=== PATIENT | female | born 1990 | race Caucasian/White ===

== ENCOUNTER 2017-10-29 14:06 | Emergency (ER) | payer SELFPAY ==
[2017-10-29 15:07] LABS: Urine Blood NEGATIVE (NEG); Urine Glucose NEGATIVE (NEG); Urine Protein NEGATIVE (NEG); Urine Specific Gravity >1.030 (1.005-1.030)
--- NOTE | 2017-10-29 15:33 | EDPHYS ---
Physician Documentation [facility] Name: Jenna Asher Age: 27 yrs Sex: Female : 1990 Arrival Date: 10/29/2017 Time: 14:09 Bed 11 Private MD: None, None ED Physician Agapito Sheldon HPI: 10/29 15:00 This 27 yrs old Female presents to ER via Ambulatory with complaints of Hand cp Swelling. 15:00 The patient or guardian reports injury, pain, swelling, tenderness. The complaints cp affect the MCP of right middle finger and MCP of right ring finger. Context: resulted from a fall. Onset: The symptoms/episode began/occurred 3 day(s) ago. Associated signs and symptoms: Pertinent positives: tingling distally, swelling, tenderness, Pertinent negatives: fever. 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 - Social history:: Smoking status: Patient uses tobacco products, denies chronic smoking, but will smoke occasionally, Patient uses alcohol, occasionally. - Ebola Screening: : Patient negative for fever greater than or equal to 101.5 degrees Fahrenheit, and additional compatible Ebola Virus Disease symptoms Patient denies exposure to infectious person Patient denies travel to an Ebola-affected area in the 21 days before illness onset. ROS: 15:05 Constitutional: Negative for body aches, chills, fever, poor PO intake. cp 15:05 Eyes: Negative for injury, pain, redness, and discharge. cp 15:05 ENT: Negative for drainage from ear(s), ear pain, sore throat, difficulty swallowing, difficulty handling secretions. 15:05 Cardiovascular: Negative for chest pain. 15:05 Respiratory: Negative for cough, wheezing. 15:05 Abdomen/GI: Negative for abdominal pain, vomiting, diarrhea, constipation. 15:05 MS/extremity: Positive for contusion, pain, swelling, tenderness, of the MCP of right ring finger and MCP of right middle finger, Negative for decreased range of motion, deformity. 15:05 Skin: Negative for cellulitis, rash. 15:05 Neuro: Negative for numbness, tingling. 15:05 All other systems are negative. Exam: 15:12 Constitutional: The patient appears in no acute distress, alert, awake, well developed, cp well nourished. 15:12 Head/Face: Normocephalic, atraumatic. cp 15:12 Eyes: Periorbital structures: appear normal, Conjunctiva: normal, no exudate, no injection, Lids and lashes: appear normal, bilaterally. 15:12 ENT: External ear(s): are unremarkable, Nose: is normal, Mouth: is normal, Posterior pharynx: is normal, airway is patent. 15:12 Chest/axilla: Inspection: normal. 15:12 Cardiovascular: Rate: normal. 15:12 Respiratory: the patient does not display signs of respiratory distress, Respirations: normal, no use of accessory muscles, no retractions, labored breathing, is not present. 15:12 Abdomen/GI: Exam negative for discomfort, distension, guarding, Inspection: abdomen appears normal. 15:12 Musculoskeletal/extremity: Extremities: grossly normal except: noted in the MCP of right ring finger and MCP of right middle finger: pain, swelling, tenderness, There is no evidence of decreased ROM, deformity, cellulitis, Perfusion: the extremity is normally perfused throughout, Sensation intact. Vital Signs: 14:14 BP 125 / 84; Pulse 67; Resp 18; Temp 99.0(O); Pulse Ox 99% on R/A; Weight 59.42 kg; hj Height 5 ft. 2 in. (157.48 cm); Pain 4/10; 14:14 Body Mass Index 23.96 (59.42 kg, 157.48 cm) hj MDM: 14:44 Patient medically screened. cp 15:30 Differential diagnosis: dislocation, closed fracture, contusion, abrasion, cellulitis. cp Test interpretation: by ED physician or midlevel provider: plain radiologic studies. 15:31 Data reviewed: vital signs, nurses notes, radiologic studies, plain films. cp 15:31 Counseling: I had a detailed discussion with the patient and/or guardian regarding: the cp historical points, exam findings, and any diagnostic results supporting the discharge/admit diagnosis, radiology results, to return to the emergency department if symptoms worsen or persist or if there are any questions or concerns that arise at home. Response to treatment: the patient's symptoms have mildly improved after treatment, and as a result, I will discharge patient. 10/29 14:32 Order name: Urine Dipstick--Ancillary (enter results); Complete Time: 15:26 ag 10/29 14:32 Order name: Urine --Ancillary (enter results); Complete Time: 15:26 ag 10/29 14:16 Order name: XRAY Hand RIGHT 3 View 10/29 14:16 Order name: Urine Dipstick-Ancillary (obtain specimen); Complete Time: 14:26 10/29 14:16 Order name: Urine Test (obtain specimen); Complete Time: 14:26 hj 10/29 15:03 Order name: Splint: right volar splint; Complete Time: 15:45 cp 10/29 15:03 Order name: Maxim Wrap; Complete Time: 15:45 cp Administered Medications: No medications were administered Disposition: 10/29/17 15:32 Discharged to Home. Impression: Contusion of right hand. - Condition is Stable. - Discharge Instructions: Hand Contusion. - Prescriptions for Ibuprofen 800 mg Oral Tablet - take 1 tablet by ORAL route every 8 hours As needed take with food; 30 tablet. - Work release form, Medication Reconciliation Form, Thank You Letter, Antibiotic Education, Prescription Opioid Use form. - Follow up: Private Physician; When: 2 - 3 days; Reason: Recheck today's complaints. - Problem is new. - Symptoms have improved. Addendum: 10/31/2017 09:21 Co-signature as Attending Physician, Agapito Sheldon MD I agree with the assessment and c klein plan of care. Signatures: Dispatcher [employer] [facility] Agapito Sheldon MD MD cha Williams, Irene RN RN iw Jose Carmichael RN RN Agapito Schmidt PA PA cp Corrections: (The following items were deleted from the chart) 10/29 15:54 15:32 10/29/2017 15:32 Discharged to Home. Impression: Contusion of right hand. iw Condition is Stable. Forms are Medication Reconciliation Form, Thank You Letter, Antibiotic Education, Prescription Opioid Use. Follow up: Private Physician; When: 2 - 3 days; Reason: Recheck today's complaints. Problem is new. Symptoms have improved. cp
--- NOTE | 2017-10-29 15:33 | ER ---
Nurse's Notes [facility] Name: Jenna Asher Age: 27 yrs Sex: Female : 1990 Arrival Date: 10/29/2017 Time: 14:09 Bed 11 Private MD: None, None Diagnosis: Contusion of right hand Presentation: 10/29 14:11 Presenting complaint: Patient states: last 26 of October, i slipped off the back of the truck and fell and i didn't land very good; now my R hand is swollen; denies hitting head and LOC; reports numbness and tingling;. Transition of care: patient was not received from another setting of care. Onset of symptoms was October 29, 2017. Risk Assessment: Do you want to hurt yourself or someone else? Patient reports no desire to harm self or others. Initial Sepsis Screen: Does the patient meet any 2 criteria? No. Patient's initial sepsis screen is negative. Does the patient have a suspected source of infection? No. Patient's initial sepsis screen is negative. Care prior to arrival: None. 14:11 Method Of Arrival: Ambulatory 14:11 Acuity: PORTER 4 Triage Assessment: 14:13 General: Appears in no apparent distress. uncomfortable, Behavior is calm, cooperative, hj appropriate for age. Pain: Complains of pain in right hand. 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 - Social history:: Smoking status: Patient uses tobacco products, denies chronic smoking, but will smoke occasionally, Patient uses alcohol, occasionally. - Ebola Screening: : Patient negative for fever greater than or equal to 101.5 degrees Fahrenheit, and additional compatible Ebola Virus Disease symptoms Patient denies exposure to infectious person Patient denies travel to an Ebola-affected area in the 21 days before illness onset. Screenin:13 Abuse screen: Denies threats or abuse. Denies injuries from another. Nutritional screening: No deficits noted. Tuberculosis screening: No symptoms or risk factors identified. Fall Risk None identified. Assessment: 15:28 General: Appears in no apparent distress. Behavior is calm, cooperative. Pain: iw Complains of pain in right hand. Neuro: Level of Consciousness is awake, alert, obeys commands, Oriented to person, place, time. 15:30 Cardiovascular: Patient's skin is warm and dry. Respiratory: Respiratory effort is iw even, unlabored. Derm: Bruising that is dark purple, on right hand. Musculoskeletal: Range of motion: limited in right wrist. Vital Signs: 14:14 BP 125 / 84; Pulse 67; Resp 18; Temp 99.0(O); Pulse Ox 99% on R/A; Weight 59.42 kg; hj Height 5 ft. 2 in. (157.48 cm); Pain 4/10; 14:14 Body Mass Index 23.96 (59.42 kg, 157.48 cm) ED Course: 14:09 Patient arrived in ED. mr 14:10 None, None is Private Physician. mr 14:12 Triage completed. hj 14:14 Arm band placed on left wrist. hj 14:15 Patient has correct armband on for positive identification. Bed in low position. Call hj light in reach. Side rails up X 1. 14:43 Agapito Schuler PA is PHCP. cp 14:43 Agapito Sheldon MD is Attending Physician. cp 14:46 XRAY Hand RIGHT 3 View In Process Unspecified. EDAK 14:56 Ema Balderrama, RN is Primary Nurse. iw 15:50 No provider procedures requiring assistance completed. Patient did not have IV access iw during this emergency room visit. Administered Medications: No medications were administered Outcome: 15:32 Discharge ordered by MD. cp 15:50 Discharged to home ambulatory, with family. iw 15:50 Condition: good 15:50 Discharge instructions given to patient, family, Instructed on discharge instructions, follow up and referral plans. medication usage, Demonstrated understanding of instructions, follow-up care, medications, Prescriptions given X 1. 15:54 Patient left the ED. iw Signatures: Dispatcher [employer] EDAK Ximena Willard Irene, RN RN Jose Carmichael RN RN Agapito Schuler PA PA cp Corrections: (The following items were deleted from the chart) 14:17 14:14 Pulse 67bpm; Resp 18bpm; Pulse Ox 99% RA; Temp 99.0F Oral; 59.42 kg; Height 5 ft. hj 2 in.; BMI: 23.9; Pain /10; hj 14:18 14:11 Presenting complaint: Patient states: last 26 of October, i slipped off the back of the truck and fell and i didn't land very good; now my R is swollen; denies hitting head and LOC; reports numbness and tingling;
--- NOTE | 2017-10-29 16:43 | RAD REPORT ---
EXAM DESCRIPTION: RAD - Hand Right 3 View - 10/29/2017 2:46 pm CLINICAL HISTORY: Right hand pain status post injury FINDINGS: No acute fracture or dislocation is seen. An old fracture of the fifth metatarsal neck is present
== END 2017-10-29 15:54 | disposition home or self-care (01) ==
LOC: ER 14:06
DX: S60.221A Contusion of right hand, initial encounter (principal); W18.39XA Other fall on same level, initial encounter; Y93.9 Activity, unspecified; Y92.9 Unspecified place or not applicable; Z88.1 Allergy status to other antibiotic agents; Z72.0 Tobacco use
CPT/HCPCS: 81003; 81025; 99283

== ENCOUNTER 2020-08-21 09:31 | Day surgery (SDC) | payer OTHER ==
[2020-08-20 15:32] LABS: Absolute Lymphocytes (CBC) 2.8 K/uL (0.7-4.9); Basophils % 0.7 % (0-1.3); Hematocrit 33.8 % (36.0-45.0); Lymphocytes % 32.9 % (15.3-44.8); MPV 7.2 fL (7.6-11.3); RBC Red Blood Cell Count 3.89 M/uL (3.86-4.86)
[2020-08-21] MEDS ORDERED: CEFAZOLIN/SWI 1gm 1 GM/10 ML SYR ONE (09:58)
[2020-08-21] MEDS ORDERED: Ringers Lactate 1,000 ML IV ONE (09:58)
[2020-08-21] MEDS ORDERED: MIDAZOLAM HCL 2 MG/2 ML INJ ONE (10:49)
[2020-08-21] MEDS ORDERED: propofoL 200 MG/20 ML VIAL IV ONE (10:49)
[2020-08-21] MEDS ORDERED: GLYCOPYRROLATE 0.2 MG/ML SYR ONE (10:51)
[2020-08-21] MEDS ORDERED: FENTANYL CITR 250 MCG/5 ML ONE (10:51)
[2020-08-21] MEDS ORDERED: ROCURONIUM 50 MG/5 ML VIAL IV ONE (10:52)
[2020-08-21] MEDS ORDERED: ONDANSETRON 4 MG/2 ML VIAL ONE (11:22)
[2020-08-21] MEDS ORDERED: dexAMETHasone 10 MG/ML VIAL ONE (11:33)
[2020-08-21] MEDS: FENTANYL CITR 100 MCG/2 ML ONE ×2 (12:14→12:25)
[2020-08-21] MEDS ORDERED: FENTANYL CITR 100 MCG/2 ML ONE (12:58)
[2020-08-21] MEDS ORDERED: HYDROCODONE/APAP 7.5/325 MG TAB ONE (13:08)
[2020-08-21 13:42] VITALS: O2SAT 98
[2020-08-21 14:43] VITALS: BP 114/55; TEMP 97.3
--- NOTE | 2020-08-21 19:27 | OP ---
Date of Procedure: 08/21/2020 Surgeon: Héctor Wadsworth MD Bronc Buster: NELSON Santizo Preoperative Diagnosis: Incarcerated umbilical hernia. Postoperative Diagnosis: Incarcerated umbilical hernia. Procedure: Laparoscopic repair of incarcerated umbilical hernia. Estimated Blood Loss: Minimal. Specimen: Hernia sac. Findings: As above. Anesthesia: General. Complications: None. Disposition: The patient tolerated the procedure in stable condition and taken to Recovery in good g eneral condition. Procedure In Detail: The patient was brought to the OR and placed in supine position. General anest hesia begun. The patient was prepped and draped in the usual sterile fashion. Marcaine 0.5% was inf iltrated locally. A 15-blade was used to make a 1 cm left upper quadrant incision. Subcutaneous tis sues were divided. Fascia was identified and divided. A #1 Vicryl stay suture was placed. Peritone al cavity was entered with sharp and blunt dissection. A 12 mm trocar was placed into the peritoneal cavity under direct vision. Pneumoperitoneum was established and then, 5 mm trocar placed in the le ft lower quadrant. Laparoscopy revealed incarcerated omentum into the hernia just above the umbilicu s. This was reduced with sharp and blunt dissection. Bleeding controlled with cautery. Then, a 4 c m incision was made transverse in nature above the umbilicus. Subcutaneous tissues were divided. He rnia sac identified and hernia sac excised. Approximately a 4 cm defect remained in the fascia. Goo d fascial edges obtained. Primary closure of the fascia accomplished with #1 PDS. Then, pneumoperit oneum reestablished and Bard balloon system mesh 15 x 10 cm placed in the peritoneal cavity and deplo yed in the standard fashion. Balloon system retrieved after AbsorbaTack was used to tack the mesh to the peritoneal surface. All components were retrieved in 1 piece and then the entire coverage of th e hernia defect was accomplished with 3 cm borders. There was no evidence of bleeding or bowel injur y appreciated. Subsequently, all trocars were removed under direct vision. Stay sutures were tied t o each other to reapproximate the fascial defect. Subcutaneous wounds were irrigated. Bleeding was controlled with cautery. A 3-0 was chromic used to approximate the subcutaneous tissues and close th e skin. Sterile dressing was applied. The patient was awakened and taken to Recovery in good genera l condition. Discharge Note: The patient will go to Day Surgery and home when stable. Disposition: Home. Condition: Stable. Discharge Instructions: Resume home medications and diet. Activity as tolerated. No heavy lifting. Remove outer dressing in 2 days. Shower. Keep wound clean and dry. Keep Steri-Strips on at all t imes. Incentive spirometry as ordered. Abdominal binder as ordered. Tylenol No.3 one tablet p.o. q .4 p.r.n. pain. Follow up in my office in 1 week. Call for appointment. /MODL Voice ID: [id number] Report ID: [id number]
== END 2020-08-21 14:20 | disposition home or self-care (01) ==
LOC: OR 09:31
PROVIDERS: ATTEND Surgery
PROC: 0WUF4JZ Supplement Abdominal Wall with Synthetic Substitute, Percutaneous Endoscopic Approach (ICD-10-PCS; principal; 2020-08-21 11:00)
DX: K42.0 Umbilical hernia with obstruction, without gangrene (principal); U07.1 COVID-19
CPT/HCPCS: 85025; 36415; 84703; 88302; 49653; U0003; J2704; J3010 ×3; J1100; J0690; J7120; J2405; J2250

== ENCOUNTER → 2023-04-12 | Emergency (ER) | payer OTHER, SELFPAY ==
[~2023-04-12] MED LIST: CEFAZOLIN SODIUM 1 GM/VIAL ONE; FLUORESCEIN SODIUM 1 MG/WRAP ONE; KETOROLAC 30 MG/ML INJ ONE; LIDOCAINE HCL/PF 3.5% OPTH GEL ONE; MORPHINE 2 MG/ML SYR ONE; MORPHINE 4 MG/ML SYR ONE; NA CHLORIDE 0.9% 1,000 ML ONE; NA CHLORIDE 0.9% 50 ML ONE; ONDANSETRON 4 MG/2 ML VIAL ONE; TDAP (DIPHTH,PERTUSS(ACELL),TET VAC) 0.5 ML VIAL IMVAC ONE
--- OUTSIDE RECORDS SUMMARY | 2023-04-12 02:20 | XMS REPORT | Continuity of Care Document ---
Author Name Unknown Address [address] [facility] [address] [place], [place] [id number] [place] [address] [facility] Address [address] [facility] [address] [place] [address] Care Team Providers Care Jacket Preparer Name Role Phone Unknown, Physician Primary Care Physician SACHA Hernandez Attending Clinician Unavail able Payers Payer Name Policy Type Policy Number Effective Date Expirati on Date Source [facility] MEDICAID STAR [id number] 2020 00:00:00 Problems Condition Name Condition Details Condition Category Status Onset Date Resolution Date Last Treatment Date Treating Clinician Comments Source No known active problems No known active problems Disease [facility] Allergies, Adverse Reactions, Alerts Allergy Name Allergy Type Status Severity Reaction(s) Onset Date Inactive Date Treating Clinician Comments Source Azithrom ycin Allergy to substanc e Active Swelling 08-17 00:00: 00 [facility] Social History Social Habit Start Date Stop Date Quantity Comments Source History of tobacco use Passive smoker [facility] Exposure to SARS-CoV-2 (event) 2021-12-07 00:00:00 2021-12-17 11:58:00 Not sure [facility] Tobacco use and exposure 2021-12-17 00:00:00 2021-12-17 00:00:00 Smokeless tobacco non-user [facility] Alcohol intake 2021-12-17 00:00:00 2021-12-17 00:00:00 Ex-drinker (finding) [facility] Sex Assigned At 1990 00:00:00 1990 00:00:00 F [facility] Smoking Status Start Date Stop Date Source Never smoked tobacco [facility] Medications Ordered Medication Name Filled Medication Name Start Date Stop Date Current Medication? Ordering Clinician Indication Dosage Frequency Signature (SIG) Comments Components Source No known medications 12-17 12:09: 24 No No known medication s [facility] Vital Signs Vital Name Observation Time Observation Value Comments S ource Systolic blood pressure 2021-12-17 17:05:00 118 mm[Hg] [facility] Diastolic blood pressure 2021-12-17 17:05:00 78 mm[Hg] [facility] Heart rate 2021-12-17 17:05:00 68 /min [facility] Body temperature 2021-12-17 17:05:00 36.44 Jaida [facility] Body height 2021-12-17 17:05:00 157.5 cm [facility] Body weight 2021-12-17 17:05:00 80.287 kg [facility] BMI 2021-12-17 17:05:00 32.37 kg/m2 [facility] Encounters Start Date/Time End Date/Time Encounter Type Admission Type Attending Clinicians Care Facility Care Department Encounter ID Source 2021-12-17 12:00:00 2021-12-17 12:15:00 Office Visit SACHA ROONEY [address] [facility] [id number] [facility]
[2023-04-12 04:17] LABS: Absolute Lymphocytes (CBC) 2.7 K/uL (0.7-4.9); Hematocrit 42.3 % (36.0-45.0); Lymphocytes % 37.2 % (15.3-44.8); MCV 99.2 fL (80-100); MPV 6.7 fL (7.6-11.3); Platelets 340 thou/uL (152-406); RBC Red Blood Cell Count 4.26 M/uL (3.86-4.86)
[2023-04-12 04:32] LABS: Potassium 3.2 mEq/L (3.5-5.1)
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
[2023-04-12 12:21] VITALS: BP 124/87; TEMP 98; O2SAT 98
== END ==
LOC: ER 02:16
DX: S06.0X9A Concussion with loss of consciousness of unspecified duration, initial encounter (principal); S01.111A Laceration without foreign body of right eyelid and periocular area, initial encounter; H11.33 Conjunctival hemorrhage, bilateral; F17.210 Nicotine dependence, cigarettes, uncomplicated; Z23 Encounter for immunization; Z88.1 Allergy status to other antibiotic agents; Z11.52 Encounter for screening for COVID-19
CPT/HCPCS: 36415; 70450; 70486; 72125; 76377; 80048; 85025; 86850; 86900; 86901; 87635; 90471; 99285; J0690; J2270; J2405; J7030

== ENCOUNTER 2024-08-15 19:33 | Emergency (ER) | payer OTHER ==
--- OUTSIDE RECORDS SUMMARY | 2024-08-15 19:42 | XMS REPORT | Continuity of Care Document ---
Author Name Unknown Address [address] [facility] [address] [place] [address] [facility] Address [address] [facility] 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 Role Phone No MD, Pcp Primary Care Physician Unavailab MARIAN Joya Attending Clinician Unavail able MARIAN PERDOMO Attending Clinician Unavail able Doctor Unassigned, Hatch Attending Clinician Jalyn Head MA Attending Clinician Unavail able OVIDIO HUFFMAN Attending Clinician Unavail able TEMI VAIL Attending Clinician Temi Miranda CNM Attending Clinician [phone] Visit, [facility] Nurse Attending Clinician Unava ELLA Han Attending Clinician ELLA Cotter Attending Clinician Bree Biswas MD, Ella Attending Clinician + [phone] Behzad WORTHY, Aminata Sanchez Attending Clinician [phone] Akinsipe WHP, Ovidio Jeronimo Attending Clinician + CHELY FRANKLIN Attending Clinician Unavailab CHELY Leiva Attending Clinician Unavailab janeen Franklin DO, Chely Lima Attending Clinician [phone] ZAKIYA CAMACHO Attending Clinician Unavailable Doug PLAN COORDINATOR, Zakiya Attending Clinician [phone] BENJA NEWMAN Attending Clinician Unavailable BENJA NEWMAN Attending Clinician Unavailable Benja Newman MD Attending Clinician [phone] 1, [facility] Us Room Attending Clinician Unavailab janeen Hale RN, Yahaira Mccann Attending Clinician Unava ilTemi Adams CNM Attending Clinician [phone] VAMSI WALTERS Attending Clinician Unavail able Vamsi Walters DNP Attending Clinician + [phone] Jennifer Castro MD, Abbey Attending Clinician + LOUISE BORGES Attending Clinician UnavailLOUISE Luna Attending Clinician UnavailRENE Post Attending Clinician Unavailable Rene Lamb MD Attending Clinician [phone] Akinsipe [facility], Ovidio Jeronimo Attending Clinician + SUZAN CEDENO Attending Clinician Unavailable Ultrasound, [facility] Attending Clinician UnavailSuzan Villagomez MD Attending Clinician [phone] LabDiane Attending Clinician Unavailable ECTOR IRVIN Attending Clinician Unavailfabien watters 1, [facility] Usg Room Attending Clinician UnavailEctor Avery MD Attending Clinician [phone] Doctor Unassigned, Hatch Attending Clinician U DIONICIO Han Attending Clinician Unavailable Rebecca WORTHY, Danielle Attending Clinician [phone] MEHTADIONICIO Attending Clinician Unavailable Temi Iraheta MA Attending Clinician Unavailabl gilbert Epps FOUNTAIN SERVER, Leslee Attending Clinician [phone] Nurse, [facility] Attending Clinician Un available Unknown, Attending Attending Clinician Unavailab janeen Lara FOUNTAIN SERVER, Windy Attending Clinician +[phone] WINDY LARA Attending Clinician Unavailable QASIM BURCH Attending Clinician Unavailable AGATA DAVIS Attending Clinician Unavailable Ryan WORTHY, Agata Attending Clinician [phone] SACHA ROONEY Attending Clinician Unavail able Thuan FOUNTAIN SERVER, Fang Attending Clinician [phone] RICKY TANNER Attending Clinician Unavailable Flores PAC, Ricky Ramos Attending Clinician [phone] FANG LAROSE Attending Clinician Unavailabl e Provider, Ang-Rmchp Temp Attending Clinician Angella vailable Visit, AnaiRmchjeanne Nurse Attending Clinician Unava ilable Tacos FOUNTAIN SERVER, Tanesha Mccann Attending Clinician [phone] TANESHA FRANKLIN Attending Clinician Unavailkalyan Camacho RN, Peggy Rmaos Attending Clinician Unavaila CASSIA Landon Attending Clinician Unavailable Bruce FOUNTAIN SERVER, Cassia Attending Clinician [phone] Agus FOUNTAIN SERVER, Veronique Mina Attending Clinician + [phone] Germna PACGary Attending Clinician [phone] VERONIQUE GOLDSMITH Attending Clinician Unavailab Benja Qureshi MD Attending Clinician [phone] Terry Newman DO Attending Clinician [phone] Sridhar Chaudhry MD Attending Clinician [phone] Sonja Nair MD Attending Clinician [phone] UNKNOWN, ATTENDING Attending Clinician Unavailab janeen Smith, Briseyda Urgent Attending Clinician Unavailable ABBEY PAGE Attending Clinician Unav ailable Sylvia ONEILL, Christine Attending Clinician Angella vailable SRIDHAR CHAUDHRY Attending Clinician Unavailabl ELLA Barreto Admitting Clinician Unavai lable FISH, SONJA Admitting Clinician Unavailable Ella Biswsa MD Admitting Clinician +- [phone] RENE LMAB Admitting Clinician Unavailable Rene Lamb MD Admitting Clinician +[phone] DIONICIO MEHTA Admitting Clinician Unavailable CHELY FRANKLIN Admitting Clinician UnavailSonja Mcdonald MD Admitting Clinician [phone] Payers Payer Name Policy Type Policy Number Effective Date Expirati on Date Source [facility] [id number] 2023 00:00:00 [facility] MEDICAID [id number] 2020 00:00:00 [place] [id number] 2023 00:00:00 2023 00:00:00 [facility] MEDICA[facility] STAR [id number] 2020 00:00:00 2022 00:00:00 [facility]-RM[facility] [id number] 2019 00:00:00 Problems Condition Name Condition Details Condition Category Status Onset Date Resolution Date Last Treatment Date Treating Clinician Comments Source Supervisio n of high risk in third trimester Supervisio n of high risk in third trimester Disease Active 9-22 00:00: 00 [facility] 36 weeks gestation of 36 weeks gestation of Disease Active 9-21 00:00: 00 [facility] Supervisio n of high-risk Supervisio n of high-risk Disease Active 9-17 00:00: 00 [facility] Anemia of mother in , antepartum Anemia of mother in , antepartum Disease Active 8-22 00:00: 00 [facility] GBS (group B streptococ cus) UTI complicati ng GBS (group B streptococ cus) UTI complicati ng Disease Active 3- 00:00: 00 Overview: Formattin g of this note might be different from the original. Julieta neg [facility] Overweight (BMI 25.0-29.9) Overweight (BMI 25.0-29.9) Disease Active 2-28 00:00: 00 [facility] History of asthma History of asthma Disease Active 08-23 00:00: 00 Overview: Formattin g of this note might be different from the original. As child [facility] Previous delivery affecting , antepartum Previous delivery affecting , antepartum Disease Active 08-23 00:00: 00 [facility] No known active problems No known active problems Disease [facility] 23 weeks gestation of 23 weeks gestation of Disease Resolve d 0 3-30 00:00: 00 2023-10-18 00:00:00 2023-10-18 14:53:09 [facility] Lump or mass in breast Lump or mass in breast Disease Resolve d 7-21 00:00: 00 2023-06-22 00:00:00 2023-06-22 11:59:16 [facility] Obesity (BMI 30-39.9) Obesity (BMI 30-39.9) Disease Resolve d 3-30 00:00: 00 2023-06-21 00:00:00 2023-06-21 11:06:15 [facility] COVID-19 virus IgG antibody detected COVID-19 virus IgG antibody detected Disease Resolve d 3-15 00:00: 00 2023-06-21 00:00:00 2023-06-21 11:06:12 [facility] anemia anemia Disease Resolve d 2018-04 0- 00:00: 00 2023-06-21 00:00:00 2023-06-21 11:06:16 [facility] Rubella non-immune status, antepartum Rubella non-immune status, antepartum Disease Resolve d 5 00:00: 00 2023-06-21 00:00:00 2023-06-21 11:06:17 [facility] Nausea and vomiting during prior to 22 weeks gestation Nausea and vomiting during prior to 22 weeks gestation Disease Resolve d 9-14 00:00: 00 2020-08-12 00:00:00 2020-08-12 11:39:31 [facility] Obesity in Obesity in Disease Resolve d 2019-0 9-14 00:00: 00 2020-08-12 00:00:00 2020-08-12 11:39:32 [facility] Nausea and vomiting during prior to 22 weeks gestation Nausea and vomiting during prior to 22 weeks gestation Disease Resolve d 2019-0 9-14 00:00: 00 2020-08-12 00:00:00 2020-08-12 11:39:31 [facility] BMI 36.0-36.9, adult BMI 36.0-36.9, adult Disease Resolve d 2018- 2-25 00:00: 00 2020-08-12 00:00:00 2020-08-12 11:39:37 [facility] Previous delivery affecting Previous delivery affecting Disease Resolve d 2018-04 2-25 00:00: 00 2020-08-12 00:00:00 2020-08-12 11:39:31 [facility] Supervisio n of high risk in second trimester Supervisio n of high risk in second trimester Disease Resolve d 2018-0 5-01 00:00: 00 2020-08-12 00:00:00 2020-08-12 11:39:26 [facility] Multiparit y Multiparit y Disease Resolve d 2018-0 5-01 00:00: 00 2020-08-12 00:00:00 2020-08-12 11:39:27 [facility] 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 Disease Resolve d 2018- 2-09 00:00: 00 2019-05-10 00:00:00 2019-05-10 15:32:24 [facility] 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 Disease Resolve d 2018- 2-09 00:00: 00 2019-05-10 00:00:00 2019-05-10 15:32:24 [facility] Epistaxis Epistaxis Disease Resolve d 2018-0 5-29 00:00: 00 2019-05-10 00:00:00 2019-05-10 15:32:25 [facility] Obesity affecting Obesity affecting Disease Resolve d 2018-0 5- 00:00: 00 2019-05-10 00:00:00 2019-05-10 15:32:20 [facility] Cessation of tobacco use in previous 12 months Cessation of tobacco use in previous 12 months Disease Resolve d 2018-0 5-01 00:00: 00 2019-05-10 00:00:00 2019-05-10 15:32:27 [facility] Placenta previa in third trimester Placenta previa in third trimester Disease Resolve d 8-19 00:00: 00 2019-03-19 00:00:00 2019-03-19 11:04:41 [facility] Vaginal bleeding in Vaginal bleeding in Disease Resolve d 2018-04 0-15 00:00: 00 2019-03-05 00:00:00 2019-03-05 12:56:45 [facility] Allergies, Adverse Reactions, Alerts Allergy Name Allergy Type Status Severity Reaction(s) Onset Date Inactive Date Treating Clinician Comments Source Azithrom ycin Drug Allergy Active Hives 08-17 00:00: 00 [facility] AZITHROM YCIN DRUG INGREDI Active Med Hives 08-17 00:00: 00 [facility] Azithrom ycin Allergy to substanc e Active Swelling 08-17 00:00: 00 [facility] Family History Family Member Diagnosis Comments Start Date Stop Date Sourc e Natural father Arthritis Unive [facility] Natural father Diabetes Unive [facility] Hy[facility] Paternal Aunt Arthritis Univer [facility] Paternal Aunt Diabetes Univer [facility] Natural sister Other - see comments [facility] Social History Social Habit Start Date Stop Date Quantity Comments Source ASSERTION 2023-05-18 00:00:00 [facility] History SDOH Alcohol Frequency [facility] History SDOH Alcohol Std Drinks [facility] History SDOH Alcohol Binge [facility] Tobacco use and exposure 2023-09-13 00:00:00 2023-09-13 00:00:00 Smokeless tobacco non-user [facility] Alcoholic beverage intake 2023-09-13 00:00:00 2023-09-13 00:00:00 Ex-drinker (finding) [facility] Exposure to SARS-CoV-2 (event) 2022-08-13 00:00:00 2022-08-23 09:57:00 Not sure [facility] Alcohol intake 2021-12-17 00:00:00 2021-12-17 00:00:00 Ex-drinker (finding) [facility] History of Social function 2021-12-17 00:00:00 2021-12-17 00:00:00 [facility] Alcohol Comment 2020-09-02 00:00:00 2020-09-02 00:00:00 occasional [facility] History of tobacco use 2018-08-16 00:00:00 Cigarette Smoker [facility] Sex assigned at 1990 00:00:00 1990 00:00:00 F [facility] Smoking Status Start Date Stop Date Source Ex-smoker 2023-09-13 00:00:00 2023-09-13 00:00:00 [facility] Smokes tobacco daily 2023-04-20 00:00:00 [facility] Never smoked tobacco [facility] Medications Ordered Medication Name Filled Medication Name Start Date Stop Date Current Medication? Ordering Clinician Indication Dosage Frequency Signature (SIG) Comments Components Source gabapentin 300 mg capsule 01-15 00:00: 00 Yes [id number] 300mg Take 1 capsule by mouth in the morning and 1 capsule at noon and 1 capsule in the evening. [facility] vitamin w/FA tablet 01-15 00:00: 00 Yes [id number] 1{tbl} Take 1 tablet by mouth in the morning. [facility] docusate 100 mg capsule 01-15 00:00: 00 Yes [id number] 200mg Take 2 capsules by mouth once daily as needed for Constipati on. [facility] ferrous sulfate 325 mg (65 mg iron) tablet 01-15 00:00: 00 Yes [id number] 325mg Take 1 tablet by mouth in the morning. [facility] ibuprofen 800 mg tablet 01-15 00:00: 00 Yes [id number] 800mg Take 1 tablet by mouth every 8 (eight) hours as needed (pain). Take with food or milk. [facility] oxyCODONE 5 mg immediate release tablet 01-15 00:00: 00 01-23 04:59 :00 No [id number] 5mg Take 1 tablet by mouth every 6 (six) hours as needed for Pain (scale 7-10) for up to 7 days. Indication s: acute pain [facility] acetaminoph en (OFIRMEV) IV piggyback 1,000 mg 01-14 17:30: 00 01-14 18:31 :00 No 1000mg 1,000 mg, IV Piggyback, at 400 mL/hr Administer over 15 Minutes, ONCE, 1 dose, On Tue01/15/24 at 1230, Routine, Is the patient strict NPO and unable to tolerate oral medication s? Yes [facility] docusate (COLACE) capsule 200 mg 01-14 14:00: 00 Yes 200mg 200 mg, Oral, DAILY, First dose on Tue01/15/24 at 0900, Until Discontinu ed, Routine [facility] gabapentin (NEURONTIN) capsule 300 mg 01-14 13:00: 00 Yes 300mg 300 mg, Oral, TID, First dose on Tue01/15/24 at 0800, Until Discontinu ed, Routine [facility] simethicone (GAS RELIEF (SIMETHICON E)) chewable tablet 160 mg 01-14 13:00: 00 Yes 160mg 160 mg, Oral, TID, First dose on Tue01/15/24 at 0800, Until Discontinu ed, Routine [facility] HYDROmorpho ne (DILAUDID) injection 0.2 mg 01-14 11:02: 49 Yes .2mg 0.2 mg, Intravenou s, Q5MIN PRN, 4 doses, Starting on 01/15/24 at 0602, Until Discontinu ed, Routine, Pain (scale 7-10), Is this medication approved by a Faculty level provider? Yes, hourly team members approving Restricted medication : AMINATA CHILDS [facility] ibuprofen (IBU) tablet 800 mg 01-14 11:00: 00 Yes 800mg 800 mg, Oral, Q8H, First dose on Tue01/15/24 at 0600, Until Discontinu ed, Routine [facility] lactated ringers IV infusion 1,000 mL 01-14 10:30: 00 01-14 12:55 :59 No 1000mL at 125 mL/hr, 1,000 mL, IV Infusion, ONCE, 1 dose, On Tue01/15/24 at 0530, Routine [facility] rho(D) immune globulin (RHOPHYLAC) injection 300 mcg 01-14 09:33: 02 Yes 300ug [facility] oxyCODONE immediate release tablet 5 mg 01-14 09:32: 29 Yes 5mg 5 mg, Oral, Q6HPRN, Starting on Tue01/15/24 at 0432, Until Discontinu ed, Routine, Pain (scale 7-10), hourly team members approving Restricted medication : DESAI-JUSTINO IS, ELLA [facility] diphenhydrA MINE (BENADRYL) injection 25 mg 01-14 09:31: 20 Yes 25mg [facility] diphenhydrA MINE (BENADRYL) tablet 25 mg 01-14 09:31: 20 Yes 25mg [facility] ondansetron (ZOFRAN (PF)) injection 4 mg 01-14 09:31: 19 Yes 4mg [facility] bisacodyL (DULCOLAX) suppository 10 mg 01-14 09:31: 19 Yes 10mg [facility] magnesium hydroxide (MILK OF MAGNESIA) 400 mg/5 mL suspension 30 mL 01-14 09:31: 19 Yes 30mL [facility] lactated ringers IV infusion 1,000 mL 01-14 09:31: 19 Yes 1000mL [facility] midazolam (VERSED) injection 01-14 09:17: 00 01-14 09:47 :09 No IV Push, ONCE INTRA PROCEDURE, Starting on 01/15/24 at 0417, Until 01/15/24 at 0447, Routine, Intra-op [facility] acetaminoph en (OFIRMEV) IV piggyback 01-14 08:57: 00 01-14 09:47 :09 No IV Infusion, Administer over 15 Minutes, ONCE INTRA PROCEDURE, Starting on 01/15/24 at 0357, Until 01/15/24 at 044, Routine, Intra-op [facility] methylergon ovine (METHERGINE ) injection 01-14 08:55: 00 01-14 09:47 :09 No Intramuscu lar, ONCE INTRA PROCEDURE, Starting on Tue01/15/24 at 0355, Until Tue01/15/24 at 044, Routine, Intra-op [facility] FENTanyl (PF) (SUBLIMAZE) injection 01-14 08:52: 00 01-14 09:47 :09 No Epidural, ONCE INTRA PROCEDURE, Starting on 01/15/24 at 0352, Until 01/15/24 at 0447, Routine, Intra-op Univers [facility] propofoL IV infusion 01-14 08:51: 00 01-14 09:47 :09 No IV Infusion, ONCE INTRA PROCEDURE, Starting on 01/15/24 at 0351, Until 01/15/24 at 0447, Routine, Intra-op [facility] oxytocin (PITOCIN) 30 units in NS 500 mL IV infusion 01-14 08:49: 00 01-14 09:47 :09 No IV Infusion, CONTINUOUS PRN, Starting on 01/15/24 at 0349, Until 01/15/24 at 0447, Routine, Intra-op [facility] succinylcho line-sod Cl,iso(PF) 100 mg/5 mL (20 mg/mL) injection 01-14 08:46: 00 01-14 09:47 :09 No IV Push, ONCE INTRA PROCEDURE, Starting on Tue01/15/24 at 0346, Until Tue01/15/24 at 0447, Routine, Intra-op [facility] lactated ringers IV infusion 01-14 08:25: 00 01-14 09:47 :09 No IV Infusion, CONTINUOUS PRN, Starting on Tue01/15/24 at 0325, Until Tue01/15/24 at 0447, Routine, Intra-op [facility] sodium citrate-cit ivana acid (BICITRA) 500-334 mg/5 mL solution 30 mL 01-14 08:00: 38 01-14 08:08 :00 No 30mL 30 mL, Oral, PRE-PROCED URE ONCE, 1 dose, Starting on 01/15/24 at 0300, Until Tue01/15/24 at 0308, Routine, Surgery/Pr ocedure [facility] ondansetron (ZOFRAN (PF)) injection 8 mg 01-14 07:34: 00 01-14 07:43 :00 No 8mg 8 mg, Slow IV Push, ONCE, On 01/15/24 at 0245, For 1 dose, Doses of ondansetro n 16 mg and above need to be administer ed via IV piggyback. For Dose >=24mg ECG monitoring is advisable. [facility] NaCl 0.9% (NS) IV infusion 1,000 mL 01-14 06:45: 00 01-14 09:33 :01 No 1000mL at 125 mL/hr, IV Infusion, CONTINUOUS , Starting on 01/15/24 at 0145, Until 01/15/24 at 0433, Routine [facility] NaCl 0.9% (NS) IV infusion 1,000 mL 01-14 02:30: 00 01-14 03:30 :00 No 1000mL at 999 mL/hr, IV Infusion, ONCE, 1 dose, On 01/14/24 at 2130, Routine [facility] ondansetron (ZOFRAN (PF)) injection 8 mg 01-14 02:15: 00 01-14 02:10 :00 No 8mg 8 mg, Slow IV Push, ONCE, On 01/14/24 at 2115, For 1 dose, Doses of ondansetro n 16 mg and above need to be administer ed via IV piggyback. For Dose >=24mg ECG monitoring is advisable. [facility] proMETHazin e 25 mg tablet 01-02 00:00: 00 01-15 00:00 :00 No [id number] 25mg Take 1 tablet by mouth every 4 (four) hours as needed for Nausea and Vomiting (N/V). [facility] Iron Fum & P-FA-Vit B & C No.9 (INTEGRA PLUS) 125 mg iron- 1 mg Cap 12-14 00:00: 00 01-15 00:00 :00 No [id number] 1{capsu le} Take 1 capsule by mouth in the morning. [facility] proMETHazin e 25 mg tablet 12-13 00:00: 00 01-01 00:00 :00 No [id number] 25mg Take 1 tablet by mouth every 4 (four) hours as needed for Nausea and Vomiting (N/V). [facility] metroNIDAZO LE 500 mg tablet 12-13 00:00: 00 12-21 04:59 :00 No [id number] 500mg Take 1 tablet by mouth in the morning and 1 tablet in the evening. Do all this for 7 days. [facility] fluconazole (DIFLUCAN) 150 mg tablet 12-13 00:00: 00 12-14 04:59 :00 No [id number] 150mg Take 1 tablet by mouth once now for 1 dose. [facility] proMETHazin e 25 mg tablet 12-12 00:00: 00 12-13 00:00 :00 No [id number] 25mg Take 1 tablet by mouth every 4 (four) hours as needed for Nausea and Vomiting (N/V). [facility] Lidocaine (LIDOCARE) 4 % patch 1 Patch 11-28 16:30: 00 11-29 04:29 :00 No 1{patch } 1 Patch, Topical, Administer over 12 Hours, ONCE, 1 dose, On Tue11/29/23 at 1130, Routine [facility] ondansetron (ZOFRAN-ODT ) disintegrat ing tablet 4 mg 11-28 16:30: 00 11-28 15:45 :00 No 4mg 4 mg, Oral, ONCE, 1 dose, On Tue11/29/23 at 1130, Routine [facility] acetaminoph en (TYLENOL) tablet 1,000 mg 11-28 15:45: 00 11-28 15:45 :00 No 1000mg 1,000 mg, Oral, ONCE, 1 dose, On Tue11/29/23 at 1045, CHANNING [facility] ondansetron 4 mg disintegrat ing tablet 11-28 00:00: 00 01-16 00:00 :00 No [id number] 4mg Take 1 tablet by mouth every 8 (eight) hours as needed for Nausea and Vomiting (N/V). [facility] esomeprazol e (NEXIUM) 20 mg capsule -11 00:00: 00 01-15 00:00 :00 No [id number] 20mg Take 20 mg by mouth daily before a meal. [facility] proMETHazin e (PHENERGAN) 25 mg in NS 50 mL IV piggyback (CNR) 10-11 20:05: 14 Yes 25mg 25 mg, IV Piggyback, at 200 mL/hr Administer over 15 Minutes, Q4HPRN, Starting on Tue10/12/23 at 1505, Until Discontinu ed, Routine, Nausea and Vomiting (N/V) [facility] D5W-LR IV infusion 1,000 mL 10-11 19:30: 00 Yes 1000mL at 125 mL/hr, IV Infusion, CONTINUOUS , Starting on Tue10/12/23 at 1430, Until Discontinu ed, Routine [facility] proMETHazin e 25 mg tablet 5-17 00:00: 00 12-12 00:00 :00 No [id number] 25mg Take 1 tablet by mouth every 4 (four) hours as needed for Nausea and Vomiting (N/V). [facility] metroNIDAZO LE 500 mg tablet 4-19 00:00: 00 09-12 00:00 :00 No [id number] 500mg Take 1 tablet by mouth in the morning and 1 tablet in the evening. [facility] PNV 67-iron ps-folate no.1-dha (VITAFOL ULTRA) 29 mg iron- 1 mg-200 mg Cap 3- 00:00: 00 01-15 00:00 :00 No [id number] 1{capsu le} Take 1 capsule by mouth in the morning. [facility] ampicillin 500 mg capsule 3- 00:00: 00 07-04 04:59 :00 No [id number] 500mg Take 1 capsule by mouth every 6 (six) hours for 10 days. [facility] bacitracin- polymyxin b (Polysporin ) ophthalmic ointment 2022-04 2- 00:00: 00 04-24 05:59 :00 No [id number] Q12H Apply to right eye every 12 (twelve) hours for 3 days. [facility] iopamidol (ISOVUE 370-500 mL) injection 100 mL 12-22 01:30: 00 12-22 01:30 :00 No [id number] 100mL 100 mL, Intravenou s, ONCE, 1 dose, On Tue12/21/22 at 2030, Routine [facility] ondansetron (ZOFRAN (PF)) injection 4 mg 12-22 01:00: 00 12-22 01:10 :00 No 4mg 4 mg, Slow IV Push, ONCE, 1 dose, On Tue12/21/22 at 2000, CHANNING [facility] morpHINE (4 mg/mL) injection 4 mg 12-22 01:00: 12-22 01:10 :00 No 4mg 4 mg, Slow IV Push, ONCE, 1 dose, On Tue12/21/22 at 2000, STAT [facility] ketorolac (TORADOL) injection 30 mg 12-22 00:15: 00 12-22 00:18 :00 No 30mg 30 mg, Slow IV Push, ONCE, 1 dose, On Tue12/21/22 at 1915, Routine [facility] ketorolac (TORADOL) injection 30 mg 12-21 22:30: 00 12-22 10:29 :00 No 30mg 30 mg, Slow IV Push, ONCE, 1 dose, On Tue12/21/22 at 1730, Routine [facility] ketorolac 10 mg tablet 12-21 00:00: 00 06-21 00:00 :00 No [id number] 10mg Take 1 tablet by mouth every 6 (six) hours as needed for Pain (scale 1-3). [facility] ondansetron 4 mg disintegrat ing tablet 10-18 00:00: 00 06-21 00:00 :00 No [id number] 4mg Take 1 tablet by mouth every 8 (eight) hours as needed for Nausea and Vomiting (N/V). [facility] [facility]ine 5 [facility] tablet 10-18 00:00: 00 06-21 00:00 :00 No [id number] 5mg Take 1 tablet by mouth at bedtime. [facility] ibuprofen 600 mg tablet 10-18 00:00: 00 06-21 00:00 :00 No [id number] 600mg Take 1 tablet by mouth every 6 (six) hours as needed for Pain (scale 1-3) or Pain (scale 4-6). [facility] amoxicillin -clavulanat e (AUGMENTIN) 875-125 mg per tablet 08-23 00:00: 00 09-03 04:59 :00 No [id number] 1{tbl} Take 1 tablet by mouth in the morning and 1 tablet in the evening. Do all this for 10 days. [facility] No known medications 12-17 12:09: 24 No No known medication s [facility] silvana ne 0.35 mg tablet 11-12 00:00: 00 06-21 00:00 :00 No [id number] .35mg Take 1 tablet by mouth in the morning. [facility] naproxen (NAPROSYN) 500 mg tablet 11-12 00:00: 06-21 00:00 :00 No [id number] 100 500mg Take 1 tablet by mouth in the morning and 1 tablet in the evening. Take with meals. [facility] ibuprofen 600 mg tablet 01-09 00:00: 00 10-18 00:00 :00 No [id number] 600mg Take 1 tablet by mouth every 6 (six) hours as needed for Pain (scale 4-6). [facility] mupirocin 2 % ointment 01-09 00:00: 00 10-18 00:00 :00 No [id number] Apply to area(s) 3 (three) times daily. [facility] proMETHazin e 25 mg tablet 2019-04 00:00: 00 07-07 00:00 :00 No [id number] 25mg Take 1 tablet by mouth every 4 (four) hours as needed for Nausea and Vomiting (N/V). [facility] vit 33-iron-fol ic-dha (SELECT-OB + DHA) 29 mg iron-1 mg -250 mg combo pack 2019-04 012 00:00: 00 07-23 00:00 :00 No [id number] 1{packe t} Take 1 Packet by mouth daily. [facility] CITRANATAL HARMONY, IRON FUM, 27 mg iron-1 mg -50 mg-260 mg Cap 1 00:00: 00 07-23 00:00 :00 No 1{capsu le} Take 1 capsule by mouth daily. [facility] ibuprofen 600 mg tablet 2018-04 00:00: 00 07-23 00:00 :00 No [id number] 600mg Take 1 tablet by mouth every 6 (six) hours as needed (Pain). Take with food or milk. [facility] Immunizations Ordered Immunization Name Filled Immunization Name Date Status Comments Source TDAP 2023-12-14 00:00:00 Completed TDAP 2023-12-14 00:00:00 Completed Influenza Virus Vaccine Quad IM, Preserv and ABX Free 6 MO-64 YRS (FLUCELVAX) 2023-06-21 00:00:00 Completed Influenza Virus Vaccine Quad IM, Preserv and ABX Free 6 MO-64 YRS (FLUCELVAX) 2023-06-21 00:00:00 Completed TDAP 2022-08-23 00:00:00 Completed [facility] TDAP 2022-08-23 00:00:00 Completed [facility] TDAP 2022-08-23 00:00:00 Completed [facility] TDAP 2022-08-23 00:00:00 Completed [facility] TDAP 2022-08-23 00:00:00 Completed [facility] TDAP 2022-08-23 00:00:00 Completed [facility] TDAP 2022-08-23 00:00:00 Completed [facility] TDAP 2022-08-23 00:00:00 Completed [facility] TDAP 2022-08-23 00:00:00 Completed [facility] TDAP 2022-08-23 00:00:00 Completed [facility] Influenza Virus Vaccine 2022-02-11 00:00:00 Completed [facility] Influenza Virus Vaccine 2022-02-11 00:00:00 Completed [facility] Td 2021-01-09 00:00:00 Completed [facility] TD, NOS 2021-01-09 00:00:00 Completed [facility] TD, NOS 2021-01-09 00:00:00 Completed [facility] TD, NOS 2021-01-09 00:00:00 Completed [facility] TD, NOS 2021-01-09 00:00:00 Completed [facility] TD, NOS 2021-01-09 00:00:00 Completed [facility] TD, NOS 2021-01-09 00:00:00 Completed [facility] TD, NOS 2021-01-09 00:00:00 Completed [facility] TD, NOS 2021-01-09 00:00:00 Completed [facility] TD, NOS 2021-01-09 00:00:00 Completed [facility] TD, NOS 2021-01-09 00:00:00 Completed [facility] TD, NOS 2021-01-09 00:00:00 Completed [facility] MMR 2020-07-23 00:00:00 Completed [facility] Influenza Virus Vaccine Quad .5 mL IM 6+ MO 2020-07-23 00:00:00 Completed [facility] MMR 2020-07-23 00:00:00 Completed [facility] Influenza Virus Vaccine Quad .5 mL IM 6+ MO 2020-07-23 00:00:00 Completed [facility] MMR 2020-07-23 00:00:00 Completed [facility] Influenza Virus Vaccine Quad .5 mL IM 6+ MO 2020-07-23 00:00:00 Completed [facility] MMR 2020-07-23 00:00:00 Completed [facility] Influenza Virus Vaccine Quad .5 mL IM 6+ MO 2020-07-23 00:00:00 Completed [facility] MMR 2020-07-23 00:00:00 Completed [facility] Influenza Virus Vaccine Quad .5 mL IM 6+ MO 2020-07-23 00:00:00 Completed [facility] MMR 2020-07-23 00:00:00 Completed [facility] Influenza Virus Vaccine Quad .5 mL IM 6+ MO 2020-07-23 00:00:00 Completed [facility] MMR 2020-07-23 00:00:00 Completed [facility] Influenza Virus Vaccine Quad .5 mL IM 6+ MO 2020-07-23 00:00:00 Completed [facility] MMR 2020-07-23 00:00:00 Completed [facility] Influenza Virus Vaccine Quad .5 mL IM 6+ MO 2020-07-23 00:00:00 Completed [facility] MMR 2020-07-23 00:00:00 Completed [facility] Influenza Virus Vaccine Quad .5 mL IM 6+ MO 2020-07-23 00:00:00 Completed [facility] MMR 2020-07-23 00:00:00 Completed [facility] Influenza Virus Vaccine Quad .5 mL IM 6+ MO (FLUZONE/FLULAVAL/F LUARIX) 2020-07-23 00:00:00 Completed [facility] MMR 2020-07-23 00:00:00 Completed [facility] Influenza Virus Vaccine Quad .5 mL IM 6+ MO (FLUZONE/FLULAVAL/F LUARIX) 2020-07-23 00:00:00 Completed MMR 2020-07-23 00:00:00 Completed [facility] Influenza Virus Vaccine Quad .5 mL IM 6+ MO (FLUZONE/FLULAVAL/F LUARIX) 2020-07-23 00:00:00 Completed TDAP 2020-05-13 00:00:00 Completed [facility] TDAP 2020-05-13 00:00:00 Completed [facility] TDAP 2020-05-13 00:00:00 Completed [facility] TDAP 2020-05-13 00:00:00 Completed [facility] TDAP 2020-05-13 00:00:00 Completed [facility] TDAP 2020-05-13 00:00:00 Completed [facility] TDAP 2020-05-13 00:00:00 Completed [facility] TDAP 2020-05-13 00:00:00 Completed [facility] TDAP 2020-05-13 00:00:00 Completed [facility] TDAP 2020-05-13 00:00:00 Completed [facility] TDAP 2020-05-13 00:00:00 Completed [facility] TDAP 2020-05-13 00:00:00 Completed [facility] TDAP (ADACEL) VACCINE 2019-02-05 00:00:00 Completed [facility] Influenza Virus Vaccine Quad .5 mL IM 6+ MO 2019-02-05 00:00:00 Completed [facility] TDAP (ADACEL) VACCINE 2019-02-05 00:00:00 Completed [facility] Influenza Virus Vaccine Quad .5 mL IM 6+ MO 2019-02-05 00:00:00 Completed [facility] TDAP (ADACEL) VACCINE 2019-02-05 00:00:00 Completed [facility] Influenza Virus Vaccine Quad .5 mL IM 6+ MO 2019-02-05 00:00:00 Completed [facility] TDAP (ADACEL) VACCINE 2019-02-05 00:00:00 Completed [facility] Influenza Virus Vaccine Quad .5 mL IM 6+ MO 2019-02-05 00:00:00 Completed [facility] TDAP (ADACEL) VACCINE 2019-02-05 00:00:00 Completed [facility] Influenza Virus Vaccine Quad .5 mL IM 6+ MO 2019-02-05 00:00:00 Completed [facility] TDAP (ADACEL) VACCINE 2019-02-05 00:00:00 Completed [facility] Influenza Virus Vaccine Quad .5 mL IM 6+ MO 2019-02-05 00:00:00 Completed [facility] TDAP (ADACEL) VACCINE 2019-02-05 00:00:00 Completed [facility] Influenza Virus Vaccine Quad .5 mL IM 6+ MO 2019-02-05 00:00:00 Completed [facility] TDAP (ADACEL) VACCINE 2019-02-05 00:00:00 Completed [facility] Influenza Virus Vaccine Quad .5 mL IM 6+ MO 2019-02-05 00:00:00 Completed [facility] TDAP (ADACEL) VACCINE 2019-02-05 00:00:00 Completed [facility] Influenza Virus Vaccine Quad .5 mL IM 6+ MO 2019-02-05 00:00:00 Completed [facility] TDAP (ADACEL) VACCINE 2019-02-05 00:00:00 Completed [facility] Influenza Virus Vaccine Quad .5 mL IM 6+ MO (FLUZONE/FLULAVAL/F LUARIX) 2019-02-05 00:00:00 Completed [facility] TDAP (ADACEL) VACCINE 2019-02-05 00:00:00 Completed Influenza Virus Vaccine Quad .5 mL IM 6+ MO (FLUZONE/FLULAVAL/F LUARIX) 2019-02-05 00:00:00 Completed TDAP (ADACEL) VACCINE 2019-02-05 00:00:00 Completed [facility] Influenza Virus Vaccine Quad .5 mL IM 6+ MO (FLUZONE/FLULAVAL/F LUARIX) 2019-02-05 00:00:00 Completed TDAP (ADACEL) VACCINE Unknown Completed [facility] Influenza Virus Vaccine Quad .5 mL IM 6+ MO (FLUZONE/FLULAVAL/F LUARIX) Unknown Completed [facility] MMR Unknown Completed [facility] TD, NOS Unknown Completed [facility] TDAP (ADACEL) VACCINE Unknown Completed [facility] Influenza Virus Vaccine Quad .5 mL IM 6+ MO (FLUZONE/FLULAVAL/F LUARIX) Unknown Completed [facility] TDAP (ADACEL) VACCINE Unknown Completed [facility] Influenza Virus Vaccine Quad .5 mL IM 6+ MO (FLUZONE/FLULAVAL/F LUARIX) Unknown Completed [facility] TDAP (ADACEL) VACCINE Unknown Completed [facility] Influenza Virus Vaccine Quad .5 mL IM 6+ MO (FLUZONE/FLULAVAL/F LUARIX) Unknown Completed [facility] MMR Unknown Completed [facility] TD, NOS Unknown Completed [facility] Influenza Virus Vaccine Unknown Completed [facility] TDAP (ADACEL) VACCINE Unknown Completed [facility] Influenza Virus Vaccine Quad .5 mL IM 6+ MO (FLUZONE/FLULAVAL/F LUARIX) Unknown Completed [facility] MMR Unknown Completed [facility] TD, NOS Unknown Completed [facility] Influenza Virus Vaccine Unknown Completed [facility] Influenza Virus Vaccine Quad IM, Preserv and ABX Free 6 MO-64 YRS (FLUCELVAX) Unknown Completed [facility] TDAP (ADACEL) VACCINE Unknown Completed [facility] Influenza Virus Vaccine Quad .5 mL IM 6+ MO (FLUZONE/FLULAVAL/F LUARIX) Unknown Completed [facility] MMR Unknown Completed [facility] TD, NOS Unknown Completed [facility] Influenza Virus Vaccine Unknown Completed [facility] Influenza Virus Vaccine Quad IM, Preserv and ABX Free 6 MO-64 YRS (FLUCELVAX) Unknown Completed [facility] TDAP (ADACEL) VACCINE Unknown Completed [facility] Influenza Virus Vaccine Quad .5 mL IM 6+ MO (FLUZONE/FLULAVAL/F LUARIX) Unknown Completed [facility] MMR Unknown Completed [facility] TD, NOS Unknown Completed [facility] Influenza Virus Vaccine Unknown Completed [facility] Influenza Virus Vaccine Quad IM, Preserv and ABX Free 6 MO-64 YRS (FLUCELVAX) Unknown Completed [facility] TDAP (ADACEL) VACCINE Unknown Completed [facility] Influenza Virus Vaccine Quad .5 mL IM 6+ MO (FLUZONE/FLULAVAL/F LUARIX) Unknown Completed [facility] MMR Unknown Completed [facility] TD, NOS Unknown Completed [facility] Influenza Virus Vaccine Unknown Completed [facility] Influenza Virus Vaccine Quad IM, Preserv and ABX Free 6 MO-64 YRS (FLUCELVAX) Unknown Completed [facility] TDAP (ADACEL) VACCINE Unknown Completed [facility] Influenza Virus Vaccine Quad .5 mL IM 6+ MO (FLUZONE/FLULAVAL/F LUARIX) Unknown Completed [facility] MMR Unknown Completed [facility] TD, NOS Unknown Completed [facility] Influenza Virus Vaccine Unknown Completed [facility] Influenza Virus Vaccine Quad IM, Preserv and ABX Free 6 MO-64 YRS (FLUCELVAX) Unknown Completed [facility] MMR Unknown Completed [facility] TD, NOS Unknown Completed [facility] Influenza Virus Vaccine Unknown Completed [facility] Influenza Virus Vaccine Quad IM, Preserv and ABX Free 6 MO-64 YRS (FLUCELVAX) Unknown Completed [facility] TDAP (ADACEL) VACCINE Unknown Completed [facility] Influenza Virus Vaccine Quad .5 mL IM 6+ MO (FLUZONE/FLULAVAL/F LUARIX) Unknown Completed [facility] TDAP (ADACEL) VACCINE Unknown Completed [facility] Influenza Virus Vaccine Quad .5 mL IM 6+ MO (FLUZONE/FLULAVAL/F LUARIX) Unknown Completed [facility] MMR Unknown Completed [facility] TD, NOS Unknown Completed [facility] Influenza Virus Vaccine Unknown Completed [facility] Influenza Virus Vaccine Quad IM, Preserv and ABX Free 6 MO-64 YRS (FLUCELVAX) Unknown Completed [facility] TDAP (ADACEL) VACCINE Unknown Completed [facility] Influenza Virus Vaccine Quad .5 mL IM 6+ MO (FLUZONE/FLULAVAL/F LUARIX) Unknown Completed [facility] MMR Unknown Completed [facility] TD, NOS Unknown Completed [facility] Influenza Virus Vaccine Unknown Completed [facility] Influenza Virus Vaccine Quad IM, Preserv and ABX Free 6 MO-64 YRS (FLUCELVAX) Unknown Completed [facility] TDAP (ADACEL) VACCINE Unknown Completed [facility] Influenza Virus Vaccine Quad .5 mL IM 6+ MO (FLUZONE/FLULAVAL/F LUARIX) Unknown Completed [facility] MMR Unknown Completed [facility] TD, NOS Unknown Completed [facility] Influenza Virus Vaccine Unknown Completed [facility] Influenza Virus Vaccine Quad IM, Preserv and ABX Free 6 MO-64 YRS (FLUCELVAX) Unknown Completed [facility] TDAP (ADACEL) VACCINE Unknown Completed [facility] Influenza Virus Vaccine Quad .5 mL IM 6+ MO (FLUZONE/FLULAVAL/F LUARIX) Unknown Completed [facility] MMR Unknown Completed [facility] TD, NOS Unknown Completed [facility] Influenza Virus Vaccine Unknown Completed [facility] Influenza Virus Vaccine Quad IM, Preserv and ABX Free 6 MO-64 YRS (FLUCELVAX) Unknown Completed [facility] TDAP (ADACEL) VACCINE Unknown Completed [facility] Influenza Virus Vaccine Quad .5 mL IM 6+ MO (FLUZONE/FLULAVAL/F LUARIX) Unknown Completed [facility] MMR Unknown Completed [facility] TD, NOS Unknown Completed [facility] Influenza Virus Vaccine Unknown Completed [facility] Influenza Virus Vaccine Quad IM, Preserv and ABX Free 6 MO-64 YRS (FLUCELVAX) Unknown Completed [facility] TDAP (ADACEL) VACCINE Unknown Completed [facility] Influenza Virus Vaccine Quad .5 mL IM 6+ MO (FLUZONE/FLULAVAL/F LUARIX) Unknown Completed [facility] MMR Unknown Completed [facility] TD, NOS Unknown Completed [facility] Influenza Virus Vaccine Unknown Completed [facility] Influenza Virus Vaccine Quad IM, Preserv and ABX Free 6 MO-64 YRS (FLUCELVAX) Unknown Completed [facility] TDAP (ADACEL) VACCINE Unknown Completed [facility] Influenza Virus Vaccine Quad .5 mL IM 6+ MO (FLUZONE/FLULAVAL/F LUARIX) Unknown Completed [facility] MMR Unknown Completed [facility] TD, NOS Unknown Completed [facility] Influenza Virus Vaccine Unknown Completed [facility] Influenza Virus Vaccine Quad IM, Preserv and ABX Free 6 MO-64 YRS (FLUCELVAX) Unknown Completed [facility] MMR Unknown Completed [facility] TD, NOS Unknown Completed [facility] Influenza Virus Vaccine Unknown Completed [facility] Influenza Virus Vaccine Quad IM, Preserv and ABX Free 6 MO-64 YRS (FLUCELVAX) Unknown Completed [facility] TDAP (ADACEL) VACCINE Unknown Completed [facility] Influenza Virus Vaccine Quad .5 mL IM 6+ MO (FLUZONE/FLULAVAL/F LUARIX) Unknown Completed [facility] TDAP (ADACEL) VACCINE Unknown Completed [facility] Influenza Virus Vaccine Quad .5 mL IM 6+ MO (FLUZONE/FLULAVAL/F LUARIX) Unknown Completed [facility] MMR Unknown Completed [facility] TD, NOS Unknown Completed [facility] Influenza Virus Vaccine Unknown Completed [facility] Influenza Virus Vaccine Quad IM, Preserv and ABX Free 6 MO-64 YRS (FLUCELVAX) Unknown Completed [facility] TDAP (ADACEL) VACCINE Unknown Completed [facility] Influenza Virus Vaccine Quad .5 mL IM 6+ MO (FLUZONE/FLULAVAL/F LUARIX) Unknown Completed [facility] MMR Unknown Completed [facility] TD, NOS Unknown Completed [facility] Influenza Virus Vaccine Unknown Completed [facility] Influenza Virus Vaccine Quad IM, Preserv and ABX Free 6 MO-64 YRS (FLUCELVAX) Unknown Completed [facility] TDAP (ADACEL) VACCINE Unknown Completed [facility] Influenza Virus Vaccine Quad .5 mL IM 6+ MO (FLUZONE/FLULAVAL/F LUARIX) Unknown Completed [facility] MMR Unknown Completed [facility] TD, NOS Unknown Completed [facility] Influenza Virus Vaccine Unknown Completed [facility] Influenza Virus Vaccine Quad IM, Preserv and ABX Free 6 MO-64 YRS (FLUCELVAX) Unknown Completed [facility] TDAP (ADACEL) VACCINE Unknown Completed [facility] Influenza Virus Vaccine Quad .5 mL IM 6+ MO (FLUZONE/FLULAVAL/F LUARIX) Unknown Completed [facility] MMR Unknown Completed [facility] TD, NOS Unknown Completed [facility] Influenza Virus Vaccine Unknown Completed [facility] Influenza Virus Vaccine Quad IM, Preserv and ABX Free 6 MO-64 YRS (FLUCELVAX) Unknown Completed [facility] TDAP (ADACEL) VACCINE Unknown Completed [facility] Influenza Virus Vaccine Quad .5 mL IM 6+ MO (FLUZONE/FLULAVAL/F LUARIX) Unknown Completed [facility] MMR Unknown Completed [facility] TD, NOS Unknown Completed [facility] Influenza Virus Vaccine Unknown Completed [facility] Influenza Virus Vaccine Quad IM, Preserv and ABX Free 6 MO-64 YRS (FLUCELVAX) Unknown Completed [facility] TDAP (ADACEL) VACCINE Unknown Completed [facility] Influenza Virus Vaccine Quad .5 mL IM 6+ MO (FLUZONE/FLULAVAL/F LUARIX) Unknown Completed [facility] MMR Unknown Completed [facility] TD, NOS Unknown Completed [facility] Influenza Virus Vaccine Unknown Completed [facility] Influenza Virus Vaccine Quad IM, Preserv and ABX Free 6 MO-64 YRS (FLUCELVAX) Unknown Completed [facility] TDAP (ADACEL) VACCINE Unknown Completed [facility] Influenza Virus Vaccine Quad .5 mL IM 6+ MO (FLUZONE/FLULAVAL/F LUARIX) Unknown Completed [facility] MMR Unknown Completed [facility] TD, NOS Unknown Completed [facility] Influenza Virus Vaccine Unknown Completed [facility] Influenza Virus Vaccine Quad IM, Preserv and ABX Free 6 MO-64 YRS (FLUCELVAX) Unknown Completed [facility] TDAP (ADACEL) VACCINE Unknown Completed [facility] Influenza Virus Vaccine Quad .5 mL IM 6+ MO (FLUZONE/FLULAVAL/F LUARIX) Unknown Completed [facility] MMR Unknown Completed [facility] TD, NOS Unknown Completed [facility] Influenza Virus Vaccine Unknown Completed [facility] Influenza Virus Vaccine Quad IM, Preserv and ABX Free 6 MO-64 YRS (FLUCELVAX) Unknown Completed [facility] TDAP (ADACEL) VACCINE Unknown Completed [facility] Influenza Virus Vaccine Quad .5 mL IM 6+ MO (FLUZONE/FLULAVAL/F LUARIX) Unknown Completed [facility] MMR Unknown Completed [facility] TD, NOS Unknown Completed [facility] Influenza Virus Vaccine Unknown Completed [facility] Influenza Virus Vaccine Quad IM, Preserv and ABX Free 6 MO-64 YRS (FLUCELVAX) Unknown Completed [facility] TDAP (ADACEL) VACCINE Unknown Completed [facility] Influenza Virus Vaccine Quad .5 mL IM 6+ MO (FLUZONE/FLULAVAL/F LUARIX) Unknown Completed [facility] MMR Unknown Completed [facility] TD, NOS Unknown Completed [facility] Influenza Virus Vaccine Unknown Completed [facility] Influenza Virus Vaccine Quad IM, Preserv and ABX Free 6 MO-64 YRS (FLUCELVAX) Unknown Completed [facility] TDAP (ADACEL) VACCINE Unknown Completed [facility] Influenza Virus Vaccine Quad .5 mL IM 6+ MO (FLUZONE/FLULAVAL/F LUARIX) Unknown Completed [facility] MMR Unknown Completed [facility] TD, NOS Unknown Completed [facility] Influenza Virus Vaccine Unknown Completed [facility] Influenza Virus Vaccine Quad IM, Preserv and ABX Free 6 MO-64 YRS (FLUCELVAX) Unknown Completed [facility] TDAP (ADACEL) VACCINE Unknown Completed [facility] Influenza Virus Vaccine Quad .5 mL IM 6+ MO (FLUZONE/FLULAVAL/F LUARIX) Unknown Completed [facility] MMR Unknown Completed [facility] TD, NOS Unknown Completed [facility] Influenza Virus Vaccine Unknown Completed [facility] Influenza Virus Vaccine Quad IM, Preserv and ABX Free 6 MO-64 YRS (FLUCELVAX) Unknown Completed [facility] TDAP (ADACEL) VACCINE Unknown Completed [facility] Influenza Virus Vaccine Quad .5 mL IM 6+ MO (FLUZONE/FLULAVAL/F LUARIX) Unknown Completed [facility] MMR Unknown Completed [facility] TD, NOS Unknown Completed [facility] Influenza Virus Vaccine Unknown Completed [facility] Influenza Virus Vaccine Quad IM, Preserv and ABX Free 6 MO-64 YRS (FLUCELVAX) Unknown Completed [facility] TDAP (ADACEL) VACCINE Unknown Completed [facility] Influenza Virus Vaccine Quad .5 mL IM 6+ MO (FLUZONE/FLULAVAL/F LUARIX) Unknown Completed [facility] MMR Unknown Completed [facility] TD, NOS Unknown Completed [facility] Influenza Virus Vaccine Unknown Completed [facility] Influenza Virus Vaccine Quad IM, Preserv and ABX Free 6 MO-64 YRS (FLUCELVAX) Unknown Completed [facility] TDAP (ADACEL) VACCINE Unknown Completed [facility] Influenza Virus Vaccine Quad .5 mL IM 6+ MO (FLUZONE/FLULAVAL/F LUARIX) Unknown Completed [facility] MMR Unknown Completed [facility] TD, NOS Unknown Completed [facility] Influenza Virus Vaccine Unknown Completed [facility] Influenza Virus Vaccine Quad IM, Preserv and ABX Free 6 MO-64 YRS (FLUCELVAX) Unknown Completed [facility] Influenza Virus Vaccine Quad .5 mL IM 6+ MO (FLUZONE/FLULAVAL/F LUARIX) Unknown Completed [facility] MMR Unknown Completed [facility] TD, NOS Unknown Completed [facility] TDAP Unknown Completed [facility] Influenza Virus Vaccine Unknown Completed [facility] Influenza Virus Vaccine Quad IM, Preserv and ABX Free 6 MO-64 YRS (FLUCELVAX) Unknown Completed [facility] TDAP (ADACEL) VACCINE Unknown Completed [facility] Influenza Virus Vaccine Quad .5 mL IM 6+ MO (FLUZONE/FLULAVAL/F LUARIX) Unknown Completed [facility] MMR Unknown Completed [facility] TD, NOS Unknown Completed [facility] Influenza Virus Vaccine Unknown Completed [facility] Influenza Virus Vaccine Quad IM, Preserv and ABX Free 6 MO-64 YRS (FLUCELVAX) Unknown Completed [facility] TDAP (ADACEL) VACCINE Unknown Completed [facility] Influenza Virus Vaccine Quad .5 mL IM 6+ MO (FLUZONE/FLULAVAL/F LUARIX) Unknown Completed [facility] MMR Unknown Completed [facility] TD, NOS Unknown Completed [facility] Influenza Virus Vaccine Unknown Completed [facility] Influenza Virus Vaccine Quad IM, Preserv and ABX Free 6 MO-64 YRS (FLUCELVAX) Unknown Completed [facility] TDAP (ADACEL) VACCINE Unknown Completed [facility] Influenza Virus Vaccine Quad .5 mL IM 6+ MO (FLUZONE/FLULAVAL/F LUARIX) Unknown Completed [facility] MMR Unknown Completed [facility] TD, NOS Unknown Completed [facility] Influenza Virus Vaccine Unknown Completed [facility] Influenza Virus Vaccine Quad IM, Preserv and ABX Free 6 MO-64 YRS (FLUCELVAX) Unknown Completed [facility] TDAP (ADACEL) VACCINE Unknown Completed [facility] Influenza Virus Vaccine Quad .5 mL IM 6+ MO (FLUZONE/FLULAVAL/F LUARIX) Unknown Completed [facility] MMR Unknown Completed [facility] TD, NOS Unknown Completed [facility] Influenza Virus Vaccine Unknown Completed [facility] Influenza Virus Vaccine Quad IM, Preserv and ABX Free 6 MO-64 YRS (FLUCELVAX) Unknown Completed [facility] TDAP (ADACEL) VACCINE Unknown Completed [facility] Influenza Virus Vaccine Quad .5 mL IM 6+ MO (FLUZONE/FLULAVAL/F LUARIX) Unknown Completed [facility] MMR Unknown Completed [facility] TD, NOS Unknown Completed [facility] Influenza Virus Vaccine Unknown Completed [facility] Influenza Virus Vaccine Quad IM, Preserv and ABX Free 6 MO-64 YRS (FLUCELVAX) Unknown Completed [facility] TDAP (ADACEL) VACCINE Unknown Completed [facility] Influenza Virus Vaccine Quad .5 mL IM 6+ MO (FLUZONE/FLULAVAL/F LUARIX) Unknown Completed [facility] MMR Unknown Completed [facility] TD, NOS Unknown Completed [facility] Influenza Virus Vaccine Unknown Completed [facility] Influenza Virus Vaccine Quad IM, Preserv and ABX Free 6 MO-64 YRS (FLUCELVAX) Unknown Completed [facility] TDAP (ADACEL) VACCINE Unknown Completed [facility] Influenza Virus Vaccine Quad .5 mL IM 6+ MO (FLUZONE/FLULAVAL/F LUARIX) Unknown Completed [facility] MMR Unknown Completed [facility] TD, NOS Unknown Completed [facility] Influenza Virus Vaccine Unknown Completed [facility] Influenza Virus Vaccine Quad IM, Preserv and ABX Free 6 MO-64 YRS (FLUCELVAX) Unknown Completed [facility] TDAP (ADACEL) VACCINE Unknown Completed [facility] Influenza Virus Vaccine Quad .5 mL IM 6+ MO (FLUZONE/FLULAVAL/F LUARIX) Unknown Completed [facility] MMR Unknown Completed [facility] TD, NOS Unknown Completed [facility] Influenza Virus Vaccine Unknown Completed [facility] Influenza Virus Vaccine Quad IM, Preserv and ABX Free 6 MO-64 YRS (FLUCELVAX) Unknown Completed [facility] TDAP (ADACEL) VACCINE Unknown Completed [facility] Influenza Virus Vaccine Quad .5 mL IM 6+ MO (FLUZONE/FLULAVAL/F LUARIX) Unknown Completed [facility] MMR Unknown Completed [facility] TD, NOS Unknown Completed [facility] Influenza Virus Vaccine Unknown Completed [facility] Influenza Virus Vaccine Quad IM, Preserv and ABX Free 6 MO-64 YRS (FLUCELVAX) Unknown Completed [facility] TDAP (ADACEL) VACCINE Unknown Completed [facility] Influenza Virus Vaccine Quad .5 mL IM 6+ MO (FLUZONE/FLULAVAL/F LUARIX) Unknown Completed [facility] MMR Unknown Completed [facility] TD, NOS Unknown Completed [facility] Influenza Virus Vaccine Unknown Completed [facility] Influenza Virus Vaccine Quad IM, Preserv and ABX Free 6 MO-64 YRS (FLUCELVAX) Unknown Completed [facility] TDAP (ADACEL) VACCINE Unknown Completed [facility] Influenza Virus Vaccine Quad .5 mL IM 6+ MO (FLUZONE/FLULAVAL/F LUARIX) Unknown Completed [facility] MMR Unknown Completed [facility] TD, NOS Unknown Completed [facility] Influenza Virus Vaccine Unknown Completed [facility] Influenza Virus Vaccine Quad IM, Preserv and ABX Free 6 MO-64 YRS (FLUCELVAX) Unknown Completed [facility] TDAP (ADACEL) VACCINE Unknown Completed [facility] Influenza Virus Vaccine Quad .5 mL IM 6+ MO (FLUZONE/FLULAVAL/F LUARIX) Unknown Completed [facility] MMR Unknown Completed [facility] TD, NOS Unknown Completed [facility] Influenza Virus Vaccine Unknown Completed [facility] Influenza Virus Vaccine Quad IM, Preserv and ABX Free 6 MO-64 YRS (FLUCELVAX) Unknown Completed [facility] TDAP (ADACEL) VACCINE Unknown Completed [facility] Influenza Virus Vaccine Quad .5 mL IM 6+ MO (FLUZONE/FLULAVAL/F LUARIX) Unknown Completed [facility] MMR Unknown Completed [facility] TD, NOS Unknown Completed [facility] Influenza Virus Vaccine Unknown Completed [facility] Influenza Virus Vaccine Quad IM, Preserv and ABX Free 6 MO-64 YRS (FLUCELVAX) Unknown Completed [facility] TDAP (ADACEL) VACCINE Unknown Completed [facility] Influenza Virus Vaccine Quad .5 mL IM 6+ MO (FLUZONE/FLULAVAL/F LUARIX) Unknown Completed [facility] MMR Unknown Completed [facility] TD, NOS Unknown Completed [facility] Influenza Virus Vaccine Unknown Completed [facility] Influenza Virus Vaccine Quad IM, Preserv and ABX Free 6 MO-64 YRS (FLUCELVAX) Unknown Completed [facility] TDAP (ADACEL) VACCINE Unknown Completed [facility] Influenza Virus Vaccine Quad .5 mL IM 6+ MO (FLUZONE/FLULAVAL/F LUARIX) Unknown Completed [facility] MMR Unknown Completed [facility] TD, NOS Unknown Completed [facility] Influenza Virus Vaccine Unknown Completed [facility] Influenza Virus Vaccine Quad IM, Preserv and ABX Free 6 MO-64 YRS (FLUCELVAX) Unknown Completed [facility] TDAP (ADACEL) VACCINE Unknown Completed [facility] Influenza Virus Vaccine Quad .5 mL IM 6+ MO (FLUZONE/FLULAVAL/F LUARIX) Unknown Completed [facility] MMR Unknown Completed [facility] TD, NOS Unknown Completed [facility] Influenza Virus Vaccine Unknown Completed [facility] Influenza Virus Vaccine Quad IM, Preserv and ABX Free 6 MO-64 YRS (FLUCELVAX) Unknown Completed [facility] TDAP Unknown Completed [facility] Influenza Virus Vaccine Quad .5 mL IM 6+ MO (FLUZONE/FLULAVAL/F LUARIX) Unknown Completed [facility] MMR Unknown Completed [facility] TD, NOS Unknown Completed [facility] Influenza Virus Vaccine Unknown Completed [facility] Influenza Virus Vaccine Quad IM, Preserv and ABX Free 6 MO-64 YRS (FLUCELVAX) Unknown Completed [facility] TDAP Unknown Completed [facility] Influenza Virus Vaccine Quad .5 mL IM 6+ MO (FLUZONE/FLULAVAL/F LUARIX) Unknown Completed [facility] MMR Unknown Completed [facility] TD, NOS Unknown Completed [facility] Influenza Virus Vaccine Unknown Completed [facility] Influenza Virus Vaccine Quad IM, Preserv and ABX Free 6 MO-64 YRS (FLUCELVAX) Unknown Completed [facility] TDAP Unknown Completed [facility] Influenza Virus Vaccine Quad .5 mL IM 6+ MO (FLUZONE/FLULAVAL/F LUARIX) Unknown Completed [facility] MMR Unknown Completed [facility] TD, NOS Unknown Completed [facility] Influenza Virus Vaccine Unknown Completed [facility] Influenza Virus Vaccine Quad IM, Preserv and ABX Free 6 MO-64 YRS (FLUCELVAX) Unknown Completed [facility] TDAP Unknown Completed [facility] Influenza Virus Vaccine Quad .5 mL IM 6+ MO (FLUZONE/FLULAVAL/F LUARIX) Unknown Completed [facility] MMR Unknown Completed [facility] TD, NOS Unknown Completed [facility] Influenza Virus Vaccine Unknown Completed [facility] Influenza Virus Vaccine Quad IM, Preserv and ABX Free 6 MO-64 YRS (FLUCELVAX) Unknown Completed [facility] TDAP Unknown Completed [facility] Influenza Virus Vaccine Quad .5 mL IM 6+ MO (FLUZONE/FLULAVAL/F LUARIX) Unknown Completed [facility] MMR Unknown Completed [facility] TD, NOS Unknown Completed [facility] Influenza Virus Vaccine Unknown Completed [facility] Influenza Virus Vaccine Quad IM, Preserv and ABX Free 6 MO-64 YRS (FLUCELVAX) Unknown Completed [facility] Vital Signs Vital Name Observation Time Observation Value Comments S ource Systolic blood pressure 2024-01-23 19:20:00 136 mm[Hg] manual [facility] Diastolic blood pressure 2024-01-23 19:20:00 82 mm[Hg] manual [facility] Heart rate 2024-01-23 19:19:00 64 /min [facility] Body temperature 2024-01-23 19:19:00 36.61 Jaida [facility] Respiratory rate 2024-01-23 19:19:00 18 /min [facility] Body height 2024-01-23 19:19:00 157.5 cm [facility] Body weight 2024-01-23 19:19:00 72.757 kg [facility] BMI 2024-01-23 19:19:00 29.34 kg/m2 [facility] Systolic blood pressure 2024-01-17 12:51:00 132 mm[Hg] [facility] Diastolic blood pressure 2024-01-17 12:51:00 94 mm[Hg] [facility] Heart rate 2024-01-17 12:51:00 70 /min [facility] Body temperature 2024-01-17 12:51:00 36.67 Jaida [facility] Respiratory rate 2024-01-17 12:51:00 18 /min [facility] Oxygen saturation in Arterial blood by Pulse oximetry 2024-01-17 10:09:00 98 /min [facility] Oxygen saturation in Arterial blood by Pulse oximetry 2024-01-15 10:30:00 99 /min [facility] Heart rate 2024-01-15 10:30:00 81 /min [facility] Systolic blood pressure 2024-01-15 10:17:00 130 mm[Hg] [facility] Diastolic blood pressure 2024-01-15 10:17:00 90 mm[Hg] [facility] Body temperature 2024-01-15 09:45:00 36.44 Jaida [facility] Respiratory rate 2024-01-15 09:35:00 21 /min [facility] Systolic blood pressure 2024-01-10 15:21:00 136 mm[Hg] [facility] Diastolic blood pressure 2024-01-10 15:21:00 77 mm[Hg] [facility] Heart rate 2024-01-10 15:21:00 76 /min [facility] Body temperature 2024-01-10 15:21:00 36.44 Jaida [facility] Body height 2024-01-10 15:21:00 157.5 cm [facility] Body weight 2024-01-10 15:21:00 73.12 kg [facility] BMI 2024-01-10 15:21:00 29.48 kg/m2 [facility] Systolic blood pressure 2024-01-10 01:30:00 116 mm[Hg] [facility] Diastolic blood pressure 2024-01-10 01:30:00 81 mm[Hg] [facility] Heart rate 2024-01-10 01:11:00 70 /min [facility] Respiratory rate 2024-01-10 01:11:00 20 /min [facility] Systolic blood pressure 2023-12-29 14:20:00 125 mm[Hg] [facility] Diastolic blood pressure 2023-12-29 14:20:00 89 mm[Hg] [facility] Heart rate 2023-12-29 14:20:00 91 /min [facility] Body temperature 2023-12-29 14:20:00 36.06 Jaida [facility] Respiratory rate 2023-12-29 14:20:00 19 /min [facility] Body height 2023-12-29 14:20:00 157.5 cm [facility] Body weight 2023-12-29 14:20:00 71.759 kg [facility] BMI 2023-12-29 14:20:00 28.94 kg/m2 [facility] Systolic blood pressure 2023-12-14 15:04:00 128 mm[Hg] [facility] Diastolic blood pressure 2023-12-14 15:04:00 84 mm[Hg] [facility] Heart rate 2023-12-14 15:04:00 91 /min [facility] Body temperature 2023-12-14 15:04:00 36.22 Jaida [facility] Respiratory rate 2023-12-14 15:04:00 18 /min [facility] Body height 2023-12-14 15:04:00 157.5 cm [facility] Body weight 2023-12-14 15:04:00 72.717 kg [facility] BMI 2023-12-14 15:04:00 29.32 kg/m2 [facility] Heart rate 2023-11-29 16:30:00 68 /min [facility] Body temperature 2023-11-29 16:30:00 36.56 Jaida [facility] Oxygen saturation in Arterial blood by Pulse oximetry 2023-11-29 16:30:00 97 /min [facility] Systolic blood pressure 2023-11-29 16:00:00 120 mm[Hg] [facility] Diastolic blood pressure 2023-11-29 16:00:00 68 mm[Hg] [facility] Respiratory rate 2023-11-29 16:00:00 13 /min [facility] Body height 2023-11-29 15:18:00 157.5 cm [facility] Body weight 2023-11-29 15:18:00 69.854 kg [facility] BMI 2023-11-29 15:18:00 28.17 kg/m2 [facility] Systolic blood pressure 2023-11-03 20:30:00 116 mm[Hg] [facility] Diastolic blood pressure 2023-11-03 20:30:00 81 mm[Hg] [facility] Heart rate 2023-11-03 20:30:00 74 /min [facility] 2023-11-03 20:30:00 36.78 Jaida [facility] Respiratory rate 2023-11-03 20:30:00 18 /min [facility] Body height 2023-11-03 20:30:00 157.5 cm [facility] 2023-11-03 20:30:00 68.947 kg [facility] BMI 2023-11-03 20:30:00 27.80 kg/m2 [facility] Systolic blood pressure 2023-10-18 19:34:00 126 mm[Hg] [facility] Diastolic blood pressure 2023-10-18 19:34:00 85 mm[Hg] [facility] Heart rate 2023-10-18 19:34:00 85 /min [facility] 2023-10-18 19:34:00 36.44 Jaida [facility] Respiratory rate 2023-10-18 19:34:00 18 /min [facility] Body height 2023-10-18 19:34:00 157.5 cm [facility] Body weight 2023-10-18 19:34:00 68.635 kg [facility] BMI 2023-10-18 19:34:00 27.68 kg/m2 [facility] Systolic blood pressure 2023-10-14 21:19:00 117 mm[Hg] [facility] Diastolic blood pressure 2023-10-14 21:19:00 76 mm[Hg] [facility] Heart rate 2023-10-14 21:19:00 74 /min [facility] Body temperature 2023-10-14 21:19:00 35.94 Jaida [facility] Respiratory rate 2023-10-14 21:19:00 17 /min [facility] Body height 2023-10-14 21:19:00 157.5 cm [facility] 2023-10-14 21:19:00 69.202 kg [facility] BMI 2023-10-14 21:19:00 27.90 kg/m2 [facility] Systolic blood pressure 2023-10-12 19:43:00 116 mm[Hg] [facility] Diastolic blood pressure 2023-10-12 19:43:00 72 mm[Hg] [facility] Heart rate 2023-10-12 19:43:00 98 /min [facility] Body temperature 2023-10-12 19:43:00 36.56 Jaida [facility] Respiratory rate 2023-10-12 19:43:00 18 /min [facility] Oxygen saturation in Arterial blood by Pulse oximetry 2023-10-12 19:43:00 99 /min [facility] Body height 2023-10-12 19:10:00 157.5 cm [facility] Body weight 2023-10-12 19:10:00 68.584 kg [facility] BMI 2023-10-12 19:10:00 27.65 kg/m2 [facility] Systolic blood pressure 2023-09-13 13:24:00 118 mm[Hg] [facility] Diastolic blood pressure 2023-09-13 13:24:00 72 mm[Hg] [facility] Heart rate 2023-09-13 13:24:00 70 /min [facility] Body temperature 2023-09-13 13:24:00 36.22 Jaida [facility] Respiratory rate 2023-09-13 13:24:00 18 /min [facility] Body height 2023-09-13 13:24:00 157.5 cm [facility] Body weight 2023-09-13 13:24:00 69.996 kg [facility] BMI 2023-09-13 13:24:00 28.22 kg/m2 [facility] Systolic blood pressure 2023-08-16 15:14:00 108 mm[Hg] [facility] Diastolic blood pressure 2023-08-16 15:14:00 71 mm[Hg] [facility] Heart rate 2023-08-16 15:14:00 67 /min [facility] Body temperature 2023-08-16 15:14:00 35.17 Jaida [facility] Respiratory rate 2023-08-16 15:14:00 18 /min [facility] Body height 2023-08-16 15:14:00 157.5 cm [facility] Body weight 2023-08-16 15:14:00 70.943 kg [facility] BMI 2023-08-16 15:14:00 28.61 kg/m2 [facility] Systolic blood pressure 2023-08-10 18:38:00 124 mm[Hg] [facility] Diastolic blood pressure 2023-08-10 18:38:00 69 mm[Hg] [facility] Heart rate 2023-08-10 18:38:00 62 /min [facility] Body temperature 2023-08-10 18:38:00 36 Jaida [facility] Respiratory rate 2023-08-10 18:38:00 18 /min [facility] Body height 2023-08-10 18:38:00 157.5 cm [facility] Body weight 2023-08-10 18:38:00 70.58 kg [facility] BMI 2023-08-10 18:38:00 28.46 kg/m2 [facility] Systolic blood pressure 2023-07-19 15:03:00 113 mm[Hg] [facility] Diastolic blood pressure 2023-07-19 15:03:00 71 mm[Hg] [facility] Heart rate 2023-07-19 15:03:00 65 /min [facility] Body temperature 2023-07-19 15:03:00 36.06 Jaida [facility] Respiratory rate 2023-07-19 15:03:00 16 /min [facility] Body height 2023-07-19 15:03:00 157.5 cm [facility] Body weight 2023-07-19 15:03:00 69.06 kg [facility] BMI 2023-07-19 15:03:00 27.85 kg/m2 [facility] Systolic blood pressure 2023-06-21 16:34:00 120 mm[Hg] [facility] Diastolic blood pressure 2023-06-21 16:34:00 74 mm[Hg] [facility] Heart rate 2023-06-21 16:34:00 60 /min [facility] Body temperature 2023-06-21 16:34:00 36.06 Jaida [facility] Respiratory rate 2023-06-21 16:34:00 18 /min [facility] Body height 2023-06-21 16:34:00 157.5 cm [facility] Body weight 2023-06-21 16:34:00 67.189 kg [facility] BMI 2023-06-21 16:34:00 27.09 kg/m2 [facility] Body temperature 2022-12-22 01:17:00 37 Jaida [facility] Systolic blood pressure 2022-12-21 23:28:00 130 mm[Hg] [facility] Diastolic blood pressure 2022-12-21 23:28:00 88 mm[Hg] [facility] Heart rate 2022-12-21 23:28:00 87 /min [facility] [facility] Respiratory rate 2022-12-21 23:28:00 16 /min [facility] Body weight 2022-12-21 23:28:00 65.772 kg [facility] BMI 2022-12-21 23:28:00 26.52 kg/m2 [facility] Oxygen saturation in Arterial blood by Pulse oximetry 2022-12-21 23:28:00 98 /min [facility] Systolic blood pressure 2022-12-21 21:30:00 133 mm[Hg] [facility] Diastolic blood pressure 2022-12-21 21:30:00 92 mm[Hg] [facility] Heart rate 2022-12-21 21:30:00 81 /min Unive [facility] Respiratory rate 2022-12-21 21:30:00 18 /min [facility] Oxygen saturation in Arterial blood by Pulse oximetry 2022-12-21 21:30:00 97 /min [facility] Body temperature 2022-12-21 21:23:00 36.61 Jaida [facility] Body weight 2022-12-21 21:23:00 65.772 kg [facility] BMI 2022-12-21 21:23:00 26.52 kg/m2 [facility] Systolic blood pressure 2022-12-21 21:08:00 136 mm[Hg] [facility] Diastolic blood pressure 2022-12-21 21:08:00 88 mm[Hg] [facility] Heart rate 2022-12-21 21:08:00 78 /min Unive [facility] Body temperature 2022-12-21 21:08:00 36.56 Jaida [facility] Respiratory rate 2022-12-21 21:08:00 16 /min [facility] Body weight 2022-12-21 21:08:00 65.772 kg per pt [facility] BMI 2022-12-21 21:08:00 26.52 kg/m2 [facility] Oxygen saturation in Arterial blood by Pulse oximetry 2022-12-21 21:08:00 99 /min [facility] Systolic blood pressure 2022-10-18 14:13:00 126 mm[Hg] [facility] Diastolic blood pressure 2022-10-18 14:13:00 83 mm[Hg] [facility] Heart rate 2022-10-18 14:13:00 81 /min [facility] Oxygen saturation in Arterial blood by Pulse oximetry 2022-10-18 14:13:00 94 /min [facility] Body temperature 2022-10-18 14:10:00 36.78 Jaida [facility] Body height 2022-10-18 14:10:00 157.5 cm [facility] Body weight 2022-10-18 14:10:00 66.225 kg [facility] BMI 2022-10-18 14:10:00 26.70 kg/m2 [facility] Systolic blood pressure 2022-08-23 15:12:00 136 mm[Hg] [facility] Diastolic blood pressure 2022-08-23 15:12:00 89 mm[Hg] [facility] Heart rate 2022-08-23 15:12:00 66 /min Unive [facility] Body temperature 2022-08-23 15:12:00 37 Jaida [facility] Respiratory rate 2022-08-23 15:12:00 16 /min [facility] Body height 2022-08-23 15:12:00 157.5 cm [facility] Body weight 2022-08-23 15:12:00 69.536 kg [facility] BMI 2022-08-23 15:12:00 28.04 kg/m2 [facility] Oxygen saturation in Arterial blood by Pulse oximetry 2022-08-23 15:12:00 99 /min [facility] Systolic blood pressure 2021-12-17 17:05:00 118 mm[Hg] [facility] Diastolic blood pressure 2021-12-17 17:05:00 78 mm[Hg] [facility] Heart rate 2021-12-17 17:05:00 68 /min [facility] Body temperature 2021-12-17 17:05:00 36.44 Jaida [facility] Body height 2021-12-17 17:05:00 157.5 cm [facility] Body [facility] 2021-12-17 17:05:[facility] BMI 2021-12-17 17:05:00 32.37 [facility] Systolic blood pressure 2021-11-12 19:16:00 138 mm[Hg] Manual BP [facility] Diastolic blood pressure 2021-11-12 19:16:00 82 mm[Hg] Manual BP [facility] Heart rate 2021-11-12 19:07:00 89 /min [facility] Body temperature 2021-11-12 19:07:00 36.72 Jaida [facility] Respiratory rate 2021-11-12 19:07:00 18 /min [facility] Body height 2021-11-12 19:07:00 157.5 cm [facility] Body weight 2021-11-12 19:07:00 83.394 kg [facility] BMI 2021-11-12 19:07:00 33.63 kg/m2 [facility] Systolic blood pressure 2021-11-12 19:16:00 138 mm[Hg] Manual BP [facility] Diastolic blood pressure 2021-11-12 19:16:00 82 mm[Hg] Manual BP [facility] Heart rate 2021-11-12 19:07:00 89 /min Unive [facility] Body temperature 2021-11-12 19:07:00 36.72 Jaida [facility] Respiratory rate 2021-11-12 19:07:00 18 /min [facility] Body height 2021-11-12 19:07:00 157.5 cm [facility] Body weight 2021-11-12 19:07:00 83.394 kg [facility] BMI 2021-11-12 19:07:00 33.63 kg/m2 [facility] Systolic blood pressure 2024-01-23 19:20:00 136 mm[Hg] manual [facility] Diastolic blood pressure 2024-01-23 19:20:00 82 mm[Hg] manual [facility] Heart rate 2024-01-23 19:19:00 64 /min [facility] Body temperature 2024-01-23 19:19:00 36.61 Jaida [facility] Respiratory rate 2024-01-23 19:19:00 18 /min [facility] Body height 2024-01-23 19:19:00 157.5 cm [facility] Body weight 2024-01-23 19:19:00 72.757 kg [facility] BMI 2024-01-23 19:19:00 29.34 kg/m2 [facility] Oxygen saturation in Arterial blood by Pulse oximetry 2024-01-17 10:09:00 98 /min [facility] Procedures Procedure Date / Time Performed Performing Clinician Source DME/SUPPLY JUSTIFICATION 2024-01-30 21:21:58 Doc tor Unassigned, Hatch [facility] DME/SUPPLY JUSTIFICATION 2024-01-30 21:21:58 Doc tor Unassigned, Hatch [facility] CBC WITH DIFF 2024-01-16 08:42:00 Desai-Loaiza , [facility] CBC WITH DIFF 2024-01-16 08:42:00 Desai-Loaiza , [facility] CBC WITH DIFF 2024-01-16 08:42:00 Desai-Loaiza , [facility] VENOUS CORD GAS 2024-01-15 09:15:00 Desai-Loaiza , [facility] VENOUS CORD GAS 2024-01-15 09:15:00 Desai-Loaiza , [facility] ARTERIAL CORD GAS 2024-01-15 09:15:00 Desai-Justino is, [facility] SURGICAL PATHOLOGY EXAM 2024-01-15 08:48:00 Carp io-Loaiza, [facility] INTUBATION 2024-01-15 08:46:00 Aminata Childs [facility] INTUBATION 2024-01-15 08:46:00 Aminata Childs [facility] [id number] - [place] DELIVERY ONLY 2024-01-15 08:16:00 Desai-Loaiza, [facility] [id number] - [place] DELIVERY ONLY 2024-01-15 08:16:00 Desai-Loaiza, [facility] [id number] - [place] DELIVERY ONLY 2024-01-15 08:16:00 Desai-Loaiza, [facility] COMP. METABOLIC PANEL ([id number]) 2024-01-15 07:26:00 Desai-Loaiza, [facility] ETHANOL 2024-01-15 07:26:00 Desai-Loaiza , [facility] COMP. METABOLIC PANEL ([id number]) 2024-01-15 07:26:00 Desai-Loaiza, [facility] ETHANOL 2024-01-15 07:26:00 Desai-Loaiza , [facility] COMP. METABOLIC PANEL ([id number]) 2024-01-15 07:26:00 Desai-Loaiza, [facility] ETHANOL 2024-01-15 07:26:00 Zulay [facility] US PELVIS > 14 WEEKS 2024-01-15 04:59:04 Zulay [facility] US PELVIS > 14 WEEKS 2024-01-15 04:59:04 Zulay [facility] US PELVIS > 14 WEEKS 2024-01-15 04:59:04 Zulay [facility] CBC WITH DIFF 2024-01-15 01:58:00 Vu [facility] HEPATITIS B SURFACE ANTIGEN 2024-01-15 01:58:00 Vu [facility] HB ABO GROUPING 2024-01-15 01:58:00 Vu [facility] RHO (D) IMMUNE GLOBULIN 2024-01-15 01:58:00 Sharla Ramsey [facility] ADC OR CHELSEY ONLY - RPR 2024-01-15 01:58:00 Vu Anjugilbert mccann [facility] HIV 1/2 AG-AB WITH REFLEX 2024-01-15 01:58:00 Vu Anjugilbert mccann [facility] CBC WITH DIFF 2024-01-15 01:58:00 Vu [facility] HEPATITIS B SURFACE ANTIGEN 2024-01-15 01:58:00 Vu [facility] HB ABO GROUPING 2024-01-15 01:58:00 Vu [facility] RHO (D) IMMUNE GLOBULIN 2024-01-15 01:58:00 Sharla sparks-Josse [facility] ADC OR CHELSEY ONLY - RPR 2024-01-15 01:58:00 Lamb Macy n [facility] HIV 1/2 AG-AB WITH REFLEX 2024-01-15 01:58:00 Vu Macy n [facility] CBC WITH DIFF 2024-01-15 01:58:00 Lamb [facility] HB ABO GROUPING 2024-01-15 01:58:00 Rene Lamb [facility] HIV 1/2 AG-AB WITH REFLEX 2024-01-15 01:58:00 Macy Lamb [facility] ADC OR CHELSEY ONLY - RPR 2024-01-15 01:58:00 Macy Lamb [facility] HEPATITIS B SURFACE ANTIGEN 2024-01-15 01:58:00 Rene Lamb [facility] RHO (D) IMMUNE GLOBULIN 2024-01-15 01:58:00 Sharla Ramsey [facility] ETHANOL 2024-01-15 01:17:00 Beata-Josse [facility] SERUM DRUG (IMMUNOASSAY) - COMPREHENSIVE DRUG SCREEN 2024-01-15 01:17:00 Zulay [facility] ETHANOL 2024-01-15 01:17:00 Beata-Josse [facility] SERUM DRUG (IMMUNOASSAY) - COMPREHENSIVE DRUG SCREEN 2024-01-15 01:17:00 Zualy [facility] ETHANOL 2024-01-15 01:17:00 Desai-Josse [facility] SERUM DRUG (IMMUNOASSAY) - COMPREHENSIVE DRUG SCREEN 2024-01-15 01:17:00 Zulay [facility] ADC ONLY - FERN TEST 2024-01-15 01:14:00 Eveline Loaiza [facility] ADC ONLY - FERN TEST 2024-01-15 01:14:00 Eveline Loaiza [facility] ADC ONLY - FERN TEST 2024-01-15 01:14:00 Eveline Loaiza [facility] CBC WITH DIFF 2024-01-10 16:03:00 Ovidio Huffman [facility] CBC WITH DIFF 2024-01-10 16:03:00 Ovidio Huffman [facility] GC & CHLAMYDIA AMPLIFIED ASSAY 2024-01-10 16:03:00 Ovidio Huffman [facility] GROUP B STREPTOCOCCUS BY PCR 2024-01-10 16:03:00 Ovidio Huffman [facility] POCT URINALYSIS GLUCOSE & PROTEIN 2024-01-10 15:56:00 Ovidio Huffman [facility] POCT URINALYSIS GLUCOSE & PROTEIN 2024-01-10 15:56:00 Ovidio Huffman [facility] URINALYSIS 2024-01-10 01:49:00 Ella Biswas [facility] ADC ONLY - FERN TEST 2024-01-10 00:50:00 Izabela Phillipssol [facility] ADC CLC OR LCC ONLY - WET PREP 2024-01-10 00:50:00 Izabela Biswassol [facility] NON-STRESS TEST 2023-12-14 18:55:59 Lynne Vail [facility] NON-STRESS TEST 2023-12-14 18:55:59 Lynne Vail [facility] GLUCOSE 1 HOUR POST PRANDIAL 2023-12-14 16:30:00 Teim Vail [facility] CBC WITH DIFF 2023-12-14 16:30:00 Temi Vail [facility] HIV 1/2 AG-AB WITH REFLEX 2023-12-14 16:30:00 Temi Hoang [facility] SYPHILIS IGG/IGM 2023-12-14 16:30:00 Temi Vail [facility] HIV 1/2 AG-AB WITH REFLEX 2023-12-14 16:30:00 Temi Hoang [facility] SYPHILIS IGG/IGM 2023-12-14 16:30:00 Temi Vail [facility] URINE CULTURE 2023-12-14 16:30:00 Temi Vail [facility] GLUCOSE 1 HOUR POST PRANDIAL 2023-12-14 16:30:00 Temi Vail [facility] CBC WITH DIFF 2023-12-14 16:30:00 Temi Vail [facility] TDAP VACCINE, >11 YRS, IM 2023-12-14 15:47:31 Temi Hoang [facility] TDAP VACCINE, >11 YRS, IM 2023-12-14 15:47:31 Temi Hoang [facility] POCT URINALYSIS 2023-12-14 15:05:00 Temi Vail [facility] POCT URINALYSIS 2023-12-14 15:05:00 Temi Vail [facility] INFLUENZA A/B RSV COVID NAAT 2023-11-29 16:51:00 Chely Franklin [facility] LAB ONLY COVID INTERPRETATION 2023-11-29 16:51:00 Chely Franklin [facility] SECOND AND THIRD TRIMESTER ULTRASOUND 2023-11-25 18:35:00 Temi Vail [facility] SECOND AND THIRD TRIMESTER ULTRASOUND 2023-11-25 18:35:00 Temi Vail [facility] SECOND AND THIRD TRIMESTER ULTRASOUND 2023-11-03 19:58:00 Temi Vail [facility] SECOND AND THIRD TRIMESTER ULTRASOUND 2023-11-03 19:58:00 Tmei Vail [facility] POCT URINALYSIS 2023-11-03 19:23:00 Temi Vail [facility] POCT URINALYSIS 2023-11-03 19:23:00 Temi Vail [facility] POCT URINALYSIS 2023-10-18 19:34:00 Temi Vail [facility] POCT URINALYSIS 2023-10-14 21:05:00 Temi Vail [facility] US PELVIS > 14 WEEKS 2023-10-12 21:56:40 Rene Lamb [facility] NON-STRESS TEST 2023-10-12 21:55:37 Rene Lamb [facility] URINALYSIS 2023-10-12 21:03:00 Rene Lamb [facility] URINE DRUG (IMMUNOASSAY) - COMPREHENSIVE DRUG SCREEN 2023-10-12 19:57:00 Rene Lamb [facility] ADC ONLY - FERN TEST 2023-10-12 19:57:00 Rene Lamb [facility] SECOND AND THIRD TRIMESTER ULTRASOUND 2023-09-27 15:07:00 Temi Vail [facility] NIPT - NON-INVASIVE TEST RESULTS 2023-09-13 18:16:39 Doctor Unassigned, Hatch [facility] POCT URINALYSIS 2023-09-13 13:30:00 Temi Vail [facility] POCT URINALYSIS 2023-08-16 15:15:00 Temi Vail [facility] POCT URINALYSIS 2023-08-10 18:41:00 Temi Vail [facility] DME/SUPPLY JUSTIFICATION 2023-07-21 19:54:17 Doc tor Unassigned, Hatch [facility] FIRST TRIMESTER ULTRASOUND 2023-07-20 14:30:33 Doctor Unassigned, Hatch [facility] POCT URINALYSIS 2023-07-19 15:04:00 Temi Vail [facility] GLUCOSE 1 HOUR POST PRANDIAL 2023-06-21 17:30:00 Temi Vail [facility] CBC WITH DIFF 2023-06-21 17:30:00 Temi Vail [facility] HEPATITIS B SURFACE ANTIGEN 2023-06-21 17:30:00 Temi Vail [facility] HCV ANTIBODY 2023-06-21 [facility]:30[facility] 17:30:00 Temi Vail [facility] HIV 1/2 AG-AB WITH REFLEX 2023-06-21 17:30:00 Temi Hoang [facility] SYPHILIS IGG/IGM 2023-06-21 17:30:00 Temi Vail [facility] HCV ANTIBODY 2023-06-21 17:30:00 Pickhardt, Temi A U [facility] FLU VACC (), 6 MO-64 YRS, .5ML, IM, QUAD (FLUCELVAX) 2023-06-21 16:54:05 Temi Vail [facility] POCT URINALYSIS W/O SPECIFIC GRAVITY 2023-06-21 16:33:00 Temi Vail [facility] POCT TEST 2023-06-21 16:31:00 Angeline Vail [facility] REPORT OF 2023-06-21 06:01:00 Doctor Luisa robin, Hatch [facility] CT ABDOMEN PELVIS W CONTRAST 2022-12-22 00:33:00 Chely Franklin [facility] ASSIGNMENT OF BENEFITS 2022-12-21 23:47:42 Doclatonia r Unassigned, Hatch [facility] CONSENT/REFUSAL FOR DIAGNOSIS AND TREATMENT 2022-12-21 23:23:40 Doctor Unassigned, Hatch [facility] POCT TEST 2022-12-21 21:33:00 Marlen Franklin ra [facility] NOTICE OF PRIVACY PRACTICES 2022-12-21 21:25:21 Doctor Unassigned, Hatch [facility] CONSENT/REFUSAL FOR DIAGNOSIS AND TREATMENT 2022-12-21 21:19:08 Doctor Unassigned, Hatch [facility] POCT SARS-COV-2 ANTIGEN (BINAX NOW) 2022-10-18 00:00:00 Agata Davis [facility] TDAP VACCINE, >11 YRS, IM 2022-08-23 15:20:39 Windy Lara [facility] ASSIGNMENT OF BENEFITS 2022-08-23 14:57:35 Docto r Unassigned, Hatch [facility] POCT TEST 2021-11-12 19:13:00 Sa jad Larose [facility] HIGH RISK HPV-THIN PREP 2020-09-02 15:10:00 Tanesha Franklin [facility] LAB ONLY PAP SMEAR-LIQUID BASED 2020-09-02 15:10:00 Tanesha Franklin [facility] Encounters Start Date/Time End Date/Time Encounter Type Admission Type Attending [facility] Care Department Encounter ID Source 2024-01-09 21:04:44 Outpatient X [facility] [id number] [facility] 2021-02-23 23:27:01 Emergency [facility] [id number] [facility] 2021-02-21 10:55:47 Outpatient P [facility] [id number] [facility] 2021-02-21 10:55:27 Outpatient P [facility] [id number] [facility] 2024-07-01 14:54:00 2024-07-01 16:50:00 Emergency X MARIAN PERDOMO, MARIAN RUST ERT [id number] [facility] 2023-09-13 00:00:00 2024-06-09 07:43:58 Orders Only Doctor Unassigned, Hatch Doctor Unassigned, Hatch [facility] 1.840.114 350.1.13.10 4.2.7.2.686 [id number] [facility] 2024-01-30 00:00:00 2024-06-09 06:52:23 Orders Only Doctor Unassigned, Hatch Doctor Unassigned, Hatch [facility] 1.2840.114 350.1.13.10 4.2.7.2.686 [id number] [facility] 2020-07-02 00:00:00 2024-06-09 02:56:58 Orders Only Trevino, Jalyn A Trevino, Jalyn A [facility] [employer] [facility] 1.2840.114 350.1.13.10 4.2.7.2.686 [id number] [facility] 2023-07-21 00:00:00 2024-06-09 02:32:47 Orders Only Doctor Unassigned, Hatch Doctor Unassigned, Hatch [facility] 1.2.840.114 350.1.13.10 4.2.7.2.686 [id number] [facility] 2024-02-16 11:15:00 2024-02-16 11:15:00 Outpatient R OVIDIO [facility] [id number] [facility] 2024-02-09 14:30:00 2024-02-09 14:30:00 Outpatient R TEMI VAIL [facility] [id number] [facility] 2024-01-23 14:00:00 2024-01-23 14:18:59 Outpatient R TEMI VAIL [facility] [id number] [facility] 2024-01-23 14:00:00 2024-01-23 14:18:59 Nurse Visit Temi Vail A Visit, [facility] Nurse 1.2.840.1 24657.1.1 3.104.2.7 .3.522843 .8 [id number] [facility] 2024-01-23 00:00:00 2024-01-23 00:00:00 Travel 1.2.840.1 44523.1.1 3.104.2.7 .3.003283 .8 1.2.840.114 350.1.13.10 4.2.7.3.698 084.8 [id number] [facility] 2024-01-14 20:06:00 2024-01-17 17:30:00 Inpatient P DESAI-FRANCIS S, ELLA DESAI-FRANCIS S, ELLA [facility] [id number] [facility] 2024-01-14 20:06:00 2024-01-17 17:30:00 Hospital Encounter Beata-Francis sIzabelaElla 1.2.840.1 29759.1.1 3.104.2.7 .3.647713 .8 [id number] [facility] 2024-01-15 04:05:00 2024-01-15 05:33:00 Surgery BeataIvoryElla Stein 1.2.840.1 35650.1.1 3.104.2.7 .3.949585 .8 [id number] [facility] 2024-01-15 03:29:00 2024-01-15 04:43:00 Anesthesia Event Aminata Childs 1.2840.1 91282.1.1 3.104.2.7 .3.833879 .8 [id number] [facility] 2024-01-11 10:15:00 2024-01-11 10:15:00 Outpatient [facility]I [facility] [id number] [facility] 2024-01-10 00:00:00 2024-01-10 15:02:56 Telephone Ovidio Huffman 1.2840.1 18591.1.1 3.104.2.7 .3.507357 .8 [id number] [facility] 2024-01-10 11:00:00 2024-01-10 11:06:55 Outpatient OVIDIO [facility] [id number] [facility] 2024-01-10 11:00:00 2024-01-10 11:06:55 Routine Visit Ovidio Huffman 1.2.840.1 48744.1.1 3.104.2.7 .3.203151 .8 [id number] [facility] 2024-01-10 00:00:00 2024-01-10 00:00:00 Scanned Documents Doctor Unassigned, Hatch 1.2.840.1 04742.1.1 3.104.2.7 .3.206723 .8 [id number] [facility] 2024-01-10 00:00:00 2024-01-10 00:00:00 Travel 1.2.840.1 03974.1.1 3.104.2.7 .3.470468 .8 1.2.840.114 350.1.13.10 4.2.7.3.698 084.8 [id number] [facility] 2024-01-09 19:31:00 2024-01-09 21:02:00 Outpatient X DESAI-FRANCIS S, ELLA DESAI-FRANCIS S, ELLA [facility] [id number] [facility] 2024-01-09 19:31:00 2024-01-09 21:02:00 Emergency Julian sTenishal 1.2.840.1 09595.1.1 3.104.2.7 .3.722078 .8 [id number] [facility] 2024-01-03 00:00:00 2024-01-05 08:38:59 Telephone Temi Vail 1.2.840.1 49334.1.1 3.104.2.7 .3.028758 .8 [id number] [facility] 2024-01-02 00:00:00 2024-01-03 12:15:33 Refill Temi Vail 1.2.840.1 77314.1.1 3.104.2.7 .3.680089 .8 [id number] [facility] 2023-11-29 00:00:00 2023-12-31 18:20:00 Patient Secure Msg Doctor Unassigned, Hatch 1.2.840.1 44378.1.1 3.104.2.7 .3.603529 .8 [id number] [facility] 2023-12-29 09:30:00 2023-12-29 11:14:28 Outpatient R OVIDIO [facility] [id number] [facility] 2023-12-29 10:00:00 2023-12-29 10:00:00 Routine Visit Ovidio Huffman 1.2.840.1 57502.1.1 3.104.2.7 .3.355260 .8 [id number] [facility] 2023-12-29 00:00:00 2023-12-29 00:00:00 Travel 1.2.840.1 86968.1.1 3.104.2.7 .3.026304 .8 1.2.840.114 350.1.13.10 4.2.7.3.698 084.8 [id number] [facility] 2023-12-28 15:45:00 2023-12-28 15:45:00 Outpatient R OVIDIO [facility] [id number] [facility] 2023-12-27 14:45:00 2023-12-27 14:45:00 Outpatient R [facility] [id number] [facility] 2023-12-15 00:00:00 2023-12-15 06:39:55 Case Management Temi Vail 1.2.840.1 83748.1.1 3.104.2.7 .3.866064 .8 [id number] [facility] 2023-12-14 14:00:00 2023-12-14 15:00:00 Ancillary Procedure Temi Vail 1.2.840.1 29557.1.1 3.104.2.7 .3.000573 .8 [id number] [facility] 2023-12-14 09:45:00 2023-12-14 11:04:17 Outpatient R TEMI VAIL [facility] [id number] [facility] 2023-12-14 09:45:00 2023-12-14 11:04:17 Routine Visit Temi Vail 1.2.840.1 31617.1.1 3.104.2.7 .3.541016 .8 [id number] [facility] 2023-12-14 00:00:00 2023-12-14 09:49:35 Telephone Temi Vail 1.2.840.1 34324.1.1 3.104.2.7 .3.770782 .8 [id number] [facility] 2023-12-13 00:00:00 2023-12-13 16:48:49 Case Management Temi Vail 1.2.840.1 68800.1.1 3.104.2.7 .3.833585 .8 [id number] [facility] 2023-12-12 00:00:00 2023-12-13 15:03:30 Telephone Temi Vail 1.2.840.1 42863.1.1 3.104.2.7 .3.775943 .8 [id number] [facility] 2023-11-29 10:21:00 2023-11-29 11:56:00 Emergency X CHELY FRANKLIN [facility] [id number] [facility] 2023-11-29 10:21:00 2023-11-29 11:56:00 Emergency Chely Franklin 1.2.840.1 72390.1.1 3.104.2.7 .3.723473 .8 [id number] [facility] 2023-11-29 10:45:00 2023-11-29 10:45:00 Outpatient R ETMI VAIL [facility] [id number] [facility] 2023-11-29 08:00:00 2023-11-29 08:00:00 Outpatient R ZAKIYA CAMACHO [facility] [id number] [facility] 2023-11-29 00:00:00 2023-11-29 00:00:00 Travel 1.2.840.1 [id number] 3.104.2.7 [id number] .8 1.2.840.114 350.1.13.10 4.2.7.3.698 084.8 [id number] [facility] 2023-11-28 10:45:00 2023-11-28 10:45:00 Outpatient R [facility] [id number] [facility] 2023-11-25 00:00:00 2023-11-25 16:00:44 Case Management Temi [place] 1.2.840.1 [id number] 3.104.2.7 .[id number] .[id number] [facility] 2023-11-23 00:00:00 2023-11-25 14:47:07 Telephone Zakiya Camacho 1.2.840.1 23482.1.1 3.104.2.7 .3.998124 .8 [id number] [facility] 2023-11-25 13:00:00 2023-11-25 13:41:02 Outpatient BENJA HELMS [facility] [id number] [facility] 2023-11-25 13:00:00 2023-11-25 13:41:02 Administration Specialist Visit Benja Newman 1, [facility] Room 1.2840.1 05352.1.1 3.104.2.7 .3.883626 .8 [id number] [facility] 2023-11-25 00:00:00 2023-11-25 00:00:00 Travel 1.2.840.1 52917.1.1 3.104.2.7 .3.994182 .8 1.2.840.114 350.1.13.10 4.2.7.3.698 084.8 [id number] [facility] 2023-11-24 00:00:00 2023-11-24 20:49:02 Nurse Triage Yahaira Hale 1.2.840.1 38423.1.1 3.104.2.7 .3.947717 .8 [id number] [facility] 2023-11-22 08:00:00 2023-11-22 08:00:00 Outpatient R [facility] [id number] [facility] 2023-10-13 00:00:00 2023-11-19 18:26:08 Patient Secure Elizaezra Temi Christie RUST FI[employer] SALES AGENT [facility] 1.2.840.114 350.1.13.10 4.2.7.2.686 [id number] 107 [id number] [facility] 2023-11-16 10:00:00 2023-11-16 10:00:00 Outpatient R OVIDIO [facility] [id number] [facility] 2023-11-15 14:30:00 2023-11-15 14:30:00 Outpatient R [facility] [id number] [facility] 2023-11-10 10:00:00 2023-11-10 10:00:00 Outpatient R [facility] [id number] [facility] 2023-11-03 00:00:00 2023-11-03 16:02:07 Case Management Temi Vail 1.2.840.1 80100.1.1 3.104.2.7 .3.125607 .8 [id number] [facility] 2023-11-03 15:45:00 2023-11-03 15:46:46 Outpatient R [facility] [id number] [facility] 2023-11-03 15:45:00 2023-11-03 15:46:46 Routine Visit Vamsi Walters 1..840.1 72308.1.1 3.104.2.7 .3.451758 .8 [id number] [facility] 2023-11-03 14:45:00 2023-11-03 15:17:07 Administration Specialist Visit Abbey Willett 1, [facility] Room 1.2.840.1 36278.1.1 3.104.2.7 .3.357785 .8 [id number] [facility] 2023-11-03 12:30:00 2023-11-03 12:30:00 Outpatient R [facility] [id number] [facility] 2023-11-03 09:15:00 2023-11-03 09:15:00 Outpatient R [facility] [id number] [facility] 2023-11-03 00:00:00 2023-11-03 00:00:00 Travel 1.2.840.1 66968.1.1 3.104.2.7 .3.224149 .8 1.2.840.114 350.1.13.10 4.2.7.3.698 084.8 [id number] [facility] 2023-09-18 00:00:00 2023-10-22 18:20:01 Patient Secure Msg Temi Vail [facility] FIELD SALES AGENT [facility] 1.2.840.114 350.1.13.10 4.2.7.2.686 [id number] 107 [id number] [facility] 2023-10-18 00:00:00 2023-10-18 15:12:25 Letter (Out) Temi Vail [facility] FIELD SALES AGENT [facility] 1.2.840.114 350.1.13.10 4.2.7.2.686 [id number] 107 [id number] [facility] 2023-10-18 14:45:00 2023-10-18 15:05:58 Outpatient [facility] [id number] [facility] 2023-10-18 14:45:00 2023-10-18 15:05:58 Routine Visit Temi Vail [employer] SALES AGENT [facility] & CHILD [facility] 1.2840.114 350.1.13.10 4.2.7.2.686 [id number] 107 [id number] [facility] 2023-09-08 00:00:00 2023-10-15 18:24:36 Patient Secure Temi Estrada [employer] SALES AGENT [facility] 1.2840.114 350.1.13.10 4.2.7.2.686 [id number] 107 [id number] [facility] 2023-10-14 16:15:00 2023-10-14 16:32:52 Outpatient R LOUISE BORGES [facility] [id number] [facility] 2023-10-14 16:15:00 2023-10-14 16:32:52 Routine Visit Louise Borges R[employer] FIELD SALES AGENT [facility] 1.840.114 350.1.13.10 4.2.7.2.686 [id number] [facility] 2023-10-12 14:12:00 2023-10-12 17:30:00 Outpatient P RENE LAMB [facility] [id number] [facility] 2023-10-12 14:12:00 2023-10-12 17:30:00 Emergency Rene Lamb [facility] 1.840.114 350.1.13.10 4.2.7.2.686 [id number] [facility] 2023-08-31 00:00:00 2023-10-01 18:22:06 Patient Secure Temi Estrada [employer] FI[employer] SALES AGENT [facility] & CHILD [facility] 1.2840.114 350.1.13.10 4.2.7.2.686 [id number] 107 [id number] [facility] 2023-09-30 00:00:00 2023-09-30 15:48:02 Abstract Ovidio Huffman [employer] FI[employer] SALES AGENT [facility] 1.2.840.114 350.1.13.10 4.2.7.2.686 [id number] 107 [id number] [facility] 2023-09-27 09:15:00 2023-09-27 10:22:21 Outpatient [facility] [id number] [facility] 2023-09-27 09:15:00 2023-09-27 10:22:21 Administration Specialist Visit Ultrasound, [facility]-julianne Bonifacio Cedenoanak RUST FIELD SALES AGENT [facility] & CHILD [facility] 1.2.840.114 350.1.13.10 4.2.7.2.686 [id number] [facility] 2023-08-23 00:00:00 2023-09-24 18:06:24 Patient Secure Msg Temi Vail [facility] FIELD SALES AGENT [facility] & CHILD [facility] 1.2.840.114 350.1.13.10 4.2.7.2.686 [id number] 107 [id number] [facility] 2023-09-13 00:00:00 2023-09-13 10:57:58 Patient Secure ElizaezraTemi [employer]UST FI[employer] SALES AGENT [facility] CHILD [facility] 1.2840.114 350.1.13.10 4.2.7.2.686 [id number] 107 [id number] [facility] 2023-09-13 08:45:00 2023-09-13 08:47:16 Outpatient R [facility] [id number] [facility] 2023-09-13 08:45:00 2023-09-13 08:47:16 Routine Visit Temi Vail [employer] SALES AGENT [facility] & CHILD [facility] 1.2840.114 350.1.13.10 4.2.7.2.686 [id number] 107 [id number] [facility] 2023-09-09 00:00:00 2023-09-09 08:14:06 Case Management ElizaezraTemi [employer]UST FI[employer] SALES AGENT [facility] & CHILD [facility] 1.2840.114 350.1.13.10 4.2.7.2.686 [id number] 107 [id number] [facility] 2023-08-16 10:15:00 2023-08-16 11:21:10 Outpatient R [facility] [id number] [facility] 2023-08-16 10:15:00 2023-08-16 11:21:10 Routine Visit Temi Vail [employer] SALES AGENT [facility] CHILD [facility] 1.840.114 350.1.13.10 4.2.7.2.686 [id number] 107 [id number] [facility] 2023-08-12 08:30:00 2023-08-12 08:38:08 Outpatient R OVIDIO [facility] [id number] [facility] 2023-08-12 08:30:00 2023-08-12 08:38:08 Administration Specialist Visit Lab, Ang-Rmchp Ovidio Huffman [employer] SALES AGENT [facility] & CHILD [facility] 1.840.114 350.1.13.10 4.2.7.2.686 [id number] 107 [id number] [facility] 2023-08-12 00:00:00 2023-08-12 00:00:00 Telephone Ovidio Huffman RUST FIELD SALES AGENT [facility] CHILD [facility] 1.840.114 350.1.13.10 4.2.7.2.686 [id number] 107 [id number] [facility] 2023-08-10 13:30:00 2023-08-10 14:27:08 Outpatient R OVIDIO [facility] [id number] [facility] 2023-08-10 13:30:00 2023-08-10 14:27:08 Routine Visit Ovidio Huffman [employer] FI[employer] SALES AGENT [facility] 1.2.840.114 350.1.13.10 4.2.7.2.686 [id number] 107 [id number] [facility] 2023-08-10 00:00:00 2023-08-10 00:00:00 Telephone Ovidio Huffman R[employer] FI[employer] SALES AGENT [facility] 1.2.840.114 350.1.13.10 4.2.7.2.686 [id number] 107 [id number] [facility] 2023-07-20 08:30:00 2023-07-20 09:19:28 Outpatient P ECTOR [facility] [id number] [facility] 2023-07-20 08:30:00 2023-07-20 09:19:28 Administration Specialist Visit 1, [facility] Room [facility] 1.2840.114 350.1.13.10 4.2.7.2.686 [id number] [facility] 2023-07-20 00:00:00 2023-07-20 00:00:00 Case Management Temi Vail [employer] SALES AGENT [facility] & CHILD [facility] 1.2.840.114 350.1.13.10 4.2.7.2.686 [id number] 107 [id number] [facility] 2023-07-20 00:00:00 2023-07-20 00:00:00 Case Management Temi Vail [employer] SALES AGENT [facility] CHILD [facility] 1.2.840.114 350.1.13.10 4.2.7.2.686 [id number] 107 [id number] [facility] 2023-07-20 00:00:00 2023-07-20 00:00:00 Patient Secure Msg Temi Vail [employer]UST FI[employer] SALES AGENT [facility] 1.2.840.114 350.1.13.10 4.2.7.2.686 [id number] 107 [id number] [facility] 2023-07-19 10:15:00 2023-07-19 10:27:02 Outpatient R TEMI VAIL [facility] [id number] [facility] 2023-07-19 10:15:00 2023-07-19 10:27:02 Routine Visit Temi Vail MDCM FIELD SALES AGENT [facility] CHILD [facility] 1.2.840.114 350.1.13.10 4.2.7.2.686 [id number] 107 [id number] [facility] 2023-07-06 00:00:00 2023-07-06 00:00:00 Telephone Temi Vail [employer] SALES AGENT [facility] CHILD [facility] 1.2.840.114 350.1.13.10 4.2.7.2.686 [id number] 107 [id number] [facility] 2023-06-30 00:00:00 2023-06-30 00:00:00 Telephone Temi Vail [employer]UST [employer] SALES AGENT [facility] CHILD [facility] 1.2.840.114 350.1.13.10 4.2.7.2.686 [id number] 107 [id number] [facility] 2023-06-24 00:00:00 2023-06-24 00:00:00 Telephone Temi Vail RUST FI[employer] SALES AGENT [facility] 1.2.840.114 350.1.13.10 4.2.7.2.686 [id number] 107 [id number] [facility] 2023-06-21 08:15:00 2023-06-21 11:36:43 Initial Visit Temi Vail RUST FIELD SALES AGENT [facility] 1.840.114 350.1.13.10 4.2.7.2.686 [id number] 107 [id number] [facility] 2023-06-21 07:45:00 2023-06-21 09:43:08 Outpatient R TEMI VAIL [facility] [id number] [facility] 2023-06-21 00:00:00 2023-06-21 00:00:00 Orders Only Doctor Unassigned, Hatch [facility] 1.840.114 350.1.13.10 4.2.7.2.686 [id number] [facility] 2023-05-04 14:30:00 2023-05-04 14:30:00 Outpatient DIONICIO MEHTA [facility] [id number] [facility] 2023-04-20 09:00:00 2023-04-20 10:43:31 Office Visit Danielle Fernandez [facility] [address] [facility] 1.0.114 350.1.13.58 9.2.7.2.686 [id number] [facility] 2023-04-12 06:12:00 2023-04-12 16:58:00 Emergency E DIONICIO MEHTA [facility] [id number] [facility] 2023-02-23 00:00:00 2023-02-23 00:00:00 Case Management Temi Iraheta 1.0.114 350.1.13.10 4.2.7.2.686 [id number] [facility] 2022-12-22 00:00:00 2022-12-22 00:00:00 Telephone Leslee Epps [facility] 1.0.114 350.1.13.10 4.2.7.2.686 [id number] [facility] 2022-12-22 00:00:00 2022-12-22 00:00:00 Patient Secure Msg Doctor Unassigned, Hatch [facility] 1..840.114 350.1.13.10 4.2.7.2.686 [id number] [facility] 2022-12-21 18:30:00 2022-12-21 21:02:00 Emergency X CHLEY FRANKLIN [facility] [id number] [facility] 2022-12-21 18:30:00 2022-12-21 21:02:00 Emergency Chely Franklin [facility] 1..840.114 350.1.13.10 4.2.7.2.686 [id number] [facility] 2022-12-21 16:25:00 2022-12-21 16:54:00 Emergency X CHELY FRANKLIN [facility] [id number] [facility] 2022-12-21 16:25:00 2022-12-21 16:54:00 Emergency Chely Franklin [facility] 1..840.114 350.1.13.10 4.2.7.2.686 [id number] [id number] [facility] 2022-12-21 15:45:00 2022-12-21 16:05:00 Nurse Visit Nurse, Keagan Bonilla [facility] Unknown, Attending Windy Lara [facility] 1..840.114 350.1.13.10 4.2.7.2.686 [id number] [facility] 2022-12-21 15:45:00 2022-12-21 15:45:00 Outpatient WINDY CELIS [facility] [id number] [facility] 2022-10-25 15:00:00 2022-10-25 15:00:00 Outpatient QASIM GALVEZ [facility] [id number] [facility] 2022-10-18 09:20:00 2022-10-18 09:39:10 Outpatient R AGATA DAVIS [facility] [id number] [facility] 2022-10-18 09:20:00 2022-10-18 09:39:10 Urgent Care Agata Davis Unknown, Attending [facility] 1.84114 350.1.13.10 4.2.7.2.686 [id number] 370 [id number] [facility] 2022-10-18 00:00:00 2022-10-18 00:00:00 Letter (Out) [facility] 1.114 350.1.13.10 4.2.7.2.686 [id number] [facility] 2022-08-23 09:40:00 2022-08-23 10:24:06 Outpatient R WINDY LARA [facility] [id number] [facility] 2022-08-23 09:40:00 2022-08-23 10:24:06 Urgent Care Windy Lara Unknown, Attending [facility] 1.114 350.1.13.10 4.2.7.2.686 [id number] 370 [id number] [facility] 2022-08-23 00:00:00 2022-08-23 00:00:00 Orders Only Doctor Unassigned, Hatch [facility] 1.114 350.1.13.10 4.2.7.2.686 [id number] [facility] 2022-08-23 00:00:00 2022-08-23 00:00:00 Letter (Out) Windy Lara [facility] 1.84114 350.1.13.10 4.2.7.2.686 [id number] 370 [id number] [facility] 2022-02-19 14:00:00 2022-02-19 14:00:00 Outpatient R OVIDIO [facility] [id number] [facility] 2022-02-12 13:45:00 2022-02-12 13:45:00 Outpatient R OVIDIO [facility] [id number] [facility] 2021-12-17 12:00:00 2021-12-17 12:15:00 Office Visit SACHA ROONEY [address] [facility] 1..840.114 350.1.13.58 9.2.7.2.686 [id number] [facility] 2021-11-17 00:00:00 2021-11-17 00:00:00 Telephone Fang Larose RUST FIELD SALES AGENT [facility] ..840.114 350.1.13.10 4.2.7.2.686 [id number] 107 [id number] [facility] 2021-11-12 15:51:00 2021-11-12 17:48:00 Emergency X RICKY TANNER [facility] [id number] [facility] 2021-11-12 15:51:00 2021-11-12 17:48:00 Emergency Ricky Tanner S [facility] ..840.114 350.1.13.10 4.2.7.2.686 [id number] [facility] 2021-11-12 14:00:00 2021-11-12 15:36:31 Outpatient R FANG LAROSE [facility]AH [facility] [id number] [facility] 2021-11-12 14:00:00 2021-11-12 15:36:31 Office Visit Provider, Keagan-Rmchp Temp Fang Larose RUST FI[employer] SALES AGENT [facility] CHILD [facility] 1.2.840.114 350.1.13.10 4.2.7.2.686 [id number] 107 [id number] [facility] 2021-11-12 14:00:00 2021-11-12 15:36:31 Office Visit Provider, Fang Chapman [employer] SALES AGENT [facility] 1.2.840.114 350.1.13.10 4.2.7.2.686 [id number] 107 [id number] [facility] 2021-11-12 14:00:00 2021-11-12 15:36:31 Outpatient R FANG LAROSE [facility] [id number] [facility] 2021-05-25 10:00:00 2021-05-25 10:00:00 Outpatient R [facility] [id number] [facility] 2021-03-02 13:44:47 2021-03-02 14:06:55 Nurse Visit Visit, Diane Nurse Tanesha Franklin RUST FI[employer] SALES AGENT [facility] 1.2.840.114 350.1.13.10 4.2.7.2.686 [id number] 107 [id number] [facility] 2021-03-02 13:30:00 2021-03-02 14:06:55 Outpatient R TANESHA FRANKLIN [facility] [id number] [facility] 2021-03-01 00:00:00 2021-03-01 00:00:00 Telephone Peggy Camacho [facility] 1..840.114 350.1.13.10 4.2.7.2.686 [id number] [facility] 2021-02-28 10:00:00 2021-02-28 10:33:31 Outpatient R CASSIA [facility]A [facility] [id number] [facility] 2021-02-28 09:50:49 2021-02-28 10:33:31 Urgent Care Cassia Barrera [facility] 1.2.114 350.1.13.10 4.2.7.2.686 [id number] 370 [id number] [facility] 2021-02-27 00:00:00 2021-02-27 00:00:00 Telephone Tanesha Franklin [employer] FI[employer] SALES AGENT [facility] 1.2840.114 350.1.13.10 4.2.7.2.686 [id number] 107 [id number] [facility] 2021-02-05 10:46:48 2021-02-05 11:14:34 Office Visit Tanesha Franklin RUST FIELD SALES AGENT [facility] 1.2.114 350.1.13.10 4.2.7.2.686 [id number] 107 [id number] [facility] 2021-02-05 10:45:00 2021-02-05 10:45:00 Outpatient R TANESHA FRANKLIN [facility] [id number] [facility] 2021-02-04 00:00:00 2021-02-04 00:00:00 Telephone Veronique Goldsmith [facility] 1.2.114 350.1.13.10 4.2.7.2.686 [id number] 107 [id number] [facility] 2021-01-09 13:48:00 2021-01-09 15:48:00 Emergency GermanGary miller [facility] 1.2.114 350.1.13.10 4.2.7.2.686 [id number] [facility] 2020-12-02 08:00:18 2020-12-02 08:36:03 Nurse Visit Visit, [facility]-R[facility] Nurse Tanesha Franklin [employer]UST FI[employer] SALES AGENT [facility] CHILD [facility] 1.2.114 350.1.13.10 4.2.7.2.686 [id number] 107 [id number] [facility] 2020-12-02 08:00:00 2020-12-02 08:00:00 Outpatient R [facility] [id number] [facility] 2020-11-25 09:00:00 2020-11-25 09:00:00 Outpatient R [facility] [id number] [facility] 2020-10-15 00:00:00 2020-10-15 00:00:00 Telephone Veronique Goldsmith [facility] FIELD SALES AGENT [facility] 1..840.114 350.1.13.10 4.2.7.2.686 [id number] 107 [id number] [facility] 2020-10-13 08:39:27 2020-10-13 08:54:27 Office Visit Veronique Goldsimth RUST FI[employer] SALES AGENT [facility] 1..840.114 350.1.13.10 4.2.7.2.686 [id number] 107 [id number] [facility] 2020-10-13 08:30:00 2020-10-13 08:30:00 Outpatient R GOLDSMITHVERONIQUE [facility] [id number] [facility] 2020-09-26 10:30:00 2020-09-26 10:30:00 Outpatient R VERONIQUE GOLDSMITH [facility] [id number] [facility] 2020-09-17 00:00:00 2020-09-17 00:00:00 Telephone Tanesha Franklin RUST FI[employer] SALES AGENT [facility] 1..840.114 350.1.13.10 4.2.7.2.686 [id number] 107 [id number] [facility] 2020-09-02 09:25:01 2020-09-02 10:11:59 Office Visit Tanesha Franklin RUST FIELD SALES AGENT [facility] 1.2840.114 350.1.13.10 4.2.7.2.686 [id number] 107 [id number] [facility] 2020-09-02 09:15:00 2020-09-02 09:15:00 Outpatient TANESHA JUNG [facility] [id number] [facility] 2020-08-22 00:00:00 2020-08-22 00:00:00 Telephone Tanesha Franklin RUST FIELD SALES AGENT [facility] 1.2840.114 350.1.13.10 4.2.7.2.686 [id number] 107 [id number] [facility] 2020-08-18 00:00:00 2020-08-18 00:00:00 Refill Tanesha Franklin RUST FI[employer] SALES AGENT [facility] 1.840.114 350.1.13.10 4.2.7.2.686 [id number] 107 [id number] [facility] 2020-08-12 13:00:00 2020-08-12 13:00:00 Outpatient TANESHA JUNG [facility] [id number] [facility] 2020-08-12 11:08:43 2020-08-12 11:37:20 Routine Visit Tanesha Franklin [employer] [facility] & CHILD [facility] 1.840.114 350.1.13.10 4.2.7.2.686 [id number] [facility] 2020-07-29 09:53:36 2020-07-29 10:27:39 Nurse Visit Visit, Ang-Rmchp Nurse Tanesha Franklin [employer] [facility] CHILD [facility] 1.2840.114 350.1.13.10 4.2.7.2.686 [id number] [facility] 2020-07-29 10:00:00 2020-07-29 10:00:00 Outpatient [facility] [id number] [facility] 2020-07-22 07:00:00 2020-07-22 08:53:00 Surgery Benja Newman [facility] 1.114 350.1.13.10 4.2.7.2.686 [id number] [facility] 2020-07-22 00:00:00 2020-07-22 00:00:00 Orders Only Doctor Unassigned, Hatch [facility] 1.114 350.1.13.10 4.2.7.2.686 [id number] [facility] 2020-07-21 15:30:00 2020-07-21 15:30:00 Outpatient [facility] [id number] [facility] 2020-07-21 13:53:09 2020-07-21 14:16:51 Routine Visit Veronique Goldsmith [facility] [employer] SAL[employer] AGENT [facility] & CHILD [facility] 1..114 350.1.13.10 4.2.7.2.686 [id number] [facility] 2020-07-16 15:39:45 2020-07-16 16:08:12 Routine Visit Veronique Goldsmith [facility] [employer] SAL[employer] AGENT [facility]ILD [facility] 1..114 350.1.13.10 4.2.7.2.686 [id number] [facility] 2020-07-16 15:30:00 2020-07-16 15:30:00 Outpatient [facility] [id number] [facility] 2020-07-15 00:00:00 2020-07-15 00:00:00 Patient Outreach Terry Newman [facility] 1..114 350.1.13.10 4.2.7.2.686 [id number] [facility] 2020-07-07 15:46:11 2020-07-07 16:22:19 Routine Visit Jame Goldsmithlucas [facility] [employer] SAL[employer]ENT [facility] & CHILD [facility] 1.840.114 350.1.13.10 4.2.7.2.686 [id number] [facility] 2020-07-07 13:00:00 2020-07-07 13:00:00 [facility] [id number] [facility] 2020-07-03 00:00:00 2020-07-03 00:00:00 Telephone Jame Goldsmithlucas [facility] [employer] [facility] & CHILD [facility] 1.840.114 350.1.13.10 4.2.7.2.686 [id number] [facility] 2020-07-02 14:45:00 2020-07-02 14:45:00 Outpatient R [facility] [id number] [facility] 2020-07-02 13:13:36 2020-07-02 13:28:36 Laboratory Only Lab, Ang-Rmchp Tanesha Franklin [employer] SALES [employer]ENT [facility] & CHILD [facility] .840.114 350.1.13.10 4.2.7.2.686 [id number] 107 [id number] [facility] 2020-07-01 00:00:00 2020-07-01 00:00:00 Telephone Jame Goldsmithlucas [facility] FIELD SALES AGENT [facility] CHILD [facility] .840.114 350.1.13.10 4.2.7.2.686 [id number] 107 [id number] [facility] 2020-06-30 12:59:40 2020-06-30 13:33:52 Routine Visit Karissa Goldsmithnataly [facility] FIELD SALES AGENT [facility] 1.2.840.114 350.1.13.10 4.2.7.2.686 [id number] [facility] 2020-06-30 12:45:00 2020-06-30 12:45:00 Outpatient R VERONIQUE [facility] [id number] [facility] 2020-06-23 00:00:00 2020-06-23 00:00:00 Abstract Agus Veronique Mina [employer] SALES AGENT [facility] & CHILD [facility] 1.2.840.114 350.1.13.10 4.2.7.2.686 [id number] 107 [id number] [facility] 2020-06-19 13:59:13 2020-06-19 14:29:13 Administration Specialist Visit Ultrasound, Sridhar Collier [employer] [facility] CHILD [facility] 1..840.114 350.1.13.10 4.2.7.2.686 [id number] [facility] 2020-06-19 14:00:00 2020-06-19 14:00:00 Outpatient P [facility] [id number] [facility] 2020-06-16 15:18:38 2020-06-16 15:45:00 Routine Visit Veronique Goldsmith [employer] FI[employer] SAL[employer]ENT [facility] 1..840.114 350.1.13.10 4.2.7.2.686 [id number] 107 [id number] [facility] 2020-06-16 15:30:00 2020-06-16 15:30:00 Outpatient VERONIQUE HOPPER [facility] [id number] [facility] 2020-06-13 10:30:00 2020-06-13 10:30:00 Outpatient VERONIQUE HOPPER [facility] [id number] [facility] 2020-06-09 11:15:00 2020-06-09 11:15:00 Outpatient P [facility] [id number] [facility] 2020-05-26 12:45:42 2020-05-26 13:06:03 Routine Visit Jame Goldsmithlucas Mina [employer] SAL[employer] AGENT [facility] & CHILD [facility] 1..114 350.1.13.10 4.2.7.2.686 [id number] 107 [id number] [facility] 2020-05-26 12:45:00 2020-05-26 12:45:00 Outpatient R KARISSA [facility] [id number] [facility] 2020-05-13 09:02:48 2020-05-13 10:11:51 Routine Visit Ovidio Huffman [facility] CHILD [facility] 1.84.114 350.1.13.10 4.2.7.2.686 [id number] [facility] 2020-05-13 09:15:00 2020-05-13 09:15:00 Outpatient R OVIDIO HUFFMAN [facility] [id number] [facility] 2020-04-28 07:55:33 2020-04-28 08:47:58 Routine Visit Goldsmith, Rosnataly [facility] .840.114 350.1.13.10 4.2.7.2.686 [id number] 107 [id number] [facility] 2020-04-28 07:45:00 2020-04-28 07:45:00 Outpatient R AGUS VERONIQUE [facility] [id number] [facility] 2020-04-10 00:00:00 2020-04-10 00:00:00 Patient Secure Msg Doctor Unassigned, Hatch [facility] [facility] 1.840.114 350.1.13.10 4.2.7.2.686 [id number] 107 [id number] [facility] 2020-04-05 16:22:00 2020-04-05 18:15:00 Hospital Encounter Sonja Nair [facility] 1.2840.114 350.1.13.10 4.2.7.2.686 [id number] [facility] 2020-04-05 14:45:00 2020-04-05 14:45:00 Outpatient R UNKNOWN, ATTENDING [facility] [id number] [facility] 2020-04-05 14:21:40 2020-04-05 14:36:40 Telemedici ne Visit Care, Briseyda Urgent Unknown, Attending [facility] 1.840.114 350.1.13.10 4.2.7.2.686 [id number] [facility] 2020-03-31 08:47:30 2020-03-31 09:42:40 Routine Visit Veronique Goldsmith [employer] SALES AGENT [facility] 1.840.114 350.1.13.10 4.2.7.2.686 [id number] [facility] 2020-03-31 08:45:00 2020-03-31 08:45:00 Outpatient R VERONIQUE [facility]DSMITH [facility] [id number] [facility] 2020-03-12 09:33:18 2020-03-12 10:33:18 Administration Specialist Visit Ultrasound, Benja Chen [employer] SALES AGENT [facility] 1.840.114 350.1.13.10 4.2.7.2.686 [id number] [facility] 2020-03-12 09:30:00 2020-03-12 09:30:00 Outpatient P [facility] [id number] [facility] 2020-03-12 00:00:00 2020-03-12 00:00:00 Abstract Veronique Goldsmith [facility] FIELD SALES AGENT [facility] CHILD [facility] 1.2840.114 350.1.13.10 4.2.7.2.686 [id number] [facility] 2020-03-03 09:37:03 2020-03-03 10:36:05 Routine Visit Karissa Goldsmithnataly Mina [employer] SALES AGENT [facility] CHILD [facility] 1.2.840.114 350.1.13.10 4.2.7.2.686 [id number] 107 [id number] [facility] 2020-03-03 09:30:00 2020-03-03 09:30:00 Outpatient Keeley GOLDSMITH, VERONIQUE [facility] [id number] [facility] 2020-02-15 00:00:00 2020-02-15 00:00:00 Patient Secure Msg Doctor Unassigned, Hatch [facility] 1.2840.114 350.1.13.10 4.2.7.2.686 [id number] 107 [id number] [facility] 2020-02-04 13:00:00 2020-02-04 13:00:00 Outpatient KARISSA [facility] [id number] [facility] 2020-02-04 09:49:50 2020-02-04 10:04:50 Routine Visit [facility]oldsmithVeronique [facility] 1.20.114 350.1.13.10 4.2.7.2.686 [id number] 107 [id number] [facility] 2020-01-14 07:42:36 2020-01-14 07:56:22 Administration Specialist [facility] FIELD SALES AGENT [facility] 1.2840.114 350.1.13.10 4.2.7.2.686 [id number] [facility] 2020-01-14 07:45:00 2020-01-14 07:45:00 Outpatient TANESHA JUNG [facility] [id number] [facility] 2020-01-08 00:00:00 2020-01-08 00:00:00 Telephone Veronique Goldsmith [employer] SALES AGENT [facility] 1.840.114 350.1.13.10 4.2.7.2.686 [id number] 107 [id number] [facility] 2020-01-07 13:30:00 2020-01-07 13:30:00 Outpatient R VERONIQUE [facility]OLDSMITH [facility] [id number] [facility] 2020-01-07 00:00:00 2020-01-07 00:00:00 Orders Only Doctor Unassigned, Hatch [facility] 1.0.114 350.1.13.10 4.2.7.2.686 [id number] [facility] 2019-11-27 09:15:00 2019-11-27 09:15:00 Outpatient R TANESHA FRANKLIN [facility] [id number] [facility] 2019-08-23 14:15:00 2019-08-23 14:15:00 Outpatient R VERONIQUE [facility]DSMITH [facility] [id number] [facility] 2019-08-23 11:25:04 2019-08-23 13:57:56 Telemedici ne Visit Veronique Goldsmith [facility] FIELD SALES AGENT [facility] & CHILD [facility] 1..114 350.1.13.10 4.2.7.2.686 [id number] 107 [id number] [facility] 2019-08-15 00:00:00 2019-08-15 00:00:00 Tanesha Thomas [employer] FI[employer] SALES AGENT [facility] 1.0.114 350.1.13.10 4.2.7.2.686 [id number] [facility] 2019-08-03 00:00:00 2019-08-03 00:00:00 Telephone Veronique Goldsmith [employer] SALES AGENT [facility] & CHILD [facility] 1.2.840.114 350.1.13.10 4.2.7.2.686 [id number] 107 [id number] [facility] 2019-06-19 00:00:00 2019-06-19 00:00:00 Orders Only Doctor Unassigned, Hatch [facility] 1.2.840.114 350.1.13.10 4.2.7.2.686 [id number] [facility] 2019-05-31 13:40:14 2019-05-31 14:41:48 Office Visit Tanesha Franklin [employer] SALES AGENT [facility] & CHILD [facility] 1.2.840.114 350.1.13.10 4.2.7.2.686 [id number] [facility] 2019-05-28 00:00:00 2019-05-28 00:00:00 Telephone Tanesha Franklin [employer] SALES AGENT [facility] CHILD [facility] 1.2.840.114 350.1.13.10 4.2.7.2.686 [id number] [facility] 2019-05-10 14:37:16 2019-05-10 15:14:59 Routine Visit Tanesha Franklin [employer] SALES AGENT [facility] CHILD [facility] 1.2.840.114 350.1.13.10 4.2.7.2.686 [id number] 107 [id number] [facility] 2019-05-10 14:30:00 2019-05-10 15:14:59 Outpatient R TANESHA FRANKLIN [facility] [id number] [facility] 2019-04-18 00:00:00 2019-04-18 00:00:00 Orders Only Doctor Unassigned, Hatch [facility] 1.2840.114 350.1.13.10 4.2.7.2.686 [id number] [facility] 2019-04-11 00:00:00 2019-04-11 00:00:00 Patient Secure Msg Doctor Unassigned, Hatch [employer] SALES AGENT [facility] CHILD [facility] 1.2.840.114 350.1.13.10 4.2.7.2.686 [id number] 107 [id number] [facility] 2019-03-05 08:00:00 2019-03-05 08:39:07 Outpatient P [facility]Y [facility] [id number] [facility] 2018-12-29 00:00:00 2018-12-29 00:00:00 Telephone Tanesha Franklin [employer] SALES AGENT [facility] CHILD [facility] 1.2.840.114 350.1.13.10 4.2.7.2.686 [id number] [facility] 2018-12-18 08:34:54 2018-12-18 09:02:51 Routine Visit Tanesha Franklin [employer] SAL[employer]ENT [facility] 1.2840.114 350.1.13.10 4.2.7.2.686 [id number] [facility] 2018-12-04 08:13:08 2018-12-04 09:42:31 Administration Specialist Visit Ultrasound, Benja Chen [employer] SAL[employer] AGENT [facility] CHILD [facility] 1.2840.114 350.1.13.10 4.2.7.2.686 [id number] [facility] 2018-12-04 00:00:00 2018-12-04 00:00:00 Patient Secure Sylvia Christine [employer] SALES AGENT [facility]ILD [facility] 1.2.840.114 350.1.13.10 4.2.7.2.686 [id number] [facility] 2018-11-22 00:00:00 2018-11-22 00:00:00 Patient Secure Msg Tanesha Franklin [employer] SALES AGENT [facility] 1.2.840.114 350.1.13.10 4.2.7.2.686 [id number] 107 [id number] [facility] 2018-11-20 12:46:14 2018-11-20 13:29:49 Routine Visit Tanesha Franklin [employer] SAL[employer] AGENT [facility] 1.2.840.114 350.1.13.10 4.2.7.2.686 [id number] [facility] 2018-09-28 11:15:00 2018-09-28 12:22:17 Outpatient P SRIDHAR [facility] [id number] [facility] Results Test Description Test Time Test Comments Results Resul t Comments Source DME/SUPPLY JUSTIFICATION 2023-10-0 7 21:21:58 Ordered by an unspecified provider. [facility] Psxfglmboijt5453-61-89 09:25:00* Test Item Value Reference Range Interpretation Comme nts WBC (test code = 6690-2) 9.49 4.30-11.10 RBC (test code = 789-8) 2.56 3.93-5.25 L HGB (test code = 718-7) 8.0 g/dL 11.6-15.0 L HCT (test code = 4544-3) 24.4 % 35.7-45.2 L MCV (test code = 787-2) 95.3 fL 80.6-95.5 MCH (test code = 785-6) 31.3 pg 25.9-32.8 MCHC (test code = 786-4) 32.8 g/dL 31.6-35.1 RDW-SD (test code = 12055-5) 51.2 fL 39.0-49.9 H RDW-CV (test code = 788-0) 15.3 % 12.0-15.5 PLT (test code = 777-3) 177 166-358 MPV (test code = 81199-7) 9.3 fL 9.5-12.9 L NRBC/100 WBC (test code = 6222985074) 0.2 0.0-10.0 NRBC x10^3 (test code = 4419380458) 0.02 See_Comment [Automated messa ge] The system which generated this result transmitted reference range: 10*3/?L. The reference range was not used to interpret this result as normal/abnormal. GRAN MAT (NEUT) % (test code = 770-8) 59.2 % IMM GRAN % (test code = 1350110714) 0.50 % LYMPH % (test code = 736-9) 33.0 % MONO % (test code = 5905-5) 5.1 % EOS % (test code = 713-8) 1.7 % BASO % (test code = 706-2) 0.5 % GRAN MAT x10^3(ANC) (test code = 8683014773) 5.62 10*3/uL 1.88-7.09 IMM GRAN x10^3 (test code = 0230090547) 0.05 10*3/uL 0.00-0.06 LYMPH x10^3 (test code = 731-0) 3.13 10*3/uL 1.32-3.29 MONO x10^3 (test code = 742-7) 0.48 10*3/uL 0.33-0.92 EOS x10^3 (test code = 711-2) 0.16 10*3/uL 0.03-0.39 BASO x10^3 (test code = 704-7) 0.05 10*3/uL 0.01-0.07 Lab Interpretation (test code = 90403-3) Abnormal [facility] with Lprerefqyvks6424-06-98 09:25:00* Test Item Value Reference Range Interpretation Comme nts WBC (test code = 6690-2) 9.49 4.30-11.10 RBC (test code = 789-8) 2.56 3.93-5.25 L HGB (test code = 718-7) 8.0 g/dL 11.6-15.0 L HCT (test code = 4544-3) 24.4 % 35.7-45.2 L MCV (test code = 787-2) 95.3 fL 80.6-95.5 MCH (test code = 785-6) 31.3 pg 25.9-32.8 MCHC (test code = 786-4) 32.8 g/dL 31.6-35.1 RDW-SD (test code = 37396-3) 51.2 fL 39.0-49.9 H RDW-CV (test code = 788-0) 15.3 % 12.0-15.5 PLT (test code = 777-3) 177 166-358 MPV (test code = 20110-1) 9.3 fL 9.5-12.9 L NRBC/100 WBC (test code = 3717971703) 0.2 0.0-10.0 NRBC x10^3 (test code = 6109228902) 0.02 See_Comment [Automated [employer] ge] The system which generated this result transmitted reference range: 10*3/?L. The reference range was not used to interpret this result as normal/abnormal. GRAN MAT (NEUT) % (test code = 770-8) 59.2 % IMM GRAN % (test code = 2469716757) 0.50 % LYMPH % (test code = 736-9) 33.0 % MONO % (test code = 5905-5) 5.1 % EOS % (test code = 713-8) 1.7 % BASO % (test code = 706-2) 0.5 % GRAN MAT x10^3(ANC) (test code = 0686493547) 5.62 10*3/uL 1.88-7.09 IMM GRAN x10^3 (test code = 3740884150) 0.05 10*3/uL 0.00-0.06 LYMPH x10^3 (test code = 731-0) 3.13 10*3/uL 1.32-3.29 MONO x10^3 (test code = 742-7) 0.48 10*3/uL 0.33-0.92 EOS x10^3 (test code = 711-2) 0.16 10*3/uL 0.03-0.39 BASO x10^3 (test code = 704-7) 0.05 10*3/uL 0.01-0.07 Lab Interpretation (test code = 79289-3) Abnormal [facility] (D) IMMUNE [id number] 11:11:41* Test Item Value Reference Range Interpretation Comme nts RHIG CANDIDATE? (test code = 5188) No- see comment Patient is not a candidate for RhIg- Patient is Rh Positive.Performed at [facility] Blood [address] [place], [place] [id number] Free: [phone] No. [id number] [facility] (D) IMMUNE [id number] 11:11:41* Test Item Value Reference Range Interpretation Comme [facility] RHIG CANDIDATE? (test code = 5188) No- see comment Patient is not a candidate for RhIg- Patient is Rh Positive.Performed at [facility] Blood [address] [place], [place] [id number] Free: [phone] No. [id number] [facility] 08:46:00Aminata Childs MD ? ? 01/15/2024 ?4:01 AMIntubationDate/Time: 01/15/2024 3:46 AMUrgency: electiveAirway not difficult General Information and Staff Patient location during procedure: ORPerformed: anesthesiologist Performed by: Aminata Childs MDAuthorized by: Aminata Childs MD ? Indications and Patient ConditionIndications for airway management: anesthesia and airway protectionSpontaneous Ventilation: absentSedation level: deepPreoxygenated: yesPatient position: sniffingMILS not maintained throughoutMask difficulty assessment: 0 - not attempted Final Airway DetailsFinal airway type:endotracheal airway Successful airway: ETTCuffed: yes Successful intubation technique: direct laryngoscopyEndotracheal tube insertion site: oralBlade: MacintoshBlade size: #3ETT size (mm): 6.5Cormack-Lehane Classification: grade I - full view of glottisPlacement verified by: chest auscultation and capnometry Cuff volume (mL): 6Measured from: teethETT to teeth (cm): 21Number of attempts at approach: 1UnChildress [facility] or [place] Only - [id number] 08:29:35 * Test Item Value Reference Range Interpretation Comme nts RPR (Qualitative) (test code = 94269-1) Nonreactive Nonreactive Lab Interpretation (test cod e = 69851-0) Normal [facility] or [place] Only - [id number] 08:29:35* Test Item Value Reference Range Interpretation Comme nts RPR (Qualitative) (test code = 08825-9) Nonreactive Nonreactive Lab Interpretation (test cod e = 37339-2) Normal [facility] 08:00:30* Test Item Value Reference Range Interpretation Comme nts ALCOHOL (test code = 4491737488) 167 mg/dL STAN (test code = STAN) <10 Wtmtkdbl84-396 Toxic>100 Depression of SENIOR PROCESS ANALYST>400 Fatalities Reported [facility] 08:00:30* Test Item Value Reference Range Interpretation Comme nts ALCOHOL (test code = 6389302026) 167 mg/dL STAN (test code = STAN) <10 Qxoncrfm81-911 Toxic>100 Depression of SENIOR PROCESS ANALYST>400 Fatalities Reported [facility]. Metabolic Panel (50227)2024-01-15 07:59:50* Test Item Value Reference Range Interpretation Comme nts NA (test code = 9914498803) 140 mmol/L 135-145 K (test code = 0688594028) 3.5 mmol/L 3.5-5.0 CL (test code = 5738895918) 107 mmol/L 98-108 CO2 TOTAL (test code = 5415724505) 26 mmol/L 23-31 AGAP (test code = 9268764339) 7 2-16 BUN (test code = 8617147990) 4 mg/dL 7-23 L GLUCOSE (test code = 7062531820) 116 mg/dL 70-110 H CREATININE (test code = 2160-0) 0.75 mg/dL 0.50-1.04 TOTAL BILI (test code = 2228809342) 0.9 mg/dL 0.1-1.1 CALCIUM (test code = 8627432555) 7.2 mg/dL 8.6-10.6 L T PROTEIN (test code = 5033724289) 6.5 g/dL 6.3-8.2 ALBUMIN (test code = 3630284456) 3.1 g/dL 3.5-5.0 L ALK PHOS (test code = 4427531884) 136 U/L 34-122 H ALTv (test code = 1742-6) 20 U/L 5-35 AST(SGOT) (test code = 8722136681) 44 U/L 13-40 H eGFR (test code = 43592-1) 108.0 mL/min/1.73m2 CKD-EPI eGFR (2020). Assuming creatinine has been stable day-to-day for at least three months, the eGFR indicates Category G1 (>= 90 mL/min/1.73 m2) Lab Interpretation (test code = 44076-7) Abnormal [facility]. Metabolic Panel (38592)2024-01-15 07:59:50* Test Item Value Reference Range Interpretation Comme nts NA (test code = 7096977227) 140 mmol/L 135-145 K (test code = 4365219832) 3.5 mmol/L 3.5-5.0 CL (test code = 1335733077) 107 mmol/L 98-108 CO2 TOTAL (test code = 5628391072) 26 mmol/L 23-31 AGAP (test code = 9726624485) 7 2-16 BUN (test code = 6842542882) 4 mg/dL 7-23 L GLUCOSE (test code = 5262386299) 116 mg/dL 70-110 H CREATININE (test code = 2160-0) 0.75 mg/dL 0.50-1.04 TOTAL BILI (test code = 0075082915) 0.9 mg/dL 0.1-1.1 CALCIUM (test code = 3695965795) 7.2 mg/dL 8.6-10.6 L T PROTEIN (test code = 0760246280) 6.5 g/dL 6.3-8.2 ALBUMIN (test code = 5152057712) 3.1 g/dL 3.5-5.0 L ALK PHOS (test code = 4611295820) 136 U/L 34-122 H ALTv (test code = 1742-6) 20 U/L 5-35 AST(SGOT) (test code = 2743213730) 44 U/L 13-40 H eGFR (test code = 75983-6) 108.0 mL/min/1.73m2 CKD-EPI eGFR (2020). Assuming creatinine has been stable day-to-day for at least three months, the eGFR indicates Category G1 (>= 90 mL/min/1.73 m2) Lab Interpretation (test code = 96063-5) Abnormal [facility] B Surface Crywioj6847-50-44 06:21:22 * Test Item Value Reference Range Interpretation Comme nts HBsAg Semi-Quantitative (delilah t code = 5195-3) 0.06 Negative [facility] B Surface Uwxpujp7420-76-11 06:21:22 * Test Item Value Reference Range Interpretation Comme nts HBsAg Semi-Quantitative (delilah t code = 5195-3) 0.06 Negative [facility] Drug (Immunoassay) - Comprehensive Drug Nevhqa4218-11-60 05:58:59* Test Item Value Reference Range Interpretation Comme nts SHIRA S (test code = 3778400883) Negative Negative BENZO S (test code = 7058468618) Negative Negative TRICYCLIC (test code = 3045069831) Negative Negative STAN (test code = STAN) Serum Drug Screen Cutoff Ranges Barbiturates ? ? - 3 mcg/mLBenzodiazepines ?- 50 ng/mLTCA ?- 300 ng/mL Test developed and characteristics determined by [facility]. The results are to be used only for medical (i.e., treatment) purposes. Unconfirmed screening results must not be used for non-medical purposes (e.g., employment testing, legal testing). Lab Interpretation (test code = 74865-4) Normal [facility] Drug (Immunoassay) - Comprehensive Drug Qeyggp9772-65-70 05:58:59* Test Item Value Reference Range Interpretation Comme nts SHIRA S (test code = 2840356507) Negative Negative BENZO S (test code = 9801468079) Negative Negative TRICYCLIC (test code = 0452597383) Negative Negative STAN (test code = STAN) Serum Drug Screen Cutoff Ranges Barbiturates ? ? - 3 mcg/mLBenzodiazepines ?- 50 ng/mLTCA ?- 300 ng/mL Test developed and characteristics determined by [facility]. The results are to be used only for medical (i.e., treatment) purposes. Unconfirmed screening results must not be used for non-medical purposes (e.g., employment testing, legal testing). Lab Interpretation (test code = 06240-2) Normal [facility] PELVIS > 14 [id number] 05:24:20Ordering Physician: ?ELLA ?ZULAY HISTORY: Pain in COMPARISON: 10/12/2023 Permanently recorded sonographic images were stored in the PACs system. SAMPSON: 02/02/2024 Transabdominal imaging was performed. FINDINGS:There is a single live intrauterine gestation in cephalic position with aposterior/fundal placenta. ?There is a normal amount of amniotic fluid withan SABRINA of 12.3. Cervix is not well seen due to overlying position of thecalvarium. heart rate is 132 beats per minute.Limited surveydemonstrates no definite gross anatomic abnormalities. Anatomic survey issignificantly limited by advanced gestational age. ?The following biometricdata were obtained: BPD ?7.24 cm for estimated gestational age of 29 weeks and 1 dayHC ? ?30.53 cm for estimated gestational age of34 weeks and 0 daysAC ? ?31.09 cm for estimated gestational age of 35 weeks and 1 dayFL ? ?6.93 cm for estimated gestational age of 35 weeks and 4 daysEFW 3317Age by dates:Age by US: ? ? 33 weeks and2 days [facility] PELVIS > 14 [id number] 05:24:20Ordering Physician: ?ELLA ?ZULAY HISTORY: Pain in COMPARISON: 10/12/2023 Permanently recorded sonographic images were stored in the PACs system. SAMPSON: 02/02/2024 Transabdominal imaging was performed. FINDINGS:There is a single live intrauterine gestation in cephalic position with aposterior/fundal placenta. ?There is a normal amount of amniotic fluid withan SABRINA of 12.3. Cervix is not well seen due to overlying position of thecalvarium. heart rate is 132 beats per minute.Limited surveydemonstrates no definite gross anatomic abnormalities. Anatomic survey issignificantly limited by advanced gestational age. ?The following biometricdata were obtained: BPD ?7.24 cm for estimated gestational age of 29 weeks and 1 dayHC ? ?30.53 cm for estimated gestational age of34 weeks and 0 daysAC ? ?31.09 cm for estimated gestational age of 35 weeks and 1 dayFL ? ?6.93 cm for estimated gestational age of 35 weeks and 4 daysEFW 3317Age by dates:Age by US: ? ? 33 weeks and2 days [facility] 1/2 Ag-Ab with [id number] 03:28:15* Test Item Value Reference Range Interpretation Comme nts HIV Semi-quantitative (test code = 33171-3) 0.19 Negative STAN (test code = STAN) Non-reactive for HIV-1 antigen and HIV-1/HIV-2 antibodies. ?No laboratory evidence of HIV infection. ?Repeat in 2-4 weeks if acute HIV infection is suspected. [facility] 1/2 Ag-Ab with [id number] 03:28:15* Test Item Value Reference Range Interpretation Comme nts HIV Semi-quantitative (test code = 45118-8) 0.19 Negative STAN (test code = STAN) Non-reactive for HIV-1 antigen and HIV-1/HIV-2 antibodies. ?No laboratory evidence of HIV infection. ?Repeat in 2-4 weeks if acute HIV infection is suspected. [facility]anol[facility]:19:52* Test Item Value Reference Range Interpretation Comme nts ALCOHOL (test code = 4512000844) 291 mg/dL STAN (test code = STAN) <10 Qfxydtwa29-052 Toxic>100 Depression of SENIOR PROCESS ANALYST>400 Fatalities Reported [facility]anol[facility] 02:19:52* Test Item Value Reference Range Interpretation Comme nts ALCOHOL (test code = 6533875450) 291 mg/dL STAN (test code = STAN) <10 Nobvlwwl60-405 Toxic>100 Depression of SENIOR PROCESS ANALYST>400 Fatalities Reported [facility] with [id number] 02:12:10* Test Item Value Reference Range Interpretation Comme nts WBC (test code = 6690-2) 9.65 4.30-11.10 RBC (test code = 789-8) 3.45 3.93-5.25 L HGB (test code = 718-7) 10.7 g/dL 11.6-15.0 L HCT (test code = 4544-3) 31.4 % 35.7-45.2 L MCV (test code = 787-2) 91.0 fL 80.6-95.5 MCH (test code = 785-6) 31.0 pg 25.9-32.8 MCHC (test code = 786-4) 34.1 g/dL 31.6-35.1 RDW-SD (test code = 86265-3) 47.5 fL 39.0-49.9 RDW-CV (test code = 788-0) 14.6 % 12.0-15.5 PLT (test code = 777-3) 241 166-358 MPV (test code = 26427-5) 9.3 fL 9.5-12.9 L NRBC/100 WBC (test code = 8778756948) 0.2 0.0-10.0 NRBC x10^3 (test code = 2235257977) 0.02 See_Comment [Automated messa ge] The system which generated this result transmitted reference range: 10*3/?L. The reference range was not used to interpret this result as normal/abnormal. GRAN MAT (NEUT) % (test code = 770-8) 50.1 % IMM GRAN % (test code = 6869575716) 0.40 % LYMPH % (test code = 736-9) 42.7 % MONO % (test code = 5905-5) 5.4 % EOS % (test code = 713-8) 0.7 % BASO % (test code = 706-2) 0.7 % GRAN MAT x10^3(ANC) (test code = 6927217094) 4.83 10*3/uL 1.88-7.09 IMM GRAN x10^3 (test code = 1526923621) 0.04 10*3/uL 0.00-0.06 LYMPH x10^3 (test code = 731-0) 4.12 10*3/uL 1.32-3.29 H MONO x10^3 (test code = 742-7) 0.52 10*3/uL 0.33-0.92 EOS x10^3 (test code = 711-2) 0.07 10*3/uL 0.03-0.39 BASO x10^3 (test code = 704-7) 0.07 10*3/uL 0.01-0.07 Lab Interpretation (test code = 21264-7) Abnormal [facility] with [id number] 02:12:10* Test Item Value Reference Range Interpretation Comme nts WBC (test code = 6690-2) 9.65 4.30-11.10 RBC (test code = 789-8) 3.45 3.93-5.25 L HGB (test code = 718-7) 10.7 g/dL 11.6-15.0 L HCT (test code = 4544-3) 31.4 % 35.7-45.2 L MCV (test code = 787-2) 91.0 fL 80.6-95.5 MCH (test code = 785-6) 31.0 pg 25.9-32.8 MCHC (test code = 786-4) 34.1 g/dL 31.6-35.1 RDW-SD (test code = 62172-0) 47.5 fL 39.0-49.9 RDW-CV (test code = 788-0) 14.6 % 12.0-15.5 PLT (test code = 777-3) 241 166-358 MPV (test code = 06056-3) 9.3 fL 9.5-12.9 L NRBC/100 WBC (test code = 0359204283) 0.2 0.0-10.0 NRBC x10^3 (test code = 6246724448) 0.02 See_Comment [Automated messa ge] The system which generated this result transmitted reference range: 10*3/?L. The reference range was not used to interpret this result as normal/abnormal. GRAN MAT (NEUT) % (test code = 770-8) 50.1 % IMM GRAN % (test code = 2560845236) 0.40 % LYMPH % (test code = 736-9) 42.7 % MONO % (test code = 5905-5) 5.4 % EOS % (test code = 713-8) 0.7 % BASO % (test code = 706-2) 0.7 % GRAN MAT x10^3(ANC) (test code = 2121887775) 4.83 10*3/uL 1.88-7.09 IMM GRAN x10^3 (test code = 0512548862) 0.04 10*3/uL 0.00-0.06 LYMPH x10^3 (test code = 731-0) 4.12 10*3/uL 1.32-3.29 H MONO x10^3 (test code = 742-7) 0.52 10*3/uL 0.33-0.92 EOS x10^3 (test code = 711-2) 0.07 10*3/uL 0.03-0.39 BASO x10^3 (test code = 704-7) 0.07 10*3/uL 0.01-0.07 Lab Interpretation (test code = 75584-3) Abnormal [facility] - ONCE Ggtsing0951-86-47 02:04:00* Test Item Value Reference Range Interpretation Comme nts ABO & RH (test code = 20) A POSITIVE IAT (test code = 1185) Negative [facility] CenterType [facility] - ONCE Lxttziu5204-90-93 02:04:00* Test Item Value Reference Range Interpretation Comme nts ABO & RH (test code = 20) A POSITIVE IAT (test code = 1185) Negative [facility] CenterPOCT Urinalysis Glucose & Rrjmqny2420-23-58 15:56:00* Test Item Value Reference Range Interpretation Comme nts POCT U PROT (test code = 3259) trace Negative - Negat yandel POCT U GLU (test code = 3256) negative Negative - Negati ve [facility] CenterGALV ONLY - SYPHILIS IGG/[id number] 14:45:19* Test Item Value Reference Range Interpretation Comme nts Syphilis IgG/IgM (test code = 30403-9) Non-reactive Non-reactive STAN (test code = STAN) Non-reactive - No serologic evidence of T. pallidum infection. Cannot exclude incubating or early syphilis. Submit a second specimen in 2-4 weeks if syphilis is clinically suspected. Equivocal - Further testing to follow. Reactive - Further testing to follow. Lab Interpretation (test code = 52095-0) Normal [facility] CenterHIV 1/2 AG-AB WITH [id number] 03:39:36* Test Item Value Reference Range Interpretation Comme nts HIV Semi-quantitative (test code = 63451-4) 0.12 Negative STAN (test code = STAN) Non-reactive for HIV-1 antigen and HIV-1/HIV-2 antibodies. ?No laboratory evidence of HIV infection. ?Repeat in 2-4 weeks if acute HIV infection is suspected. [facility] CenterGlucose 1 Hour Post Udjwupos2994-55-72 02:26:11* Test Item Value Reference Range Interpretation Comme nts GLUC 1 HR (test code = 2127442147) 119 mg/dL 120-170 L Lab Interpretation (test cod e = 44601-3) Abnormal [facility] CenterCBC with Qkrepuhqtqth7397-41-05 02:17:09* Test Item Value Reference Range Interpretation Comme nts WBC (test code = 6690-2) 8.98 4.30-11.10 RBC (test code = 789-8) 3.23 3.93-5.25 L HGB (test code = 718-7) 9.8 g/dL 11.6-15.0 L HCT (test code = 4544-3) 30.3 % 35.7-45.2 L MCV (test code = 787-2) 93.8 fL 80.6-95.5 MCH (test code = 785-6) 30.3 pg 25.9-32.8 MCHC (test code = 786-4) 32.3 g/dL 31.6-35.1 RDW-SD (test code = 17440-2) 45.1 fL 39.0-49.9 RDW-CV (test code = 788-0) 13.5 % 12.0-15.5 PLT (test code = 777-3) 278 166-358 MPV (test code = 25124-9) 9.2 fL 9.5-12.9 L NRBC/100 WBC (test code = 7331650108) 0.0 0.0-10.0 NRBC x10^3 (test code = 5528133323) See_Comment [Automated messa ge] The system which generated this result transmitted reference range: 10*3/?L. The reference range was not used to interpret this result as normal/abnormal. GRAN MAT (NEUT) % (test code = 770-8) 69.6 % IMM GRAN % (test code = 8321849728) 0.70 % LYMPH % (test code = 736-9) 20.4 % MONO % (test code = 5905-5) 6.0 % EOS % (test code = 713-8) 2.4 % BASO % (test code = 706-2) 0.9 % GRAN MAT x10^3(ANC) (test code = 7577462582) 6.25 10*3/uL 1.88-7.09 IMM GRAN x10^3 (test code = 4767302104) 0.06 10*3/uL 0.00-0.06 LYMPH x10^3 (test code = 731-0) 1.83 10*3/uL 1.32-3.29 MONO x10^3 (test code = 742-7) 0.54 10*3/uL 0.33-0.92 EOS x10^3 (test code = 711-2) 0.22 10*3/uL 0.03-0.39 BASO x10^3 (test code = 704-7) 0.08 10*3/uL 0.01-0.07 H Lab Interpretation (test code = 81336-5) Abnormal [facility] CenterFetal Non-Stress [id number] 18:57:52NST reactive for gestation with 1 contraction not feltUnCHRISTUS [facility] – TylerPOCT URINALYSIS W SPECIFIC [id number] 15:05:00* Test Item Value Reference Range Interpretation Comme nts POCT U SP GRAV (test code = 3255) . 1.005-1.025 POCT PH U (test code = 3254) 7 mg/dl 5-8 POCT U LEUK EST (test code = 3263) Trace Negative - Negative POCT U NIT (test code = 3262) Neg Negative - Negati ve POCT U PROT (test code = 3259) Trace Negative - Negat yandel POCT U GLU (test code = 2006) Nml Negative - Negati ve POCT U KETONE (test code = 4888) None Negative - Neg ative POCT U UROBILI (test code = 3260) . 0.2-1 POCT U BILI (test code = 3261) . Negative - Negat yandel POCT U BLD (test code = 3257) Trace Negative - Negati ve POCT U COLOR (test code = 3266) . POCT U APPEAR (test code = 3267) [facility] URINALYSIS W SPECIFIC [id number] 19:23:00* Test Item Value Reference Range Interpretation Comme nts POCT U SP GRAV (test code = 3255) 1.005 mg/dl 1.005-1.025 POCT PH U (test code = 3254) 6 mg/dl 5-8 POCT U LEUK EST (test code = 3263) neg Negative - Negative POCT U NIT (test code = 3262) neg Negative - Negati ve POCT U PROT (test code = 3259) neg Negative - Negative POCT U GLU (test code = 3256) neg Negative - Negati ve POCT U KETONE (test code = 3258) neg Negative - Negative POCT U UROBILI (test code = 3260) neg 0.2-1 POCT U BILI (test code = 3261) neg Negative - Negative POCT U BLD (test code = 3257) neg Negative - Negati ve POCT U COLOR (test code = 3266) POCT U APPEAR (test code = 3267) [facility] URINALYSIS W SPECIFIC [id number] 19:34:00* Test Item Value Reference Range Interpretation Comme nts POCT U SP GRAV (test code = 3255) . 1.005-1.025 POCT PH U (test code = 3254) 6 mg/dl 5-8 POCT U LEUK EST (test code = 3263) Neg Negative - Negative POCT U NIT (test code = 3262) Neg Negative - Negati ve POCT U PROT (test code = 3259) Neg Negative - Negat yandel POCT U GLU (test code = 3256) Nml Negative - Negati ve POCT U KETONE (test code = 3258) None Negative - Neg ative POCT U UROBILI (test code = 3260) . 0.2-1 POCT U BILI (test code = 3261) . Negative - Negat yandel POCT U BLD (test code = 3257) Neg Negative - Negati ve POCT U COLOR (test code = 3266) . POCT U APPEAR (test code = 3267) [facility] CenterPOCT URINALYSIS W SPECIFIC [id number] 21:20:00* Test Item Value Reference Range Interpretation Comme nts POCT U SP GRAV (test code = 3255) n/a 1.005-1.025 POCT PH U (test code = 3254) 6 mg/dl 5-8 POCT U LEUK EST (test code = 3263) trace Negative - Negative POCT U NIT (test code = 3262) negative Negative - Negati ve POCT U PROT (test code = 3259) trace Negative - Negat yandel POCT U GLU (test code = 3256) negative Negative - Negati ve POCT U KETONE (test code = 3258) negative Negative - Neg ative POCT U UROBILI (test code = 3260) n/a 0.2-1 POCT U BILI (test code = 3261) n/a Negative - Negat yandel POCT U BLD (test code = 3257) negative Negative - Negati ve POCT U COLOR (test code = 3266) POCT U APPEAR (test code = 3267) Lab Interpretation (test cod e = 92923-8) Abnormal [facility] PELVIS > 14 [id number] 22:12:08ORDERING PHYSICIAN: MIRIAN LAMB CLINICAL HISTORY: Growth assessment TECHNIQUE: Transabdominal pelvic sonography was performed. Permanent imageswere acquired for the patient's medical record. COMPARISON: None available. FINDINGS: There is a single viable intrauterine pain is identified in cephalicp resentation. Biparietal diameter measures 4.6 cm, consistent with 19 weeks6 days. Head circumference measures 18.5 cm, consistent with 21 weeks 0days. Femur length measures 3.6 cm, consistent with 22weeks 4 days.Three-vessel cord is identified. Cord insertion is normal. Abdominalcircumference measures 19 cm, consistent with 22 weeks 0 days. heartrate measures 142 bpm. Amniotic fluid index measures 10 cm. [facility] - [facility] [id number] 18:16:39Ordered by an unspecified provider.[facility] URINALYSIS W SPECIFIC [id number] 13:31:00* Test Item Value Reference Range Interpretation Comme nts POCT U SP GRAV (test code = 3255) . 1.005-1.025 POCT PH U (test code = 3254) 5 mg/dl 5-8 POCT U LEUK EST (test code = 3263) Neg Negative - Negative POCT U NIT (test code = 3262) Neg Negative - Negati ve POCT U PROT (test code = 3259) 1+ Negative - Negat yandel POCT U GLU (test code = 3256) Nml Negative - Negati ve POCT U KETONE (test code = 3258) None Negative - Neg ative POCT U UROBILI (test code = 3260) . 0.2-1 POCT U BILI (test code = 3261) . Negative - Negat yandel POCT U BLD (test code = 3257) Trace Negative - Negati ve POCT U COLOR (test code = 3266) . POCT U APPEAR (test code = 3267) [facility] URINALYSIS W SPECIFIC [id number] 13:31:00* Test Item Value Reference Range Interpretation Comme nts POCT U SP GRAV (test code = 3255) . 1.005-1.025 POCT PH U (test code = 3254) 5 mg/dl 5-8 POCT U LEUK EST (test code = 3263) Neg Negative - Negative POCT U NIT (test code = 3262) Neg Negative - Negati ve POCT U PROT (test code = 3259) 1+ Negative - Negat yandel POCT U GLU (test code = 3256) Nml Negative - Negati ve POCT U KETONE (test code = 3258) None Negative - Neg ative POCT U UROBILI (test code = 3260) . 0.2-1 POCT U BILI (test code = 3261) . Negative - Negat yandel POCT U BLD (test code = 3257) Trace Negative - Negati ve POCT U COLOR (test code = 3266) . POCT U APPEAR (test code = 3267) [facility] URINALYSIS W SPECIFIC [id number] 13:31:00* Test Item Value Reference Range Interpretation Comme nts POCT U SP GRAV (test code = 3255) . 1.005-1.025 POCT PH U (test code = 3254) 5 mg/dl 5-8 POCT U LEUK EST (test code = 3263) Neg Negative - Negative POCT U NIT (test code = 3262) Neg Negative - Negati ve POCT U PROT (test code = 3259) 1+ Negative - Negat yandel POCT U GLU (test code = 3256) Nml Negative - Negati ve POCT U KETONE (test code = 3258) None Negative - Neg ative POCT U UROBILI (test code = 3260) . 0.2-1 POCT U BILI (test code = 3261) . Negative - Negat yandel POCT U BLD (test code = 3257) Trace Negative - Negati ve POCT U COLOR (test code = 3266) . POCT U APPEAR (test code = 3267) [facility] URINALYSIS W SPECIFIC [id number] 15:16:00* Test Item Value Reference Range Interpretation Comme nts POCT U SP GRAV (test code = 3255) . 1.005-1.025 POCT PH U (test code = 3254) 6 mg/dl 5-8 POCT U LEUK EST (test code = 3263) trace Negative - Negative POCT U NIT (test code = 3262) neg Negative - Negati ve POCT U PROT (test code = 3259) trace Negative - Negat yandel POCT U GLU (test code = 3256) neg Negative - Negati ve POCT U KETONE (test code = 3258) neg Negative - Neg ative POCT U UROBILI (test code = 3260) . 0.2-1 POCT U BILI (test code = 3261) . Negative - Negat yandel POCT U BLD (test code = 3257) neg Negative - Negati ve POCT U COLOR (test code = 3266) . POCT U APPEAR (test code = 3267) . [facility] URINALYSIS W SPECIFIC [id number] 18:42:00* Test Item Value Reference Range Interpretation Comme nts POCT U SP GRAV (test code = 3255) . 1.005-1.025 POCT PH U (test code = 3254) . 5-8 POCT U LEUK EST (test code = 3263) . Negative - N egative POCT U NIT (test code = 3262) . Negative - Negati ve POCT U PROT (test code = 3259) trace Negative - Negat yandel POCT U GLU (test code = 3256) neg Negative - Negati ve POCT U KETONE (test code = 3258) . Negative - Neg ative POCT U UROBILI (test code = 3260) . 0.2-1 POCT U BILI (test code = 3261) . Negative - Negat yandel POCT U BLD (test code = 3257) . Negative - Negati ve POCT U COLOR (test code = 3266) . POCT U APPEAR (test code = 3267) . [facility] URINALYSIS W SPECIFIC [id number] 18:42:00* Test Item Value Reference Range Interpretation Comme nts POCT U SP GRAV (test code = 3255) . 1.005-1.025 POCT PH U (test code = 3254) . 5-8 POCT U LEUK EST (test code = 3263) . Negative - N egative POCT U NIT (test code = 3262) . Negative - Negati ve POCT U PROT (test code = 3259) trace Negative - Negat yandel POCT U GLU (test code = 3256) neg Negative - Negati ve POCT U KETONE (test code = 3258) . Negative - Neg ative POCT U UROBILI (test code = 3260) . 0.2-1 POCT U BILI (test code = 3261) . Negative - Negat yandel POCT U BLD (test code = 3257) . Negative - Negati ve POCT U COLOR (test code = 3266) . POCT U APPEAR (test code = 3267) . [facility] URINALYSIS W SPECIFIC [id number] 18:42:00* Test Item Value Reference Range Interpretation Comme nts POCT U SP GRAV (test code = 3255) . 1.005-1.025 POCT PH U (test code = 3254) . 5-8 POCT U LEUK EST (test code = 3263) . Negative - N egative POCT U NIT (test code = 3262) . Negative - Negati ve POCT U PROT (test code = 3259) trace Negative - Negat yandel POCT U GLU (test code = 3256) neg Negative - Negati ve POCT U KETONE (test code = 3258) . Negative - Neg ative POCT U UROBILI (test code = 3260) . 0.2-1 POCT U BILI (test code = 3261) . Negative - Negat yandel POCT U BLD (test code = 3257) . Negative - Negati ve POCT U COLOR (test code = 3266) . POCT U APPEAR (test code = 3267) . [facility] URINALYSIS W SPECIFIC [id number] 18:42:00* Test Item Value Reference Range Interpretation Comme nts POCT U SP GRAV (test code = 3255) . 1.005-1.025 POCT PH U (test code = 3254) . 5-8 POCT U LEUK EST (test code = 3263) . Negative - N egative POCT U NIT (test code = 3262) . Negative - Negati ve POCT U PROT (test code = 3259) trace Negative - Negat yandel POCT U GLU (test code = 3256) neg Negative - Negati ve POCT U KETONE (test code = 3258) . Negative - Neg ative POCT U UROBILI (test code = 3260) . 0.2-1 POCT U BILI (test code = 3261) . Negative - Negat yandel POCT U BLD (test code = 3257) . Negative - Negati ve POCT U COLOR (test code = 3266) . POCT U APPEAR (test code = 3267) . [facility] URINALYSIS W SPECIFIC [id number] 18:42:00* Test Item Value Reference Range Interpretation Comme nts POCT U SP GRAV (test code = 3255) . 1.005-1.025 POCT PH U (test code = 3254) . 5-8 POCT U LEUK EST (test code = 3263) . Negative - N egative POCT U NIT (test code = 3262) . Negative - Negati ve POCT U PROT (test code = 3259) trace Negative - Negat yandel POCT U GLU (test code = 3256) neg Negative - Negati ve POCT U KETONE (test code = 3258) . Negative - Neg ative POCT U UROBILI (test code = 3260) . 0.2-1 POCT U BILI (test code = 3261) . Negative - Negat yandel POCT U BLD (test code = 3257) . Negative - Negati ve POCT U COLOR (test code = 3266) . POCT U APPEAR (test code = 3267) . [facility] CenterDME/SUPPLY [id number] 19:54:17 Ordered by an unspecified provider.[facility] CenterFIRST TRIMESTER [id number] 14:30:33Ordered by an unspecified provider. [facility] URINALYSIS W SPECIFIC [id number] 15:04:00* Test Item Value Reference Range Interpretation Comme nts POCT U SP GRAV (test code = 3255) . 1.005-1.025 POCT PH U (test code = 3254) 6 mg/dl 5-8 POCT U LEUK EST (test code = 3263) Neg Negative - Negative POCT U NIT (test code = 3262) Neg Negative - Negati ve POCT U PROT (test code = 3259) Trace Negative - Negat yandel POCT U GLU (test code = 3256) Nml Negative - Negati ve POCT U KETONE (test code = 3258) None Negative - Neg ative POCT U UROBILI (test code = 3260) . 0.2-1 POCT U BILI (test code = 3261) . Negative - Negat yandel POCT U BLD (test code = 3257) Trace Negative - Negati ve POCT U COLOR (test code = 3266) POCT U APPEAR (test code = 3267) .. [facility] [id number] 15:04:00* Test Item Value Reference Range Interpretation Comme nts POCT U SP GRAV (test code = 3255) . 1.005-1.025 POCT PH U (test code = 3254) 6 mg/dl 5-8 POCT U LEUK EST (test code = 3263) Neg Negative - Negative POCT U NIT (test code = 3262) Neg Negative - Negati ve POCT U PROT (test code = 3259) Trace Negative - Negat yandel POCT U GLU (test code = 3256) Nml Negative - Negati ve POCT U KETONE (test code = 3258) None Negative - Neg ative POCT U UROBILI (test code = 3260) . 0.2-1 POCT U BILI (test code = 3261) . Negative - Negat yandel POCT U BLD (test code = 3257) Trace Negative - Negati ve POCT U COLOR (test code = 3266) POCT U APPEAR (test code = 3267) .. [facility] CenterGAL [facility] - SYPHILIS [id number] 17:33:25* Test Item Value Reference Range Interpretation Comme nts Syphilis IgG/IgM (test code = 27500-1) Non-reactive Non-reactive STAN (test code = STAN) Non-reactive - No serologic evidence of T. pallidum infection. Cannot exclude incubating or early syphilis. Submit a second specimen in 2-4 weeks if syphilis is clinically suspected. Equivocal - Further testing to follow. Reactive - Further testing to follow. Lab Interpretation (test code = 24831-9) Normal [facility]HIV [facility]2 AG-AB WITH [id number] 13:14:37* Test Item Value Reference Range Interpretation Comme nts HIV Semi-quantitative (test code = 40998-5) 0.08 Negative STAN (test code = STAN) Non-reactive for HIV-1 antigen and HIV-1/HIV-2 antibodies. ?No laboratory evidence of HIV infection. ?Repeat in 2-4 weeks if acute HIV infection is suspected. [facility] CenterHCV [id number] 11:37:46* Test Item Value Reference Range Interpretation Comme nts HCV Ab (test code = 88264-4) Negative HCV Semi-Quantitative (test code = 57451-4) 0.01 [facility] CenterHEPATITIS B SURFACE [id number] 11:20:42 * Test Item Value Reference Range Interpretation Comme nts HBsAg Semi-Quantitative (delilah t code = 5195-3) 0.05 Negative [facility] CenterGlucose 1 Hour Post [id number] 08:48:42* Test Item Value Reference Range Interpretation Comme nts GLUC 1 HR (test code = 7465070423) 111 mg/dL 120-170 L Lab Interpretation (test cod e = 15138-7) Abnormal [facility] CenterCB WITH [id number] 05:37:05* Test Item Value Reference Range Interpretation Comme nts WBC (test code = 6690-2) 8.13 4.30-11.10 RBC (test code = 789-8) 4.05 3.93-5.25 HGB (test code = 718-7) 13.2 g/dL 11.6-15.0 HCT (test code = 4544-3) 39.9 % 35.7-45.2 MCV (test code = 787-2) 98.5 fL 80.6-95.5 H MCH (test code = 785-6) 32.6 pg 25.9-32.8 MCHC (test code = 786-4) 33.1 g/dL 31.6-35.1 RDW-SD (test code = 63498-3) 43.0 fL 39.0-49.9 RDW-CV (test code = 788-0) 11.8 % 12.0-15.5 L PLT (test code = 777-3) 369 166-358 H MPV (test code = 11290-3) 9.2 fL 9.5-12.9 L NRBC/100 WBC (test code = 7768874541) 0.0 0.0-10.0 NRBC x10^3 (test code = 2014298746) See_Comment [Automated messa ge] The system which generated this result transmitted reference range: 10*3/?L. The reference range was not used to interpret this result as normal/abnormal. GRAN MAT (NEUT) % (test code = 770-8) 57.4 % IMM GRAN % (test code = 3304113438) 0.50 % LYMPH % (test code = 736-9) 27.4 % MONO % (test code = 5905-5) 7.1 % EOS % (test code = 713-8) 6.5 % BASO % (test code = 706-2) 1.1 % GRAN MAT x10^3(ANC) (test code = 6079873623) 4.66 10*3/uL 1.88-7.09 IMM GRAN x10^3 (test code = 0734210759) 0.04 10*3/uL 0.00-0.06 LYMPH x10^3 (test code = 731-0) 2.23 10*3/uL 1.32-3.29 MONO x10^3 (test code = 742-7) 0.58 10*3/uL 0.33-0.92 EOS x10^3 (test code = 711-2) 0.53 10*3/uL 0.03-0.39 H BASO x10^3 (test code = 704-7) 0.09 10*3/uL 0.01-0.07 H Lab Interpretation (test code = 90796-5) [facility] [id number] 05:10:00 * Test Item Value Reference Range Interpretation Comme nts ABO & RH (test code = 20) A POSITIVE IAT (test code = 1185) Negative [facility] Urinalysis w/o Specific [id number] 16:33:00* Test Item Value Reference Range Interpretation Comme nts POCT PH U (test code = 3254) 5 mg/dl 5-8 POCT U LEUK EST (test code = 3263) Trace Negative - Negative POCT U NIT (test code = 3262) Neg Negative - Negati ve POCT U PROT (test code = 3259) Trace Negative - Negat yandel POCT U GLU (test code = 3256) Nml Negative - Negati ve POCT U KETONE (test code = 3258) None Negative - Neg ative POCT U BLD (test code = 3257) Neg Negative - Negati ve [facility] [id number] 16:31:00* Test Item Value Reference Range Interpretation Comme nts POCT PREG (test code = 1605) Positive On board controls acceptable with C Line (test code = 3574) Yes POCT PREG LOT # (test code = 3575) POCT PREG TEST DATE ( test code = 3576) [facility] [id number] 21:33:00* Test Item Value Reference Range Interpretation Comme nts POCT PREG (test code = 1605) Negative On board controls acceptable with C Line (test code = 3574) Yes POCT PREG LOT # (test code = 3575) [id number] POCT PREG TEST DATE ( test code = 3576) 04/27/2024 Lab Interpretation (test cod e = 12359-5) Normal [facility] SARS-COV-2 ANTIGEN (BINAX NOW)2022-10-18 14:41:00* Test Item Value Reference Range Interpretation Comme nts POCT SARS-COV-2 ANTIGEN (delilah t code = 85723-3) Not Detected Not Detected On board controls acceptable with C Line (test code = 3574) Yes [facility] [id number] 19:13:00* Test Item Value Reference Range Interpretation Comme nts POCT PREG (test code = 1605) Negative On board controls acceptable with C Line (test code = 3574) Yes POCT PREG LOT # (test code = 3575) POCT PREG TEST DATE ( test code = 3576) [facility] History and Physical Notes Date/Time Note Provider Source 2024-01-14 20:17:56 ANTEPARTUM HISTORY & PHYSICAL IDENTIFYING DATA Jenna Asher is 33 year old, /White, 36w3d, female with SAMPSON 02/08/2024, by Ultrasound. : 1990 Primary Care Physician: PATIENT DOES NOT HAVE A PCP Hospital Day: 1 CHIEF COMPLAINT vaginal discharge/leakage of fluid HISTORY OF PRESENT ILLNESS 33 year old @36w3d presents via EMS. Pt states her bag of water broke last week. Complaining of nausea/ vomiting and diarrhea today. Denies vaginal bleeding. Was checked at [facility] and told pt was 3 cm dilated. PAST OBSTETRIC HISTORY OB History Para Term AB Living 4 3 3 3 SAB IAB Ectopic Multiple Live Births 0 3 # Outcome Date GA Lbr Braulio/2nd Weight Sex Delivery Anes PTL Lv 4 Current 3 Term 07/22/20 39w0d 3925 g F , L None MIAH 2 Term 04/18/19 39w0d 3275 g F , L Spinal MIAH 1 Term 02/13/07 42w0d 3771 g F SEC MIAH PAST MEDICAL HISTORY Problem list: Patient Active Problem List Diagnosis Date Noted 36 weeks gestation of 01/14/2024 Supervision of high-risk 01/10/2024 Anemia of mother in , antepartum 12/15/2023 GBS (group B streptococcus) UTI complicating 06/24/2023 Overweight (BMI 25.0-29.9) 06/22/2023 Previous delivery affecting , antepartum 08/23/2018 History of asthma 08/23/2018 Operations: Past Surgical History: Procedure Laterality Date SECTION 2007 SECTION N/A 04/18/2019 Surgeon: Grace Sofia MD; Location: Labor and Delivery - [place] SECTION N/A 07/22/2020 Surgeon: Benja Newman MD; Location: Labor and Delivery - [place] OTHER 08/21/2020 hernia removal Prior surgeries at outside hospitals: none Past Medical History: Diagnosis Date Anemia of mother in , antepartum 01/23/2019 Asthma as a child CURRENT HEALTH STATUS Medications: No current facility-administered medications for this encounter. Allergies and drug reactions: Azithromycin HOME MEDICATIONS Medications Prior to Admission Medication Sig Dispense Refill Last Dose proMETHazine 25 mg tablet Take 1 tablet by mouth every 4 (four) hours as needed for Nausea and Vomiting (N/V). 30 tablet 0 Iron Fum & P-FA-Vit B & C No.9 (INTEGRA PLUS) 125 mg iron- 1 mg Cap Take 1 capsule by mouth in the morning. 30 capsule 6 ondansetron 4 mg disintegrating tablet Take 1 tablet by mouth every 8 (eight) hours as needed for Nausea and Vomiting (N/V). 14 tablet 0 esomeprazole (NEXIUM) 20 mg capsule Take 20 mg by mouth daily before a meal. 30 capsule 3 PNV 67-iron ps-folate no.1-dha (VITAFOL ULTRA) 29 mg iron- 1 mg-200 mg Cap Take 1 capsule by mouth in the morning. 60 capsule 6 Last taken: yesterday SOCIAL HISTORY Tobacco History: Social History Tobacco Use Smoking Status Former Current packs/day: 0.00 Types: Cigarettes Quit date: 08/16/2018 Years since quittin.4 Smokeless Tobacco Never Drug History: Social History Substance and Sexual Activity Drug Use No Alcohol History: Social History Substance and Sexual Activity Alcohol Use Not Currently Comment: occasional FAMILY HISTORY Family History Problem Relation Age of Onset No Significant Medical Problems Mother Hypertension Father Arthritis Father Diabetes Father Other - see comments Sister scoliosis No Significant Medical Problems Brother No Significant Medical Problems Maternal Aunt No Significant Medical Problems Maternal Uncle Diabetes Paternal Aunt Arthritis Paternal Aunt No Significant Medical Problems Paternal Uncle No Significant Medical Problems Maternal Grandmother No Significant Medical Problems Maternal Grandfather No Significant Medical Problems Paternal Grandmother No Significant Medical Problems Paternal Grandfather REVIEW OF SYSTEMS General: negative Constitutional: negative Eyes: negative ENT/Mouth: negative Cardiovascular: negative Respiratory: negative Gastrointestinal:pain + Nausea/vomiting Genitourinary: discharge Musculoskeletal: negative Skin/breast: negative Neurological: slurred speech Psychiatric: crying Endocrine: negative Hemat/Lymph: negative Allergic/Immuno:none VITAL SIGNS BP: -- Temp: -- Temp source: -- Pulse: -- Resp: -- SpO2: -- Height: -- Weight: -- BMI (calculated): -- PHYSICAL EXAMINATIONS General: ill-appearing Lungs: non labored Abdomen: tenderness - normal : OB pelvic exam performed? Yes. Dilation - 1 cm Effacement - 0 % % Station - floating Presentation (fetus 1) - vertex Discharge - yes - normal Gross ROM - no Jet Inspector pelvic exam performed? No Extremities: no clubbing, cyanosis, or edema Neuro: alert and oriented x 3, slurred speech REVIEW OF LABORATORY, PATHOLOGY, AND RADIOLOGY DATA Lab results: CBC BMP PT/INR WBC x10 3 (/CMM) Date Value 12/27/2008 7.3 WBC (10*3/?L) Date Value 01/10/2024 8.24 NA (mmol/L) Date Value 12/21/2022 139 No results found for: "PT" RBC x10 6 (/CMM) Date Value 12/27/2008 3.71 (L) RBC (10*6/?L) Date Value 01/10/2024 3.22 (L) K (mmol/L) Date Value 12/21/2022 4.0 No results found for: "PTINR" PLT x10 3 (/CMM) Date Value 12/27/2008 225 PLT (10*3/?L) Date Value 01/10/2024 224 CALCIUM (mg/dL) Date Value 12/21/2022 9.2 HGB Date Value 01/10/2024 10.2 g/dL (L) 12/27/2008 11.2 G/DL (L) CL (mmol/L) Date Value 12/21/2022 106 aPTT HCT (%) Date Value 01/10/2024 29.8 (L) 12/27/2008 34.7 BUN (mg/dL) Date Value 12/21/2022 10 No results found for: "APTTPAT" CREATININE (mg/dL) Date Value 12/21/2022 0.72 GLUCOSE (mg/dL) Date Value 12/21/2022 95 CO2 TOTAL (mmol/L) Date Value 12/21/2022 25 Type & Screen Rubella Varicella ABO & RH (no units) Date Value 06/21/2023 A POSITIVE RUBELLA (no units) Date Value 12/27/2008 POSITIVE Rubella screen IgG (no units) Date Value 06/21/2023 Positive No results found for: "VZVG" No results found for: "TSABINT" Hep B HIV Syphilis No results found for: "HBS" HIV 1/2 Ab (no units) Date Value 12/27/2008 NEGATIVE No results found for: "SYPG" Group B Strep Chlamydia No results found for: "CGBS" Chlamydia Amplified Assay (no units) Date Value 12/27/2008 NEGATIVE C. trachomatis Nucleic Acid (no units) Date Value 01/10/2024 Negative Placenta Accreta Screening Screening outcome: A positive screening outcome indicates a history of prior delivery or prior uterine surgery, AND the presence of either a placenta low lying/previa or ultrasound suspicion of PASD in the current . Negative screening. DELIVERY PLAN RCS with BTL HEART RATE 140 cat 2 Mildred: irritability. ASSESSMENT AND PLAN 33 year old @36w3d presents with multiple complaints. --Leakage of fluid Negative fern and pooling Ultrasound ordered to check SABRINA --Nausea/vomiting Witnessed excess vomiting. IV hydration with IV Zofran ordered --Intoxication Called by [facility] with elevated Ethanol levels Pt denies and agrees to repeat testing here Will IV hydrate and give time to allow ETOH to leave system -- status Difficult to monitor with excessive maternal movements and vomiting. . Will continue to monitor overnight. Mode of delivery would be a repeat CS in needed. Ella Biswas MD [facility] 2023-10-12 15:58:23 TRIAGE HISTORY & PHYSICAL IDENTIFYING DATA Jenna Asher is 33 year old, /White, 23w0d, female with SAMPSON 02/08/2024, by Ultrasound. : 1990 Primary Care Physician: PATIENT DOES NOT HAVE A PCP CHIEF COMPLAINT LOF HISTORY OF PRESENT ILLNESS Jenna Asher is a 33 year old female @ 23w0d presented for LOF that started last night. States that she felt a gush of clear fluid around 8:30 pm last night and pulled her pants down to let all the fluid out. Then she felt leakage a couple more times after that, clear. Also started feeling contraction and pain. States that she was soaking in a tub due to pain. Denies recent intercourse. +FM. No VB. No pre-eclampsia sx or other complaints. PAST OBSTETRIC HISTORY OB History Para Term AB Living 4 3 3 3 SAB IAB Ectopic Multiple Live Births 0 3 # Outcome Date GA Lbr Braulio/2nd Weight Sex Delivery Anes PTL Lv 4 Current 3 Term 07/22/20 39w0d 3925 g F , L None MIAH 2 Term 04/18/19 39w0d 3275 g F , L Spinal MIAH 1 Term 02/13/07 42w0d 3771 g F SEC MIAH PAST MEDICAL HISTORY Problem list: Patient Active Problem List Diagnosis Date Noted GBS (group B streptococcus) UTI complicating 06/24/2023 Overweight (BMI 25.0-29.9) 06/22/2023 23 weeks gestation of 07/22/2020 Previous delivery affecting , antepartum 08/23/2018 History of asthma 08/23/2018 Operations: Past Surgical History: Procedure Laterality Date SECTION 2007 SECTION N/A 04/18/2019 Surgeon: Grace Sofia MD; Location: Labor and Delivery - [facility] [place] SECTION N/A 07/22/2020 Surgeon: Benja Newman MD; Location: Labor and Delivery - [facility] [place] OTHER 08/21/2020 hernia removal Past Medical History: Diagnosis Date Anemia of mother in , antepartum 01/23/2019 Asthma as a child CURRENT HEALTH STATUS Medications: Current Facility-Administered Medications Medication Dose Route Frequency Last Rate Last Admin D5W-LR IV infusion 1,000 mL 1,000 mL IV Infusion CONTINUOUS 125 mL/hr at 10/12/23 1434 1,000 mL at 10/12/23 1434 proMETHazine (PHENERGAN) 25 mg in NS 50 mL IV piggyback (CNR) 25 mg IV Piggyback Q4HPRN 200 mL/hr at 10/12/23 1545 25 mg at 10/12/23 1545 Allergies and drug reactions: Azithromycin HOME MEDICATIONS Medications Prior to Admission Medication Sig Dispense Refill Last Dose proMETHazine 25 mg tablet Take 1 tablet by mouth every 4 (four) hours as needed for Nausea and Vomiting (N/V). 30 tablet 1 PNV 67-iron ps-folate no.1-dha (VITAFOL ULTRA) 29 mg iron- 1 mg-200 mg Cap Take 1 capsule by mouth in the morning. 60 capsule 6 SOCIAL HISTORY Tobacco History: Social History Tobacco Use Smoking Status Former Current packs/day: 0.00 Types: Cigarettes Quit date: 08/16/2018 Years since quittin.1 Smokeless Tobacco Never Drug History: Social History Substance and Sexual Activity Drug Use No Alcohol History: Social History Substance and Sexual Activity Alcohol Use Not Currently Comment: occasional FAMILY HISTORY Family History Problem Relation Age of Onset No Significant Medical Problems Mother Hypertension Father Arthritis Father Diabetes Father Other - see comments Sister scoliosis No Significant Medical Problems Brother No Significant Medical Problems Maternal Aunt No Significant Medical Problems Maternal Uncle Diabetes Paternal Aunt Arthritis Paternal Aunt No Significant Medical Problems Paternal Uncle No Significant Medical Problems Maternal Grandmother No Significant Medical Problems Maternal Grandfather No Significant Medical Problems Paternal Grandmother No Significant Medical Problems Paternal Grandfather REVIEW OF SYSTEMS General: negative Constitutional: negative Eyes: negative ENT/Mouth: negative Cardiovascular: negative Respiratory: negative Gastrointestinal:negative Genitourinary: see HPI Musculoskeletal: negative Skin/breast: negative Neurological: negative Psychiatric: negative Endocrine: negative Hemat/Lymph: negative Allergic/Immuno:none VITAL SIGNS BP: (116-149)/(72-100) Temp: [36.6 ?C (97.8 ?F)-36.9 ?C (98.4 ?F)] Temp source: Temporal Artery (10/11 1443) Pulse: [98-109] Resp: [18-22] SpO2: [99 %-100 %] Height: [157.5 cm (5' 2")] Weight: [68.6 kg (151 lb 3.2 oz)] BMI (calculated): [27.65] PHYSICAL EXAMINATIONS Gen: appeared distress, standing at bedside and appeared to have significant pain on arrival. Also crying. CV: RRR, normal S1/S2, no m/r/g Resp: normal work of breathing, lungs CTAB Abd: gravid, soft, NTTP, surgical scar noted Ext: no calf tenderness or edema : SVE cl/th/high. Speculum exam showed small amount of clear mucous discharge mixed with white clumps. REVIEW OF LABORATORY, PATHOLOGY, AND RADIOLOGY DATA Lab results: Type & Screen HIV Hep B Syphilis Chlamydia ABO & RH Date Value Ref Range Status 06/21/2023 A POSITIVE Final No results found for: "HIVMULTIPLEX" No components found for: "HBSHBSAG" Syphilis IgG/IgM Date Value Ref Range Status 06/21/2023 Non-reactive Non-reactive Final C. trachomatis Nucleic Acid Date Value Ref Range Status 06/21/2023 Negative Negative Final IAT Date Value Ref Range Status 06/21/2023 Negative Final Varicella Rubella Glucose Group B Strep CBC VZV IgG antibody Date Value Ref Range Status 06/21/2023 Positive Negative Final Rubella screen IgG Date Value Ref Range Status 06/21/2023 Positive Negative Final GLUC 1 HR Date Value Ref Range Status 06/21/2023 111 (L) 120 - 170 mg/dL Final No results found for: "CGBS" HGB Date Value Ref Range Status 06/21/2023 13.2 11.6 - 15.0 g/dL Final HCT Date Value Ref Range Status 06/21/2023 39.9 35.7 - 45.2 % Final PLT Date Value Ref Range Status 06/21/2023 369 (H) 166 - 358 10*3/?L Final Active Hospital Problems Diagnosis Date Noted 23 weeks gestation of 07/22/2020 Previous delivery affecting , antepartum 08/23/2018 Resolved Hospital Problems No resolved problems to display. Present on Admission: 23 weeks gestation of Previous delivery affecting , antepartum Placenta Accreta Screening Prior ? : Yes Prior Uterine Surgery?: No Placenta low lying/previa in current ? : No Screening outcome: A positive screening outcome indicates a history of prior delivery or prior uterine surgery, AND the presence of either a placenta low lying/previa or ultrasound suspicion of PASD in the current . Negative screening. ASSESSMENT AND PLAN Jenna Asher is a 33 year old at 23w0d who presents with LOF and contractions. LOF - patient ruled out for PPROM - SABRINA normal on today ultrasound per verbal report - wet prep negative - UA few bacteria. Urine culture result pending Contractions - SVE cl/th/high - cephalic presentation - toco with some irritability but no contractions. When patient stays still, then toco quiescent. - abdomen soft CD x 3 - posterior placenta care at [facility]. Anatomy scan on 09/27/23 without obvious abnormalities but some suboptimal views; has follow-up ultrasound Stable for discharge home with strong precautions and follow-up with OB as scheduled unless clinically indicated otherwise Rene Lamb MD 10/12/2023 4:52 PM [facility] Procedure Notes Date/Time Note Provider Source 2024-01-15 04:00:15 Associated Order(s): Intubation Intubation Date/Time: 01/15/2024 3:46 AM Urgency: elective Airway not difficult General Information and Staff Patient location during procedure: OR Performed: anesthesiologist Performed by: Aminata Childs MD Authorized by: Aminata Childs MD Indications and Patient Condition Indications for airway management: anesthesia and airway protection Spontaneous Ventilation: absent Sedation level: deep Preoxygenated: yes Patient position: sniffing MILS not maintained throughout Mask difficulty assessment: 0 - not attempted Final Airway Details Final airway type: endotracheal airway Successful airway: ETT Cuffed: yes Successful intubation technique: direct laryngoscopy Endotracheal tube insertion site: oral Blade: Harleen Blade size: #3 ETT size (mm): 6.5 Cormack-Lehane Classification: grade I - full view of glottis Placement verified by: chest auscultation and capnometry Cuff volume (mL): 6 Measured from: teeth ETT to teeth (cm): 21 Number of attempts at approach: 1 [facility] Notes Date/Time Note Provider Source 2024-01-17 16:40:59 Problem: Falls, Risk of Goal: Absence of falls 01/17/20241639 by Yahaira Francois RN Outcome: Resolved 01/17/2024 08 by Yahaira Francois RN Outcome: Progressing as expected Problem: Discharge Planning - Goal: Adequate for discharge 01/17/20241639 by Yahaira Francois RN Outcome: Resolved 01/17/2024829 by Yahaira Francois RN Outcome: Progressing as expected Goal: Mood stable 01/17/2024 1640 by Yahaira Francois RN Outcome: Resolved 01/17/2024829 by Yahaira Francois RN Outcome: Progressing as expected Problem: Skin integrity Impaired (Risk or Actual) Goal: Wound healing 01/17/20241639 by Yahaira Francois RN Outcome: Resolved 01/17/2024 08 by Yahaira Francois RN Outcome: Progressing as expected Goal: Prevention of new skin breakdown 01/17/20241639 by Yahaira Francois RN Outcome: Resolved 01/17/2024 08 by Yahaira Francois RN Outcome: Progressing as expected Problem: Infection Risk Goal: Absence of infection 01/17/20241639 by Yahaira Francois RN Outcome: Resolved 01/17/2024829 by Yahaira Francois RN Outcome: Progressing as expected HT Yahaira Francois RN [facility] 2024-01-17 09:33:39 This note was copied from a baby's chart. Evaluation Situation Follow up visit Background Baby Girl is 2 days old, born weighing 2390g, and has lost 2.93% of weight. Gestational Age: 36w4d at FEEDING STATUS Formula supplementation via MATERNAL STATUS Assessment & Recommendation ASSISTANCE Mom denies problems with or latching so far. Baby sleeping in mom's arm. Mom states she is supplementing with formula while is under bili lights. Mom was encouraged to breastfeed at every feeding and supplement with formula after. I discussed with mom the potential of a decreased milk supply when supplementing with formula because infant does not feed from the breast often enough to build and maintain her milk supply. Mom was encouraged to feed from the breat at least 8-12 times a day when feeding cues are seen. education provided. All questions answered. Mom does not have any other questions or concerns at this time. Mom instructed on how to contact Director Hardware for assistance with feedings or to answer questions while in the hospital. Mom verbalized understanding. AZUL Holbrook, RN, IBCLC Mercedes Sim RN [facility] 2024-01-17 08:30:17 Problem: Falls, Risk of Goal: Absence of falls Outcome: Progressing as expected Problem: Discharge Planning - Goal: Adequate for discharge Outcome: Progressing as expected Goal: Mood stable Outcome: Progressing as expected Problem: Skin integrity Impaired (Risk or Actual) Goal: Wound healing Outcome: Progressing as expected Goal: Prevention of new skin breakdown Outcome: Progressing as expected Problem: Infection Risk Goal: Absence of infection Outcome: Progressing as expected T [facility] 2024-01-16 19:07:26 Problem: Falls, Risk of Goal: Absence of falls Outcome: Progressing as expected Problem: Discharge Planning - Goal: Adequate for discharge Outcome: Progressing as expected Goal: Mood stable Outcome: Progressing as expected Problem: Skin integrity Impaired (Risk or Actual) Goal: Wound healing Outcome: Progressing as expected Goal: Prevention of new skin breakdown Outcome: Progressing as expected Problem: Infection Risk Goal: Absence of infection Outcome: Progressing as expected Michelle Rivas RN [facility] 2024-01-16 15:13:41 Problem: Intrapartum process (including labor pain) Goal: Absence of or reduction of complications of labor Outcome: Change in patient condition/care plan Goal: Able to cope with pain Outcome: Change in patient condition/care plan Goal: Adequate to move to next level of care Outcome: Change in patient condition/care plan Goal: Reduction in pain sensation Outcome: Change in patient condition/care plan Problem: Falls, Risk of Goal: Absence of falls 01/16/20243 by Krissy Goel RN Outcome: Progressing as expected 01/16/2024823 by Krissy Goel RN Outcome: Progressing as expected 01/16/2024823 by Krissy Goel RN Outcome: Progressing as expected Problem: Discharge Planning - Goal: Adequate for discharge 01/16/2024 151 by Krissy Goel RN Outcome: Progressing as expected 01/16/2024823 by Krissy Goel RN Outcome: Progressing as expected 01/16/2024823 by Krissy Goel RN Outcome: Progressing as expected Goal: Mood stable 01/16/20241512 by Krissy Goel RN Outcome: Progressing as expected 01/16/2024823 by Krissy Goel RN Outcome: Progressing as expected 01/16/2024823 by Krissy Goel RN Outcome: Progressing as expected Problem: Skin integrity Impaired (Risk or Actual) Goal: Wound healing 01/16/2024 1513 by Krissy Goel RN Outcome: Progressing as expected 01/16/2024823 by Krissy Goel RN Outcome: Progressing as expected 01/16/2024823 by Krissy Goel RN Outcome: Progressing as expected Goal: Prevention of new skin breakdown 01/16/2024 1513 by Krissy Goel RN Outcome: Progressing as expected 01/16/2024823 by Krissy Goel RN Outcome: Progressing as expected 01/16/2024823 by Krissy Goel RN Outcome: Progressing as expected Problem: Infection Risk Goal: Absence of infection 01/16/20243 by Krissy Goel RN Outcome: Progressing as expected 01/16/2024823 by Krissy Goel RN Outcome: Progressing as expected 01/16/2024823 by Krissy Goel RN Outcome: Progressing as expected Krissy Goel RN [facility] 2024-01-16 14:36:41 Images from the original note were not included. This note was copied from a baby's chart. Education: Your baby needs to breastfeed 8-12 times in 24 hours. Nighttime feedings are important at this stage. Your baby does not need to follow a schedule. Some feedings may be close together, even an hour or so apart. Other feedings will be less frequent. Feedings do not need to be evenly spaced and are often irregular in the period. Babies are often sleepy during the first week, especially during the daytime hours. They may not awaken enough to feed and will need to be woken up. Sleepy babies are not good at showing hunger cues. It can take 10-15 minutes to wake a sleepy baby. Wake your baby if they have not woken up to feed within 3 hours. Suggestions for waking your sleepy baby: Hold your baby skin to skin for 15-30 minutes prior to feeding. Unwrap baby from their blankets. Undress baby to their diaper. Change baby's diaper. Place a cool baby wipe on baby's head, stomach, or back. Do not let your baby become chilled. Bug baby by gently rubbing and massaging your baby on the top of head, bottom of the feet, up and down the arms, or across the belly. Talk to your baby. Babies respond to mom's voice. Change the position of your baby, from cradle to football hold and back again. Rock your baby from sitting to lying position and back again. Gently rock your baby back and forth until the baby's eyes open. Adjust room lights up for stimulation or down so your baby can comfortably open eyes. Allow your baby to suck on your clean finger for a few minutes. Hand express colostrum and place under your baby's nose or express directly into your baby's mouth. Start to pull your nipple from your baby's mouth, but make sure this does not result in your baby sucking on just the tip of your nipple. If it does and you need to remove your baby from your breast, slip your finger between the baby's lips and gums to break the suction and then reattach your baby to the breast with a deeper latch. If your baby remains drowsy after attempting to breastfeed for 10 minutes and won't latch, then place your baby skin to skin on your chest for 30-60 minutes and attempt again when your baby begins showing hunger cues. Feed on Demand: Breastfeed whenever your baby seems hungry. It's called feeding on demand. When your baby is showing early signs of hunger begin to try to latch your baby. Crying is the LAST hunger sign and will make it harder to breastfeed. Offer the breast before the baby begins to cry. Cluster feeding (multiple feedings grouped close together) typically happens after the first 24 hours of life. This is a sign that your baby is trying to bring your milk supply in. Positioning your baby: Position your baby at breast height using pillows to support your baby's weight. Roll your baby tummy to tummy directly facing your breast. You do not want your baby to have to turn their head to the side to reach your nipple. Look for a straight line from your baby's ears to shoulders to hips. The baby's head should not be tucked into their chest. To begin, line up your baby's nose with your nipple, so your baby must reach up slightly to grasp the nipple. Your baby's chin should touch the breast first, then grasp the nipple. Many moms are worried their baby can't breathe while at the breast. If babies truly can't breathe, they will let go. Usually, babies can breathe easily even when pressed close to the breast because they can breathe around the "corners" of their noses. Do not press on your breast to make a breathing passage for your baby to breathe. That will likely pull your nipple out of your baby's mouth. If necessary, pull your baby's hips in closer to you. This should free up their nose. Hold your breast behind the areola. Bring your baby to your breast, not the breast to your baby. Focus on a good latch to minimize nipple soreness. Some tenderness and sensitivity are normal at first, but pain is not. If hurts, the baby is not attached properly. If mom continues to feel discomfort after the initial 30 to 60 seconds of , then mom needs to gently break the seal of the latch. Re-latch the baby with a deeper latch. Back and neck support are very important to help the baby achieve and maintain a deep latch. Length of feedings: Attempt to offer both breasts each feeding. Let your baby stay on the first breast as long as the baby is actively sucking. Do not put a limit on time when your baby is on the breast. Feedings can vary from 10-45 minutes total. Mom can keep her baby engaged in feeding by compressing her breast, rubbing the baby's hands or feet, or giving the baby gentle head massage. When your baby releases the breast, sucking slows down, or your baby is no longer engaged in the feeding, then try to burp your baby. babies do not always burp, but this gives them a short break and can also help them wake up to try to latch to the opposite breast. If your baby is not interested, start with this breast at the next feeding. Sometimes babies seem to breastfeed well but awaken within a few minutes wanting more. Offer the breast again. It will likely be a short "top off" feed and your baby will drift off to sleep. As your baby gets older and better at , feedings will become more efficient and may become less frequent. Timeline for milk production: By day 3, mom's milk should start to come in. Mom should feel increased warmth, fullness, firmness, and heaviness in her breasts. The fullness is normal and should only last a few days if your baby is feeding often. Diaper output: Void and stool diapers are a good assessment of how much milk the baby is taking in. During the first few weeks, the number of wet and dirty diapers are a sign that the baby is getting enough milk. During the first week of life, the number of wet diapers should equal your baby's day of life. More diapers are fine, but if your baby is not having the minimums, call your hotel and dining room cashier for evaluation of your situation and advice. Day of life Typical patterns for wet diapers are Typical patterns for stools are several per day Day 1 1 wet diaper Meconium, black, and tarry Day 2 2 wet diapers Meconium, brownish, and tarry Day 3 3 wet diapers Greenish, softer, and looser Day 4 4 wet diapers Greenish to yellow, softer, and looser Day 5 5 wet diapers Yellow, seedy, and semi-liquid Day 6 6 wet diapers and then continue with 6+ wet diapers daily. Look for light yellow to clear urine. Some newborns stool after every feeding. Stools generally taper off and may not even occur every day as your baby gets older. Baby's stomach size: Your baby will eat frequently because a baby's stomach is small and can only take in small amounts of milk. Mom's first milk is called colostrum. It is low in volume, but it is high in concentrated nutrition. The volume of colostrum matches the baby's stomach size. Your baby's stomach size grows as your milk volume increases. Stomach size Day 1 Size of a grape (5-7 ml) Day 3 Size of a santos tomato (22-27 ml) Week 1 Size of a strawberry (45-60 ml) Month 1 Size of a tanacross (80-150 ml) Supplementation: Rarely is there a baby who needs more than the breast in the first 24 hours. Offer the breast often. Recommended to wait 3-4 weeks to introduce the bottle. The fast flow and different feel of a bottle nipple can confuse your baby and make subsequent feedings more difficult. If mom wishes to bottle feed sooner, then mom should offer the breast first each feeding to allow the baby to learn to breastfeed and to give mom the stimulation she needs to produce an adequate milk supply. If the baby is relaxed and content after a session, then supplementation is not necessary. If the baby won't settle after and mom wishes to supplement, then mom can give some expressed breast milk or formula. Once mom's milk "comes in" and the baby seems more satisfied from , then mom can begin to reduce the volume she is supplementing with after a session until the supplementation is not needed anymore. Pacifier use: Recommended to wait to introduce a pacifier until 3-4 weeks of life, after is going well. Then your hotel and dining room cashier may recommend the use of a pacifier when your baby goes to sleep to reduce the risk of SIDS. When your baby is asleep and the pacifier falls from their mouth, it does not need to be replaced. Assessment (most recent) Assessment - 01/16/24 0845 General Information Visit Initial Mom's age (years) 33 years Gestational age 36 weeks 4 Parity 4 Living Children 4 Feeding plan Breast and Formula Breastfeed previously Yes Duration 11 months plans Undecided Breast Pump Has Delivery method Reason for previous Infant Oral Assessment Oral assessment Deferred sleeping Date of 01/15/24 Time of 0348 Infant location Mother Baby Unit Literature Resources Resources Understanding Mother and Baby Care Education On-demand feeds at least 8 or more over 24 hours;Risk of formula supplementation;Benefits of skin to skin contact; stomach size;Signs of an effective latch;2nd day/growth spurt cluster feeds;Position changes;Burping;Benefits of breast massage and hand expression;Engorgement signs and treatment;Risks of mastitis and signs, seek medical attention immediately Handouts given [place] Director Hardware Observation Reported Position right side Cradle; latched effectively;Suckled in coordinated bursts;Other (comment) Interventions Motherlove nipple cream Mother demonstrated teach back of Positioning and latching infant at breast Follow up Follow up in hospital Recommended Feeding Plan Recommended feeding plan Breastfeed with hunger cues not to exceed 3 hours in between, pump after latching and feed expressed breastmilk, if no latch or expressed breastmilk by 3 hours then feed formula;Offer both breasts prior to formula supplementation;Frequent dqfu-ck-[id number] time with parents;Pump/hand express minimum 8 times in 24 hours including nights. Pump for 15-25 min. OTHER $ SERVICES Initial Mercedes LIANG, RN, IBCLC [facility] 2024-01-16 08:25:16 Problem: Falls, Risk of Goal: Absence of falls 01/16/2024823 by Krissy Goel, RN Outcome: Progressing as expected 01/16/2024823 by Krissy Goel, RN Outcome: Progressing as expected Problem: Discharge Planning - Goal: Adequate for discharge 01/16/2024823 by Krissy Goel, RN Outcome: Progressing as expected 01/16/2024823 by Krissy Goel RN Outcome: Progressing as expected Goal: Mood stable 01/16/2024823 by Krissy Goel RN Outcome: Progressing as expected 01/16/2024823 by Krissy Goel RN Outcome: Progressing as expected Problem: Skin integrity Impaired (Risk or Actual) Goal: Wound healing 01/16/2024823 by Krissy Goel RN Outcome: Progressing as expected 01/16/2024823 by Krissy Goel RN Outcome: Progressing as expected Goal: Prevention of new skin breakdown 01/16/2024823 by Krissy Goel RN Outcome: Progressing as expected 01/16/2024823 by Krissy Goel RN Outcome: Progressing as expected Problem: Infection Risk Goal: Absence of infection 01/16/2024823 by Krissy Goel RN Outcome: Progressing as expected 01/16/2024823 by Krissy Goel RN Outcome: Progressing as expected [facility] [employer] 2024-01-15 20:16:01 Problem: Intrapartum process (including labor pain) Goal: Absence of or reduction of complications of labor Outcome: Change in patient condition/care plan Goal: Able to cope with pain Outcome: Change in patient condition/care plan Goal: Adequate to move to next level of care Outcome: Change in patient condition/care plan Goal: Reduction in pain sensation Outcome: Change in patient condition/care plan Problem: Falls, Risk of Goal: Absence of falls Outcome: Progressing as expected Problem: Discharge Planning - Goal: Adequate for discharge Outcome: Progressing as expected Goal: Mood stable Outcome: Progressing as expected Problem: Skin integrity Impaired (Risk or Actual) Goal: Wound healing Outcome: Progressing as expected Goal: Prevention of new skin breakdown Outcome: Progressing as expected Problem: Infection Risk Goal: Absence of infection Outcome: Progressing as expected [facility] [employer] 2024-01-15 07:29:06 Problem: Intrapartum process (including labor pain) Goal: Absence of or reduction of complications of labor Outcome: Progressing as expected Goal: Able to cope with pain Outcome: Progressing as expected Goal: Adequate to move to next level of care Outcome: Progressing as expected Goal: Reduction in pain sensation Outcome: Progressing as expected Problem: Falls, Risk of Goal: Absence of falls Outcome: Progressing as expected Problem: Discharge Planning - Goal: Adequate for discharge Outcome: Progressing as expected Goal: Mood stable Outcome: Progressing as expected Problem: Skin integrity Impaired (Risk or Actual) Goal: Wound healing Outcome: Progressing as expected Goal: Prevention of new skin breakdown Outcome: Progressing as expected Problem: Infection Risk Goal: Absence of infection Outcome: Progressing as expected Rosy Peña RN [facility] 2024-01-15 06:11:14 Patient: Jenna Asher Procedure Summary Date: 01/15/24 Room / Location: [address] LABOR AND DELIVERY OR LOCATION Anesthesia Start: 328 Anesthesia Stop: 442 Procedure: SECTION (Abdomen) Diagnosis: (previous c/s x3 making cervical change) Surgeons: Ella Biswas MD Responsible Provider: Aminata Childs MD Anesthesia Type: General ASA Status: 3 - Emergent Anesthesia Type: General Last vitals BP 133/82 (01/15/24599) Temp Pulse 91 (01/15/24599) Resp SpO2 99 % (01/15/24599) There were no known notable events for this encounter. Anesthesia Post Evaluation Patient location during evaluation: PACU Patient participation: complete - patient participated Level of consciousness: awake and alert Pain score: 3 Pain management: satisfactory to patient Airway patency: patent Cardiovascular status: acceptable and blood pressure returned to baseline Respiratory status: acceptable Hydration status: acceptable AN-ANESTHESIOLOGY ANESTHESIOLOGIST [facility] 2024-01-15 04:33:08 Delivery Date: 01/15/2024 Delivery Time: 3:48 AM DELIVERY BY SECTION Date of Service: : 01/15/2024 at 3:48 AM Admitted for: labor, previous CS x3, FHRA, Repeat Lower uterine transverse section with no extension, BL salpingectomy, Pfannenstiel, Closed with 0- vicryl, EBL 0 450 cc, No complications, Findings: PTLFC, Large uterine window extended through entire previous scar Delivery Summary Sex: female [place] Weight: 2390 g 1 Minute 5 Minute 10 Minute Totals: 7 9 Primary Indication: The patient was taken to the operating room for a repeat section due to: Labor Abnormalities - labor and Nonreassuring Conditon - Decreased beat to beat variability at 36w4d weeks. Procedures: Repeat Lower uterine transverse section with no extension Bilateral salpingectomy Specimens Removed: Placenta Surgeon: Ella Biswas MD Report: Prophylactic antibiotic, Ancef 2 grams was given before patient was taken to OR. After arrival to the operating room patient was placed in the supine position with left lateral tilt after administration of general endothracheal anesthesia. Laparotomy A pfannenstiel incision was made through the anterior abdominal wall with #10 scalpel. The incision was extended sharply with the #10 scalpel through the subcutaneous tissue to the level of fascia. The fascia was entered sharply with a #10 scalpel (Pfannenstiel) in the midline and extended in semi-elliptical fashion with Barraza scissor. The underlying muscles were dissected off the overlying fascia by grasping the superior aspect of fascia with two soren clamps and blunt dissection was used along the midline. The fascia was further from rectus muscle with Barraza scissor and/or cautery. In similar fashion, the lower aspect of fascia was also grsaped with two Soren clamps and both blunt and sharp dissection was used to separate fascia from rectus muscle. The rectus muscles were in the midline bluntly with digits. The peritoneum was then entered bluntly. The peritoneal incision was then extended superiorly and inferiorly under direct visualization with care being taken to avoid bladder and bowel. Large uterine window through entire previous scar . The peritoneal incision was enlarged bluntly by lateral traction from the surgeon's and delinquent tax collection assistant's hand. Delivery A bladder flap was not developed. A low transverse through amniotic sac was made then with #10 scalpel and extended laterally and cephalad with fingers in a low transverse fashion with Manu Godoy technique with care being taken to avoid injury to the fetus. The amniotic (membranes) were then entered with spontaneous rupture of membrane, and the amniotic fluid was noted to be clear . The head was delivered manually without aid of vaginal hand. The head was flexed and delivered through the hysterotomy incision in a non-traumatic fashion with aid of fundal pressure applied by the public relations assistant surgeon . The body was delivered with traction on the head along with fundal pressure. After delivery of body-bulb suction was performed from oropharynx and nostril with removal of clear amniotic fluid. Fetus was delivered in cephalic presentation. With delivery the baby, no extension was noted.Delayed cord clamping was not performed for 30-60 seconds. Placenta was delivered spontaneously with steady traction on cord and manual separation of placenta from uterine wall. Closure Uterine cavity was cleaned after placental delivery with lap sponge x 2. The hysterotomy was closed in two layers using 0 vicryl with continuous locking stitches and followed by horizontal imbricating stitches. Hemostasis was achieved as needed with electrocautery and 0 figure eight suture ligation. The ovaries/tubes/uterine surface were evaluated. They were found to be normal. Bilateral salpingectomy performed with ligasure device. Fascia was closed with running stitches using 0 vicryl. Hemostasis was checked for and found to be adequate. The subcutaneous tissue was irrigated and hemostasis was achieved where needed with electrocautery. Subcutaneous layer was closed with 2-0 plain gut. The skin was then closed with subcutaneous stitches using 2-0 Monocryl sutures. The incision was cleaned and covered with a compression bandage and the procedure considered to be complete at this time. Intraoperative Complications: none EBL: 0 450 ml Uterotonics: methergine Disposition: The patient tolerated the procedure well. She was recovered in the Labor and Delivery Room with routine care in stable condition, with a contracted uterus and normal transvaginal bleeding. The infant was sent to Transition [facility]. A segment of the cord was obtained for umbilical cord gases. Cord blood gas was not available at time of operative note entered. Please see [facility] for update. The placenta was not sent to pathology. [facility] 2024-01-15 03:08:27 Name/ MRN / Age / Gender: Jenna Asher, [id number] 33 year old female BMI: Estimated body mass index is 29.48 kg/m? as calculated from the following: Height as of 01/10/24: 1.575 m (5' 2"). Weight as of 01/10/24: 73.1 kg (161 lb 3.2 oz). Allergies: Azithromycin Last Vitals: BP Readings from Last 1 Encounters: 01/14/24 130/90 Pulse Readings from Last 1 Encounters: 01/14/24 72 SpO2 Readings from Last 1 Encounters: 01/14/24 99% Date of Surgery: 02/02/2024 Surgeon: Faculty, Ob Procedure: SECTION (Abdomen) OR Location: [facility] LABOR AND DELIVERY OR LOCATION Anesthesia Preop Eval (physical exam) Anesthesia Preop: Chvf-hr-Orax and Chart Review NPO Status Verified Not NPO-urgent/emergent surgery Anesthesia History Anesthesia History Negative Previous Anesthetics/Airways Cardiovascular Pulmonary (+) Asthma Neuro/Musculoskeletal Comments: Blood alcohol content of 167. GI/Hepatic Comments: Active nausea and vomiting. 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 Hold on DOS. Phentermine: Alert [facility] anesthesiologist SGLT2 Inhibitors: "gliflozins" to be held for 3 days prior to elective surgeries GLP1 Agonosit: stop 7 days prior to surgery MAC Cases: Continue taking FAHEEM inhibitors and ARBs ASA Classification ASA: 3 and emergent Labs: Chemistry 01/15/2024 CBC 01/14/2024 140 107 4 (L) 116 (H) 9.65 10.7 (L) 241 3.5 26 0.75 31.4 (L) eGFR: 108.0 Date: 01/15/2024 ANC: 4.83 Date: 01/14/2024 LFTs 01/15/2024 Coags AST: 44 (H) AP: 136 (H) Prot: 6.5 Ca: 7.2 (L) PT: - Date: - ALT: 20 T Jonathan: 0.9 Alb: 3.1 (L) PTT: - Date: - PO4: - Date: - INR: - Date: - Cardiac Endocrine & other pBNP: - Date: - A1C: - Date: - Trop I: - Date: - POCT A1C: - Date: - CK: - Date: - TSH: - Date: - CKMB: - Date: - FT4: - Date: - LDL: - Date: - Lact: - Date: - Procal: - Date: - Respiratory -|-|-|-|- D-dimer: - ABG Date: - Date: - Miscellaneous Type and Screen: A POSITIVE Antibody: Negative Date: 01/14/2024 POCT : Positive Date: 06/21/2023 Current Medications: No outpatient medications have been marked as taking for the 01/14/24 encounter (Hospital Encounter). Previous Surgeries: Past Surgical History: Procedure Laterality Date SECTION 2006 SECTION N/A 04/18/2019 Surgeon: Grace Sofia MD; Location: Labor and Delivery - [place] SECTION N/A 07/22/2020 Surgeon: Benja Newman MD; Location: Labor and Delivery - [place] OTHER 08/21/2020 hernia removal Anesthesia Physical Exam General no apparent distress and alert and oriented x 3 Neuro/Psych neurological Nonfocal Dental no notable dental hx Abdominal GI exam normal (+) abdomen soft and benign Airway Mallampati score:II TM distance:> 5 cm Neck ROM: full Mouth opening:normal Extremity Normal extremity Pulmonary pulmonary exam normal and bilateral clear to auscultation Other Cardiovascular cardiovascular exam normalRhythm:Regular Rate: Normal Anesthesia Plan ASA Status: 3 emergent Anesthetic plan on DOS: General Plan to include: IV induction Anesthesia plan discussed with: patient or sales representative wire rope Post-Operative Analgesia: routine analgesia & antiemetics Recovery Plan: PACU Additional comments: Prior to the start of anesthesia care I reviewed the preoperative history, labs, medications and pertinent studies and preformed a physical exam preoperatively. The anesthetic plan is GETA with routine monitors. I discussed this anesthetic plan with all of its components at length with the patient, including the risks, benefits, and alternatives. I answered all of their questions and consent, ID, and npo status were verified. The patient agrees with the plan and desires to proceed with the surgery. Aminata Childs MD 01/15/2024 3:12 AM [facility] 2024-01-10 15:02:35 Called pt, left vm advising date of induction. Verbalized understanding. Christine Sky RN 01/10/24 3:02 PM [facility] 2024-01-10 11:40:54 Jenna Asher is a 33 year old female calling to verify Induction date. Please contact patient at [phone] (home) Marlena Sweeney [facility] 2024-01-05 08:38:40 Noted. [facility] 2024-01-05 08:20:20 Spoke with patient and talked to Shanique [facility] blas and she worked the case. Left message for patient to contact clinic. Jimmy Carr [facility] 2024-01-03 15:16:41 Jenna Asher is a 33 year old female calling requesting to talk with the front office secretary she just got off phone with [phone] and they stated that they did not received paperwork for the work from on 12/28 and calling to verify the status of paperwork. Please contact patient at [phone] (home) Marlena Sweeney [facility] 2023-12-14 09:47:43 Pt called, reports lost mucous plug at 8 am. Reports now having intermittent vaginal pain that is coming and going. Pt denies timing pains. Pt reports slow trickle of LOF. Denies DFM, vaginal bleeding, and or abdominal contractions. Provider notified and advised to bring pt in for evaluation. Pt to be at clinic in 5 minutes for evaluation. Strict er warnings given. Verbalized understanding. Christine Sky RN 12/14/23 9:49 AM [facility] 2023-12-14 09:44:19 Jenna Asher is a 33 year old female Pt called to speak to nurse, states she lost her mucus plus this morning at 8am. Please advise T Hutner Carvalho [facility] 2023-12-13 16:48:52 Promethazine refill sent [facility] 2023-12-13 15:03:37 Informed patient refills for prenatals were available at pharmacy. Informed will route to provider for refills on promethazine. [facility] 2023-12-13 13:43:02 Pt requesting update on previous request for nausea medications. Also made request for her prenatals, has gotten no response. Please F/u Solomon Sky [facility] 2023-11-29 11:55:33 Pt given printed and verbal discharge instructions regarding acute cough, encouraged hydration, Prescriptions provided Pt verbalized understanding of instructions, pt awake alert oriented, resp reg unlabored, skin w/d, color appropriate for race, moves all ext well,pt encouraged to follow up with pcp and digital media intern. Advised to seek medical attention for new/prolonged/worsening of symptoms No adverse reaction to meds given in ER noted upon discharge Awake, alert oriented, resp reg unlabored, skin w/d, pt leaving amb with steady gait, in no apparent distress, Yaquelin Simon RN [facility] 2023-11-29 11:08:28 Nurse Report Report given to MAI Jamison. Chief complaint, assessment findings, and orders reviewed. Plan of care discussed with both nurses. Reena Willard RN Reena Willard RN [facility] 2023-11-29 10:18:22 Patient c/o cough, nausea, vomiting, and diarrhea. Symptoms started over the weekend. 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 She last vomited in the car on the way here. She is currently 30 weeks and is . No vaginal bleeding or discharge. No abd pain or cramping. No sick contacts. She does have Phenergan tablets at home to help with her nausea and vomiting however she can only take those in the evening as they make her too drowsy to take during the day. No dysuria or hematuria. She is feeling the baby move. Here for evaluation. Past Medical History/Immunizations: Past Medical History: Diagnosis Date Anemia of mother in , antepartum 01/23/2019 Asthma as a child Tetanus received in last 5 years: Yes Allergies: Allergies Allergen Reactions Azithromycin Hives Past Social History: Tobacco Use Former; Cigarettes: Quit 08/16/2018 Smokeless Tobacco: Never used smokeless tobacco. Alcohol Use Not Currently. Comments: occasional Drug Use No. Sexual Activity Sexually active; Partners: Male; Control/Protection: None. Comments: last sexual intercourse 06/07/2023 Past Surgical History: Past Surgical History: Procedure Laterality Date SECTION 2006 SECTION N/A 04/18/2019 Surgeon: Grace Sofia MD; Location: Labor and Delivery - [place] SECTION N/A 07/22/2020 Surgeon: Benja Newman MD; Location: Labor and Delivery - [place] OTHER 08/21/2020 hernia removal Review of Systems: Review of Systems Constitutional: Negative for chills and fever. Respiratory: Negative for cough. Cardiovascular: Negative for chest pain. Gastrointestinal: Positive for diarrhea and vomiting. Negative for abdominal pain. Genitourinary: Negative for dysuria. Musculoskeletal: Positive for back pain. Negative for arthralgias, neck pain and neck stiffness. Skin: Negative for wound. Neurological: Negative for dizziness. Psychiatric/Behavioral: Negative for agitation. Endocrine: Negative for goiter. Physical Exam: ED Triage Vitals Weight 11/29/23 1018 69.9 kg (154 lb) Actual or estimated -- Height 11/29/23 1018 1.575 m (5' 2") BP 11/29/23 1019 130/74 Pulse 11/29/23 1019 86 Resp 11/29/23 1019 20 Temp 11/29/23 1019 36.5 ?C (97.7 ?F) Temp source 11/29/23 1019 Oral SpO2 11/29/23 1019 99 % Measured on 11/29/23 1019 Room air Physical Exam Vitals and nursing note reviewed. Constitutional: Appearance: Normal appearance. HENT: Head: Normocephalic and atraumatic. Cardiovascular: Rate and Rhythm: Normal rate and regular rhythm. Pulses: Normal pulses. Pulmonary: Effort: Pulmonary effort is normal. No respiratory distress. Breath sounds: No stridor. No wheezing or rhonchi. Abdominal: General: There is no distension. Palpations: There is no mass. Tenderness: There is no abdominal tenderness. There is no guarding. Hernia: No hernia is present. Comments: Gravid uterus above the umbilicus. Soft and not tender Musculoskeletal: General: Normal range of motion. Cervical back: Normal range of motion and neck supple. Comments: No vertebral body tenderness to lumbar spine Skin: General: Skin is warm. Neurological: General: No focal deficit present. Mental Status: She is alert and oriented to person, place, and time. Radiology: No orders to display Lab Results: Lab Results - No data to display EKG: If EKG completed, see Procedure Note. Orders and Treatments: Orders Placed This Encounter Procedures Influenza A B RSV COVID NAAT Orders Placed This Encounter Medications Lidocaine (LIDOCARE) 4 % patch 1 Patch ondansetron (ZOFRAN-ODT) disintegrating tablet 4 mg acetaminophen (TYLENOL) tablet 1,000 mg ondansetron 4 mg disintegrating tablet First Provider Eval: ED Events Date/Time Event User Comments 11/29/23 1025 Medical Screening Begins CHELY FRANKLIN DO -- 11/29/23 1025 First Provider Evaluation CHELY FRANKLIN DO -- ED COURSE Diagnosis/Impression as of 11/29/23 1154 Acute cough Sciatica of left side Nausea and vomiting, unspecified vomiting type Procedures: Procedures MDM: Medical Decision Making The patient presents for eval for n/v and diarrhea that has been ongoing for the past month. She last vomited in the car on the way here. She is currently 30 weeks and is . No vaginal bleeding or discharge. No abd pain or cramping. No sick contacts. She does have Phenergan tablets at home to help with her nausea and vomiting however she can only take those in the evening as they make her too drowsy to take during the day. No dysuria or hematuria. She is feeling the baby move. She also complains of pain to her left lower back that is worse with bending and movement as well as some cough and congestion. Vital signs are stable in ER. She has a gravid uterus greater than umbilicus. Her abdomen is soft and nontender. No CVA tenderness bilaterally. Her lungs are clear bilaterally. The patient was given a Zofran ODT tablet for her nausea and vomiting and her symptoms have now resolved. She was given Tylenol as well as a lidocaine patch for suspected left-sided sciatica and the symptoms have now improved. Will screen the patient for COVID, RSV as well as influenza. She will follow-up with the results on the [place] leann. She was given a list of medications that are safe to use during . Remained stable here in the ER and is okay for discharge home with PCP follow-up. Problems Addressed: Acute cough: acute illness or injury Nausea and vomiting, unspecified vomiting type: acute illness or injury Sciatica of left side: acute illness or injury Amount and/or Complexity of Data Reviewed Labs: ordered. Decision-making details documented in ED Course. Risk OTC drugs. Prescription drug management. Flowsheet Documentation: Scoring Tools: No data recorded Disposition/Condition: ED Disposition ED Disposition Disch - Home Condition Stable Comment -- Discharge Medications: Patient's Medications START taking these medications ONDANSETRON 4 MG DISINTEGRATING TABLET Take 1 tablet by mouth every 8 (eight) hours as needed for Nausea and Vomiting (N/V). CONTINUE taking these medications which have NOT CHANGED ESOMEPRAZOLE (NEXIUM) 20 MG CAPSULE Take 20 mg by mouth daily before a meal. PNV 67-IRON PS-FOLATE NO.1-DHA (VITAFOL ULTRA) 29 MG IRON- 1 MG-200 MG CAP Take 1 capsule by mouth in the morning. PROMETHAZINE 25 MG TABLET Take 1 tablet by mouth every 4 (four) hours as needed for Nausea and Vomiting (N/V). START taking Modified Medications as Prescribed No medications on file STOP taking these medications No medications on file Follow-up: Electronically signed by: Chely Franklin DO 11/29/23 1154 T [facility] 2023-11-25 14:46:43 Notes adjusted for upcoming pnv. Evelyn Cummings [facility] 2023-11-24 20:29:00 Regardinyof 29weeks cough ----- Message from Nicole Sheldon sent at 11/24/2023 8:26 PM CDT ----- Jenna Asher is a 33 year old female Patient is having a lingering cough Yahaira Hale RN [facility] 2023-11-24 20:29:00 Triage Assessment Last Clinic Visit: 11/03/2023- Routine visit Primary Symptom: lingering cough Onset / Duration: just started today- lost voice Location / Description: upper respiratory Pain / Severity: 0/10 Associated Symptoms: none Fever / Method: none/denies Hydration: 10 bottles of water Treatment so far: none Effect on ADL's: none Gestational Weeks: 29w1d Rupture Membranes: none Bleeding / Spotting / Pads per hour: none Movement: 5 minutes ago Para / : EDC: 02/08/2024 Pre-existing condition / Immunocompromised: Previous delivery affecting , antepartum History of asthma Overweight (BMI 25.0-29.9) GBS (group B streptococcus) UTI complicating Reason for Disposition Mild central chest pain that only occurs when coughing is also present Protocols used: Cough - Acute [id number]- [facility] S[facility] OVER THE COUNTER MEDICATION LIST FOR WOMEN Disclaimer: This content is reviewed periodically and is subject to change as new health information becomes available. The information provided is intended to be informative and educational and is not a replacement for professional medical evaluation, advice, diagnosis or treatment by a healthcare professional. Symptom Helpful Hints Over The Counter Medications Acne Benzyl Peroxide Back Pain Pillows (knees,back,abdomen) Support belt such as Mom-EZ Tylenol Cold/Flu/Cough Increase water intake. It is very important to stay well hydrated. Tylenol Cough Drops- Mucinex Vitamin C Robitussin (Plain) [place] Benadryl Honey Zyrtec (No Zinc Lozenges) Claritin Nasal Saline Clary Gerry's Vapor Rub Constipation Increase fluids (water and juice) Milk of Magnesia Benefiber Metamucil Dulcolax FiberCon Docusol Fiber Choice Colace Citrucel Correctol Miralax Diarrhea Avoid milk or milk products. Don't eat 4-6 hours, then drink clear liquids. (broth, apple juice) B.R.A.T.T. Diet (Bananas, Rice, Applesauce, Islandia, Tea) Imodium Kaopectate Gas Avoid spicy or fried foods. Gas X Gasaid Beano Mylanta Gas Headache or Migraine Rest in dark room. Massage neck and shoulders. Tylenol Tylenol PM Heartburn or Indigestion Small, frequent meals. Avoid spicy or fried foods. Mylanta or Gaviscon Nexium Pepcid AC Prilosec Tums Prevacid Maalox Hemmorrhoids Good fiber intake. Avoid constipation and excess straining during bowel movement. Preparation H Americaine Anusol Nupercaine Tucks Ointment Medicated Pads Nausea Small, frequent meals. Plain crackers before getting out of bed. Sprite, 7-Up, Mei Jigna Seabands (Bracelets) Unisom-Doxylamine B6 50 mg Sinus/Allergies Increase water intake. This will help thin the drainage for quicker relief. Claritin Gerry's Vapor Rub Benadryl Nasal Saline Tylenol Sinus Sleep Aid Warm (not hot) shower, warm decaffeinated tea. Benadryl Tylenol PM Sore Throat Decaffeinated Hot Tea (Honey) Tylenol Sore Throat Chloraseptic Taft Cepacol Taft Cough Drops Listed Abo [facility] 2023-11-23 18:11:55 Jenna Asher is a 33 year old female Patient is wanting to know if she can do her glucose and ultrasound this Tuesday please assist with appointments Nicole Sheldon [facility] 2023-10-12 14:08:41 Patient arrived ambulatory with family c/o of water breaking last night and now having contractions.. 24 weeks . . Mairamy Membreno Gave report to Agata RN L&D Roslyn Aguilera RN [facility] 2023-08-12 16:12:21 Called patient, notified positive for BV. Educated patient on antibiotics, daily probiotics, and BV prevention measures. Pt verbalized understanding. CHRISTINE Sky RN 08/12/2023 4:12 PM [facility] 2023-08-12 16:06:50 Please notify the patient her labs are indicative of BV, meds have been sent to her pharmacy on file. Please have her complete the entire course as prescribed. RINA Gutierrez 08/12/2023 4:06 PM [facility] 2023-08-12 08:30:00 Images from the original note were not included. Venipuncture collection performed by clean technique on the right anticubitus. Total of 1 attempts were made. Slight pressure and a bandage/dressing were applied to the site(s). The patient experienced no complications. The following specimens were processed according to instructions and sent to [facility] per lab order on 08/12/23: LT BLUE SST 1 RED LAV PPT DK GREEN (LiHep) DK GREEN (SodH) RIVERA DK BLUE (K2) DK BLUE (S) ACD Blood Culture NIPT/NTD [facility] 2023-08-10 13:30:00 Addended by: OVIDIO NORMAN on: 08/10/2023 03:51 PM Modules accepted: Orders [facility] 2023-08-10 11:09:11 Pt called, reports vaginal bleeding x 1, reports spotting at this time. Denies cramping, fever, or soaking more than 1 pad an hour. Reports last intercourse 2+ weeks ago. Pt requesting evaluation, pt scheduled. Strict er warnings given. Verbalized understanding. Christine Sky RN 08/10/23 11:10 AM [facility] 2023-08-10 11:04:43 Copied from [facility] #[id number]. 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 Man Jackson [facility] 2023-06-30 15:51:07 Noted. PHYSICIAN ASST [facility] 2023-06-30 15:38:16 Patient stating she got a call and was told she has [facility] Medicaid. Patient calling to see if she can get an order for ultrasound . Spoke with hSanique , patient does not have medicaid at this time. . Patient will wait a few days then call back to see if we can then verify coverage for order. PHYSICIAN ASST Bety Hatfield [facility] 2023-06-30 13:15:54 Copied from [facility] #[id number]. Topic: Appointment - Schedule Appointment >> Jun 30, 2023 1:13 PM Patient [employer] Prevention Manager wrote: Jenna Asher is a 33 year old female Pt is requesting call back to discuss scheduling ultrasound and states she has been approve for Ins Pt can be reached at [phone] Thank you PHYSICIAN ASST Basilio Mariee [facility] 2023-06-24 07:45:42 Patient informed of results and new orders, verbalized understanding. [facility] 2023-06-24 07:41:44 Please call patient and let her know she has GBS UTI and I erx ampicillin to the pharmacy. [facility] 2023-01-03 16:23:16 Formatting of this n ote might be different from the original. Called pt, no answer, left a message. Jina Neville 01/03/2023 4:23 PM Jina Neville [facility] 2022-12-22 12:48:58 Formatting of this n ote might be different from the original. Patient calling to schedule ER follow up appoint patient has Ovarian cyst-right ovary. Please call back Melissa Thibodeaux [facility] 2022-12-21 21:01:33 Formatting of this n ote might be different from the original. Pt given printed and verbal discharge instructions regarding cyst of R ovary. Prescriptions provided Discussed ibuprofen and to take with food to avoid GI distress and not to take while taking Toradol. Pt verbalized understanding of instructions, pt awake alert oriented, resp reg unlabored, skin w/d, color appropriate for race, moves all ext well,pt encouraged to follow up with obgyn in 1 week. Referral made. Advised to seek medical attention for new/prolonged/worsening of symptoms. No adverse reaction to meds given in ER noted upon discharge PIV d'cd, dressing to site, catheter in tact. Awake, alert oriented, resp reg unlabored, skin w/d, pt leaving amb with steady gait, in no apparent distress. Venice Stovall RN [facility] 2022-12-21 18:27:35 Formatting of this n ote might be different from the original. Pt arrived via private car with c/o "a lump on my stomach" located to her RLQ. States that it appeared prior to her period. Alycia Amaro RN [facility] 2022-12-21 18:23:00 Formatting of this n ote is different from the original. 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 No injury or trauma. No nausea or vomiting. No fevers or chills. She does complain of some dysuria. The last day of her menstrual cycle was yesterday and she denies being . She did have some Advil earlier today for her pain which did help a little bit. 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 She does have a history of an umbilical hernia repair in the past. Here for evaluation. Past Medical History/Immunizations: Past Medical History: Diagnosis Date Anemia of mother in , antepartum 01/23/2019 Asthma as a child Tetanus received in last 5 years: Yes Childhood immunizations: Up-to-date Allergies: Allergies Allergen Reactions Azithromycin Hives Past Social History: Tobacco Use Former; Cigarettes: Quit 08/16/2018 Smokeless Tobacco: Never used smokeless tobacco. Alcohol Use Yes. Comments: occasional Drug Use No. Sexual Activity Not currently sexually active; Partners: Male; Control/Protection: None. Comments: last sexual intercourse 2020 Past Surgical History: Past Surgical History: Procedure Laterality Date SECTION 2006 SECTION N/A 04/18/2019 Surgeon: Grace Sofia MD; Location: Labor and Delivery - [place] SECTION N/A 07/22/2020 Surgeon: Benja Newman MD; Location: Labor and Delivery - [place] OTHER 08/21/2020 hernia removal Review of Systems: Review of Systems Constitutional: Negative for chills and fever. Respiratory: Negative for cough and shortness of breath. Cardiovascular: Negative for chest pain. Gastrointestinal: Positive for abdominal pain. Negative for nausea and vomiting. Genitourinary: Negative for dysuria. Musculoskeletal: Negative for arthralgias, neck pain and neck stiffness. Skin: Negative for wound. Neurological: Negative for dizziness. Psychiatric/Behavioral: Negative for agitation. Endocrine: Negative for goiter. Physical Exam: ED Triage Vitals Weight 12/21/22 1828 65.8 kg (145 lb) Actual or estimated 12/21/221827 Estimated by patient/family report Height -- BP 12/21/221827 130/88 Pulse 12/21/22 1828 87 Resp 12/21/22 1828 16 Temp 12/21/222016 37 ?C (98.6 ?F) Temp source 12/21/222016 Oral SpO2 12/21/221827 98 % Measured on 12/21/221827 Room air Physical Exam Vitals and nursing note reviewed. Constitutional: Appearance: Normal appearance. HENT: Head: Normocephalic and atraumatic. Cardiovascular: Rate and Rhythm: Normal rate and regular rhythm. Pulmonary: Effort: Pulmonary effort is normal. No respiratory distress. Breath sounds: No wheezing. Abdominal: General: There is no distension. Palpations: Abdomen is soft. There is no mass. Tenderness: There is no abdominal tenderness. There is no right CVA tenderness, left CVA tenderness, guarding or rebound. Hernia: No hernia is present. Musculoskeletal: General: Normal range of motion. Cervical back: Normal range of motion and neck supple. Skin: General: Skin is warm and dry. Neurological: General: No focal deficit present. Mental Status: She is alert and oriented to person, place, and time. Radiology: CT ABDOMEN PELVIS W CONTRAST Final Result HS:Y Indication: Abdominal pain, acute, nonlocalized Comparison: None RL: [id number] ORDERING PHYSICIAN: CHELY FRANKLIN TECHNIQUE: Axial CT images of the abdomen and pelvis were performed with iv contrast. Sagittal and coronal reformats were created. Dose reduction techniques were used (ALARA). FINDINGS: Bilateral lung bases are clear. Abdomen/pelvis: Liver: There is diffuse fatty infiltration of the liver. Focal area of hypoattenuation in segment 4 measuring up to 3.5 cm. Findings could be related to additional areas of fatty infiltration. Gallbladder: Gallbladder is within normal limits. Spleen: Normal. Pancreas: Normal. Adrenal glands: Normal. Kidneys: Normal Vasculature: Abdominal aorta is normal in caliber. Bowel: No evidence of bowel obstruction.The appendix is visualized and is not inflamed. Bladder/reproductive organs: Urinary bladder is unremarkable. There is a 4.9 cm fat-containing umbilical hernia. There is a 5.4 cm right ovarian cyst. Bone and soft tissue: No acute osseous abnormality is noted. IMPRESSION 1. No acute findings of the abdomen or pelvis. 2. 5.4 cm right ovarian cyst. 3. Diffuse fatty infiltration of the liver. Lab Results: Lab Results - No data to display EKG: If EKG completed, see Procedure Note. Orders and Treatments: Orders Placed This Encounter Procedures CT ABDOMEN PELVIS W CONTRAST Orders Placed This Encounter Medications ketorolac (TORADOL) injection 30 mg iopamidol (ISOVUE 370-500 mL) injection 100 mL morpHINE (4 mg/mL) injection 4 mg ondansetron (ZOFRAN (PF)) injection 4 mg ketorolac 10 mg tablet First Provider Eval: ED Events Date/Time Event User Comments 12/21/221825 Medical Screening Begins CHELY FRANKLIN DO -- 12/21/221825 First Provider Evaluation CHELY FRANKLIN DO -- No notes of EC Admission Criteria type on file. ED COURSE Diagnosis/Impression as of 12/21/222045 RLQ abdominal pain Cyst of right ovary Procedures: Procedures MDM: Medical Decision Making The patient presents from home for evaluation for right lower quadrant Melvin pain that started last week. No nausea or vomiting. No fevers or chills. Some dysuria. Her last menstrual cycle ended yesterday. She had some Motrin earlier today for her pain which did help. 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 Vital signs are stable here in the ER. Her abdomen is soft and nontender. Her UPT from earlier today is negative. Her laboratory studies from earlier today show no leukocytosis. Differential diagnosis includes ovarian cyst, UTI, appendicitis We will obtain a CT of her abdomen pelvis as well as provide the patient with pain medication here in the ER. Anticipate discharge home later. 2044 - the patient is doing well here in the EC. CT a/p shows a 5.5cm right ovarian cyst. Will need to f/u with rewards consultant. She remains stable here in the EC and is ok for dc home with pcp f/u. Problems Addressed: Cyst of right ovary: acute illness or injury RLQ abdominal pain: acute illness or injury Amount and/or Complexity of Data Reviewed Labs: Decision-making details documented in ED Course. Radiology: ordered and independent interpretation performed. Decision-making details documented in ED Course. Risk Prescription drug management. Parenteral controlled substances. Flowsheet Documentation: Scoring Tools: No data recorded Disposition/Condition: ED Disposition ED Disposition Disch - Home Condition Stable Comment -- Discharge Medications: Patient's Medications START taking these medications KETOROLAC 10 MG TABLET Take 1 tablet by mouth every 6 (six) hours as needed for Pain (scale 1-3). CONTINUE taking these medications which have NOT CHANGED CYCLOBENZAPRINE 5 MG TABLET Take 1 tablet by mouth at bedtime. IBUPROFEN 600 MG TABLET Take 1 tablet by mouth every 6 (six) hours as needed for Pain (scale 1-3) or Pain (scale 4-6). NAPROXEN (NAPROSYN) 500 MG TABLET Take 1 tablet by mouth in the morning and 1 tablet in the evening. Take with meals. NORETHINDRONE 0.35 MG TABLET Take 1 tablet by mouth in the morning. ONDANSETRON 4 MG DISINTEGRATING TABLET Take 1 tablet by mouth every 8 (eight) hours as needed for Nausea and Vomiting (N/V). START taking Modified Medications as Prescribed No medications on file STOP taking these medications No medications on file Follow-up: Contact information for follow-up Pcp, Patient Does Not Have A Relationship: PCP - [facility][note 3] [facility] [id number] Electronically signed by: Chely Franklin DO 12/21/222045 [facility] 2022-12-21 16:52:55 Formatting of this n ote might be different from the original. Pt requesting to leave AMA. ERP notified. Pt counseled to remain, risks of leaving AMA including discussed with pt. Pt continued to decline further ER evaluation at this time. AMA papers signed, witnessed, and placed on patient's chart. Pt left ambulatory. VS stable, no ataxia noted, GCS 15, A&Ox4. Ellie Crocker RN [facility] 2022-12-21 16:45:00 Formatting of this n ote might be different from the original. Pt requesting to leave to go pick pulling machine operator her children from daycare. Notified pt that we would have to take her IV out and sign her out AMA. Educated on risks of leaving. Pt stated she was going to go pick pulling machine operator her kids and then come back and sign in again. [facility] 2022-12-21 16:21:45 Formatting of this n ote might be different from the original. Pt arrived via private car with c/o pain to her right lower quad where there is a knot. States that the knot was there prior to her period. Alycia Amaro RN [facility]
[2024-08-15] MEDS ORDERED: ONDANSETRON 4 MG/2 ML VIAL ONE (20:06)
[2024-08-15] MEDS ORDERED: KETOROLAC 30 MG/ML INJ ONE (20:06)
[2024-08-15] MEDS ORDERED: NA CHLORIDE 0.9% 1,000 ML ONE (20:06)
--- NOTE | 2024-08-15 20:07 | RAD REPORT ---
Transvaginal Study Probe CLINICAL INDICATION: Female 34 years old ABD PAIN TECHNIQUE: Real-time ultrasonography of the pelvis was performed transvaginally. Color and spectral D oppler evaluation of the ovaries was performed. [id number]. COMPARISON: No prior exam. FINDINGS: UTERUS AND CERVIX: The uterus measures 8.5 x 4.6 x 4.8 cm (cervix to fundus x AP x transverse). The u terus is normal. Nabothian cysts noted. . The endometrium is normal,7 mm thickness. RIGHT OVARY: Normal The right ovary measures 2.6 x 2.2 x 2.1 cm with volume of 6.2 mL. Normal color a nd spectral Doppler evaluation of the right ovary.. LEFT OVARY: Normal The left ovary measures 2.7 x 2.5 x 1.9 cm with volume of 6.4 mL. Normal Color a nd spectral Doppler evaluation of the left ovary.. FREE FLUID: No free fluid. IMPRESSION: 1. No acute abnormality identified. 2. Bilateral ovarian blood flow.
[2024-08-15 20:19] LABS: Absolute Eosinophils 0.1 K/uL (0-0.5); Absolute Lymphocytes (CBC) 1.9 K/uL (0.7-4.9); Absolute Monocytes 0.6 K/uL (0.1-1.3); Basophils % 0.7 % (0-1.3); Eosinophils % 1.8 % (0-4.4); Hematocrit 36.8 % (36.0-45.0); Hemoglobin 12.5 g/dL (12.0-15.0); Lymphocytes % 28.7 % (15.3-44.8); MCH 28.8 pg (27.0-35.0); MCHC 33.9 g/dL (32.0-36.0); MCV 84.7 fL (80-100); MPV 7.2 fL (7.6-11.3); Monocytes % 9.3 % (3.3-12.3); Neutrophils % 59.5 % (41.7-73.7); Nucleated Red Blood Cells % 0.1 % (0-0); Platelets 201 thou/uL (152-406); RBC Red Blood Cell Count 4.35 M/uL (3.86-4.86); Red Cell Distribution Width 15.9 % (12.1-15.2)
[2024-08-15 20:43] LABS: Albumin 3.8 g/dL (3.4-5.0); Albumin/Globulin Ratio 0.8 (1.1-1.8); Anion Gap 7.5 mEq/L (5.0-15.0); Bilirubin Total 0.5 mg/dL (0.2-1.0); Globulin 4.5 g/dL (2.3-3.5); Potassium 3.5 mEq/L (3.5-5.1); Protein, Total 8.3 g/dL (6.4-8.2)
--- NOTE | 2024-08-15 21:03 | RAD REPORT ---
EXAMINATION: Abdomen Pelvis W Contrast CLINICAL INDICATION: Female, 34 years old.ABD PAIN TECHNIQUE: CT abdomen and pelvis was performed, after the administration of IV contrast, as per [facility] protocol. Axial, sagittal and coronal reconstructions were obtained. One or more of the following dose reduction techniques were used: Automated exposure control, adjustment of the mA and/o r kV according to patient size, and/or iterative reconstruction. Unless otherwise specified, incidental findings do not require dedicated imaging follow-up. [id number]. COMPARISON: No prior exam. FINDINGS: LOWER CHEST: No acute process identified.No significant pericardial effusion. UPPER GI: No significant abnormality. LIVER: Hepatic steatosis, but otherwise unremarkable. GALLBLADDER/BILE DUCTS: No biliary ductal dilatation.? PANCREAS: No mass, ductal dilation, or anthony-pancreatic fluid. SPLEEN: Unremarkable. ADRENALS: No adrenal masses. KIDNEYS AND URETERS: No hydronephrosis.No suspicious renal mass.Nonobstructing renal calculi.No urete ral calculi. ABDOMINAL AORTA AND OTHER VESSELS: Normal caliber aorta and IVC. PERITONEUM: No abnormal free fluid. No free air. LYMPH NODES: No pathologic lymphadenopathy. ABDOMINAL WALL: Unremarkable SMALL BOWEL/COLON: Small bowel has normal course and caliber. No colonic wall thickening or pericolon ic inflammatory changes.Prominent appendix measuring 9 mm in diameter without periappendiceal inflammatory changes or appendicolith. The appendix is retroileal. URINARY BLADDER: Underdistended but grossly unremarkable. REPRODUCTIVE ORGANS: No pathologic process. MUSCULOSKELETAL: No acute or suspicious osseous abnormality. ADDITIONAL FINDINGS: None. IMPRESSION: No definite acute findings within the abdomen or pelvis. Prominent retroileal appendix with diameter of 9 mm but no appreciable periappendiceal inflammatory changes or appendicolith. This is equivocal for acute appendicitis. Correlate clinically. Pronounced hepatic steatosis. Correlate for steatohepatitis.
--- NOTE | 2024-08-15 21:21 | EDPHYS ---
Physician Documentation [facility] Name: Jenna Asher Age: 34 yrs Sex: Female : 1990 Arrival Date: 08/15/2024 Time: 19:33 Bed 12 Private MD: ED Physician Blu Colon HPI: 08/15 20:25 This 34 yrs old Female presents to ER via Ambulatory with complaints of Pelvic Pain. kb 20:25 Patient is a 34-year-old female who presents for right lower quadrant pain, nausea, kb vomiting, diarrhea and subjective fever that started last night. States pain has gotten worse today and is made worse by walking.. 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 - Infectious Disease History:: Denies. - Social history:: Smoking status: Patient denies any tobacco usage or history of. Patient/guardian denies using alcohol, street drugs. ROS: 20:25 Constitutional: As per HPI kb Exam: 20:25 Constitutional: This is a well developed, well nourished patient who is awake, alert, kb and in no acute distress. Head/Face: Normocephalic, atraumatic. ENT: Moist Mucous membranes Cardiovascular: Regular rate Respiratory: Respirations even and unlabored. No increased work of breathing. Talking in full sentences Skin: Warm, dry with normal turgor. Normal color. MS/ Extremity: Pulses equal, no cyanosis. Neurovascular intact. Full, normal range of motion. Neuro: Awake and alert, GCS 15, oriented to person, place, time, and situation. 20:25 Abdomen/GI: Inspection: abdomen appears normal, Bowel sounds: normal, Palpation: soft, in all quadrants, mild abdominal tenderness, in the right upper quadrant, left upper quadrant and left lower quadrant, moderate abdominal tenderness, in the right lower quadrant, Vital Signs: 19:37 BP 137 / 97; Pulse 85; Resp 17 S; Temp 99.5(O); Pulse Ox 100% on R/A; Weight 68.04 kg lg3 (R); Height 5 ft. 2 in. (R); Pain 7/10; 19:37 Body Mass Index 27.44 (68.04 kg, 157.48 cm) lg3 19:37 Pain Scale: Adult lg3 MDM: 19:35 Medical Screening Exam initiated kb 21:26 Differential diagnosis: ovarian cyst, ovarian torsion, appendicitis, uti. Data kb reviewed: vital signs, nurses notes. Consideration of Admission/Observation Escalation of care including admission/observation considered. Management of patient was discussed with the following: News Commentator: Dr Wadsworth accepts pt for consult. Counseling: I had a detailed discussion with the patient and/or guardian regarding the historical points, exam findings, and any diagnostic results supporting the discharge/admit diagnosis, lab results, radiology results, the need for further work-up and treatment in the hospital. Refusal of service: The patient/guardian displays adequate decision making capability and despite a detailed discussion of alternatives, benefits, risks, and consequences refuses: Admission to the hospital for further work-up and treatment, Pt states she has 3 kids at home and she cannot stay overnight. STates she will return in the morning if symptoms persist, but is not willing to be admitted. Pt educated that appendicitis is something that will continue to worsen, she could become very sick and there was a risk of . Recommended admission multiple times. Pt understands risks and will not stay in the hospital. Pt is leaving against medical advise. 08/15 19:39 Order name: CBC with Diff; Complete Time: 20:25 kb 08/15 19:39 Order name: CMP; Complete Time: 20:46 kb 08/15 19:39 Order name: Lipase; Complete Time: 20:46 kb 08/15 19:39 Order name: CT Abd/Pelvis - IV Contrast Only; Complete Time: 21:04 kb 08/15 19:39 Order name: US Transvaginal Study (Probe); Complete Time: 20:08 kb 08/15 19:39 Order name: IV Saline Lock; Complete Time: 20:14 kb 08/15 19:39 Order name: Labs collected and sent; Complete Time: 20:14 kb Administered Medications: 20:19 Drug: TORadol - Ketorolac IVP 15 mg IVP once Route: IVP; Site: right antecubital; hb 20:19 Drug: Ondansetron IVP 4 mg IVP once; over 2 minutes Route: IVP; Site: right antecubital;hb 20:19 Drug: NS 0.9% IV 1000 ml IV at 1 bolus Per protocol; to be given as a bolus over 60 hb minutes Route: IV; Rate: 1 bolus; Site: right antecubital; 21:30 Follow up: IV Status: Completed infusion kb3 Disposition Summary: 08/15/24 21:21 Left Against Medical Advice Notes: Location: Home kb Problem: new kb Symptoms: are unchanged kb Condition: Stable kb Diagnosis - Lower abdominal pain, unspecified kb Followup: kb - With: Emergency Department - When: As needed - Reason: Worsening of condition Followup: kb - With: Private Physician - When: 2 - 3 days - Reason: Recheck today's complaints, Continuance of care, Re-evaluation by your physician Discharge Instructions: - Discharge Summary Sheet kb - Appendicitis, Adult, [id number] kb Signatures: Dispatcher [employer] Neena Green, AERIAL PHOTOGRAPH INTERPRETER-C AERIAL PHOTOGRAPH INTERPRETER-Inna Sotomayor, RN RN Kavita Maya RN RN lg3 Saskia Baldwin RN kb3
--- NOTE | 2024-08-15 21:21 | ER ---
Nurse's Notes [facility] Name: Jenna Asher Age: 34 yrs Sex: Female : 1990 Arrival Date: 08/15/2024 Time: 19:33 Bed 12 Private MD: Diagnosis: Lower abdominal pain, unspecified Presentation: 08/15 19:36 Chief complaint: Patient states: i think i have a ruptured ovarian cyst on my right lg3 side. onset yesterday, worsening today. Coronavirus screen: Client denies travel out of the [place] in the last 14 days. At this time, the client does not indicate any symptoms associated with coronavirus-19. Ebola Screen: No symptoms or risks identified at this time. Risk Assessment: Do you want to hurt yourself or someone else? Patient reports no desire to harm self or others. Onset of symptoms was August 15, 2024. 19:36 Method Of Arrival: Ambulatory lg3 19:36 Acuity: PORTER 3 lg3 21:36 Initial Sepsis Screen: Does the patient meet any 2 criteria? No. Patient's initial vc1 sepsis screen is negative. Does the patient have a suspected source of infection? No. Patient's initial sepsis screen is negative. Triage Assessment: 19:37 General: Appears in no apparent distress. uncomfortable, Behavior is calm, cooperative. lg3 Pain: Complains of pain in right lower quadrant. EENT: No deficits noted. No signs and/or symptoms were reported regarding the EENT system. Neuro: No deficits noted. Thomson Agitation-Sedation Scale (RASS): 0 - Alert and Calm Level of Consciousness is awake, alert, obeys commands, Oriented to person, place, time, situation. Cardiovascular: No deficits noted. Denies chest pain, shortness of breath, Capillary refill < 3 seconds Clubbing of nail beds is absent JVD is absent Patient's skin is warm and dry. Respiratory: No deficits noted. Airway is patent Respiratory effort is even, unlabored, Respiratory pattern is regular, symmetrical. GI: Abdomen is round non-distended, Bowel sounds present X 4 quads. Reports lower abdominal pain, diarrhea, nausea, vomiting. : No signs and/or symptoms were reported regarding the genitourinary system. Derm: No deficits noted. No signs and/or symptoms reported regarding the dermatologic system. Skin is intact, is healthy with good turgor, Skin is dry, Skin is normal, Skin temperature is warm. Musculoskeletal: No deficits noted. No signs and/or symptoms reported regarding the musculoskeletal system. Circulation, motion, and sensation intact. Range of motion: intact in all extremities. 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 - Infectious Disease History:: Denies. - Social history:: Smoking status: Patient denies any tobacco usage or history of. Patient/guardian denies using alcohol, street drugs. Screenin:19 [facility] ED Fall Risk Assessment (Adult) History of falling in the last 3 months, hb including since admission No falls in past 3 months (0 pts) Confusion or Disorientation No (0 pts) Intoxicated or Sedated No (0 pts) Impaired Gait No (0 pts) Mobility Assist Device Used No (0 pt) Altered Elimination No (0 pt) Score/Fall Risk Level 0 - 2 = Low Risk Oriented to surroundings, Maintained a safe environment, Educated pt \T\ family on fall prevention, incl call for assistance when getting out of bed. Abuse screen: Denies threats or abuse. Denies injuries from another. Nutritional screening: No deficits noted. Tuberculosis screening: No symptoms or risk factors identified. Assessment: 20:19 General: Appears in no apparent distress. Behavior is calm, cooperative. Pain: Pain hb currently is 7 out of 10 on a pain scale. Neuro: Level of Consciousness is awake, alert, obeys commands, Oriented to person, place, time, situation. Cardiovascular: Patient's skin is warm and dry. Respiratory: Respiratory effort is even, unlabored, Respiratory pattern is regular, symmetrical. GI: Reports lower abdominal pain, nausea. : No signs and/or symptoms were reported regarding the genitourinary system. EENT: No signs and/or symptoms were reported regarding the EENT system. Derm: Skin is pink, warm \T\ dry. Musculoskeletal: No signs and/or symptoms reported regarding the musculoskeletal system. 21:35 General: pt signed AMA, states she will return tomorrow. vc1 Vital Signs: 19:37 BP 137 / 97; Pulse 85; Resp 17 S; Temp 99.5(O); Pulse Ox 100% on R/A; Weight 68.04 kg lg3 (R); Height 5 ft. 2 in. (R); Pain 7/10; 19:37 Body Mass Index 27.44 (68.04 kg, 157.48 cm) lg3 19:37 Pain Scale: Adult lg3 ED Course: 19:35 Patient arrived in ED. gm2 19:35 [facility]C [facility]. kb 19:35 Blu Colon MD is Attending Physician. kb 19:37 Triage completed. lg3 19:41 Arm band placed on right wrist. lg3 19:52 Radiology exam delayed due to lab results not completed at this time. (BUN/Creatinine) jc4 IV insertion attempt and/or patient not having appropriate IV at this time. 20:01 US Transvaginal Study (Probe) In Process Unspecified. EDMS 20:14 CBC with Diff Sent. af3 20:14 CMP Sent. af3 20:14 Lipase Sent. af3 20:14 Inserted saline lock: 20 gauge in right antecubital area, using aseptic technique. af3 Blood collected. Flushed with 10 mL NS. 20:19 Patient has correct armband on for positive identification. Provided Education on: hb tests, result times, use of call light . 20:38 CT Abd/Pelvis - IV Contrast Only In Process Unspecified. EDMS 21:35 No provider procedures requiring assistance completed. IV discontinued, intact, vc1 bleeding controlled, No redness/swelling at site. Pressure dressing applied. Administered Medications: 20:19 Drug: TORadol - Ketorolac IVP 15 mg IVP once Route: IVP; Site: right antecubital; hb 20:19 Drug: Ondansetron IVP 4 mg IVP once; over 2 minutes Route: IVP; Site: right antecubital;hb 20:19 Drug: NS 0.9% IV 1000 ml IV at 1 bolus Per protocol; to be given as a bolus over 60 hb minutes Route: IV; Rate: 1 bolus; Site: right antecubital; 21:30 Follow up: IV Status: Completed infusion kb3 Medication: 20:19 VIS not applicable for this client. hb Outcome: 21:36 Discharged to home ambulatory, vc1 21:36 Condition: stable 21:36 Discharge instructions given to patient, Instructed on discharge instructions, follow up and referral plans. Demonstrated understanding of instructions, follow-up care, 21:36 Patient left the ED. vc1 Signatures: Dispatcher [employer] EDMS Neena Asher, SEARCHLIGHT OPERATOR-Phani SEARCHLIGHT OPERATOR-Inna Sotomayor RN MAI AbleKavita RN RN lg3 Marcella Gregg RN RN vc1 Saskia Baldwin, MAI ONEILL kb3 Mei Duran gm2 Priyank Teague jc4 Brooke Braga af3 Corrections: (The following items were deleted from the chart) 19:43 19:41 Radiology exam delayed due to lab results not completed at this time. (HCG) jc4 (BUN/Creatinine) test not completed at this time. jc4 19:52 19:42 Radiology exam delayed due to lab results not completed at this time. (HCG) jc4 (BUN/Creatinine) test not completed at this time. IV insertion attempt and/or patient not having appropriate IV at this time. jc4
[2024-08-15 21:58] VITALS: BP 137/97; TEMP 99.5; O2SAT 100
== END 2024-08-15 21:36 | disposition left against medical advice (07) ==
LOC: ER 19:33
DX: R10.31 Right lower quadrant pain (principal); R11.2 Nausea with vomiting, unspecified
CPT/HCPCS: 96361; 85025; 36415; 83690; 80053; 74177; 76830; 96375; 96374; 99284; Q9967; J2405; J7030

== ENCOUNTER 2024-08-16 07:09 | Observation (INO) | payer MEDICAID, OTHER ==
--- OUTSIDE RECORDS SUMMARY | 2024-08-16 07:19 | XMS REPORT | Continuity of Care Document ---
Author Name Unknown Address [address] [facility] [address] [place] [address] [facility] Address [address] [facility] [address] [place] [address] Care Team Providers Care Greige Mender Name Role Phone No MD, Pcp Primary Care Physician Unavailab MARIAN Joya Attending Clinician Unavail able MARIAN PERDOMO Attending Clinician Unavail able Doctor Unassigned, [place] Attending Clinician Jalyn Head MA Attending Clinician Unavail able OVIDIO HUFFMAN Attending Clinician Unavail able TEMI VAIL Attending Clinician Temi Miranda CNM Attending Clinician [phone] Visit, [facility] Nurse Attending Clinician ELLA Castle Attending Clinician ELLA Cotter Attending Clinician Bree Biswas MD, Ella Attending Clinician + [phone] Behzad WORTHY, Aminata Sanchez Attending Clinician [phone] Akinsipe [facility] Ovidio Jeronimo Attending Clinician + CHELY FRANKLIN Attending Clinician Unavailab CHELY Leiva Attending Clinician Unavailab janeen Franklin DO, Chely Lima Attending Clinician [phone] ZAKIYA CAMACHO Attending Clinician Unavailable Doug H[employer] TAMALE WORKER, Zakiya Attending Clinician [phone] BENJA NEWMAN Attending Clinician Unavailable BENJA NEWMAN Attending Clinician Unavailable Trent WORTHY, Benja Alfaro Attending Clinician [phone], [facility] Us Room Attending Clinician Unavailab janeen Hale RN, Yahaira Spencer Attending Clinician Unava Temi Beal CNM Attending Clinician [phone] VAMSI WALTERS Attending Clinician Unavail able Vamsi Walters DNP Attending Clinician + [phone] Jennifer Castro MD, Abbey Attending Clinician + LOUISE BORGSE Attending Clinician UnavailLOUISE Luna Attending Clinician UnavailRENE Post Attending Clinician Unavailable Rene Lamb MD Attending Clinician [phone] Akinsipe [facility], Ovidio Jeronimo Attending Clinician + SUZAN CEDENO Attending Clinician Unavailable Ultrasound, [facility] Attending Clinician UnavailSuzan Villagomez MD Attending Clinician [phone] LabDiane Attending Clinician Unavailable ECTOR IRVIN Attending Clinician Unavailfabien watters 1, [facility] Usg Room Attending Clinician UnavailEctor Avery MD Attending Clinician + [phone] Doctor Unassigned, [place] Attending Clinician U DIONICIO Han Attending Clinician Unavailable Rebecca WORTHY, Danielle Attending Clinician +[phone] FANY MEHTARADHA Attending Clinician Unavailable Temi Iraheta MA Attending Clinician Unavailabl gilbert Epps DYNAMITER, Leslee Attending Clinician [phone] Nurse, [facility] Attending Clinician Un available Unknown, Attending Attending Clinician Unavailab janeen Lara DYNAMITER, Windy Attending Clinician [phone] WINDY LARA Attending Clinician Unavailable QASIM BURCH Attending Clinician Unavailable AGATA DAVIS Attending Clinician Unavailable Ryan WORTHY, Agata Attending Clinician [phone] SACHA ROONEY Attending Clinician Unavail able Thuan DYNAMITER, Fang Attending Clinician + [phone] RICKY TANNER Attending Clinician Unavailable Flores PAC, Ricky Ramos Attending Clinician [phone] FANG LAROSE Attending Clinician Unavailabl e Provider, Ang-Rmchp Temp Attending Clinician Angella vailable Visit, AnaiRmchjeanne Nurse Attending Clinician Unava ilable [place] DYNAMITER, Tanesha Spencer Attending Clinician [phone] TANESHA FRANKLIN Attending Clinician Unavailkalyan Camacho RN, Peggy S Attending Clinician Unavaila CASSIA Landon Attending Clinician Unavailable Bruce DYNAMITER, Cassia Attending Clinician [phone] Agus DYNAMITER, Veronique Mina Attending Clinician + [phone] Gary East Attending Clinician [phone] VERONIQUE GOLDSMITH Attending Clinician Unavailab Benja Qureshi MD Attending Clinician [phone] Terry Newman DO Attending Clinician [phone] Sridhar Chaudhry MD Attending Clinician [phone] Sonja Nair MD Attending Clinician [phone] UNKNOWN, ATTENDING Attending Clinician Unavailab le Luis, Briseyda Urgent Attending Clinician Unavailable ABBEY PAGE Attending Clinician Unav ailable Sylvia ONEILL, Christine Attending Clinician Angella vailable SRIDHAR CHAUDHRY Attending Clinician Unavailabl ELLA Barreto Admitting Clinician SONJA Hillman Admitting Clinician Unavailable Ella Biswas MD Admitting Clinician +- [phone] RENE LAMB Admitting Clinician Unavailable Rene Lamb MD Admitting Clinician [phone] DIONICIO MEHTA Admitting Clinician Unavailable CHELY FRANKLIN Admitting Clinician UnavailSonja Mcdonald MD Admitting Clinician [phone] Payers Payer Name Policy Type Policy Number Effective Date Expirati on Date Source [facility] STAR [id number] 2023 00:00:00 [facility] MEDICA[facility] [id number] 2020 00:00:00 [place] [id number] 2023 00:00:00 2023 00:00:00 [facility] MEDICAID STAR [id number] 2020 00:00:00 2022 00:00:00 HTW-RMCHP [id number] 2019 00:00:00 Problems Condition Name Condition Details Condition Category Status Onset Date Resolution Date Last Treatment Date Treating Clinician Comments Source Supervisio n of high risk in third trimester Supervisio n of high risk in third trimester Disease Active 9-22 00:00: 00 [facility] 36 weeks gestation of 36 weeks gestation of Disease Active 9-21 00:00: 00 [facility] Supervisio n of high-risk Supervisio n of high-risk Disease Active 9-17 00:00: 00 [facility] Anemia of mother in , antepartum Anemia of mother in , antepartum Disease Active 8-22 00:00: 00 [facility] GBS (group B streptococ cus) UTI complicati ng GBS (group B streptococ cus) UTI complicati ng Disease Active 3- 00:00: 00 Overview: Formattin g of this note might be different from the original. Julieta neg [facility] Overweight (BMI 25.0-29.9) Overweight (BMI 25.0-29.9) Disease Active 2-28 00:00: 00 [facility] History of asthma History of asthma Disease Active 08-23 00:00: 00 Overview: Formattin g of this note might be different from the original. As child [facility] Previous delivery affecting , antepartum Previous delivery affecting , antepartum Disease Active 08-23 00:00: 00 [facility] No known active problems No known active problems Disease [facility] 23 weeks gestation of 23 weeks gestation of Disease Resolve d 3-30 00:00: 00 2023-10-18 00:00:00 2023-10-18 14:53:09 [facility] Lump or mass in breast Lump or mass in breast Disease Resolve d 7-21 00:00: 00 2023-06-22 00:00:00 2023-06-22 11:59:16 [facility] Obesity (BMI 30-39.9) Obesity (BMI 30-39.9) Disease Resolve d 3-30 00:00: 00 2023-06-21 00:00:00 2023-06-21 11:06:15 [facility] COVID-19 virus IgG antibody detected COVID-19 virus IgG antibody detected Disease Resolve d 3-15 00:00: 00 2023-06-21 00:00:00 2023-06-21 11:06:12 [facility] anemia anemia Disease Resolve d 2018-04 0- 00:00: 00 2023-06-21 00:00:00 2023-06-21 11:06:16 [facility] Rubella non-immune status, antepartum Rubella non-immune status, antepartum Disease Resolve d 08-28 00:00: 00 2023-06-21 00:00:00 2023-06-21 11:06:17 [facility] Nausea and vomiting during prior to 22 weeks gestation Nausea and vomiting during prior to 22 weeks gestation Disease Resolve d 9-14 00:00: 00 2020-08-12 00:00:00 2020-08-12 11:39:31 [facility] Obesity in Obesity in Disease Resolve d 2019-0 9-14 00:00: 00 2020-08-12 00:00:00 2020-08-12 11:39:32 [facility] Nausea and vomiting during prior to 22 weeks gestation Nausea and vomiting during prior to 22 weeks gestation Disease Resolve d 2019-0 9-14 00:00: 00 2020-08-12 00:00:00 2020-08-12 11:39:31 [facility] BMI 36.0-36.9, adult BMI 36.0-36.9, adult Disease Resolve d 2018- 2-25 00:00: 00 2020-08-12 00:00:00 2020-08-12 11:39:37 [facility] Previous delivery affecting Previous delivery affecting Disease Resolve d 2018-04 2-25 00:00: 00 2020-08-12 00:00:00 2020-08-12 11:39:31 [facility] Supervisio n of high risk in second trimester Supervisio n of high risk in second trimester Disease Resolve d 2018-0 5-01 00:00: 00 2020-08-12 00:00:00 2020-08-12 11:39:26 [facility] Multiparit y Multiparit y Disease Resolve d 2018-0 5-01 00:00: 00 2020-08-12 00:00:00 2020-08-12 11:39:27 [facility] 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 Disease Resolve d 2018- 2-09 00:00: 00 2019-05-10 00:00:00 2019-05-10 15:32:24 [facility] 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 Disease Resolve d 2018- 2-09 00:00: 00 2019-05-10 00:00:00 2019-05-10 15:32:24 [facility] Epistaxis Epistaxis Disease Resolve d 2018-0 5-29 00:00: 00 2019-05-10 00:00:00 2019-05-10 15:32:25 [facility] Obesity affecting Obesity affecting Disease Resolve d 2018-0 5-01 00:00: 00 2019-05-10 00:00:00 2019-05-10 15:32:20 [facility] Cessation of tobacco use in previous 12 months Cessation of tobacco use in previous 12 months Disease Resolve d 2018-0 5-01 00:00: 00 2019-05-10 00:00:00 2019-05-10 15:32:27 [facility] Placenta previa in third trimester Placenta previa in third trimester Disease Resolve d 2018-0 8-19 00:00: 00 2019-03-19 00:00:00 2019-03-19 11:04:41 [facility] Vaginal bleeding in Vaginal bleeding in Disease Resolve d 2018-04 0-15 00:00: 00 2019-03-05 00:00:00 2019-03-05 12:56:45 [facility] Allergies, Adverse Reactions, Alerts Allergy Name Allergy Type Status Severity Reaction(s) Onset Date Inactive Date Treating Clinician Comments Source Azithrom ycin Drug Allergy Active Hives 08-17 00:00: 00 [facility] AZITHROM YCIN DRUG INGREDI Active Med Hives 08-17 00:00: 00 [facility] Azithrom ycin Allergy to substanc e Active Swelling 08-17 00:00: 00 [facility] Family History Family Member Diagnosis Comments Start Date Stop Date Sourc e Natural [facility] father Diabetes [facility] Natural father Hypertension [facility] Paternal [facility]th[facility] Paternal Aunt Diabetes Univer [facility] Natural sister Other - see comments [facility] Social History Social Habit Start Date Stop Date Quantity Comments Source ASSERTION 2023-05-18 00:00:00 [facility] History SDOH Alcohol Frequency [facility] History SDOH Alcohol Std Drinks [facility] History SDOH Alcohol Binge [facility] Gender identity [facility] Sexual orientation [facility] Tobacco use and exposure 2023-09-13 00:00:00 2023-09-13 00:00:00 Smokeless tobacco non-user [facility] Alcoholic beverage intake 2023-09-13 00:00:00 2023-09-13 00:00:00 Ex-drinker (finding) [facility] Exposure to SARS-CoV-2 (event) 2022-08-13 00:00:00 2022-08-23 09:57:00 Not sure [facility] Alcohol intake 2021-12-17 00:00:00 2021-12-17 00:00:00 Ex-drinker (finding) [facility] History of Social function 2021-12-17 00:00:00 2021-12-17 00:00:00 [facility] Alcohol Comment 2020-09-02 00:00:00 2020-09-02 00:00:00 occasional [facility] History of tobacco use 2018-08-16 00:00:00 Cigarette Smoker [facility] Sex assigned at 1990 00:00:00 1990 00:00:00 F [facility] Smoking Status Start Date Stop Date Source Ex-smoker 2023-09-13 00:00:00 2023-09-13 00:00:00 [facility] Smokes tobacco daily 2023-04-20 00:00:00 [facility] Never smoked tobacco [facility] Medications Ordered Medication Name Filled Medication Name Start Date Stop Date Current Medication? Ordering Clinician Indication Dosage Frequency Signature (SIG) Comments Components Source gabapentin 300 mg capsule 01-15 00:00: 00 Yes [id number] 300mg Take 1 capsule by mouth in the morning and 1 capsule at noon and 1 capsule in the evening. [facility] vitamin w/FA tablet 01-15 00:00: 00 Yes [id number] 1{tbl} Take 1 tablet by mouth in the morning. [facility] docusate 100 mg capsule 01-15 00:00: 00 Yes [id number] 200mg Take 2 capsules by mouth once daily as needed for Constipati on. [facility] ferrous sulfate 325 mg (65 mg iron) tablet 01-15 00:00: 00 Yes [id number] 325mg Take 1 tablet by mouth in the morning. [facility] ibuprofen 800 mg tablet 01-15 00:00: 00 Yes [id number] 800mg Take 1 tablet by mouth every 8 (eight) hours as needed (pain). Take with food or milk. [facility] oxyCODONE 5 mg immediate release tablet 01-15 00:00: 00 01-23 04:59 :00 No [id number] 5mg Take 1 tablet by mouth every 6 (six) hours as needed for Pain (scale 7-10) for up to 7 days. Indication s: acute pain [facility] acetaminoph en (OFIRMEV) IV piggyback 1,000 mg 01-14 17:30: 00 01-14 18:31 :00 No 1000mg 1,000 mg, IV Piggyback, at 400 mL/hr Administer over 15 Minutes, ONCE, 1 dose, On Tue01/15/24 at 1230, Routine, Is the patient strict NPO and unable to tolerate oral medication s? Yes [facility] docusate (COLACE) capsule 200 mg 01-14 14:00: 00 Yes 200mg 200 mg, Oral, DAILY, First dose on Tue01/15/24 at 0900, Until Discontinu ed, Routine [facility] gabapentin (NEURONTIN) capsule 300 mg 01-14 13:00: 00 Yes 300mg 300 mg, Oral, TID, First dose on Tue01/15/24 at 0800, Until Discontinu ed, Routine [facility] simethicone (GAS RELIEF (SIMETHICON E)) chewable tablet 160 mg 01-14 13:00: 00 Yes 160mg 160 mg, Oral, TID, First dose on Tue01/15/24 at 0800, Until Discontinu ed, Routine [facility] HYDROmorpho ne (DILAUDID) injection 0.2 mg 01-14 11:02: 49 Yes .2mg 0.2 mg, Intravenou s, Q5MIN PRN, 4 doses, Starting on Tue01/15/24 at 0602, Until Discontinu ed, Routine, Pain (scale 7-10), Is this medication approved by a Faculty level provider? Yes, sports health [employer] membership advisors approving Restricted medication : AMINATA CHILDS [facility] ibuprofen (IBU) tablet 800 mg 01-14 11:00: 00 Yes 800mg 800 mg, Oral, Q8H, First dose on Tue01/15/24 at 0600, Until Discontinu ed, Routine [facility] lactated ringers IV infusion 1,000 mL 01-14 10:30: 00 01-14 12:55 :59 No 1000mL at 125 mL/hr, 1,000 mL, IV Infusion, ONCE, 1 dose, On Tue01/15/24 at 0530, Routine [facility] rho(D) immune globulin (RHOPHYLAC) injection 300 mcg 01-14 09:33: 02 Yes 300ug [facility] oxyCODONE immediate release tablet 5 mg 01-14 09:32: 29 Yes 5mg 5 mg, Oral, Q6HPRN, Starting on Tue01/15/24 at 0432, Until Discontinu ed, Routine, Pain (scale 7-10), sports health club membership advisors approving Restricted medication : DESAI-JUSTINO IS, ELLA [facility] diphenhydrA MINE (BENADRYL) injection 25 mg 01-14 09:31: 20 Yes 25mg [facility] diphenhydrA MINE (BENADRYL) tablet 25 mg 01-14 09:31: 20 Yes 25mg [facility] ondansetron (ZOFRAN (PF)) injection 4 mg 01-14 09:31: 19 Yes 4mg [facility] bisacodyL (DULCOLAX) suppository 10 mg 01-14 09:31: 19 Yes 10mg [facility] magnesium hydroxide (MILK OF MAGNESIA) 400 mg/5 mL suspension 30 mL 01-14 09:31: 19 Yes 30mL [facility] lactated ringers IV infusion 1,000 mL 01-14 09:31: 19 Yes 1000mL [facility] midazolam (VERSED) injection 01-14 09:17: 00 01-14 09:47 :09 No IV Push, ONCE INTRA PROCEDURE, Starting on 01/15/24 at 0417, Until 01/15/24 at 0447, Routine, Intra-op [facility] acetaminoph en (OFIRMEV) IV piggyback 01-14 08:57: 00 01-14 09:47 :09 No IV Infusion, Administer over 15 Minutes, ONCE INTRA PROCEDURE, Starting on 01/15/24 at 0357, Until 01/15/24 at 044, Routine, Intra-op [facility] methylergon ovine (METHERGINE ) injection 01-14 08:55: 00 01-14 09:47 :09 No Intramuscu lar, ONCE INTRA PROCEDURE, Starting on Tue01/15/24 at 0355, Until Tue01/15/24 at 044, Routine, Intra-op [facility] FENTanyl (PF) (SUBLIMAZE) injection 01-14 08:52: 00 01-14 09:47 :09 No Epidural, ONCE INTRA PROCEDURE, Starting on 01/15/24 at 0352, Until 01/15/24 at 0447, Routine, Intra-op [facility] propofoL IV infusion 01-14 08:51: 00 01-14 09:47 :09 No IV Infusion, ONCE INTRA PROCEDURE, Starting on 01/15/24 at 0351, Until 01/15/24 at 0447, Routine, Intra-op [facility] oxytocin (PITOCIN) 30 units in NS 500 mL IV infusion 01-14 08:49: 00 01-14 09:47 :09 No IV Infusion, CONTINUOUS PRN, Starting on 01/15/24 at 0349, Until 01/15/24 at 0447, Routine, Intra-op [facility] succinylcho line-sod Cl,iso(PF) 100 mg/5 mL (20 mg/mL) injection 01-14 08:46: 00 01-14 09:47 :09 No IV Push, ONCE INTRA PROCEDURE, Starting on Tue01/15/24 at 0346, Until Tue01/15/24 at 0447, Routine, Intra-op [facility] lactated ringers IV infusion 01-14 08:25: 00 01-14 09:47 :09 No IV Infusion, CONTINUOUS PRN, Starting on Tue01/15/24 at 0325, Until Tue01/15/24 at 0447, Routine, Intra-op [facility] sodium citrate-cit ivana acid (BICITRA) 500-334 mg/5 mL solution 30 mL 01-14 08:00: 38 01-14 08:08 :00 No 30mL 30 mL, Oral, PRE-PROCED URE ONCE, 1 dose, Starting on 01/15/24 at 0300, Until Tue01/15/24 at 0308, Routine, Surgery/Pr ocedure [facility] ondansetron (ZOFRAN (PF)) injection 8 mg 01-14 07:34: 00 01-14 07:43 :00 No 8mg 8 mg, Slow IV Push, ONCE, On 01/15/24 at 0245, For 1 dose, Doses of ondansetro n 16 mg and above need to be administer ed via IV piggyback. For Dose >=24mg ECG monitoring is advisable. [facility] NaCl 0.9% (NS) IV infusion 1,000 mL 01-14 06:45: 00 01-14 09:33 :01 No 1000mL at 125 mL/hr, IV Infusion, CONTINUOUS , Starting on 01/15/24 at 0145, Until Tue01/15/24 at 0433, Routine [facility] NaCl 0.9% (NS) IV infusion 1,000 mL 01-14 02:30: 00 01-14 03:30 :00 No 1000mL at 999 mL/hr, IV Infusion, ONCE, 1 dose, On 01/14/24 at 2130, Routine [facility] ondansetron (ZOFRAN (PF)) injection 8 mg 01-14 02:15: 00 01-14 02:10 :00 No 8mg 8 mg, Slow IV Push, ONCE, On 01/14/24 at 2115, For 1 dose, Doses of ondansetro n 16 mg and above need to be administer ed via IV piggyback. For Dose >=24mg ECG monitoring is advisable. [facility] proMETHazin e 25 mg tablet 01-02 00:00: 00 01-15 00:00 :00 No [id number] 25mg Take 1 tablet by mouth every 4 (four) hours as needed for Nausea and Vomiting (N/V). [facility] Iron Fum & P-FA-Vit B & C No.9 (INTEGRA PLUS) 125 mg iron- 1 mg Cap 12-14 00:00: 00 01-15 00:00 :00 No [id number] 1{capsu le} Take 1 capsule by mouth in the morning. [facility] proMETHazin e 25 mg tablet 12-13 00:00: 00 01-01 00:00 :00 No [id number] 25mg Take 1 tablet by mouth every 4 (four) hours as needed for Nausea and Vomiting (N/V). [facility] metroNIDAZO LE 500 mg tablet 12-13 00:00: 00 12-21 04:59 :00 No [id number] 500mg Take 1 tablet by mouth in the morning and 1 tablet in the evening. Do all this for 7 days. [facility] fluconazole (DIFLUCAN) 150 mg tablet 12-13 00:00: 00 12-14 04:59 :00 No [id number] 150mg Take 1 tablet by mouth once now for 1 dose. [facility] proMETHazin e 25 mg tablet 12-12 00:00: 00 12-13 00:00 :00 No [id number] 25mg Take 1 tablet by mouth every 4 (four) hours as needed for Nausea and Vomiting (N/V). [facility] Lidocaine (LIDOCARE) 4 % patch 1 Patch 11-28 16:30: 00 11-29 04:29 :00 No 1{patch } 1 Patch, Topical, Administer over 12 Hours, ONCE, 1 dose, On Tue11/29/23 at 1130, Routine [facility] ondansetron (ZOFRAN-ODT ) disintegrat ing tablet 4 mg 11-28 16:30: 00 11-28 15:45 :00 No 4mg 4 mg, Oral, ONCE, 1 dose, On Tue11/29/23 at 1130, Routine [facility] acetaminoph en (TYLENOL) tablet 1,000 mg 11-28 15:45: 00 11-28 15:45 :00 No 1000mg 1,000 mg, Oral, ONCE, 1 dose, On Tue11/29/23 at 1045, [place] [facility] ondansetron 4 mg disintegrat ing tablet 11-28 00:00: 00 01-16 00:00 :00 No [id number] 4mg Take 1 tablet by mouth every 8 (eight) hours as needed for Nausea and Vomiting (N/V). [facility] esomeprazol e (NEXIUM) 20 mg capsule - 00:00: 00 01-15 00:00 :00 No [id number] 20mg Take 20 mg by mouth daily before a meal. [facility] proMETHazin e (PHENERGAN) 25 mg in NS 50 mL IV piggyback (CNR) 10-11 20:05: 14 Yes 25mg 25 mg, IV Piggyback, at 200 mL/hr Administer over 15 Minutes, Q4HPRN, Starting on Tue10/12/23 at 1505, Until Discontinu ed, Routine, Nausea and Vomiting (N/V) [facility] D5W-LR IV infusion 1,000 mL 10-11 19:30: 00 Yes 1000mL at 125 mL/hr, IV Infusion, CONTINUOUS , Starting on Tue10/12/23 at 1430, Until Discontinu ed, Routine [facility] proMETHazin e 25 mg tablet 5-17 00:00: 00 12-12 00:00 :00 No [id number] 25mg Take 1 tablet by mouth every 4 (four) hours as needed for Nausea and Vomiting (N/V). [facility] metroNIDAZO LE 500 mg tablet 4-19 00:00: 00 09-12 00:00 :00 No [id number] 500mg Take 1 tablet by mouth in the morning and 1 tablet in the evening. [facility] PNV 67-iron ps-folate no.1-dha (VITAFOL ULTRA) 29 mg iron- 1 mg-200 mg Cap - 00:00: 00 01-15 00:00 :00 No [id number] 1{capsu le} Take 1 capsule by mouth in the morning. [facility] ampicillin 500 mg capsule 3- 00:00: 00 07-04 04:59 :00 No [id number] 500mg Take 1 capsule by mouth every 6 (six) hours for 10 days. [facility] bacitracin- polymyxin b (Polysporin ) ophthalmic ointment 2022-04 2- 00:00: 00 04-24 05:59 :00 No [id number] Q12H Apply to right eye every 12 (twelve) hours for 3 days. [facility] iopamidol (ISOVUE 370-500 mL) injection 100 mL 12-22 01:30: 00 12-22 01:30 :00 No [id number] 100mL 100 mL, Intravenou s, ONCE, 1 dose, On Tue12/21/22 at 2030, Routine [facility] ondansetron (ZOFRAN (PF)) injection 4 mg 12-22 01:00: 00 12-22 01:10 :00 No 4mg 4 mg, Slow IV Push, ONCE, 1 dose, On Tue12/21/22 at 2000, [place] [facility] morpHINE (4 mg/mL) injection 4 mg 12-22 01:00: 00 12-22 01:10 :00 No 4mg 4 mg, Slow IV Push, ONCE, 1 dose, On Tue12/21/22 at 2000, STAT [facility] ketorolac (TORADOL) injection 30 mg 12-22 00:15: 00 12-22 00:18 :00 No 30mg 30 mg, Slow IV Push, ONCE, 1 dose, On Tue12/21/22 at 1915, Routine [facility] ketorolac (TORADOL) injection 30 mg 12-21 22:30: 00 12-22 10:29 :00 No 30mg 30 mg, Slow IV Push, ONCE, 1 dose, On Tue12/21/22 at 1730, Routine [facility] ketorolac 10 mg tablet 12-21 00:00: 00 06-21 00:00 :00 No [id number] 10mg Take 1 tablet by mouth every 6 (six) hours as needed for Pain (scale 1-3). [facility] ondansetron 4 mg disintegrat ing tablet 10-18 00:00: 00 06-21 00:00 :00 No [id number] 4mg Take 1 tablet by mouth every 8 (eight) hours as needed for Nausea and Vomiting (N/V). [facility] cyclobenzap rine 5 mg tablet 10-18 00:00: 00 06-21 00:00 :00 No [id number] 5mg Take 1 tablet by mouth at bedtime. [facility] ibuprofen 600 mg tablet 10-18 00:00: 00 06-21 00:00 :00 No [id number] 600mg Take 1 tablet by mouth every 6 (six) hours as needed for Pain (scale 1-3) or Pain (scale 4-6). [facility] amoxicillin -clavulanat e (AUGMENTIN) 875-125 mg per tablet 08-23 00:00: 00 09-03 04:59 :00 No [id number] 1{tbl} Take 1 tablet by mouth in the morning and 1 tablet in the evening. Do all this for 10 days. [facility] No known medications 12-17 12:09: 24 No No known medication s [facility] silvana ne 0.35 mg tablet 11-12 00:00: 00 06-21 00:00 :00 No [id number] .35mg Take 1 tablet by mouth in the morning. [facility] naproxen (NAPROSYN) 500 mg tablet 11-12 00:00: 00 06-21 00:00 :00 No [id number] 100 500mg Take 1 tablet by mouth in the morning and 1 tablet in the evening. Take with meals. [facility] ibuprofen 600 mg tablet 01-09 00:00: 00 10-18 00:00 :00 No [id number] 600mg Take 1 tablet by mouth every 6 (six) hours as needed for Pain (scale 4-6). [facility] mupirocin 2 % ointment 01-09 00:00: 00 10-18 00:00 :00 No [id number] Apply to area(s) 3 (three) times daily. [facility] proMETHazin e 25 mg tablet 2019-04 00:00: 00 07-07 00:00 :00 No [id number] 25mg Take 1 tablet by mouth every 4 (four) hours as needed for Nausea and Vomiting (N/V). [facility] vit 33-iron-fol ic-dha (SELECT-OB + DHA) 29 mg iron-1 mg -250 mg combo pack 2019-04 012 00:00: 00 07-23 00:00 :00 No [id number] 1{packe t} Take 1 Packet by mouth daily. [facility] CITRANATAL HARMONY, IRON FUM, 27 mg iron-1 mg -50 mg-260 mg Cap 1 00:00: 00 07-23 00:00 :00 No 1{capsu le} Take 1 capsule by mouth daily. [facility] ibuprofen 600 mg tablet 2018-04 00:00: 00 07-23 00:00 :00 No [id number] 600mg Take 1 tablet by mouth every 6 (six) hours as needed (Pain). Take with food or milk. [facility] Immunizations Ordered Immunization Name Filled Immunization Name Date Status Comments Source TDAP 2023-12-14 00:00:00 Completed TDAP 2023-12-14 00:00:00 Completed Influenza Virus Vaccine Quad IM, Preserv and ABX Free 6 MO-64 YRS (FLUCELVAX) 2023-06-21 00:00:00 Completed Influenza Virus Vaccine Quad IM, Preserv and ABX Free 6 MO-64 YRS (FLUCELVAX) 2023-06-21 00:00:00 Completed TDAP 2022-08-23 00:00:00 Completed [facility] TDAP 2022-08-23 00:00:00 Completed [facility] TDAP 2022-08-23 00:00:00 Completed [facility] TDAP 2022-08-23 00:00:00 Completed [facility] TDAP 2022-08-23 00:00:00 Completed [facility] TDAP 2022-08-23 00:00:00 Completed [facility] TDAP 2022-08-23 00:00:00 Completed [facility] TDAP 2022-08-23 00:00:00 Completed [facility] TDAP 2022-08-23 00:00:00 Completed [facility] TDAP 2022-08-23 00:00:00 Completed [facility] Influenza Virus Vaccine 2022-02-11 00:00:00 Completed [facility] Influenza Virus Vaccine 2022-02-11 00:00:00 Completed [facility] Td 2021-01-09 00:00:00 Completed [facility] TD, NOS 2021-01-09 00:00:00 Completed [facility] TD, NOS 2021-01-09 00:00:00 Completed [facility] TD, NOS 2021-01-09 00:00:00 Completed [facility] TD, NOS 2021-01-09 00:00:00 Completed [facility] TD, NOS 2021-01-09 00:00:00 Completed [facility] TD, NOS 2021-01-09 00:00:00 Completed [facility] TD, NOS 2021-01-09 00:00:00 Completed [facility] TD, NOS 2021-01-09 00:00:00 Completed [facility] TD, NOS 2021-01-09 00:00:00 Completed [facility] TD, NOS 2021-01-09 00:00:00 Completed [facility] TD, NOS 2021-01-09 00:00:00 Completed [facility] MMR 2020-07-23 00:00:00 Completed [facility] Influenza Virus Vaccine Quad .5 mL IM 6+ MO 2020-07-23 00:00:00 Completed [facility] MMR 2020-07-23 00:00:00 Completed [facility] Influenza Virus Vaccine Quad .5 mL IM 6+ MO 2020-07-23 00:00:00 Completed [facility] MMR 2020-07-23 00:00:00 Completed [facility] Influenza Virus Vaccine Quad .5 mL IM 6+ MO 2020-07-23 00:00:00 Completed [facility] MMR 2020-07-23 00:00:00 Completed [facility] Influenza Virus Vaccine Quad .5 mL IM 6+ MO 2020-07-23 00:00:00 Completed [facility] MMR 2020-07-23 00:00:00 Completed [facility] Influenza Virus Vaccine Quad .5 mL IM 6+ MO 2020-07-23 00:00:00 Completed [facility] MMR 2020-07-23 00:00:00 Completed [facility] Influenza Virus Vaccine Quad .5 mL IM 6+ MO 2020-07-23 00:00:00 Completed [facility] MMR 2020-07-23 00:00:00 Completed [facility] Influenza Virus Vaccine Quad .5 mL IM 6+ MO 2020-07-23 00:00:00 Completed [facility] MMR 2020-07-23 00:00:00 Completed [facility] Influenza Virus Vaccine Quad .5 mL IM 6+ MO 2020-07-23 00:00:00 Completed [facility] MMR 2020-07-23 00:00:00 Completed [facility] Influenza Virus Vaccine Quad .5 mL IM 6+ MO 2020-07-23 00:00:00 Completed [facility] MMR 2020-07-23 00:00:00 Completed [facility] Influenza Virus Vaccine Quad .5 mL IM 6+ MO (FLUZONE/FLULAVAL/F LUARIX) 2020-07-23 00:00:00 Completed [facility] MMR 2020-07-23 00:00:00 Completed [facility] Influenza Virus Vaccine Quad .5 mL IM 6+ MO (FLUZONE/FLULAVAL/F LUARIX) 2020-07-23 00:00:00 Completed MMR 2020-07-23 00:00:00 Completed [facility] Influenza Virus Vaccine Quad .5 mL IM 6+ MO (FLUZONE/FLULAVAL/F LUARIX) 2020-07-23 00:00:00 Completed TDAP 2020-05-13 00:00:00 Completed [facility] TDAP 2020-05-13 00:00:00 Completed [facility] TDAP 2020-05-13 00:00:00 Completed [facility] TDAP 2020-05-13 00:00:00 Completed [facility] TDAP 2020-05-13 00:00:00 Completed [facility] TDAP 2020-05-13 00:00:00 Completed [facility] TDAP 2020-05-13 00:00:00 Completed [facility] TDAP 2020-05-13 00:00:00 Completed [facility] TDAP 2020-05-13 00:00:00 Completed [facility] TDAP 2020-05-13 00:00:00 Completed [facility] TDAP 2020-05-13 00:00:00 Completed [facility] TDAP 2020-05-13 00:00:00 Completed [facility] TDAP (ADACEL) VACCINE 2019-02-05 00:00:00 Completed [facility] Influenza Virus Vaccine Quad .5 mL IM 6+ MO 2019-02-05 00:00:00 Completed [facility] TDAP (ADACEL) VACCINE 2019-02-05 00:00:00 Completed [facility] Influenza Virus Vaccine Quad .5 mL IM 6+ MO 2019-02-05 00:00:00 Completed [facility] TDAP (ADACEL) VACCINE 2019-02-05 00:00:00 Completed [facility] Influenza Virus Vaccine Quad .5 mL IM 6+ MO 2019-02-05 00:00:00 Completed [facility] TDAP (ADACEL) VACCINE 2019-02-05 00:00:00 Completed [facility] Influenza Virus Vaccine Quad .5 mL IM 6+ MO 2019-02-05 00:00:00 Completed [facility] TDAP (ADACEL) VACCINE 2019-02-05 00:00:00 Completed [facility] Influenza Virus Vaccine Quad .5 mL IM 6+ MO 2019-02-05 00:00:00 Completed [facility] TDAP (ADACEL) VACCINE 2019-02-05 00:00:00 Completed [facility] Influenza Virus Vaccine Quad .5 mL IM 6+ MO 2019-02-05 00:00:00 Completed [facility] TDAP (ADACEL) VACCINE 2019-02-05 00:00:00 Completed [facility] Influenza Virus Vaccine Quad .5 mL IM 6+ MO 2019-02-05 00:00:00 Completed [facility] TDAP (ADACEL) VACCINE 2019-02-05 00:00:00 Completed [facility] Influenza Virus Vaccine Quad .5 mL IM 6+ MO 2019-02-05 00:00:00 Completed [facility] TDAP (ADACEL) VACCINE 2019-02-05 00:00:00 Completed [facility] Influenza Virus Vaccine Quad .5 mL IM 6+ MO 2019-02-05 00:00:00 Completed [facility] TDAP (ADACEL) VACCINE 2019-02-05 00:00:00 Completed [facility] Influenza Virus Vaccine Quad .5 mL IM 6+ MO (FLUZONE/FLULAVAL/F LUARIX) 2019-02-05 00:00:00 Completed [facility] TDAP (ADACEL) VACCINE 2019-02-05 00:00:00 Completed Influenza Virus Vaccine Quad .5 mL IM 6+ MO (FLUZONE/FLULAVAL/F LUARIX) 2019-02-05 00:00:00 Completed TDAP (ADACEL) VACCINE 2019-02-05 00:00:00 Completed [facility] Influenza Virus Vaccine Quad .5 mL IM 6+ MO (FLUZONE/FLULAVAL/F LUARIX) 2019-02-05 00:00:00 Completed TDAP (ADACEL) VACCINE Unknown Completed [facility] Influenza Virus Vaccine Quad .5 mL IM 6+ MO (FLUZONE/FLULAVAL/F LUARIX) Unknown Completed [facility] MMR Unknown Completed [facility] TD, NOS Unknown Completed [facility] TDAP (ADACEL) VACCINE Unknown Completed [facility] Influenza Virus Vaccine Quad .5 mL IM 6+ MO (FLUZONE/FLULAVAL/F LUARIX) Unknown Completed [facility] TDAP (ADACEL) VACCINE Unknown Completed [facility] Influenza Virus Vaccine Quad .5 mL IM 6+ MO (FLUZONE/FLULAVAL/F LUARIX) Unknown Completed [facility] TDAP (ADACEL) VACCINE Unknown Completed [facility] Influenza Virus Vaccine Quad .5 mL IM 6+ MO (FLUZONE/FLULAVAL/F LUARIX) Unknown Completed [facility] MMR Unknown Completed [facility] TD, NOS Unknown Completed [facility] Influenza Virus Vaccine Unknown Completed [facility] TDAP (ADACEL) VACCINE Unknown Completed [facility] Influenza Virus Vaccine Quad .5 mL IM 6+ MO (FLUZONE/FLULAVAL/F LUARIX) Unknown Completed [facility] MMR Unknown Completed [facility] TD, NOS Unknown Completed [facility] Influenza Virus Vaccine Unknown Completed [facility] Influenza Virus Vaccine Quad IM, Preserv and ABX Free 6 MO-64 YRS (FLUCELVAX) Unknown Completed [facility] TDAP (ADACEL) VACCINE Unknown Completed [facility] Influenza Virus Vaccine Quad .5 mL IM 6+ MO (FLUZONE/FLULAVAL/F LUARIX) Unknown Completed [facility] MMR Unknown Completed [facility] TD, NOS Unknown Completed [facility] Influenza Virus Vaccine Unknown Completed [facility] Influenza Virus Vaccine Quad IM, Preserv and ABX Free 6 MO-64 YRS (FLUCELVAX) Unknown Completed [facility] TDAP (ADACEL) VACCINE Unknown Completed [facility] Influenza Virus Vaccine Quad .5 mL IM 6+ MO (FLUZONE/FLULAVAL/F LUARIX) Unknown Completed [facility] MMR Unknown Completed [facility] TD, NOS Unknown Completed [facility] Influenza Virus Vaccine Unknown Completed [facility] Influenza Virus Vaccine Quad IM, Preserv and ABX Free 6 MO-64 YRS (FLUCELVAX) Unknown Completed [facility] TDAP (ADACEL) VACCINE Unknown Completed [facility] Influenza Virus Vaccine Quad .5 mL IM 6+ MO (FLUZONE/FLULAVAL/F LUARIX) Unknown Completed [facility] MMR Unknown Completed [facility] TD, NOS Unknown Completed [facility] Influenza Virus Vaccine Unknown Completed [facility] Influenza Virus Vaccine Quad IM, Preserv and ABX Free 6 MO-64 YRS (FLUCELVAX) Unknown Completed [facility] TDAP (ADACEL) VACCINE Unknown Completed [facility] Influenza Virus Vaccine Quad .5 mL IM 6+ MO (FLUZONE/FLULAVAL/F LUARIX) Unknown Completed [facility] MMR Unknown Completed [facility] TD, NOS Unknown Completed [facility] Influenza Virus Vaccine Unknown Completed [facility] Influenza Virus Vaccine Quad IM, Preserv and ABX Free 6 MO-64 YRS (FLUCELVAX) Unknown Completed [facility] MMR Unknown Completed [facility] TD, NOS Unknown Completed [facility] Influenza Virus Vaccine Unknown Completed [facility] Influenza Virus Vaccine Quad IM, Preserv and ABX Free 6 MO-64 YRS (FLUCELVAX) Unknown Completed [facility] TDAP (ADACEL) VACCINE Unknown Completed [facility] Influenza Virus Vaccine Quad .5 mL IM 6+ MO (FLUZONE/FLULAVAL/F LUARIX) Unknown Completed [facility] TDAP (ADACEL) VACCINE Unknown Completed [facility] Influenza Virus Vaccine Quad .5 mL IM 6+ MO (FLUZONE/FLULAVAL/F LUARIX) Unknown Completed [facility] MMR Unknown Completed [facility] TD, NOS Unknown Completed [facility] Influenza Virus Vaccine Unknown Completed [facility] Influenza Virus Vaccine Quad IM, Preserv and ABX Free 6 MO-64 YRS (FLUCELVAX) Unknown Completed [facility] TDAP (ADACEL) VACCINE Unknown Completed [facility] Influenza Virus Vaccine Quad .5 mL IM 6+ MO (FLUZONE/FLULAVAL/F LUARIX) Unknown Completed [facility] MMR Unknown Completed [facility] TD, NOS Unknown Completed [facility] Influenza Virus Vaccine Unknown Completed [facility] Influenza Virus Vaccine Quad IM, Preserv and ABX Free 6 MO-64 YRS (FLUCELVAX) Unknown Completed [facility] TDAP (ADACEL) VACCINE Unknown Completed [facility] Influenza Virus Vaccine Quad .5 mL IM 6+ MO (FLUZONE/FLULAVAL/F LUARIX) Unknown Completed [facility] MMR Unknown Completed [facility] TD, NOS Unknown Completed [facility] Influenza Virus Vaccine Unknown Completed [facility] Influenza Virus Vaccine Quad IM, Preserv and ABX Free 6 MO-64 YRS (FLUCELVAX) Unknown Completed [facility] TDAP (ADACEL) VACCINE Unknown Completed [facility] Influenza Virus Vaccine Quad .5 mL IM 6+ MO (FLUZONE/FLULAVAL/F LUARIX) Unknown Completed [facility] MMR Unknown Completed [facility] TD, NOS Unknown Completed [facility] Influenza Virus Vaccine Unknown Completed [facility] Influenza Virus Vaccine Quad IM, Preserv and ABX Free 6 MO-64 YRS (FLUCELVAX) Unknown Completed [facility] TDAP (ADACEL) VACCINE Unknown Completed [facility] Influenza Virus Vaccine Quad .5 mL IM 6+ MO (FLUZONE/FLULAVAL/F LUARIX) Unknown Completed [facility] MMR Unknown Completed [facility] TD, NOS Unknown Completed [facility] Influenza Virus Vaccine Unknown Completed [facility] Influenza Virus Vaccine Quad IM, Preserv and ABX Free 6 MO-64 YRS (FLUCELVAX) Unknown Completed [facility] TDAP (ADACEL) VACCINE Unknown Completed [facility] Influenza Virus Vaccine Quad .5 mL IM 6+ MO (FLUZONE/FLULAVAL/F LUARIX) Unknown Completed [facility] MMR Unknown Completed [facility] TD, NOS Unknown Completed [facility] Influenza Virus Vaccine Unknown Completed [facility] Influenza Virus Vaccine Quad IM, Preserv and ABX Free 6 MO-64 YRS (FLUCELVAX) Unknown Completed [facility] TDAP (ADACEL) VACCINE Unknown Completed [facility] Influenza Virus Vaccine Quad .5 mL IM 6+ MO (FLUZONE/FLULAVAL/F LUARIX) Unknown Completed [facility] MMR Unknown Completed [facility] TD, NOS Unknown Completed [facility] Influenza Virus Vaccine Unknown Completed [facility] Influenza Virus Vaccine Quad IM, Preserv and ABX Free 6 MO-64 YRS (FLUCELVAX) Unknown Completed [facility] MMR Unknown Completed [facility] TD, NOS Unknown Completed [facility] Influenza Virus Vaccine Unknown Completed [facility] Influenza Virus Vaccine Quad IM, Preserv and ABX Free 6 MO-64 YRS (FLUCELVAX) Unknown Completed [facility] TDAP (ADACEL) VACCINE Unknown Completed [facility] Influenza Virus Vaccine Quad .5 mL IM 6+ MO (FLUZONE/FLULAVAL/F LUARIX) Unknown Completed [facility] TDAP (ADACEL) VACCINE Unknown Completed [facility] Influenza Virus Vaccine Quad .5 mL IM 6+ MO (FLUZONE/FLULAVAL/F LUARIX) Unknown Completed [facility] MMR Unknown Completed [facility] TD, NOS Unknown Completed [facility] Influenza Virus Vaccine Unknown Completed [facility] Influenza Virus Vaccine Quad IM, Preserv and ABX Free 6 MO-64 YRS (FLUCELVAX) Unknown Completed [facility] TDAP (ADACEL) VACCINE Unknown Completed [facility] Influenza Virus Vaccine Quad .5 mL IM 6+ MO (FLUZONE/FLULAVAL/F LUARIX) Unknown Completed [facility] MMR Unknown Completed [facility] TD, NOS Unknown Completed [facility] Influenza Virus Vaccine Unknown Completed [facility] Influenza Virus Vaccine Quad IM, Preserv and ABX Free 6 MO-64 YRS (FLUCELVAX) Unknown Completed [facility] TDAP (ADACEL) VACCINE Unknown Completed [facility] Influenza Virus Vaccine Quad .5 mL IM 6+ MO (FLUZONE/FLULAVAL/F LUARIX) Unknown Completed [facility] MMR Unknown Completed [facility] TD, NOS Unknown Completed [facility] Influenza Virus Vaccine Unknown Completed [facility] Influenza Virus Vaccine Quad IM, Preserv and ABX Free 6 MO-64 YRS (FLUCELVAX) Unknown Completed [facility] TDAP (ADACEL) VACCINE Unknown Completed [facility] Influenza Virus Vaccine Quad .5 mL IM 6+ MO (FLUZONE/FLULAVAL/F LUARIX) Unknown Completed [facility] MMR Unknown Completed [facility] TD, NOS Unknown Completed [facility] Influenza Virus Vaccine Unknown Completed [facility] Influenza Virus Vaccine Quad IM, Preserv and ABX Free 6 MO-64 YRS (FLUCELVAX) Unknown Completed [facility] TDAP (ADACEL) VACCINE Unknown Completed [facility] Influenza Virus Vaccine Quad .5 mL IM 6+ MO (FLUZONE/FLULAVAL/F LUARIX) Unknown Completed [facility] MMR Unknown Completed [facility] TD, NOS Unknown Completed [facility] Influenza Virus Vaccine Unknown Completed [facility] Influenza Virus Vaccine Quad IM, Preserv and ABX Free 6 MO-64 YRS (FLUCELVAX) Unknown Completed [facility] TDAP (ADACEL) VACCINE Unknown Completed [facility] Influenza Virus Vaccine Quad .5 mL IM 6+ MO (FLUZONE/FLULAVAL/F LUARIX) Unknown Completed [facility] MMR Unknown Completed [facility] TD, NOS Unknown Completed [facility] Influenza Virus Vaccine Unknown Completed [facility] Influenza Virus Vaccine Quad IM, Preserv and ABX Free 6 MO-64 YRS (FLUCELVAX) Unknown Completed [facility] TDAP (ADACEL) VACCINE Unknown Completed [facility] Influenza Virus Vaccine Quad .5 mL IM 6+ MO (FLUZONE/FLULAVAL/F LUARIX) Unknown Completed [facility] MMR Unknown Completed [facility] TD, NOS Unknown Completed [facility] Influenza Virus Vaccine Unknown Completed [facility] Influenza Virus Vaccine Quad IM, Preserv and ABX Free 6 MO-64 YRS (FLUCELVAX) Unknown Completed [facility] TDAP (ADACEL) VACCINE Unknown Completed [facility] Influenza Virus Vaccine Quad .5 mL IM 6+ MO (FLUZONE/FLULAVAL/F LUARIX) Unknown Completed [facility] MMR Unknown Completed [facility] TD, NOS Unknown Completed [facility] Influenza Virus Vaccine Unknown Completed [facility] Influenza Virus Vaccine Quad IM, Preserv and ABX Free 6 MO-64 YRS (FLUCELVAX) Unknown Completed [facility] TDAP (ADACEL) VACCINE Unknown Completed [facility] Influenza Virus Vaccine Quad .5 mL IM 6+ MO (FLUZONE/FLULAVAL/F LUARIX) Unknown Completed [facility] MMR Unknown Completed [facility] TD, NOS Unknown Completed [facility] Influenza Virus Vaccine Unknown Completed [facility] Influenza Virus Vaccine Quad IM, Preserv and ABX Free 6 MO-64 YRS (FLUCELVAX) Unknown Completed [facility] TDAP (ADACEL) VACCINE Unknown Completed [facility] Influenza Virus Vaccine Quad .5 mL IM 6+ MO (FLUZONE/FLULAVAL/F LUARIX) Unknown Completed [facility] MMR Unknown Completed [facility] TD, NOS Unknown Completed [facility] Influenza Virus Vaccine Unknown Completed [facility] Influenza Virus Vaccine Quad IM, Preserv and ABX Free 6 MO-64 YRS (FLUCELVAX) Unknown Completed [facility] TDAP (ADACEL) VACCINE Unknown Completed [facility] Influenza Virus Vaccine Quad .5 mL IM 6+ MO (FLUZONE/FLULAVAL/F LUARIX) Unknown Completed [facility] MMR Unknown Completed [facility] TD, NOS Unknown Completed [facility] Influenza Virus Vaccine Unknown Completed [facility] Influenza Virus Vaccine Quad IM, Preserv and ABX Free 6 MO-64 YRS (FLUCELVAX) Unknown Completed [facility] TDAP (ADACEL) VACCINE Unknown Completed [facility] Influenza Virus Vaccine Quad .5 mL IM 6+ MO (FLUZONE/FLULAVAL/F LUARIX) Unknown Completed [facility] MMR Unknown Completed [facility] TD, NOS Unknown Completed [facility] Influenza Virus Vaccine Unknown Completed [facility] Influenza Virus Vaccine Quad IM, Preserv and ABX Free 6 MO-64 YRS (FLUCELVAX) Unknown Completed [facility] TDAP (ADACEL) VACCINE Unknown Completed [facility] Influenza Virus Vaccine Quad .5 mL IM 6+ MO (FLUZONE/FLULAVAL/F LUARIX) Unknown Completed [facility] MMR Unknown Completed [facility] TD, NOS Unknown Completed [facility] Influenza Virus Vaccine Unknown Completed [facility] Influenza Virus Vaccine Quad IM, Preserv and ABX Free 6 MO-64 YRS (FLUCELVAX) Unknown Completed [facility] TDAP (ADACEL) VACCINE Unknown Completed [facility] Influenza Virus Vaccine Quad .5 mL IM 6+ MO (FLUZONE/FLULAVAL/F LUARIX) Unknown Completed [facility] MMR Unknown Completed [facility] TD, NOS Unknown Completed [facility] Influenza Virus Vaccine Unknown Completed [facility] Influenza Virus Vaccine Quad IM, Preserv and ABX Free 6 MO-64 YRS (FLUCELVAX) Unknown Completed [facility] TDAP (ADACEL) VACCINE Unknown Completed [facility] Influenza Virus Vaccine Quad .5 mL IM 6+ MO (FLUZONE/FLULAVAL/F LUARIX) Unknown Completed [facility] MMR Unknown Completed [facility] TD, NOS Unknown Completed [facility] Influenza Virus Vaccine Unknown Completed [facility] Influenza Virus Vaccine Quad IM, Preserv and ABX Free 6 MO-64 YRS (FLUCELVAX) Unknown Completed [facility] Influenza Virus Vaccine Quad .5 mL IM 6+ MO (FLUZONE/FLULAVAL/F LUARIX) Unknown Completed [facility] MMR Unknown Completed [facility] TD, NOS Unknown Completed [facility] TDAP Unknown Completed [facility] Influenza Virus Vaccine Unknown Completed [facility] Influenza Virus Vaccine Quad IM, Preserv and ABX Free 6 MO-64 YRS (FLUCELVAX) Unknown Completed [facility] TDAP (ADACEL) VACCINE Unknown Completed [facility] Influenza Virus Vaccine Quad .5 mL IM 6+ MO (FLUZONE/FLULAVAL/F LUARIX) Unknown Completed [facility] MMR Unknown Completed [facility] TD, NOS Unknown Completed [facility] Influenza Virus Vaccine Unknown Completed [facility] Influenza Virus Vaccine Quad IM, Preserv and ABX Free 6 MO-64 YRS (FLUCELVAX) Unknown Completed [facility] TDAP (ADACEL) VACCINE Unknown Completed [facility] Influenza Virus Vaccine Quad .5 mL IM 6+ MO (FLUZONE/FLULAVAL/F LUARIX) Unknown Completed [facility] MMR Unknown Completed [facility] TD, NOS Unknown Completed [facility] Influenza Virus Vaccine Unknown Completed [facility] Influenza Virus Vaccine Quad IM, Preserv and ABX Free 6 MO-64 YRS (FLUCELVAX) Unknown Completed [facility] TDAP (ADACEL) VACCINE Unknown Completed [facility] Influenza Virus Vaccine Quad .5 mL IM 6+ MO (FLUZONE/FLULAVAL/F LUARIX) Unknown Completed [facility] MMR Unknown Completed [facility] TD, NOS Unknown Completed [facility] Influenza Virus Vaccine Unknown Completed [facility] Influenza Virus Vaccine Quad IM, Preserv and ABX Free 6 MO-64 YRS (FLUCELVAX) Unknown Completed [facility] TDAP (ADACEL) VACCINE Unknown Completed [facility] Influenza Virus Vaccine Quad .5 mL IM 6+ MO (FLUZONE/FLULAVAL/F LUARIX) Unknown Completed [facility] MMR Unknown Completed [facility] TD, NOS Unknown Completed [facility] Influenza Virus Vaccine Unknown Completed [facility] Influenza Virus Vaccine Quad IM, Preserv and ABX Free 6 MO-64 YRS (FLUCELVAX) Unknown Completed [facility] TDAP (ADACEL) VACCINE Unknown Completed [facility] Influenza Virus Vaccine Quad .5 mL IM 6+ MO (FLUZONE/FLULAVAL/F LUARIX) Unknown Completed [facility] MMR Unknown Completed [facility] TD, NOS Unknown Completed [facility] Influenza Virus Vaccine Unknown Completed [facility] Influenza Virus Vaccine Quad IM, Preserv and ABX Free 6 MO-64 YRS (FLUCELVAX) Unknown Completed [facility] TDAP (ADACEL) VACCINE Unknown Completed [facility] Influenza Virus Vaccine Quad .5 mL IM 6+ MO (FLUZONE/FLULAVAL/F LUARIX) Unknown Completed [facility] MMR Unknown Completed [facility] TD, NOS Unknown Completed [facility] Influenza Virus Vaccine Unknown Completed [facility] Influenza Virus Vaccine Quad IM, Preserv and ABX Free 6 MO-64 YRS (FLUCELVAX) Unknown Completed [facility] TDAP (ADACEL) VACCINE Unknown Completed [facility] Influenza Virus Vaccine Quad .5 mL IM 6+ MO (FLUZONE/FLULAVAL/F LUARIX) Unknown Completed [facility] MMR Unknown Completed [facility] TD, NOS Unknown Completed [facility] Influenza Virus Vaccine Unknown Completed [facility] Influenza Virus Vaccine Quad IM, Preserv and ABX Free 6 MO-64 YRS (FLUCELVAX) Unknown Completed [facility] TDAP (ADACEL) VACCINE Unknown Completed [facility] Influenza Virus Vaccine Quad .5 mL IM 6+ MO (FLUZONE/FLULAVAL/F LUARIX) Unknown Completed [facility] MMR Unknown Completed [facility] TD, NOS Unknown Completed [facility] Influenza Virus Vaccine Unknown Completed [facility] Influenza Virus Vaccine Quad IM, Preserv and ABX Free 6 MO-64 YRS (FLUCELVAX) Unknown Completed [facility] TDAP (ADACEL) VACCINE Unknown Completed [facility] Influenza Virus Vaccine Quad .5 mL IM 6+ MO (FLUZONE/FLULAVAL/F LUARIX) Unknown Completed [facility] MMR Unknown Completed [facility] TD, NOS Unknown Completed [facility] Influenza Virus Vaccine Unknown Completed [facility] Influenza Virus Vaccine Quad IM, Preserv and ABX Free 6 MO-64 YRS (FLUCELVAX) Unknown Completed [facility] TDAP (ADACEL) VACCINE Unknown Completed [facility] Influenza Virus Vaccine Quad .5 mL IM 6+ MO (FLUZONE/FLULAVAL/F LUARIX) Unknown Completed [facility] MMR Unknown Completed [facility] TD, NOS Unknown Completed [facility] Influenza Virus Vaccine Unknown Completed [facility] Influenza Virus Vaccine Quad IM, Preserv and ABX Free 6 MO-64 YRS (FLUCELVAX) Unknown Completed [facility] TDAP (ADACEL) VACCINE Unknown Completed [facility] Influenza Virus Vaccine Quad .5 mL IM 6+ MO (FLUZONE/FLULAVAL/F LUARIX) Unknown Completed [facility] MMR Unknown Completed [facility] TD, NOS Unknown Completed [facility] Influenza Virus Vaccine Unknown Completed [facility] Influenza Virus Vaccine Quad IM, Preserv and ABX Free 6 MO-64 YRS (FLUCELVAX) Unknown Completed [facility] TDAP (ADACEL) VACCINE Unknown Completed [facility] Influenza Virus Vaccine Quad .5 mL IM 6+ MO (FLUZONE/FLULAVAL/F LUARIX) Unknown Completed [facility] MMR Unknown Completed [facility] TD, NOS Unknown Completed [facility] Influenza Virus Vaccine Unknown Completed [facility] Influenza Virus Vaccine Quad IM, Preserv and ABX Free 6 MO-64 YRS (FLUCELVAX) Unknown Completed [facility] TDAP (ADACEL) VACCINE Unknown Completed [facility] Influenza Virus Vaccine Quad .5 mL IM 6+ MO (FLUZONE/FLULAVAL/F LUARIX) Unknown Completed [facility] MMR Unknown Completed [facility] TD, NOS Unknown Completed [facility] Influenza Virus Vaccine Unknown Completed [facility] Influenza Virus Vaccine Quad IM, Preserv and ABX Free 6 MO-64 YRS (FLUCELVAX) Unknown Completed [facility] TDAP (ADACEL) VACCINE Unknown Completed [facility] Influenza Virus Vaccine Quad .5 mL IM 6+ MO (FLUZONE/FLULAVAL/F LUARIX) Unknown Completed [facility] MMR Unknown Completed [facility] TD, NOS Unknown Completed [facility] Influenza Virus Vaccine Unknown Completed [facility] Influenza Virus Vaccine Quad IM, Preserv and ABX Free 6 MO-64 YRS (FLUCELVAX) Unknown Completed [facility] TDAP (ADACEL) VACCINE Unknown Completed [facility] Influenza Virus Vaccine Quad .5 mL IM 6+ MO (FLUZONE/FLULAVAL/F LUARIX) Unknown Completed [facility] MMR Unknown Completed [facility] TD, NOS Unknown Completed [facility] Influenza Virus Vaccine Unknown Completed [facility] Influenza Virus Vaccine Quad IM, Preserv and ABX Free 6 MO-64 YRS (FLUCELVAX) Unknown Completed [facility] TDAP (ADACEL) VACCINE Unknown Completed [facility] Influenza Virus Vaccine Quad .5 mL IM 6+ MO (FLUZONE/FLULAVAL/F LUARIX) Unknown Completed [facility] MMR Unknown Completed [facility] TD, NOS Unknown Completed [facility] Influenza Virus Vaccine Unknown Completed [facility] Influenza Virus Vaccine Quad IM, Preserv and ABX Free 6 MO-64 YRS (FLUCELVAX) Unknown Completed [facility] TDAP Unknown Completed [facility] Influenza Virus Vaccine Quad .5 mL IM 6+ MO (FLUZONE/FLULAVAL/F LUARIX) Unknown Completed [facility] MMR Unknown Completed [facility] TD, NOS Unknown Completed [facility] Influenza Virus Vaccine Unknown Completed [facility] Influenza Virus Vaccine Quad IM, Preserv and ABX Free 6 MO-64 YRS (FLUCELVAX) Unknown Completed [facility] TDAP Unknown Completed [facility] Influenza Virus Vaccine Quad .5 mL IM 6+ MO (FLUZONE/FLULAVAL/F LUARIX) Unknown Completed [facility] MMR Unknown Completed [facility] TD, NOS Unknown Completed [facility] Influenza Virus Vaccine Unknown Completed [facility] Influenza Virus Vaccine Quad IM, Preserv and ABX Free 6 MO-64 YRS (FLUCELVAX) Unknown Completed [facility] TDAP Unknown Completed [facility] Influenza Virus Vaccine Quad .5 mL IM 6+ MO (FLUZONE/FLULAVAL/F LUARIX) Unknown Completed [facility] MMR Unknown Completed [facility] TD, NOS Unknown Completed [facility] Influenza Virus Vaccine Unknown Completed [facility] Influenza Virus Vaccine Quad IM, Preserv and ABX Free 6 MO-64 YRS (FLUCELVAX) Unknown Completed [facility] TDAP Unknown Completed [facility] Influenza Virus Vaccine Quad .5 mL IM 6+ MO (FLUZONE/FLULAVAL/F LUARIX) Unknown Completed [facility] MMR Unknown Completed [facility] TD, NOS Unknown Completed [facility] Influenza Virus Vaccine Unknown Completed [facility] Influenza Virus Vaccine Quad IM, Preserv and ABX Free 6 MO-64 YRS (FLUCELVAX) Unknown Completed [facility] TDAP Unknown Completed [facility] Influenza Virus Vaccine Quad .5 mL IM 6+ MO (FLUZONE/FLULAVAL/F LUARIX) Unknown Completed [facility] MMR Unknown Completed [facility] TD, NOS Unknown Completed [facility] Influenza Virus Vaccine Unknown Completed [facility] Influenza Virus Vaccine Quad IM, Preserv and ABX Free 6 MO-64 YRS (FLUCELVAX) Unknown Completed [facility] Vital Signs Vital Name Observation Time Observation Value Comments S ource Systolic blood pressure 2024-01-23 19:20:00 136 mm[Hg] manual [facility] Diastolic blood pressure 2024-01-23 19:20:00 82 mm[Hg] manual [facility] Heart rate 2024-01-23 19:19:00 64 /min [facility] Body temperature 2024-01-23 19:19:00 36.61 Jaida [facility] Respiratory rate 2024-01-23 19:19:00 18 /min [facility] Body height 2024-01-23 19:19:00 157.5 cm [facility] Body weight 2024-01-23 19:19:00 72.757 kg [facility] BMI 2024-01-23 19:19:00 29.34 kg/m2 [facility] Systolic blood pressure 2024-01-17 12:51:00 132 mm[Hg] [facility] Diastolic blood pressure 2024-01-17 12:51:00 94 mm[Hg] [facility] Heart rate 2024-01-17 12:51:00 70 /min Un[facility] Body temperature 2024-01-17 12:51:00 36.67 Jaida [facility] Respiratory rate 2024-01-17 12:51:00 18 /min [facility] Oxygen saturation in Arterial blood by Pulse oximetry 2024-01-17 10:09:00 98 /min [facility] Oxygen saturation in Arterial blood by Pulse oximetry 2024-01-15 10:30:00 99 /min [facility] Heart rate 2024-01-15 10:30:00 81 /min [facility] Systolic blood pressure 2024-01-15 10:17:00 130 mm[Hg] [facility] Diastolic blood pressure 2024-01-15 10:17:00 90 mm[Hg] [facility] Body temperature 2024-01-15 09:45:00 36.44 Jaida [facility] Respiratory rate 2024-01-15 09:35:00 21 /min [facility] Systolic blood pressure 2024-01-10 15:21:00 136 mm[Hg] [facility] Diastolic blood pressure 2024-01-10 15:21:00 77 mm[Hg] [facility] Heart rate 2024-01-10 15:21:00 76 /min [facility] Body temperature 2024-01-10 15:21:00 36.44 Jaida [facility] Body height 2024-01-10 15:21:00 157.5 cm [facility] Body weight 2024-01-10 15:21:00 73.12 kg [facility] BMI 2024-01-10 15:21:00 29.48 kg/m2 [facility] Systolic blood pressure 2024-01-10 01:30:00 116 mm[Hg] [facility] Diastolic blood pressure 2024-01-10 01:30:00 81 mm[Hg] [facility] Heart rate 2024-01-10 01:11:00 70 /min [facility] Respiratory rate 2024-01-10 01:11:00 20 /min [facility] Systolic blood pressure 2023-12-29 14:20:00 125 mm[Hg] [facility] Diastolic blood pressure 2023-12-29 14:20:00 89 mm[Hg] [facility] Heart rate 2023-12-29 14:20:00 91 /min [facility] Body temperature 2023-12-29 14:20:00 36.06 Jaida [facility] Respiratory rate 2023-12-29 14:20:00 19 /min [facility] Body height 2023-12-29 14:20:00 157.5 cm [facility] Body weight 2023-12-29 14:20:00 71.759 kg [facility] BMI 2023-12-29 14:20:00 28.94 kg/m2 [facility] Systolic blood pressure 2023-12-14 15:04:00 128 mm[Hg] [facility] Diastolic blood pressure 2023-12-14 15:04:00 84 mm[Hg] [facility] Heart rate 2023-12-14 15:04:00 91 /min [facility] Body temperature 2023-12-14 15:04:00 36.22 Jaida [facility] Respiratory rate 2023-12-14 15:04:00 18 /min [facility] Body height 2023-12-14 15:04:00 157.5 cm [facility] Body weight 2023-12-14 15:04:00 72.717 kg [facility] BMI 2023-12-14 15:04:00 29.32 kg/m2 [facility] Heart rate 2023-11-29 16:30:00 68 /min [facility] Body temperature 2023-11-29 16:30:00 36.56 Jaida [facility] Oxygen saturation in Arterial blood by Pulse oximetry 2023-11-29 16:30:00 97 /min [facility] Systolic blood pressure 2023-11-29 16:00:00 120 mm[Hg] [facility] Diastolic blood pressure 2023-11-29 16:00:00 68 mm[Hg] [facility] Respiratory rate 2023-11-29 16:00:00 13 /min [facility] Body height 2023-11-29 15:18:00 157.5 cm [facility] Body weight 2023-11-29 15:18:00 69.854 kg [facility] BMI 2023-11-29 15:18:00 28.17 kg/m2 [facility] Systolic blood pressure 2023-11-03 20:30:00 116 mm[Hg] [facility] Diastolic blood pressure 2023-11-03 20:30:00 81 mm[Hg] [facility] Heart rate 2023-11-03 20:30:00 74 /[facility] 2023-11-03 20:30:00 36.78 Jaida [facility] Respiratory rate 2023-11-03 20:30:00 18 /min [facility] Body height 2023-11-03 20:30:00 [facility] 2023-11-03 20:30:00 68.947 kg [facility] BMI 2023-11-03 20:30:00 27.80 kg/m2 [facility] Systolic blood pressure 2023-10-18 19:34:00 126 mm[Hg] [facility] Diastolic blood pressure 2023-10-18 19:34:00 85 mm[Hg] [facility] Heart rate 2023-10-18 19:34:00 85 /min [facility] Body [facility] 2023-10-18 19:34:00 36.44 Jaida [facility] Respiratory rate 2023-10-18 19:34:00 18 /min [facility] Body height 2023-10-18 19:34:00 157.5 cm [facility] Body weight 2023-10-18 19:34:00 68.635 kg [facility] BMI 2023-10-18 19:34:00 27.68 kg/m2 [facility] Systolic blood pressure 2023-10-14 21:19:00 117 mm[Hg] [facility] Diastolic blood pressure 2023-10-14 21:19:00 76 mm[Hg] [facility] Heart rate 2023-10-14 21:19:00 74 /min [facility] Body temperature 2023-10-14 21:19:00 35.94 Jaida [facility] Respiratory rate 2023-10-14 21:19:00 17 /min [facility] Body height 2023-10-14 21:19:00 [facility] 2023-10-14 21:19:00 69.202 kg [facility] BMI 2023-10-14 21:19:00 27.90 kg/m2 [facility] Systolic blood pressure 2023-10-12 19:43:00 116 mm[Hg] [facility] Diastolic blood pressure 2023-10-12 19:43:00 72 mm[Hg] [facility] Heart rate 2023-10-12 19:43:00 98 /min [facility] Body temperature 2023-10-12 19:43:00 36.56 Jaida [facility] Respiratory rate 2023-10-12 19:43:00 18 /min [facility] Oxygen saturation in Arterial blood by Pulse oximetry 2023-10-12 19:43:00 99 /min [facility] Body height 2023-10-12 19:10:00 157.5 cm [facility] Body weight 2023-10-12 19:10:00 68.584 kg [facility] BMI 2023-10-12 19:10:00 27.65 kg/m2 [facility] Systolic blood pressure 2023-09-13 13:24:00 118 mm[Hg] [facility] Diastolic blood pressure 2023-09-13 13:24:00 72 mm[Hg] [facility] Heart rate 2023-09-13 13:24:00 70 /min [facility] Body temperature 2023-09-13 13:24:00 36.22 Jaida [facility] Respiratory rate 2023-09-13 13:24:00 18 /min [facility] Body height 2023-09-13 13:24:00 157.5 cm [facility] Body weight 2023-09-13 13:24:00 69.996 kg [facility] BMI 2023-09-13 13:24:00 28.22 kg/m2 [facility] Systolic blood pressure 2023-08-16 15:14:00 108 mm[Hg] [facility] Diastolic blood pressure 2023-08-16 15:14:00 71 mm[Hg] [facility] Heart rate 2023-08-16 15:14:00 67 /min [facility] Body temperature 2023-08-16 15:14:00 35.17 Jaida [facility] Respiratory rate 2023-08-16 15:14:00 18 /min [facility] Body height 2023-08-16 15:14:00 157.5 cm [facility] Body weight 2023-08-16 15:14:00 70.943 kg [facility] BMI 2023-08-16 15:14:00 28.61 kg/m2 [facility] Systolic blood pressure 2023-08-10 18:38:00 124 mm[Hg] [facility] Diastolic blood pressure 2023-08-10 18:38:00 69 mm[Hg] [facility] Heart rate 2023-08-10 18:38:00 62 /min [facility] Body temperature 2023-08-10 18:38:00 36 Jaida [facility] Respiratory rate 2023-08-10 18:38:00 18 /min [facility] Body height 2023-08-10 18:38:00 157.5 cm [facility] Body weight 2023-08-10 18:38:00 70.58 kg [facility] BMI 2023-08-10 18:38:00 28.46 kg/m2 [facility] Systolic blood pressure 2023-07-19 15:03:00 113 mm[Hg] [facility] Diastolic blood pressure 2023-07-19 15:03:00 71 mm[Hg] [facility] Heart rate 2023-07-19 15:03:00 65 /min [facility] Body temperature 2023-07-19 15:03:00 36.06 Jaida [facility] Respiratory rate 2023-07-19 15:03:00 16 /min [facility] Body height 2023-07-19 15:03:00 157.5 cm [facility] Body weight 2023-07-19 15:03:00 69.06 kg [facility] BMI 2023-07-19 15:03:00 27.85 kg/m2 [facility] Systolic blood pressure 2023-06-21 16:34:00 120 mm[Hg] [facility] Diastolic blood pressure 2023-06-21 16:34:00 74 mm[Hg] [facility] Heart rate 2023-06-21 16:34:00 60 /min [facility] Body temperature 2023-06-21 16:34:00 36.06 Jaida [facility] Respiratory rate 2023-06-21 16:34:00 18 /min [facility] Body height 2023-06-21 16:34:00 157.5 cm [facility] Body weight 2023-06-21 16:34:00 67.189 kg [facility] BMI 2023-06-21 16:34:00 27.09 kg/m2 [facility] Body temperature 2022-12-22 01:17:00 37 Jaida [facility] Systolic blood pressure 2022-12-21 23:28:00 130 mm[Hg] [facility] Diastolic blood pressure 2022-12-21 23:28:00 88 mm[Hg] [facility] Heart rate 2022-12-21 23:28:00 87 /min [facility] Respiratory rate 2022-12-21 23:28:00 16 /min [facility] Body weight 2022-12-21 23:28:00 65.772 kg [facility] BMI 2022-12-21 23:28:00 26.52 kg/m2 [facility] Oxygen saturation in Arterial blood by Pulse oximetry 2022-12-21 23:28:00 98 /min [facility] Systolic blood pressure 2022-12-21 21:30:00 133 mm[Hg] [facility] Diastolic blood pressure 2022-12-21 21:30:00 92 mm[Hg] [facility] Heart rate 2022-12-21 21:30:00 81 /min [facility] Respiratory rate 2022-12-21 21:30:00 18 /min [facility] Oxygen saturation in Arterial blood by Pulse oximetry 2022-12-21 21:30:00 97 /min [facility] Body temperature 2022-12-21 21:23:00 36.61 Jaida [facility] Body weight 2022-12-21 21:23:00 65.772 kg [facility] BMI 2022-12-21 21:23:00 26.52 kg/m2 [facility] Systolic blood pressure 2022-12-21 21:08:00 136 mm[Hg] [facility] Diastolic blood pressure 2022-12-21 21:08:00 88 mm[Hg] [facility] Heart rate 2022-12-21 21:08:00 78 /min [facility] Body temperature 2022-12-21 21:08:00 36.56 Jaida [facility] Respiratory rate 2022-12-21 21:08:00 16 /min [facility] Body weight 2022-12-21 21:08:00 65.772 kg per pt [facility] BMI 2022-12-21 21:08:00 26.52 kg/m2 [facility] Oxygen saturation in Arterial blood by Pulse oximetry 2022-12-21 21:08:00 99 /min [facility] Systolic blood pressure 2022-10-18 14:13:00 126 mm[Hg] [facility] Diastolic blood pressure 2022-10-18 14:13:00 83 mm[Hg] [facility] Heart rate 2022-10-18 14:13:00 81 /min [facility] Oxygen saturation in Arterial blood by Pulse oximetry 2022-10-18 14:13:00 94 /min [facility] Body temperature 2022-10-18 14:10:00 36.78 Jaida [facility] Body height 2022-10-18 14:10:00 157.5 cm [facility] Body weight 2022-10-18 14:10:00 66.225 kg [facility] BMI 2022-10-18 14:10:00 26.70 kg/m2 [facility] Systolic blood pressure 2022-08-23 15:12:00 136 mm[Hg] [facility] Diastolic blood pressure 2022-08-23 15:12:00 89 mm[Hg] [facility] Heart rate 2022-08-23 15:12:00 66 /min [facility] Body temperature 2022-08-23 15:12:00 37 Jaida [facility] Respiratory rate 2022-08-23 15:12:00 16 /min [facility] Body height 2022-08-23 15:12:00 157.5 cm [facility] Body weight 2022-08-23 15:12:00 69.536 kg [facility] BMI 2022-08-23 15:12:00 28.04 kg/m2 [facility] Oxygen saturation in Arterial blood by Pulse oximetry 2022-08-23 15:12:00 99 /min [facility] Systolic blood pressure 2021-12-17 17:05:00 118 mm[Hg] [facility] Diastolic blood pressure 2021-12-17 17:05:00 78 mm[Hg] [facility] Heart rate 2021-12-17 17:05:00 68 /min [facility] Body temperature 2021-12-17 17:05:00 36.44 Jaida [facility] Body height 2021-12-17 17:05:00 157.5 cm [facility] Body weight 2021-12-17 17:05:00 80[facility]287 [facility] BMI 2021-12-17 17:05:00 32.37 kg[facility]m2 [facility] Sy[facility]olic blood pressure 2021-11-12 19:16:00 138 mm[Hg] Manual BP [facility] Diastolic blood pressure 2021-11-12 19:16:00 82 mm[Hg] Manual BP [facility] Heart rate 2021-11-12 19:07:00 89 /min [facility] Body temperature 2021-11-12 19:07:00 36.72 Jaida [facility] Respiratory rate 2021-11-12 19:07:00 18 /min [facility] Body height 2021-11-12 19:07:00 157.5 cm [facility] Body weight 2021-11-12 19:07:00 83.394 kg [facility] BMI 2021-11-12 19:07:00 33.63 kg/m2 [facility] Systolic blood pressure 2021-11-12 19:16:00 138 mm[Hg] Manual BP [facility] Diastolic blood pressure 2021-11-12 19:16:00 82 mm[Hg] Manual BP [facility] Heart rate 2021-11-12 19:07:00 89 /min Un[facility] Body temperature 2021-11-12 19:07:00 36.72 Jaida [facility] Respiratory rate 2021-11-12 19:07:00 18 /min [facility] Body height 2021-11-12 19:07:00 157.5 cm [facility] Body weight 2021-11-12 19:07:00 83.394 kg [facility] BMI 2021-11-12 19:07:00 33.63 kg/m2 [facility] Systolic blood pressure 2024-01-23 19:20:00 136 mm[Hg] manual [facility] Diastolic blood pressure 2024-01-23 19:20:00 82 mm[Hg] manual [facility] Heart rate 2024-01-23 19:19:00 64 /min [facility] Body temperature 2024-01-23 19:19:00 36.61 Jaida [facility] Respiratory rate 2024-01-23 19:19:00 18 /min [facility] Body height 2024-01-23 19:19:00 157.5 cm [facility] Body weight 2024-01-23 19:19:00 72.757 kg [facility] BMI 2024-01-23 19:19:00 29.34 kg/m2 [facility] Oxygen saturation in Arterial blood by Pulse oximetry 2024-01-17 10:09:00 98 /min [facility] Procedures Procedure Date / Time Performed Performing Clinician Source DME/SUPPLY JUSTIFICATION 2024-01-30 21:21:58 Doc tor Unassigned, [place] [facility] DME/SUPPLY JUSTIFICATION 2024-01-30 21:21:58 Doc tor Unassigned, [place] [facility] CBC WITH DIFF 2024-01-16 08:42:00 Desai[facility]Loaiza [facility] CBC WITH DIFF 2024-01-16 08:42:00 Desai-Loaiza , [facility] CBC WITH DIFF 2024-01-16 08:42:00 Desai-Loaiza , [facility] VENOUS CORD GAS 2024-01-15 09:15:00 Desai-Loaiza , [facility] VENOUS CORD GAS 2024-01-15 09:15:00 Desai-Loaiza , [facility] ARTERIAL CORD GAS 2024-01-15 09:15:00 Desai-Justino is, [facility] SURGICAL PATHOLOGY EXAM 2024-01-15 08:48:00 Carp io-Loaiza, [facility] INTUBATION 2024-01-15 08:46:00 Aminata Childs [facility] INTUBATION 2024-01-15 08:46:00 Aminata Childs [facility] [id number] - [place] [facility] [place] 2024-01-15 08:16:00 Desai-Loaiza[facility] [id number] - [facility] 2024-01-15 08:16:00 Desai-Loaiza, [facility] [id number] - [facility] 2024-01-15 08:16:00 Desai-Loaiza, [facility] COMP. METABOLIC PANEL ([id number]) 2024-01-15 07:26:00 Desai-Loaiza, [facility] ETHANOL 2024-01-15 07:26:00 Desai-Loaiza , [facility] COMP. METABOLIC PANEL ([id number]) 2024-01-15 07:26:00 Desai-Loaiza, [facility] ETHANOL 2024-01-15 07:26:00 Desai-Loaiza , [facility] COMP. METABOLIC PANEL ([id number]) 2024-01-15 07:26:00 Desai-Loaiza, [facility] ETHANOL 2024-01-15 07:26:00 Zulay [facility] US PELVIS > 14 WEEKS 2024-01-15 04:59:04 [facility] US PELVIS > 14 WEEKS 2024-01-15 04:59:04 [facility] US PELVIS > 14 WEEKS 2024-01-15 04:59:04 [facility] CBC WITH DIFF 2024-01-15 01:58:00 Vu [facility] HEPATITIS B SURFACE ANTIGEN 2024-01-15 01:58:00 Lamb [facility] HB ABO GROUPING 2024-01-15 [facility] GLOBULIN 2024-01-15 01:58:00 Sharla [facility] ADC OR CHELSEY ONLY - RPR 2024-01-15 01:58:00 Lamb Macy ramy [facility] HIV 1/2 AG-AB WITH REFLEX 2024-01-15 01:58:00 Vu Macy n [facility] CBC WITH DIFF 2024-01-15 01:58:00 Lamb [facility] HEPATITIS B SURFACE ANTIGEN 2024-01-15 01:58:00 Vu [facility] HB ABO GROUPING 2024-01-15 01:58:00 Lamb [facility] RHO (D) IMMUNE GLOBULIN 2024-01-15 01:58:00 Carp io-Josse [facility] ADC OR CHELSEY ONLY - RPR 2024-01-15 01:58:00 Lamb Macy n [facility] HIV 1/2 AG-AB WITH REFLEX 2024-01-15 01:58:00 Lamb Macy n [facility] CBC WITH DIFF 2024-01-15 01:58:00 Lamb [facility] HB ABO GROUPING 2024-01-15 01:58:00 Rene Lamb [facility] HIV 1/2 AG-AB WITH REFLEX 2024-01-15 01:58:00 Macy Lamb [facility] ADC OR CHELSEY ONLY - RPR 2024-01-15 01:58:00 Macy Lamb [facility] HEPATITIS B SURFACE ANTIGEN 2024-01-15 01:58:00 Rene Lamb [facility] RHO (D) IMMUNE GLOBULIN 2024-01-15 01:58:00 Sharla sparks-[facility] ETHANOL 2024-01-15 01:17:00 Beata-Josse [facility] SERUM DRUG (IMMUNOASSAY) - COMPREHENSIVE DRUG SCREEN 2024-01-15 01:17:00 Beata-Josse [facility] ETHANOL 2024-01-15 01:17:00 Beata-Josse [facility] SERUM DRUG (IMMUNOASSAY) - COMPREHENSIVE DRUG SCREEN 2024-01-15 01:17:00 Beata-Josse [facility] ETHANOL 2024-01-15 01:17:00 Desai-Josse , [facility] SERUM DRUG (IMMUNOASSAY) - COMPREHENSIVE DRUG SCREEN 2024-01-15 01:17:00 Zulay [facility] ADC ONLY - FERN TEST 2024-01-15 01:14:00 Eveline Loaiza [facility] ADC ONLY - FERN TEST 2024-01-15 01:14:00 Eveline Loaiza [facility] ADC ONLY - FERN TEST 2024-01-15 01:14:00 Eveline Loaiza [facility] CBC WITH DIFF 2024-01-10 16:03:00 Ovidio Huffman [facility] CBC WITH DIFF 2024-01-10 16:03:00 Ovidio Huffman [facility] GC & CHLAMYDIA AMPLIFIED ASSAY 2024-01-10 16:03:00 Ovidio Huffman [facility] GROUP B STREPTOCOCCUS BY PCR 2024-01-10 16:03:00 Ovidio Huffman [facility] POCT URINALYSIS GLUCOSE & PROTEIN 2024-01-10 15:56:00 Ovidio Huffman [facility] POCT URINALYSIS GLUCOSE & PROTEIN 2024-01-10 15:56:00 Ovidio Huffman [facility] URINALYSIS 2024-01-10 01:49:00 Ella Biswas [facility] ADC ONLY - FERN TEST 2024-01-10 00:50:00 Izabela Phillipssol [facility] ADC CLC OR LCC ONLY - WET PREP 2024-01-10 00:50:00 Zulay Ella [facility] NON-STRESS TEST 2023-12-14 18:55:59 Lynne Vail [facility] NON-STRESS TEST 2023-12-14 18:55:59 Lynne Vail [facility] GLUCOSE 1 HOUR POST PRANDIAL 2023-12-14 16:30:00 Temi Vail [facility] CBC WITH DIFF 2023-12-14 16:30:00 Temi Vail [facility] HIV 1/2 AG-AB WITH REFLEX 2023-12-14 16:30:00 Temi Hoang [facility] SYPHILIS IGG/IGM 2023-12-14 16:30:00 Temi Vail [facility] HIV 1/2 AG-AB WITH REFLEX 2023-12-14 16:30:00 Temi Hoang [facility] SYPHILIS IGG/IGM 2023-12-14 16:30:00 Temi Vail [facility] URINE CULTURE 2023-12-14 16:30:00 Temi Vail [facility] GLUCOSE 1 HOUR POST PRANDIAL 2023-12-14 16:30:00 Temi Vail [facility] CBC WITH DIFF 2023-12-14 16:30:00 Temi Vail [facility] TDAP VACCINE, >11 YRS, IM 2023-12-14 15:47:31 Temi Hoang [facility] TDAP VACCINE, >11 YRS, IM 2023-12-14 15:47:31 Temi Hoang [facility] POCT URINALYSIS 2023-12-14 15:05:00 Temi Vail [facility] POCT URINALYSIS 2023-12-14 15:05:00 Temi Vail [facility] INFLUENZA A/B RSV COVID NAAT 2023-11-29 16:51:00 Chely Franklin [facility] LAB ONLY COVID INTERPRETATION 2023-11-29 16:51:00 Chely Franklin [facility] SECOND AND THIRD TRIMESTER ULTRASOUND 2023-11-25 18:35:00 Temi Vail [facility] SECOND AND THIRD TRIMESTER ULTRASOUND 2023-11-25 18:35:00 Temi Vail [facility] SECOND AND THIRD TRIMESTER ULTRASOUND 2023-11-03 19:58:00 Temi Vail [facility] SECOND AND THIRD TRIMESTER ULTRASOUND 2023-11-03 19:58:00 Temi Vail [facility] POCT URINALYSIS 2023-11-03 19:23:00 Temi Vail [facility] POCT URINALYSIS 2023-11-03 19:23:00 Temi Vail [facility] POCT URINALYSIS 2023-10-18 19:34:00 Temi Vail [facility] POCT URINALYSIS 2023-10-14 21:05:00 Temi Vail [facility] US PELVIS > 14 WEEKS 2023-10-12 21:56:40 Rene Lamb [facility] NON-STRESS TEST 2023-10-12 21:55:37 Rene Lamb [facility] URINALYSIS 2023-10-12 21:03:00 Rene Lamb [facility] URINE DRUG (IMMUNOASSAY) - COMPREHENSIVE DRUG SCREEN 2023-10-12 19:57:00 Rene Lamb [facility] ADC ONLY - FERN TEST 2023-10-12 19:57:00 Rene Lamb [facility] SECOND AND THIRD TRIMESTER ULTRASOUND 2023-09-27 15:07:00 Temi Vail [facility] NIPT - NON-INVASIVE TEST RESULTS 2023-09-13 18:16:39 Doctor Unassigned, [place] [facility] POCT URINALYSIS 2023-09-13 13:30:00 Temi Vail [facility] POCT URINALYSIS 2023-08-16 15:15:00 Temi Vail [facility] POCT URINALYSIS 2023-08-10 18:41:00 eTmi Vail [facility] DME/SUPPLY JUSTIFICATION 2023-07-21 19:54:17 Doc tor Unassigned, [place] [facility] FIRST TRIMESTER ULTRASOUND 2023-07-20 14:30:33 Doctor Unassigned, [place] [facility] POCT URINALYSIS 2023-07-19 15:04:00 Temi Vail [facility] GLUCOSE 1 HOUR POST PRANDIAL 2023-06-21 17:30:00 Temi Vail [facility] CBC WITH DIFF 2023-06-21 17:30:00 Temi Vail [facility] HEPATITIS B SURFACE ANTIGEN 2023-06-21 17:30:00 Temi Vail [facility] HCV ANTIBODY 2023-06-21 17:30:00 [facility] 2023-06-21 17:30:00 Temi Vail [facility] HIV 1/2 AG-AB WITH REFLEX 2023-06-21 17:30:00 Temi Hoang [facility] SYPHILIS IGG/IGM 2023-06-21 17:30:00 Temi Vail [facility] HCV ANTIBODY 2023-06-21 17:30:00 Temi Vail [facility] FLU VACC (), 6 MO-64 YRS, .5ML, IM, QUAD (FLUCELVAX) 2023-06-21 16:54:05 Temi Vail [facility] POCT URINALYSIS W/O SPECIFIC GRAVITY 2023-06-21 16:33:00 Temi Vail [facility] POCT TEST 2023-06-21 16:31:00 Angeline Vail [facility] REPORT OF 2023-06-21 06:01:00 Doctor Luisa robin, [place] [facility] CT ABDOMEN PELVIS W CONTRAST 2022-12-22 00:33:00 Chely Franklin [facility] ASSIGNMENT OF BENEFITS 2022-12-21 23:47:42 Doclatonia r Unassigned, [place] [facility] CONSENT/REFUSAL FOR DIAGNOSIS AND TREATMENT 2022-12-21 23:23:40 Doctor Unassigned, [place] [facility] POCT TEST 2022-12-21 21:33:00 Marlen Franklin ra [facility] NOTICE OF PRIVACY PRACTICES 2022-12-21 21:25:21 Doctor Unassigned, [place] [facility] CONSENT/REFUSAL FOR DIAGNOSIS AND TREATMENT 2022-12-21 21:19:08 Doctor Unassigned, [place] [facility] POCT SARS-COV-2 ANTIGEN (BINAX NOW) 2022-10-18 00:00:00 Agata Davis [facility] TDAP VACCINE, >11 YRS, IM 2022-08-23 15:20:39 Windy Lara [facility] ASSIGNMENT OF BENEFITS 2022-08-23 14:57:35 Docto r Unassigned, [place] [facility] POCT TEST 2021-11-12 19:13:00 Sa jad Larose [facility] HIGH RISK HPV-THIN PREP 2020-09-02 15:10:00 Tanesha Franklin [facility] LAB ONLY PAP SMEAR-LIQUID BASED 2020-09-02 15:10:00 Tanesha Franklin [facility] Encounters Start Date/Time End Date/Time Encounter Type Admission Type Attending [facility] Care Department Encounter ID Source 2024-01-09 21:04:44 Outpatient X [facility] [id number] [facility] 2021-02-23 23:27:01 Emergency [facility] [id number] [facility] 2021-02-21 10:55:47 Outpatient P [facility] [id number] [facility] 2021-02-21 10:55:27 Outpatient P [facility] [id number] [facility] 2024-07-01 14:54:00 2024-07-01 16:50:00 Emergency X MARIAN PERDOMO, MARIAN [facility] [id number] [facility] 2023-09-13 00:00:00 2024-06-09 07:43:58 Orders Only Doctor Unassigned, [place] Doctor Unassigned, [place] [facility] 1..840.114 350.1.13.10 4.2.7.2.686 [id number] [facility] 2024-01-30 00:00:00 2024-06-09 06:52:23 Orders Only Doctor Unassigned, [place] Doctor Unassigned, [place] [facility] 1..840.114 350.1.13.10 4.2.7.2.686 [id number] [facility] 2020-07-02 00:00:00 2024-06-09 02:56:58 Orders Only Trevino, Jalyn A Trevino, Jalyn A [facility] DIRECTOR [facility] 1.2.840.114 350.1.13.10 4.2.7.2.686 [id number] [facility] 2023-07-21 00:00:00 2024-06-09 02:32:47 Orders Only Doctor Unassigned, [place] Doctor Unassigned, [place] [facility] 1.2840.114 350.1.13.10 4.2.7.2.686 [id number] [facility] 2024-02-16 11:15:00 2024-02-16 11:15:00 Outpatient R OVIDIO HUFFMAN [facility] [id number] [facility] 2024-02-09 14:30:00 2024-02-09 14:30:00 Outpatient R TEMI VAIL [facility] [id number] [facility] 2024-01-23 14:00:00 2024-01-23 14:18:59 Outpatient R TEMI VAIL [facility] [id number] [facility] 2024-01-23 14:00:00 2024-01-23 14:18:59 Nurse Visit Temi Vail A Visit, [facility] Nurse 1.2.840.1 13413.1.1 3.104.2.7 .3.377612 .8 [id number] [facility] 2024-01-23 00:00:00 2024-01-23 00:00:00 Travel 1.2.840.1 28205.1.1 3.104.2.7 .3.512675 .8 1.2.840.114 350.1.13.10 4.2.7.3.698 084.8 [id number] [facility] 2024-01-14 20:06:00 2024-01-17 17:30:00 Inpatient P DESAI-FRANCIS S, ELLA DESAI-FRANCIS S, ELLA [facility] [id number] [facility] 2024-01-14 20:06:00 2024-01-17 17:30:00 Hospital Encounter Beata-Francis sIzabelaElla 1.2.840.1 08527.1.1 3.104.2.7 .3.087588 .8 [id number] [facility] 2024-01-15 04:05:00 2024-01-15 05:33:00 Surgery BeataIvoryElla Stein 1.2.840.1 91318.1.1 3.104.2.7 .3.134080 .8 [id number] [facility] 2024-01-15 03:29:00 2024-01-15 04:43:00 Anesthesia Event Aminata Childs 1.2.840.1 25451.1.1 3.104.2.7 .3.053896 .8 [id number] [facility] 2024-01-11 10:15:00 2024-01-11 10:15:00 Outpatient TEMI BINGHAM [facility] [id number] [facility] 2024-01-10 00:00:00 2024-01-10 15:02:56 Telephone Ovidio Huffman 1.2.840.1 43550.1.1 3.104.2.7 .3.779872 .8 [id number] [facility] 2024-01-10 11:00:00 2024-01-10 11:06:55 Outpatient OVIDIO ESCOBAR [facility] [id number] [facility] 2024-01-10 11:00:00 2024-01-10 11:06:55 Routine Visit Ovidio Huffman 1.2.840.1 02470.1.1 3.104.2.7 .3.233306 .8 [id number] [facility] 2024-01-10 00:00:00 2024-01-10 00:00:00 Scanned Documents Doctor Unassigned, [place] 1.2.840.1 74685.1.1 3.104.2.7 .3.650158 .8 [id number] [facility] 2024-01-10 00:00:00 2024-01-10 00:00:00 Travel 1.2.840.1 03725.1.1 3.104.2.7 .3.603902 .8 1.2.840.114 350.1.13.10 4.2.7.3.698 084.8 [id number] [facility] 2024-01-09 19:31:00 2024-01-09 21:02:00 Outpatient X DESAI-FRANCIS S, ELLA DESAI-FRANCIS S, ELLA [facility] [id number] [facility] 2024-01-09 19:31:00 2024-01-09 21:02:00 Emergency Julian sIzabelaElla 1.2.840.1 02178.1.1 3.104.2.7 .3.575505 .8 [id number] [facility] 2024-01-03 00:00:00 2024-01-05 08:38:59 Telephone Temi Vail 1.2.840.1 68742.1.1 3.104.2.7 .3.524078 .8 [id number] [facility] 2024-01-02 00:00:00 2024-01-03 12:15:33 Refill Temi Vail 1.2.840.1 56862.1.1 3.104.2.7 .3.047973 .8 [id number] [facility] 2023-11-29 00:00:00 2023-12-31 18:20:00 Patient Secure Msg Doctor Unassigned, [place] 1.2.840.1 07551.1.1 3.104.2.7 .3.980241 .8 [id number] [facility] 2023-12-29 09:30:00 2023-12-29 11:14:28 Outpatient R OVIDIO HUFFMAN [facility] [id number] [facility] 2023-12-29 10:00:00 2023-12-29 10:00:00 Routine Visit Ovidio Huffman 1.2.840.1 15646.1.1 3.104.2.7 .3.509410 .8 [id number] [facility] 2023-12-29 00:00:00 2023-12-29 00:00:00 Travel 1.2.840.1 19935.1.1 3.104.2.7 .3.727225 .8 1.2.840.114 350.1.13.10 4.2.7.3.698 084.8 [id number] [facility] 2023-12-28 15:45:00 2023-12-28 15:45:00 Outpatient R OVIDIO HUFFMAN [facility] [id number] [facility] 2023-12-27 14:45:00 2023-12-27 14:45:00 Outpatient R [facility] [id number] [facility] 2023-12-15 00:00:00 2023-12-15 06:39:55 Case Management Temi Vail 1.2.840.1 87151.1.1 3.104.2.7 .3.641070 .8 [id number] [facility] 2023-12-14 14:00:00 2023-12-14 15:00:00 Ancillary Procedure Temi Vail 1.2.840.1 72461.1.1 3.104.2.7 .3.950644 .8 [id number] [facility] 2023-12-14 09:45:00 2023-12-14 11:04:17 Outpatient R TEMI VAIL [facility] [id number] [facility] 2023-12-14 09:45:00 2023-12-14 11:04:17 Routine Visit Temi aVil 1.2.840.1 90755.1.1 3.104.2.7 .3.033140 .8 [id number] [facility] 2023-12-14 00:00:00 2023-12-14 09:49:35 Telephone Temi Vail 1.2.840.1 64194.1.1 3.104.2.7 .3.854656 .8 [id number] [facility] 2023-12-13 00:00:00 2023-12-13 16:48:49 Case Management Temi Vail 1.2.840.1 19829.1.1 3.104.2.7 .3.072101 .8 [id number] [facility] 2023-12-12 00:00:00 2023-12-13 15:03:30 Telephone Temi Vail 1.2.840.1 43029.1.1 3.104.2.7 .3.111048 .8 [id number] [facility] 2023-11-29 10:21:00 2023-11-29 11:56:00 Emergency X CHELY FRANKLIN [facility] [id number] [facility] 2023-11-29 10:21:00 2023-11-29 11:56:00 Emergency Chely Franklin 1.2.840.1 57954.1.1 3.104.2.7 .3.522431 .8 [id number] [facility] 2023-11-29 10:45:00 2023-11-29 10:45:00 Outpatient R TEMI VAIL [facility] [id number] [facility] 2023-11-29 08:00:00 2023-11-29 08:00:00 Outpatient R ZAKIYA CAMACHO [facility] [id number] [facility] 2023-11-29 00:00:00 2023-11-29 00:00:00 Travel 1.2.840.1 16565.1.1 3.104.2.7 .3.453236 .8 1.2.840.114 350.1.13.10 4.2.7.3.698 084.8 [id number] [facility] 2023-11-28 10:45:00 2023-11-28 10:45:00 Outpatient R ZAKIYA CAMACHO [facility] [id number] [facility] 2023-11-25 00:00:00 2023-11-25 16:00:44 Case Management Temi Vail 1.2.840.1 49577.1.1 3.104.2.7 .3.755730 .8 [id number] [facility] 2023-11-23 00:00:00 2023-11-25 14:47:07 Telephone Zakiya Camacho 1.2.840.1 52341.1.1 3.104.2.7 .3.128356 .8 [id number] [facility] 2023-11-25 13:00:00 2023-11-25 13:41:02 Outpatient BENJA HELMS SHANNON [facility] [id number] [facility] 2023-11-25 13:00:00 2023-11-25 13:41:02 Employee Operations Examiner Visit Benja Newman 1, [facility] Room 1.2840.1 58520.1.1 3.104.2.7 .3.991550 .8 [id number] [facility] 2023-11-25 00:00:00 2023-11-25 00:00:00 Travel 1.2.840.1 03622.1.1 3.104.2.7 .3.581409 .8 1.2.840.114 350.1.13.10 4.2.7.3.698 084.8 [id number] [facility] 2023-11-24 00:00:00 2023-11-24 20:49:02 Nurse Triage Yahaira Hale 1.2.840.1 24762.1.1 3.104.2.7 .3.808398 .8 [id number] [facility] 2023-11-22 08:00:00 2023-11-22 08:00:00 Outpatient R TEMI VAIL [facility] [id number] [facility] 2023-10-13 00:00:00 2023-11-19 18:26:08 Patient Secure Elizaezra Temi Christie [facility] DIRECTOR [facility] 1.2.840.114 350.1.13.10 4.2.7.2.686 [id number] [facility] 2023-11-16 10:00:00 2023-11-16 10:00:00 Outpatient R OVIDIO HUFFMAN [facility] [id number] [facility] 2023-11-15 14:30:00 2023-11-15 14:30:00 Outpatient R TEMI VAIL [facility] [id number] [facility] 2023-11-10 10:00:00 2023-11-10 10:00:00 Outpatient R TEMI VAIL [facility] [id number] [facility] 2023-11-03 00:00:00 2023-11-03 16:02:07 Case Management Temi Vail 1.2.840.1 08098.1.1 3.104.2.7 .3.192869 .8 [id number] [facility] 2023-11-03 15:45:00 2023-11-03 15:46:46 Outpatient R VAMSI WALTERS [facility] [id number] [facility] 2023-11-03 15:45:00 2023-11-03 15:46:46 Routine Visit Vamsi Walters 1.2.840.1 47732.1.1 3.104.2.7 .3.583591 .8 [id number] [facility] 2023-11-03 14:45:00 2023-11-03 15:17:07 Employee Operations Examiner Visit Abbey Willett [facility] Room 1.2.840.1 77648.1.1 3.104.2.7 .3.064891 .8 [id number] [facility] 2023-11-03 12:30:00 2023-11-03 12:30:00 Outpatient TEMI BINGHAM [facility] [id number] [facility] 2023-11-03 09:15:00 2023-11-03 09:15:00 Outpatient R TEMI VAIL [facility] [id number] [facility] 2023-11-03 00:00:00 2023-11-03 00:00:00 Travel 1.2.840.1 37209.1.1 3.104.2.7 .3.247551 .8 1.2.840.114 350.1.13.10 4.2.7.3.698 084.8 [id number] [facility] 2023-09-18 00:00:00 2023-10-22 18:20:01 Patient Secure Msg Temi Vail [facility] MEDICAL IMAGING DIRECTOR [facility] 1.2.840.114 350.1.13.10 4.2.7.2.686 [id number] [facility] 2023-10-18 00:00:00 2023-10-18 15:12:25 Letter (Out) Temi Vail [facility] MEDICAL IMAGING DIRECTOR [facility] 1.2.840.114 350.1.13.10 4.2.7.2.686 [id number] [facility] 2023-10-18 14:45:00 2023-10-18 15:05:58 Outpatient TEMI BINGHAM [facility] [id number] [facility] 2023-10-18 14:45:00 2023-10-18 15:05:58 Routine Visit Temi Vail [facility] MEDICAL IMAGING DIRECTOR [facility] 1.2.840.114 350.1.13.10 4.2.7.2.686 [id number] [facility] 2023-09-08 00:00:00 2023-10-15 18:24:36 Patient Secure Temi Estrada [facility] MEDICAL IMAGING DIRECTOR [facility] 1.2840.114 350.1.13.10 4.2.7.2.686 [id number] [facility] 2023-10-14 16:15:00 2023-10-14 16:32:52 Outpatient R LOUISE BORGES [facility] [id number] [facility] 2023-10-14 16:15:00 2023-10-14 16:32:52 Routine Visit Louise Borges [facility] MEDICAL IMAGING DIRECTOR [facility] 1..840.114 350.1.13.10 4.2.7.2.686 [id number] [facility] 2023-10-12 14:12:00 2023-10-12 17:30:00 Outpatient P RENE LAMB [facility] [id number] [facility] 2023-10-12 14:12:00 2023-10-12 17:30:00 Emergency Rene Lamb [facility] 1.840.114 350.1.13.10 4.2.7.2.686 [id number] [facility] 2023-08-31 00:00:00 2023-10-01 18:22:06 Patient Secure Temi Estrada [facility] MEDICAL IMAGING DIRECTOR [facility] 1.2840.114 350.1.13.10 4.2.7.2.686 [id number] [facility] 2023-09-30 00:00:00 2023-09-30 15:48:02 Abstract Ovidio Huffman [facility] MEDICAL IMAGING DIRECTOR [facility] [facility] 1.2.840.114 350.1.13.10 4.2.7.2.686 [id number] 107 [id number] [facility] 2023-09-27 09:15:00 2023-09-27 10:22:21 Outpatient P BONIFACIO CEDENOANAK [facility] [id number] [facility] 2023-09-27 09:15:00 2023-09-27 10:22:21 Employee Operations Examiner Visit Ultrasound, [facility]-julianne Bonifacio Cedenoanak [facility] MEDICAL IMAGING DIRECTOR [facility] & [facility]ILD [facility] 1.2.840.114 350.1.13.10 4.2.7.2.686 [id number] [facility] 2023-08-23 00:00:00 2023-09-24 18:06:24 Patient Secure Msg Temi Vail [facility] MEDICAL IMAGING DIRECTOR [facility] 1.2.840.114 350.1.13.10 4.2.7.2.686 [id number] 107 [id number] [facility] 2023-09-13 00:00:00 2023-09-13 10:57:58 Patient Secure Temi Vail [facility] MEDICAL IMAGING DIRECTOR [facility] 1.2.840.114 350.1.13.10 4.2.7.2.686 [id number] 107 [id number] [facility] 2023-09-13 08:45:00 2023-09-13 08:47:16 Outpatient R TEMI VAIL [facility] [id number] [facility] 2023-09-13 08:45:00 2023-09-13 08:47:16 Routine Visit Temi Vail [facility] MEDICAL IMAGING DIRECTOR [facility] 1.2840.114 350.1.13.10 4.2.7.2.686 [id number] 107 [id number] [facility] 2023-09-09 00:00:00 2023-09-09 08:14:06 Case Management Temi Vail [facility] MEDICAL IMAGING DIRECTOR [facility] 1.840.114 350.1.13.10 4.2.7.2.686 [id number] 107 [id number] [facility] 2023-08-16 10:15:00 2023-08-16 11:21:10 Outpatient R TEMI VAIL [facility] [id number] [facility] 2023-08-16 10:15:00 2023-08-16 11:21:10 Routine Visit Temi Vail [facility] 1.840.114 350.1.13.10 4.2.7.2.686 [id number] 107 [id number] [facility] 2023-08-12 08:30:00 2023-08-12 08:38:08 Outpatient R OVIDIO HUFFMAN [facility] [id number] [facility] 2023-08-12 08:30:00 2023-08-12 08:38:08 Employee Operations Examiner Visit Lab, Ang-Rmchp Ovidio Huffman [facility] MEDICAL IMAGING DIRECTOR [facility] 1.840.114 350.1.13.10 4.2.7.2.686 [id number] 107 [id number] [facility] 2023-08-12 00:00:00 2023-08-12 00:00:00 Telephone Ovidio Huffman [facility] MEDICAL IMAGING DIRECTOR [facility] 1.840.114 350.1.13.10 4.2.7.2.686 [id number] 107 [id number] [facility] 2023-08-10 13:30:00 2023-08-10 14:27:08 Outpatient R OVIDIO HUFFMAN [facility] [id number] [facility] 2023-08-10 13:30:00 2023-08-10 14:27:08 Routine Visit Ovidio Huffman [facility] MEDICAL IMAGING DIRECTOR [facility] 1.2.840.114 350.1.13.10 4.2.7.2.686 [id number] 107 [id number] [facility] 2023-08-10 00:00:00 2023-08-10 00:00:00 Telephone Ovidio Huffman [facility] MEDICAL IMAGING DIRECTOR [facility] 1.2.840.114 350.1.13.10 4.2.7.2.686 [id number] 107 [id number] [facility] 2023-07-20 08:30:00 2023-07-20 09:19:28 Outpatient P ECTOR IRVIN [facility] [id number] [facility] 2023-07-20 08:30:00 2023-07-20 09:19:28 Employee Operations Examiner Visit 1, [facility] Us Room WrigleyEctor [facility] 1.2840.114 350.1.13.10 4.2.7.2.686 [id number] [facility] 2023-07-20 00:00:00 2023-07-20 00:00:00 Case Management Temi Vail [facility] MEDICAL IMAGING DIRECTOR [facility] 1.2.840.114 350.1.13.10 4.2.7.2.686 [id number] 107 [id number] [facility] 2023-07-20 00:00:00 2023-07-20 00:00:00 Case Management Temi Vail [facility] MEDICAL IMAGING DIRECTOR [facility] 1.2.840.114 350.1.13.10 4.2.7.2.686 [id number] 107 [id number] [facility] 2023-07-20 00:00:00 2023-07-20 00:00:00 Patient Secure Msg Temi Vail [facility] MEDICAL IMAGING DIRECTOR [facility] 1.2.840.114 350.1.13.10 4.2.7.2.686 [id number] 107 [id number] [facility] 2023-07-19 10:15:00 2023-07-19 10:27:02 Outpatient R TEMI VAIL [facility] [id number] [facility] 2023-07-19 10:15:00 2023-07-19 10:27:02 Routine Visit Temi Vail [facility] MEDICAL IMAGING DIRECTOR [facility] 1.2.840.114 350.1.13.10 4.2.7.2.686 [id number] 107 [id number] [facility] 2023-07-06 00:00:00 2023-07-06 00:00:00 Telephone Temi Vail [facility] MEDICAL IMAGING DIRECTOR [facility] 1.2.840.114 350.1.13.10 4.2.7.2.686 [id number] 107 [id number] [facility] 2023-06-30 00:00:00 2023-06-30 00:00:00 Telephone Temi Vail [facility] MEDICAL IMAGING DIRECTOR [facility] 1.2.840.114 350.1.13.10 4.2.7.2.686 [id number] 107 [id number] [facility] 2023-06-24 00:00:00 2023-06-24 00:00:00 Telephone Temi Vail [facility] MEDICAL IMAGING DIRECTOR [facility] 1.2.840.114 350.1.13.10 4.2.7.2.686 [id number] 107 [id number] [facility] 2023-06-21 08:15:00 2023-06-21 11:36:43 Initial Visit Temi Vail [facility] MEDICAL IMAGING DIRECTOR [facility] 1.840.114 350.1.13.10 4.2.7.2.686 [id number] 107 [id number] [facility] 2023-06-21 07:45:00 2023-06-21 09:43:08 Outpatient R TEMI VAIL [facility] [id number] [facility] 2023-06-21 00:00:00 2023-06-21 00:00:00 Orders Only Doctor Unassigned, [place] [facility] 1.840.114 350.1.13.10 4.2.7.2.686 [id number] [facility] 2023-05-04 14:30:00 2023-05-04 14:30:00 Outpatient DIONICIO MEHTA [facility] [id number] [facility] 2023-04-20 09:00:00 2023-04-20 10:43:31 Office Visit Danielle Fernandez [facility] [address] 1.0.114 350.1.13.58 9.2.7.2.686 [id number] [facility] 2023-04-12 06:12:00 2023-04-12 16:58:00 Emergency E DIONICIO MEHTA [facility] [id number] [facility] 2023-02-23 00:00:00 2023-02-23 00:00:00 Case Management Temi Iraheta 1.0.114 350.1.13.10 4.2.7.2.686 [id number] [facility] 2022-12-22 00:00:00 2022-12-22 00:00:00 Telephone Leslee Epps [facility] 1.20.114 350.1.13.10 4.2.7.2.686 [id number] [facility] 2022-12-22 00:00:00 2022-12-22 00:00:00 Patient Secure Msg Doctor Unassigned, [place] [facility] 1..840.114 350.1.13.10 4.2.7.2.686 [id number] [facility] 2022-12-21 18:30:00 2022-12-21 21:02:00 Emergency X CHELY FRANKLIN [facility] ERT [id number] [facility] 2022-12-21 18:30:00 2022-12-21 21:02:00 Emergency Chely Franklin [facility] 1..840.114 350.1.13.10 4.2.7.2.686 [id number] [facility] 2022-12-21 16:25:00 2022-12-21 16:54:00 Emergency CHELY BOLES [facility] ERT [id number] [facility] 2022-12-21 16:25:00 2022-12-21 16:54:00 Emergency Chely Franklin [facility] 1..840.114 350.1.13.10 4.2.7.2.686 [id number] [facility] 2022-12-21 15:45:00 2022-12-21 16:05:00 Nurse Visit Nurse, Keagan Bonilla [facility] Unknown, Attending Windy Lara [facility] 1..840.114 350.1.13.10 4.2.7.2.686 [id number] 370 [id number] [facility] 2022-12-21 15:45:00 2022-12-21 15:45:00 Outpatient WINDY CELIS [facility] [id number] [facility] 2022-10-25 15:00:00 2022-10-25 15:00:00 Outpatient QASIM GALVEZ [facility] [id number] [facility] 2022-10-18 09:20:00 2022-10-18 09:39:10 Outpatient R AGATA DAVIS [facility] [id number] [facility] 2022-10-18 09:20:00 2022-10-18 09:39:10 Urgent Care Agata Davis Unknown, Attending [facility] 1.0114 350.1.13.10 4.2.7.2.686 [id number] 370 [id number] [facility] 2022-10-18 00:00:00 2022-10-18 00:00:00 Letter (Out) [facility] 1.2.114 350.1.13.10 4.2.7.2.686 [id number] [facility] 2022-08-23 09:40:00 2022-08-23 10:24:06 Outpatient R WINDY LARA [facility] [id number] [facility] 2022-08-23 09:40:00 2022-08-23 10:24:06 Urgent Care Windy Lara Unknown, Attending [facility] 1.114 350.1.13.10 4.2.7.2.686 [id number] 370 [id number] [facility] 2022-08-23 00:00:00 2022-08-23 00:00:00 Orders Only Doctor Unassigned, [place] [facility] 1.0.114 350.1.13.10 4.2.7.2.686 [id number] [facility] 2022-08-23 00:00:00 2022-08-23 00:00:00 Letter (Out) Windy Lara [facility] 1..114 350.1.13.10 4.2.7.2.686 [id number] 370 [id number] [facility] 2022-02-19 14:00:00 2022-02-19 14:00:00 Outpatient R OVIDIO HUFFMAN [facility] [id number] [facility] 2022-02-12 13:45:00 2022-02-12 13:45:00 Outpatient R OVIDIO HUFFMAN [facility] [id number] [facility] 2021-12-17 12:00:00 2021-12-17 12:15:00 Office Visit SACHA ROONEY [address] [facility] 1..840.114 350.1.13.58 9.2.7.2.686 [id number] [facility] 2021-11-17 00:00:00 2021-11-17 00:00:00 Telephone Fang Larose [facility] MEDICAL IMAGING DIRECTOR [facility] 1..840.114 350.1.13.10 4.2.7.2.686 [id number] 107 [id number] [facility] 2021-11-12 15:51:00 2021-11-12 17:48:00 Emergency X RICKY TANNER [facility] ERT [id number] [facility] 2021-11-12 15:51:00 2021-11-12 17:48:00 Emergency Ricky Tanner S [facility] ..840.114 350.1.13.10 4.2.7.2.686 [id number] [facility] 2021-11-12 14:00:00 2021-11-12 15:36:31 Outpatient R FANG LAROSE SARAH [facility] [id number] [facility] 2021-11-12 14:00:00 2021-11-12 15:36:31 Office Visit Provider, Keagan[facility]Rmchp [facility] 1.2.840.114 350.1.13.10 4.2.7.2.686 [id number] 107 [id number] [facility] 2021-11-12 14:00:00 2021-11-12 15:36:31 Office Visit Provider, Fang Chapman [facility] MEDICAL IMAGING DIRECTOR [facility] 1.2.840.114 350.1.13.10 4.2.7.2.686 [id number] 107 [id number] [facility] 2021-11-12 14:00:00 2021-11-12 15:36:31 Outpatient R FANG LAROSE SARAH [facility] [id number] [facility] 2021-05-25 10:00:00 2021-05-25 10:00:00 Outpatient R [facility] [id number] [facility] 2021-03-02 13:44:47 2021-03-02 14:06:55 Nurse Visit Visit, Diane Nurse Tanesha Franklin [facility] MEDICAL IMAGING DIRECTOR [facility] 1.2.840.114 350.1.13.10 4.2.7.2.686 [id number] 107 [id number] [facility] 2021-03-02 13:30:00 2021-03-02 14:06:55 Outpatient TANESHA JUNG [facility] [id number] [facility] 2021-03-01 00:00:00 2021-03-01 00:00:[address] [facility] 1..840.114 350.1.13.10 4.2.7.2.686 [id number] [facility] 2021-02-28 10:00:00 2021-02-28 10:33:31 Outpatient R CASSIA BARRERA [facility] [id number] [facility] 2021-02-28 09:50:49 2021-02-28 10:33:31 Urgent Care Cassia Barrera [facility] 1.2.114 350.1.13.10 4.2.7.2.686 [id number] [facility] 2021-02-27 00:00:00 2021-02-27 00:00:00 Telephone Tanesha Franklin [facility] MEDICAL IMAGING DIRECTOR [facility] 1.20.114 350.1.13.10 4.2.7.2.686 [id number] 107 [id number] [facility] 2021-02-05 10:46:48 2021-02-05 11:14:34 Office Visit Tanesha Franklin [facility] MEDICAL IMAGING DIRECTOR [facility] 1..114 350.1.13.10 4.2.7.2.686 [id number] 107 [id number] [facility] 2021-02-05 10:45:00 2021-02-05 10:45:00 Outpatient R TANESHA FRANKLIN [facility] [id number] [facility] 2021-02-04 00:00:00 2021-02-04 00:00:00 Telephone Veronique Goldsmith [facility] 1..114 350.1.13.10 4.2.7.2.686 [id number] 107 [id number] [facility] 2021-01-09 13:48:00 2021-01-09 15:48:00 [facility] 1..114 350.1.13.10 4.2.7.2.686 [id number] [facility] 2020-12-02 08:00:18 2020-12-02 08:36:03 Nurse Visit Visit, [facility] 1.2.114 350.1.13.10 4.2.7.2.686 [id number] 107 [id number] [facility] 2020-12-02 08:00:00 2020-12-02 08:00:00 Outpatient R [facility] [id number] [facility] 2020-11-25 09:00:00 2020-11-25 09:00:00 Outpatient R [facility] [id number] [facility] 2020-10-15 00:00:00 2020-10-15 00:00:00 Telephone Veronique Goldsmith [facility] MEDICAL IMAGING DIRECTOR [facility] 1..840.114 350.1.13.10 4.2.7.2.686 [id number] 107 [id number] [facility] 2020-10-13 08:39:27 2020-10-13 08:54:27 Office Visit Veronique Goldsmith [facility] MEDICAL IMAGING DIRECTOR [facility] 1.2.840.114 350.1.13.10 4.2.7.2.686 [id number] 107 [id number] [facility] 2020-10-13 08:30:00 2020-10-13 08:30:00 Outpatient R GOLDSMITHVERONIQUE [facility] [id number] [facility] 2020-09-26 10:30:00 2020-09-26 10:30:00 Outpatient R VERONQIUE GOLDSMITH [facility] [id number] [facility] 2020-09-17 00:00:00 2020-09-17 00:00:00 Telephone Tanesha Franklin [facility] MEDICAL IMAGING DIRECTOR [facility] 1..840.114 350.1.13.10 4.2.7.2.686 [id number] 107 [id number] [facility] 2020-09-02 09:25:01 2020-09-02 10:11:59 Office Visit Tanesha Franklin [facility] MEDICAL IMAGING DIRECTOR [facility] 1.2840.114 350.1.13.10 4.2.7.2.686 [id number] 107 [id number] [facility] 2020-09-02 09:15:00 2020-09-02 09:15:00 [id number] 2020-08-22 00:00:00 2020-08-22 00:00:00 Telephone Tanesha Franklin [facility] MEDICAL IMAGING DIRECTOR [facility] 1.840.114 350.1.13.10 4.2.7.2.686 [id number] 107 [id number] [facility] 2020-08-18 00:00:00 2020-08-18 00:00:00 Refill Tanesha Franklin [facility] MEDICAL IMAGING DIRECTOR [facility] 1.840.114 350.1.13.10 4.2.7.2.686 [id number] 107 [id number] [facility] 2020-08-12 13:00:00 2020-08-12 13:00:00 Outpatient TANESHA JUNG [facility] [id number] [facility] 2020-08-12 11:08:43 2020-08-12 11:37:20 Routine Visit Tanesha Franklin [facility] MEDICAL IMAGING DIRECTOR [facility] 1.840.114 350.1.13.10 4.2.7.2.686 [id number] 107 [id number] [facility] 2020-07-29 09:53:36 2020-07-29 10:27:39 Nurse Visit Visit, Ang-Rmchp Nurse Tanesha Franklin [facility] MEDICAL IMAGING DIRECTOR [facility] 1.2840.114 350.1.13.10 4.2.7.2.686 [id number] 107 [id number] [facility] 2020-07-29 10:00:00 2020-07-29 10:00:00 Outpatient TANESHA JUNG [facility] [id number] [facility] 2020-07-22 07:00:00 2020-07-22 08:53:00 Surgery Benja Newman [facility] 1.114 350.1.13.10 4.2.7.2.686 [id number] [facility] 2020-07-22 00:00:00 2020-07-22 00:00:00 Orders Only Doctor Unassigned, [place] [facility] 1.114 350.1.13.10 4.2.7.2.686 [id number] [facility] 2020-07-21 15:30:00 2020-07-21 15:30:00 Outpatient VERONIQUE HOPPER [facility] [id number] [facility] 2020-07-21 13:53:09 2020-07-21 14:16:51 Routine Visit Veronique Goldsmith [facility] MEDICAL IMAGING DIRECTOR [facility] 1..114 350.1.13.10 4.2.7.2.686 [id number] 107 [id number] [facility] 2020-07-16 15:39:45 2020-07-16 16:08:12 Routine Visit Veronique Goldsmith [facility] MEDICAL IMAGING DIRECTOR [facility] 1..114 350.1.13.10 4.2.7.2.686 [id number] 107 [id number] [facility] 2020-07-16 15:30:00 2020-07-16 15:30:00 Outpatient VERONIQUE HOPPER [facility] [id number] [facility] 2020-07-15 00:00:00 2020-07-15 00:00:00 Patient Outreach Terry Newman [facility] 1..114 350.1.13.10 4.2.7.2.686 [id number] [facility] 2020-07-07 15:46:11 2020-07-07 16:22:19 Routine Visit Karissa Goldsmithnataly Mina [facility] MEDICAL IMAGING DIRECTOR [facility] 1.840.114 350.1.13.10 4.2.7.2.686 [id number] 107 [id number] [facility] 2020-07-07 13:00:00 2020-07-07 13:00:00 Outpatient R KARISSA GOLDSMITHNATALY [facility] [id number] [facility] 2020-07-03 00:00:00 2020-07-03 00:00:00 Telephone Karissa Goldsmithnataly [facility] MEDICAL IMAGING DIRECTOR [facility] 1.840.114 350.1.13.10 4.2.7.2.686 [id number] 107 [id number] [facility] 2020-07-02 14:45:00 2020-07-02 14:45:00 Outpatient R TANESHA FRANKLIN [facility] [id number] [facility] 2020-07-02 13:13:36 2020-07-02 13:28:36 Laboratory Only Lab, Ang-Rmchp Tanesha Franklin [facility] MEDICAL IMAGING DIRECTOR [facility] 1..840.114 350.1.13.10 4.2.7.2.686 [id number] 107 [id number] [facility] 2020-07-01 00:00:00 2020-07-01 00:00:00 Telephone Karissa Goldsmithnataly [facility] MEDICAL IMAGING DIRECTOR [facility] 1.840.114 350.1.13.10 4.2.7.2.686 [id number] 107 [id number] [facility] 2020-06-30 12:59:40 2020-06-30 13:33:52 Routine Visit Karissa Goldsmithnataly [facility] MEDICAL IMAGING DIRECTOR [facility] 1.2.840.114 350.1.13.10 4.2.7.2.686 [id number] 107 [id number] [facility] 2020-06-30 12:45:00 2020-06-30 12:45:00 Outpatient R VERONIQUE GOLDSMITH [facility] [id number] [facility] 2020-06-23 00:00:00 2020-06-23 00:00:00 Abstract Goldsmith, Veronique Mina [facility] MEDICAL IMAGING DIRECTOR [facility] 1.2.840.114 350.1.13.10 4.2.7.2.686 [id number] 107 [id number] [facility] 2020-06-19 13:59:13 2020-06-19 14:29:13 Employee Operations Examiner Visit Ultrasound, Sridhar Collier [facility] MEDICAL IMAGING DIRECTOR [facility] 1..840.114 350.1.13.10 4.2.7.2.686 [id number] [facility] 2020-06-19 14:00:00 2020-06-19 14:00:00 Outpatient P [facility] [id number] [facility] 2020-06-16 15:18:38 2020-06-16 15:45:00 Routine Visit Veronique Goldsmith [facility] MEDICAL IMAGING DIRECTOR [facility] 1..840.114 350.1.13.10 4.2.7.2.686 [id number] 107 [id number] [facility] 2020-06-16 15:30:00 2020-06-16 15:30:00 Outpatient VERONIQUE HOPPER [facility] [id number] [facility] 2020-06-13 10:30:00 2020-06-13 10:30:00 Outpatient VERONIQUE HOPPER [facility] [id number] [facility] 2020-06-09 11:15:00 2020-06-09 11:15:00 Outpatient P [facility] [id number] [facility] 2020-05-26 12:45:42 2020-05-26 13:06:03 Routine Visit Jame Goldsmithlucas Mina [facility] MEDICAL IMAGING DIRECTOR [facility] 1.84.114 350.1.13.10 4.2.7.2.686 [id number] [facility] 2020-05-26 12:45:00 2020-05-26 12:45:00 Outpatient R KARISSA GOLDSMITHNATALY [facility] [id number] [facility] 2020-05-13 09:02:48 2020-05-13 10:11:51 Routine Visit Ovidio Huffman [facility] 1.84.114 350.1.13.10 4.2.7.2.686 [id number] [facility] 2020-05-13 09:15:00 2020-05-13 09:15:00 Outpatient R OVIDIO HUFFMAN [facility] [id number] [facility] 2020-04-28 07:55:33 2020-04-28 08:47:58 Routine Visit Goldsmith, Rosnataly Mina [facility] MEDICAL IMAGING DIRECTOR [facility] .840.114 350.1.13.10 4.2.7.2.686 [id number] [facility] 2020-04-28 07:45:00 2020-04-28 07:45:00 Outpatient R AGUS VERONIQUE [facility] [id number] [facility] 2020-04-10 00:00:00 2020-04-10 00:00:00 Patient Secure Msg Doctor Unassigned, [place] [facility] 1.840.114 350.1.13.10 4.2.7.2.686 [id number] [facility] 2020-04-05 16:22:00 2020-04-05 18:15:00 Hospital Encounter Sonja Nair [facility] 1.2840.114 350.1.13.10 4.2.7.2.686 [id number] [facility] 2020-04-05 14:45:00 2020-04-05 14:45:00 Outpatient R UNKNOWN, ATTENDING [facility] [id number] [facility] 2020-04-05 14:21:40 2020-04-05 14:36:40 Telemedici ne Visit Care, Briseyda Urgent Unknown, Attending [facility] 1.840.114 350.1.13.10 4.2.7.2.686 [id number] [facility] 2020-03-31 08:47:30 2020-03-31 09:42:40 Routine Visit Veronique Goldsmith [facility] MEDICAL IMAGING DIRECTOR [facility] 1.840.114 350.1.13.10 4.2.7.2.686 [id number] [facility] 2020-03-31 08:45:00 2020-03-31 08:45:00 Outpatient R VERONIQUE GOLDSMITH [facility] [id number] [facility] 2020-03-12 09:33:18 2020-03-12 10:33:18 Employee Operations Examiner Visit Ultrasound, Benja Chen [facility] MEDICAL IMAGING DIRECTOR [facility] 1.840.114 350.1.13.10 4.2.7.2.686 [id number] [facility] 2020-03-12 09:30:00 2020-03-12 09:30:00 Outpatient P [facility] [id number] [facility] 2020-03-12 00:00:00 2020-03-12 00:00:00 Abstract Veronique Goldsmith [facility] MEDICAL IMAGING DIRECTOR [facility] 1.2840.114 350.1.13.10 4.2.7.2.686 [id number] 107 [id number] [facility] 2020-03-03 09:37:03 2020-03-03 10:36:05 Routine Visit Karissa Goldsmithnataly Mina [facility] MEDICAL IMAGING DIRECTOR [facility] 1.2840.114 350.1.13.10 4.2.7.2.686 [id number] 107 [id number] [facility] 2020-03-03 09:30:00 2020-03-03 09:30:00 Outpatient Keeley GOLDSMITH, VERONIQUE [facility] [id number] [facility] 2020-02-15 00:00:00 2020-02-15 00:00:00 Patient Secure Msg Doctor Unassigned, [place] [facility] 1.2840.114 350.1.13.10 4.2.7.2.686 [id number] 107 [id number] [facility] 2020-02-04 13:00:00 2020-02-04 13:00:00 Outpatient KARISSA HOPPERNATALY [facility] [id number] [facility] 2020-02-04 09:49:50 2020-02-04 10:04:50 Routine Visit GoldsmithVeronique [facility] 1.20.114 350.1.13.10 4.2.7.2.686 [id number] 107 [id number] [facility] 2020-01-14 07:42:36 2020-01-14 07:56:22 Employee Operations Examiner [facility] MEDICAL IMAGING DIRECTOR [facility] 1.2840.114 350.1.13.10 4.2.7.2.686 [id number] 107 [id number] [facility] 2020-01-14 07:45:00 2020-01-14 07:45:00 Outpatient R TANESHA FRANKLIN [facility] [id number] [facility] 2020-01-08 00:00:00 2020-01-08 00:00:00 Telephone Veronique Goldsmith [facility] MEDICAL IMAGING DIRECTOR [facility] 1.0.114 350.1.13.10 4.2.7.2.686 [id number] 107 [id number] [facility] 2020-01-07 13:30:00 2020-01-07 13:30:00 Outpatient R VERONIQUE GOLDSMITH [facility] [id number] [facility] 2020-01-07 00:00:00 2020-01-07 00:00:00 Orders Only Doctor Unassigned, [place] [facility] 1..114 350.1.13.10 4.2.7.2.686 [id number] 009 [id number] [facility] 2019-11-27 09:15:00 2019-11-27 09:15:00 Outpatient R TANESHA FRANKLIN [facility] [id number] [facility] 2019-08-23 14:15:00 2019-08-23 14:15:00 Outpatient R VERONIQUE GOLDSMITH [facility] [id number] [facility] 2019-08-23 11:25:04 2019-08-23 13:57:56 Telemedici ne Visit Veronique Goldsmith [facility] MEDICAL IMAGING DIRECTOR [facility] 1..114 350.1.13.10 4.2.7.2.686 [id number] 107 [id number] [facility] 2019-08-15 00:00:00 2019-08-15 00:00:00 Tanesha Thomas [facility] MEDICAL IMAGING DIRECTOR [facility] 1..114 350.1.13.10 4.2.7.2.686 [id number] 107 [id number] [facility] 2019-08-03 00:00:00 2019-08-03 00:00:00 Telephone Veronique Goldsmith [facility] MEDICAL IMAGING DIRECTOR [facility] 1.2.840.114 350.1.13.10 4.2.7.2.686 [id number] 107 [id number] [facility] 2019-06-19 00:00:00 2019-06-19 00:00:00 Orders Only Doctor Unassigned, [place] [facility] 1.2.840.114 350.1.13.10 4.2.7.2.686 [id number] 009 [id number] [facility] 2019-05-31 13:40:14 2019-05-31 14:41:48 Office Visit Tanesha Franklin [facility] MEDICAL IMAGING DIRECTOR [facility] 1.2.840.114 350.1.13.10 4.2.7.2.686 [id number] 107 [id number] [facility] 2019-05-28 00:00:00 2019-05-28 00:00:00 Telephone Tanesha Franklin [facility] MEDICAL IMAGING DIRECTOR [facility] 1.2.840.114 350.1.13.10 4.2.7.2.686 [id number] 107 [id number] [facility] 2019-05-10 14:37:16 2019-05-10 15:14:59 Routine Visit Tanesha Franklin [facility] MEDICAL IMAGING DIRECTOR [facility] 1.2.840.114 350.1.13.10 4.2.7.2.686 [id number] 107 [id number] [facility] 2019-05-10 14:30:00 2019-05-10 15:14:59 Outpatient R TANESHA FRANKLIN [facility] [id number] [facility] 2019-04-18 00:00:00 2019-04-18 00:00:00 Orders Only Doctor Unassigned, [place] [facility] 1.2840.114 350.1.13.10 4.2.7.2.686 [id number] 009 [id number] [facility] 2019-04-11 00:00:00 2019-04-11 00:00:00 Patient Secure Msg Doctor Unassigned, [place] [facility] MEDICAL IMAGING DIRECTOR [facility] 1.2.840.114 350.1.13.10 4.2.7.2.686 [id number] 107 [id number] [facility] 2019-03-05 08:00:00 2019-03-05 08:39:07 Outpatient P ABBEY WILLETT [facility] [id number] [facility] 2018-12-29 00:00:00 2018-12-29 00:00:00 Telephone Tanesha Franklin [facility] MEDICAL IMAGING DIRECTOR [facility] 1.2.840.114 350.1.13.10 4.2.7.2.686 [id number] 107 [id number] [facility] 2018-12-18 08:34:54 2018-12-18 09:02:51 Routine Visit Tanseha Franklin [facility] MEDICAL IMAGING DIRECTOR [facility] 1.2840.114 350.1.13.10 4.2.7.2.686 [id number] 107 [id number] [facility] 2018-12-04 08:13:08 2018-12-04 09:42:31 Employee Operations Examiner Visit Ultrasound, Benja Chen [facility] MEDICAL IMAGING DIRECTOR [facility] 1.2840.114 350.1.13.10 4.2.7.2.686 [id number] [facility] 2018-12-04 00:00:00 2018-12-04 00:00:00 Patient Secure Christine Ward [facility] MEDICAL IMAGING DIRECTOR [facility] 1.2.840.114 350.1.13.10 4.2.7.2.686 [id number] 107 [id number] [facility] 2018-11-22 00:00:00 2018-11-22 00:00:00 Patient Secure Msg Tanesha Franklin [facility] MEDICAL IMAGING DIRECTOR [facility] 1.2.840.114 350.1.13.10 4.2.7.2.686 [id number] 107 [id number] [facility] 2018-11-20 12:46:14 2018-11-20 13:29:49 Routine Visit Tanesha Franklin [facility] MEDICAL IMAGING DIRECTOR [facility] 1.2.840.114 350.1.13.10 4.2.7.2.686 [id number] 107 [id number] [facility] 2018-09-28 11:15:00 2018-09-28 12:22:17 Outpatient P SRIDHAR CHAUDHRY [facility] [id number] [facility] Results Test Description Test Time Test Comments Results Resul t Comments Source DME/SUPPLY JUSTIFICATION 2023-10-0 7 21:21:58 Ordered by an unspecified provider. [facility] Nztfqiiqutuz4367-95-31 09:25:00* Test Item Value Reference Range Interpretation [...] 32.8 g/dL 31.6-35.1 RDW-SD (test code = 35668-7) 51.2 fL 39.0-49.9 H RDW-CV (test code = 788-0) 15.3 % 12.0-15.5 PLT (test code = 777-3) 177 166-358 MPV (test code = 77398-5) 9.3 fL 9.5-12.9 L NRBC/100 WBC (test code = 2555010661) 0.2 0.0-10.0 NRBC x10^3 (test code = 9938681954) 0.02 See_Comment [Automated messa ge] The system which generated this result transmitted reference range: 10*3/?L. The reference range was not used to interpret this result as normal/abnormal. GRAN MAT (NEUT) % (test code = 770-8) 59.2 % IMM GRAN % (test code = 3130366015) 0.50 % LYMPH % (test code = 736-9) 33.0 % MONO % (test code = 5905-5) 5.1 % EOS % (test code = 713-8) 1.7 % BASO % (test code = 706-2) 0.5 % GRAN MAT x10^3(ANC) (test code = 4194345676) 5.62 10*3/uL 1.88-7.09 IMM GRAN x10^3 (test code = 3175062151) 0.05 10*3/uL 0.00-0.06 LYMPH x10^3 (test code = 731-0) 3.13 10*3/uL 1.32-3.29 MONO x10^3 (test code = 742-7) 0.48 10*3/uL 0.33-0.92 EOS x10^3 (test code = 711-2) 0.16 10*3/uL 0.03-0.39 BASO x10^3 (test code = 704-7) 0.05 10*3/uL 0.01-0.07 Lab Interpretation (test code = 38578-6) Abnormal [facility] with Lwhkegtkquzd3125-08-23 09:25:00* Test Item Value Reference Range Interpretation [...] 32.8 g/dL 31.6-35.1 RDW-SD (test code = 77617-0) 51.2 fL 39.0-49.9 H RDW-CV (test code = 788-0) 15.3 % 12.0-15.5 PLT (test code = 777-3) 177 166-358 MPV (test code = 90636-9) 9.3 fL 9.5-12.9 L NRBC/100 WBC (test code = 4529018058) 0.2 0.0-10.0 NRBC x10^3 (test code = 5741259871) 0.02 See_Comment [Automated messa ge] The system which generated this result transmitted reference range: 10*3/?L. The reference range was not used to interpret this result as normal/abnormal. GRAN MAT (NEUT) % (test code = 770-8) 59.2 % IMM GRAN % (test code = 5242183229) 0.50 % LYMPH % (test code = 736-9) 33.0 % MONO % (test code = 5905-5) 5.1 % EOS % (test code = 713-8) 1.7 % BASO % (test code = 706-2) 0.5 % GRAN MAT x10^3(ANC) (test code = 0481272508) 5.62 10*3/uL 1.88-7.09 IMM GRAN x10^3 (test code = 8617469482) 0.05 10*3/uL 0.00-0.06 LYMPH x10^3 (test code = 731-0) 3.13 10*3/uL 1.32-3.29 MONO x10^3 (test code = 742-7) 0.48 10*3/uL 0.33-0.92 EOS x10^3 (test code = 711-2) 0.16 10*3/uL 0.03-0.39 BASO x10^3 (test code = 704-7) 0.05 10*3/uL 0.01-0.07 Lab Interpretation (test code = 80547-2) Abnormal [facility] (D) IMMUNE KCZZJFMM9172-02-80 11:11:41* Test Item Value Reference Range Interpretation Comme nts RHIG CANDIDATE? (test code = 5188) No- see comment Patient is not a candidate for RhIg- Patient is Rh Positive.Performed at [facility] Laboratory [facility] Blood [address] [place], [place] [id number] Free: [phone] No. [id number] [facility] (D) IMMUNE ZNURXEYO1642-89-42 11:11:41* Test Item Value Reference Range Interpretation Comme [facility] RHIG CANDIDATE? (test code = 5188) No- see comment Patient is not a candidate for RhIg- Patient is Rh Positive.Performed at [facility] Laboratory [facility] Blood [address] [place], [place] [id number] Free: [phone] No. [id number] [facility] 08:46:00Aminata Childs MD ? ? [...] teeth (cm): 21Number of attempts at approach: 1[facility] [place] Only - Fgj8581-27-89 08:29:35 * Test Item Value Reference Range Interpretation Comme nts RPR (Qualitative) (test code = 08244-7) Nonreactive Nonreactive Lab Interpretation (test cod e = 75516-9) Normal [facility] or [place] Only - Fav4988-73-81 08:29:35* Test Item Value Reference Range Interpretation Comme nts RPR (Qualitative) (test code = 76929-7) Nonreactive Nonreactive Lab Interpretation (test cod e = 34393-8) Normal [facility] 08:00:30* Test Item Value Reference Range Interpretation Comme nts ALCOHOL (test code = 1089364842) 167 mg/dL STAN (test code = STAN) <10 Sdmbilqt69-005 Toxic>100 Depression of BELL TIER>400 Fatalities Reported [facility] 08:00:30* Test Item Value Reference Range Interpretation Comme nts ALCOHOL (test code = 2398363552) 167 mg/dL STAN (test code = STAN) <10 Sdnzrytk83-892 Toxic>100 Depression of BELL TIER>400 Fatalities Reported [facility]. Metabolic Panel (42583)2024-01-15 07:59:50* Test Item Value Reference Range Interpretation Comme nts NA (test code = 0942600476) 140 mmol/L 135-145 K (test code = 4482252350) 3.5 mmol/L 3.5-5.0 CL (test code = 6197723368) 107 mmol/L 98-108 CO2 TOTAL (test code = 4465819409) 26 mmol/L 23-31 AGAP (test code = 4099023921) 7 2-16 BUN (test code = 9064282684) 4 mg/dL 7-23 L GLUCOSE (test code = 4581215682) 116 mg/dL 70-110 H CREATININE (test code = 2160-0) 0.75 mg/dL 0.50-1.04 TOTAL BILI (test code = 0250817951) 0.9 mg/dL 0.1-1.1 CALCIUM (test code = 7545591518) 7.2 mg/dL 8.6-10.6 L T PROTEIN (test code = 1142460813) 6.5 g/dL 6.3-8.2 ALBUMIN (test code = 0861547309) 3.1 g/dL 3.5-5.0 L ALK PHOS (test code = 7827984062) 136 U/L 34-122 H ALTv (test code = 1742-6) 20 U/L 5-35 AST(SGOT) (test code = 1625279653) 44 U/L 13-40 H eGFR (test code = 52291-5) 108.0 mL/min/1.73m2 CKD-EPI eGFR (2020). Assuming creatinine has been stable day-to-day for at least three months, the eGFR indicates Category G1 (>= 90 mL/min/1.73 m2) Lab Interpretation (test code = 90387-9) Abnormal [facility]. Metabolic Panel (47704)2024-01-15 07:59:50* Test Item Value Reference Range Interpretation Comme nts NA (test code = 1735315811) 140 mmol/L 135-145 K (test code = 7479948375) 3.5 mmol/L 3.5-5.0 CL (test code = 1335473059) 107 mmol/L 98-108 CO2 TOTAL (test code = 4254173735) 26 mmol/L 23-31 AGAP (test code = 4679553085) 7 2-16 BUN (test code = 6625120627) 4 mg/dL 7-23 L GLUCOSE (test code = 1792939036) 116 mg/dL 70-110 H CREATININE (test code = 2160-0) 0.75 mg/dL 0.50-1.04 TOTAL BILI (test code = 1811489273) 0.9 mg/dL 0.1-1.1 CALCIUM (test code = 1710262059) 7.2 mg/dL 8.6-10.6 L T PROTEIN (test code = 7925511170) 6.5 g/dL 6.3-8.2 ALBUMIN (test code = 4069117724) 3.1 g/dL 3.5-5.0 L ALK PHOS (test code = 9249256292) 136 U/L 34-122 H ALTv (test code = 1742-6) 20 U/L 5-35 AST(SGOT) (test code = 7960264139) 44 U/L 13-40 H eGFR (test code = 38505-5) 108.0 mL/min/1.73m2 CKD-EPI eGFR (2020). Assuming creatinine has been stable day-to-day for at least three months, the eGFR indicates Category G1 (>= 90 mL/min/1.73 m2) Lab Interpretation (test code = 49509-2) Abnormal [facility] B Surface Njtueih8650-36-62 06:21:22 * Test Item Value Reference Range Interpretation Comme nts HBsAg Semi-Quantitative (delilah t code = 5195-3) 0.06 Negative [facility] Surface Zprtzxs2096-63-17 06:21:22 * Test Item Value Reference Range Interpretation Comme nts HBsAg Semi-Quantitative (delilah t code = 5195-3) 0.06 Negative [facility] Drug (Immunoassay) - Comprehensive Drug Tjdgnu6189-72-36 05:58:59* Test Item Value Reference Range Interpretation Comme nts SHIRA S (test code = 7788543288) Negative Negative BENZO S (test code = 3521736674) Negative Negative TRICYCLIC (test code = 0306966297) Negative Negative STAN (test code = STAN) Serum Drug Screen Cutoff Ranges Barbiturates ? ? - 3 mcg/mLBenzodiazepines ?- 50 ng/mLTCA ?- 300 ng/mL Test developed and characteristics determined by [facility] Laboratory Services. The results are to be used only for medical (i.e., treatment) purposes. Unconfirmed screening results must not be used for non-medical purposes (e.g., employment testing, legal testing). Lab Interpretation (test code = 69642-5) Normal [facility] Drug (Immunoassay) - Comprehensive Drug Mxqduy4762-81-95 05:58:59* Test Item Value Reference Range Interpretation Comme nts SHIRA S (test code = 8445218089) Negative Negative BENZO S (test code = 6239200084) Negative Negative TRICYCLIC (test code = 4372937155) Negative Negative STAN (test code = STAN) Serum Drug Screen Cutoff Ranges Barbiturates ? ? - 3 mcg/mLBenzodiazepines ?- 50 ng/mLTCA ?- 300 ng/mL Test developed and characteristics determined by [facility] Laboratory Services. The results are to be used only for medical (i.e., treatment) purposes. Unconfirmed screening results must not be used for non-medical purposes (e.g., employment testing, legal testing). Lab Interpretation (test code = 99266-7) Normal [facility] PELVIS > 14 [id number] 05:24:20Ordering Physician: ?ELLA ?ZULAY HISTORY: Pain in [...] US: ? ? 33 weeks and2 days [facility] PELVIS > 14 [id number] 05:24:20Ordering Physician: ?ELLA ?ZULAY HISTORY: Pain in [...] US: ? ? 33 weeks and2 days [facility] 1/2 Ag-Ab with Pebrpe3353-37-70 03:28:15* Test Item Value Reference Range Interpretation Comme nts HIV Semi-quantitative (test code = 27874-4) 0.19 Negative STAN (test code = STAN) Non-reactive for HIV-1 antigen and HIV-1/HIV-2 antibodies. ?No laboratory evidence of HIV infection. ?Repeat in 2-4 weeks if acute HIV infection is suspected. [facility] 1/2 Ag-Ab with Yjittf6921-61-30 03:28:15* Test Item Value Reference Range Interpretation Comme nts HIV Semi-quantitative (test code = 84985-3) 0.19 Negative STAN (test code = STAN) Non-reactive for HIV-1 antigen and HIV-1/HIV-2 antibodies. ?No laboratory evidence of HIV infection. ?Repeat in 2-4 weeks if acute HIV infection is suspected. [facility] 02:19:52* Test Item Value Reference Range Interpretation Comme nts ALCOHOL (test code = 1306652542) 291 mg/dL STAN (test code = STAN) <10 Ybkmzlki75-654 Toxic>100 Depression of BELL TIER>400 Fatalities Reported [facility] 02:19:52* Test Item Value Reference Range Interpretation Comme nts ALCOHOL (test code = 8231895513) 291 mg/dL STAN (test code = STAN) <10 Zrhbhazy63-546 Toxic>100 Depression of BELL TIER>400 Fatalities Reported [facility] with Orrv1279-46-44 02:12:10* Test Item Value Reference Range Interpretation [...] 34.1 g/dL 31.6-35.1 RDW-SD (test code = 54599-9) 47.5 fL 39.0-49.9 RDW-CV (test code = 788-0) 14.6 % 12.0-15.5 PLT (test code = 777-3) 241 166-358 MPV (test code = 84615-9) 9.3 fL 9.5-12.9 L NRBC/100 WBC (test code = 1032335062) 0.2 0.0-10.0 NRBC x10^3 (test code = 8201682504) 0.02 See_Comment [Automated messa ge] The system which generated this result transmitted reference range: 10*3/?L. The reference range was not used to interpret this result as normal/abnormal. GRAN MAT (NEUT) % (test code = 770-8) 50.1 % IMM GRAN % (test code = 6162625516) 0.40 % LYMPH % (test code = 736-9) 42.7 % MONO % (test code = 5905-5) 5.4 % EOS % (test code = 713-8) 0.7 % BASO % (test code = 706-2) 0.7 % GRAN MAT x10^3(ANC) (test code = 4158905481) 4.83 10*3/uL 1.88-7.09 IMM GRAN x10^3 (test code = 2168031334) 0.04 10*3/uL 0.00-0.06 LYMPH x10^3 (test code = 731-0) 4.12 10*3/uL 1.32-3.29 H MONO x10^3 (test code = 742-7) 0.52 10*3/uL 0.33-0.92 EOS x10^3 (test code = 711-2) 0.07 10*3/uL 0.03-0.39 BASO x10^3 (test code = 704-7) 0.07 10*3/uL 0.01-0.07 Lab Interpretation (test code = 99664-7) Abnormal [facility] with Zthg1010-52-35 02:12:10* Test Item Value Reference Range Interpretation [...] 34.1 g/dL 31.6-35.1 RDW-SD (test code = 53586-6) 47.5 fL 39.0-49.9 RDW-CV (test code = 788-0) 14.6 % 12.0-15.5 PLT (test code = 777-3) 241 166-358 MPV (test code = 19046-1) 9.3 fL 9.5-12.9 L NRBC/100 WBC (test code = 5419272363) 0.2 0.0-10.0 NRBC x10^3 (test code = 3180066635) 0.02 See_Comment [Automated messa ge] The system which generated this result transmitted reference range: 10*3/?L. The reference range was not used to interpret this result as normal/abnormal. GRAN MAT (NEUT) % (test code = 770-8) 50.1 % IMM GRAN % (test code = 2087622122) 0.40 % LYMPH % (test code = 736-9) 42.7 % MONO % (test code = 5905-5) 5.4 % EOS % (test code = 713-8) 0.7 % BASO % (test code = 706-2) 0.7 % GRAN MAT x10^3(ANC) (test code = 0189319550) 4.83 10*3/uL 1.88-7.09 IMM GRAN x10^3 (test code = 8425050750) 0.04 10*3/uL 0.00-0.06 LYMPH x10^3 (test code = 731-0) 4.12 10*3/uL 1.32-3.29 H MONO x10^3 (test code = 742-7) 0.52 10*3/uL 0.33-0.92 EOS x10^3 (test code = 711-2) 0.07 10*3/uL 0.03-0.39 BASO x10^3 (test code = 704-7) 0.07 10*3/uL 0.01-0.07 Lab Interpretation (test code = 88713-6) [facility] Lfbaljt2219-12-21 02:04:00* Test Item Value Reference Range Interpretation Comme nts ABO & RH (test code = 20) A POSITIVE IAT (test code = 1185) Negative [facility] Xmopiol1715-42-39 02:04:00* Test Item Value Reference Range Interpretation Comme nts ABO & RH (test code = 20) A POSITIVE IAT (test code = 1185) Negative [facility] Ur[facility] Glucose & Kznbydw7100-90-73 15:56:00* Test Item Value Reference Range Interpretation Comme nts POCT U PROT (test code = 3259) trace Negative - Negat yandel POCT U GLU (test code = 3256) negative Negative - Negati ve [facility] Center[facility] - SYPHILIS IGG/IKS9865-94-23 14:45:19* Test Item Value Reference Range Interpretation Comme nts Syphilis IgG/IgM (test code = 04194-9) Non-reactive Non-reactive STAN (test code = STAN) Non-reactive - No serologic evidence of T. pallidum infection. Cannot exclude incubating or early syphilis. Submit a second specimen in 2-4 weeks if syphilis is clinically suspected. Equivocal - Further testing to follow. Reactive - Further testing to follow. Lab Interpretation (test code = 78734-1) Normal [facility] AG-AB WITH LPVPFW7491-33-25 03:39:36* Test Item Value Reference Range Interpretation Comme nts HIV Semi-quantitative (test code = 52989-1) 0.12 Negative STAN (test code = STAN) Non-reactive for HIV-1 antigen and HIV-1/HIV-2 antibodies. ?No laboratory evidence of HIV infection. ?Repeat in 2-4 weeks if acute HIV infection is suspected. [facility] Center[facility] 1 Hour Post Xlukmxuq6822-26-00 02:26:11* Test Item Value Reference Range Interpretation Comme nts GLUC 1 HR (test code = 8977287741) 119 mg/dL 120-170 L Lab Interpretation (test cod e = 63214-6) Abnormal [facility] with Aiuhuvkrqplp2801-01-61 02:17:09* Test Item Value Reference Range Interpretation [...] 32.3 g/dL 31.6-35.1 RDW-SD (test code = 57255-7) 45.1 fL 39.0-49.9 RDW-CV (test code = 788-0) 13.5 % 12.0-15.5 PLT (test code = 777-3) 278 166-358 MPV (test code = 36824-7) 9.2 fL 9.5-12.9 L NRBC/100 WBC (test code = 0641058641) 0.0 0.0-10.0 NRBC x10^3 (test code = 7676381034) See_Comment [Automated messa ge] The system which generated this result transmitted reference range: 10*3/?L. The reference range was not used to interpret this result as normal/abnormal. GRAN MAT (NEUT) % (test code = 770-8) 69.6 % IMM GRAN % (test code = 5361358026) 0.70 % LYMPH % (test code = 736-9) 20.4 % MONO % (test code = 5905-5) 6.0 % EOS % (test code = 713-8) 2.4 % BASO % (test code = 706-2) 0.9 % GRAN MAT x10^3(ANC) (test code = 5445470834) 6.25 10*3/uL 1.88-7.09 IMM GRAN x10^3 (test code = 8850263974) 0.06 10*3/uL 0.00-0.06 LYMPH x10^3 (test code = 731-0) 1.83 10*3/uL 1.32-3.29 MONO x10^3 (test code = 742-7) 0.54 10*3/uL 0.33-0.92 EOS x10^3 (test code = 711-2) 0.22 10*3/uL 0.03-0.39 BASO x10^3 (test code = 704-7) 0.08 10*3/uL 0.01-0.07 H Lab Interpretation (test code = 67381-8) [facility] [id number] 18:57:52NST reactive for gestation with 1 contraction not feltUnMem[facility]ALYS[facility] W SPECIFIC [id number] 15:05:00* Test Item Value Reference Range Interpretation [...] POCT U APPEAR (test code = 3267) [facility] URINALYSIS W SPECIFIC [id number] 19:23:00* Test Item Value Reference Range Interpretation [...] POCT U APPEAR (test code = 3267) [facility] URINALYSIS W SPECIFIC [id number] 19:34:00* Test Item Value Reference Range Interpretation [...] POCT U APPEAR (test code = 3267) [facility] [id number] 21:20:00* Test Item Value Reference Range Interpretation [...] 3267) Lab Interpretation (test cod e = 22517-1) Abnormal [facility] PELVIS > 14 [id number] 22:12:08ORDERING PHYSICIAN: MIRIAN LAMB CLINICAL HISTORY: Growth [...] Amniotic fluid index measures 10 cm. Placenta isposterior.[facility] - NON-INVASIVE TEST [id number] 18:16:39Ordered by an unspecified provider.[facility] URINALYSIS W SPECIFIC [id number] 13:31:00* Test Item Value Reference Range Interpretation [...] POCT U APPEAR (test code = 3267) [facility] URINALYSIS W SPECIFIC [id number] 13:31:00* Test Item Value Reference Range Interpretation [...] code = 3259) 1+ Negative - Negat ayndel POCT U GLU (test code = 3256) [...] POCT U APPEAR (test code = 3267) [facility] URINALYSIS W SPECIFIC [id number] 13:31:00* Test Item Value Reference Range Interpretation [...] POCT U APPEAR (test code = 3267) [facility] URINALYSIS W SPECIFIC [id number] 15:16:00* Test Item Value Reference Range Interpretation [...] U APPEAR (test code = 3267) . [facility] URINALYSIS W SPECIFIC [id number] 18:42:00* Test Item Value Reference Range Interpretation [...] U APPEAR (test code = 3267) . [facility] URINALYSIS W SPECIFIC [id number] 18:42:00* Test Item Value Reference Range Interpretation [...] U APPEAR (test code = 3267) . [facility] URINALYSIS W SPECIFIC [id number] 18:42:00* Test Item Value Reference Range Interpretation [...] U APPEAR (test code = 3267) . [facility] URINALYSIS W SPECIFIC [id number] 18:42:00* Test Item Value Reference Range Interpretation [...] U APPEAR (test code = 3267) . [facility] URINALYSIS W SPECIFIC [id number] 18:42:00* Test Item Value Reference Range Interpretation [...] U APPEAR (test code = 3267) . [facility] [id number] 19:54:17 Ordered by an unspecified provider.[facility] CenterFIRST TRIMESTER [id number] 14:30:33Ordered by an unspecified provider. [facility] URINALYSIS W SPECIFIC [id number] 15:04:00* Test Item Value Reference Range Interpretation [...] U APPEAR (test code = 3267) .. [facility]CIFIC [id number] 15:04:00* Test Item Value Reference Range Interpretation [...] U APPEAR (test code = 3267) .. [facility] CenterGAL ONLY - SYPHILIS [id number] 17:33:25* Test Item Value Reference Range Interpretation Comme nts Syphilis IgG/IgM (test code = 74672-1) Non-reactive Non-reactive STAN (test code = STAN) Non-reactive - No serologic evidence of T. pallidum infection. Cannot exclude incubating or early syphilis. Submit a second specimen in 2-4 weeks if syphilis is clinically suspected. Equivocal - Further testing to follow. Reactive - Further testing to follow. Lab Interpretation (test code = 64989-7) Normal [facility] CenterHI 1/2 AG-AB WITH [id number] 13:14:37* Test Item Value Reference Range Interpretation Comme [facility] HIV Semi-quantitative (test code = 26309-5) 0.08 Negative STAN (test code = STAN) Non-reactive for HIV-1 antigen and HIV-1/HIV-2 antibodies. ?No laboratory evidence of HIV infection. ?Repeat in 2-4 weeks if acute HIV infection is suspected. [facility]HCV [id number] 11:37:46* Test Item Value Reference Range Interpretation Comme nts HCV Ab (test code = 91978-4) Negative HCV Semi-Quantitative (test code = 70204-7) 0.01 [facility] CenterHEPATITIS B SURFACE [id number] 11:20:42 * Test Item Value Reference Range Interpretation Comme nts HBsAg Semi-Quantitative (delilah t code = 5195-3) 0.05 Negative [facility] CenterGlucose 1 Hour Post [id number] 08:48:42* Test Item Value Reference Range Interpretation Comme nts GLUC 1 HR (test code = 1230191020) 111 mg/dL 120-170 L Lab Interpretation (test cod e = 59871-0) Abnormal [facility] CenterCB WITH [id number] 05:37:05* Test Item Value Reference Range Interpretation [...] 33.1 g/dL 31.6-35.1 RDW-SD (test code = 43035-9) 43.0 fL 39.0-49.9 RDW-CV (test code = 788-0) 11.8 % 12.0-15.5 L PLT (test code = 777-3) 369 166-358 H MPV (test code = 48614-5) 9.2 fL 9.5-12.9 L NRBC/100 WBC (test code = 0617437890) 0.0 0.0-10.0 NRBC x10^3 (test code = 0752954536) See_Comment [Automated messa ge] The system which generated this result transmitted reference range: 10*3/?L. The reference range was not used to interpret this result as normal/abnormal. GRAN MAT (NEUT) % (test code = 770-8) 57.4 % IMM GRAN % (test code = 5013778687) 0.50 % LYMPH % (test code = 736-9) 27.4 % MONO % (test code = 5905-5) 7.1 % EOS % (test code = 713-8) 6.5 % BASO % (test code = 706-2) 1.1 % GRAN MAT x10^3(ANC) (test code = 2307037483) 4.66 10*3/uL 1.88-7.09 IMM GRAN x10^3 (test code = 8311432700) 0.04 10*3/uL 0.00-0.06 LYMPH x10^3 (test code = 731-0) 2.23 10*3/uL 1.32-3.29 MONO x10^3 (test code = 742-7) 0.58 10*3/uL 0.33-0.92 EOS x10^3 (test code = 711-2) 0.53 10*3/uL 0.03-0.39 H BASO x10^3 (test code = 704-7) 0.09 10*3/uL 0.01-0.07 H Lab Interpretation (test code = 99480-5) [facility] [id number] 05:10:00 * Test Item Value Reference Range Interpretation Comme nts ABO & RH (test code = 20) A POSITIVE IAT (test code = 1185) Negative [facility] Urinalysis w/o Specific [id number] 16:33:00* Test Item Value Reference Range Interpretation [...] = 3257) Neg Negative - Negati ve [facility] [id number] 16:31:00* Test Item Value Reference Range Interpretation Comme nts POCT PREG (test code = 1605) Positive On board controls acceptable with C Line (test code = 3574) Yes POCT PREG LOT # (test code = 3575) POCT PREG TEST DATE ( test code = 3576) [facility] [id number] 21:33:00* Test Item Value Reference Range Interpretation Comme nts POCT PREG (test code = 1605) Negative On board controls acceptable with C Line (test code = 3574) Yes POCT PREG LOT # (test code = 3575) [id number] POCT PREG TEST DATE ( test code = 3576) 04/27/2024 Lab Interpretation (test cod e = 93654-0) Normal [facility] SARS-COV-2 ANTIGEN (BINAX NOW)2022-10-18 14:41:00* Test Item Value Reference Range Interpretation Comme nts POCT SARS-COV-2 ANTIGEN (delilah t code = 39776-6) Not Detected Not Detected On board controls acceptable with C Line (test code = 3574) Yes [facility] [id number] 19:13:00* Test Item Value Reference Range Interpretation Comme nts POCT PREG (test code = 1605) Negative On board controls acceptable with C Line (test code = 3574) Yes POCT PREG LOT # (test code = 3575) POCT PREG TEST DATE ( test code = 3576) [facility] History and Physical Notes Date/Time [...] Sofia MD; Location: Labor and Delivery - [place] SECTION N/A 07/22/2020 Surgeon: Benja Newman MD; Location: Labor and Delivery - [place] OTHER 08/21/2020 hernia removal Prior surgeries at [...] yes - normal Gross ROM - no Pipe Organ Builder pelvic exam performed? No Extremities: no clubbing, [...] with BTL HEART RATE 140 cat 2 [place]: irritability. ASSESSMENT AND PLAN 33 year old [...] repeat CS in needed. Ella Biswas MD [facility] 2023-10-12 15:58:23 TRIAGE HISTORY & PHYSICAL IDENTIFYING [...] MD; Location: Labor and Delivery - [place] SECTION N/A 07/22/2020 Surgeon: Benja Newman MD; Location: Labor and Delivery - [place] OTHER 08/21/2020 hernia removal Past Medical History: [...] x 3 - posterior placenta care at [facility]. Anatomy scan on 09/27/23 without obvious abnormalities but some suboptimal views; has follow-up ultrasound Stable for discharge home with strong precautions and follow-up with OB as scheduled unless clinically indicated otherwise Rene Lamb MD 10/12/2023 4:52 PM [facility] Procedure Notes Date/Time Note Provider Source 2024-01-15 [...] 21 Number of attempts at approach: 1 [facility] Notes Date/Time Note Provider Source 2024-01-17 16:40:59 Problem: Falls, Risk of Goal: Absence of falls 01/17/20241639 by Yahaira Francois RN Outcome: Resolved 01/17/2024 0830 by Yahaira Francois RN Outcome: Progressing as expected Problem: Discharge Planning - Goal: Adequate for discharge 01/17/20241639 by Yahaira Francois RN Outcome: Resolved 01/17/2024 08 by Yahaira Francois RN Outcome: Progressing as expected Goal: Mood stable 01/17/2024 1640 by Yahaira Francois RN Outcome: Resolved 01/17/2024 08 by Yahaira Francois RN Outcome: Progressing as expected Problem: Skin integrity Impaired (Risk or Actual) Goal: Wound healing 01/17/20241639 by Yahaira Francois RN Outcome: Resolved 01/17/2024 0830 by Yahaira Francois RN Outcome: Progressing as expected Goal: Prevention of new skin breakdown 01/17/20241639 by Yahaira Francois RN Outcome: Resolved 01/17/2024 08 by Yahaira Francois RN Outcome: Progressing as expected Problem: Infection Risk Goal: Absence of infection 01/17/20241639 by Yahaira Francois RN Outcome: Resolved 01/17/2024 08 by Yahaira Francois RN Outcome: Progressing as expected HT Yahaira Francois RN [facility] 2024-01-17 09:33:39 This note was copied from [...] time. Mom instructed on how to contact Scouring Machine Tender for assistance with feedings or to answer questions while in the hospital. Mom verbalized understanding. AZUL Holbrook, RN, IBCLC Mercedes Sim RN [facility] 2024-01-17 08:30:17 Problem: Falls, Risk of Goal: [...] Absence of infection Outcome: Progressing as expected [facility] 2024-01-16 19:07:26 Problem: Falls, Risk of Goal: [...] Outcome: Progressing as expected Michelle Rivas RN [facility] 2024-01-16 15:13:41 Problem: Intrapartum process (including labor [...] Goal: Absence of falls 01/16/20243 by Krissy Gole RN Outcome: Progressing as expected 01/16/2024823 by Krissy Goel RN Outcome: Progressing as expected 01/16/2024823 by Krissy Goel RN Outcome: Progressing as expected Problem: Discharge Planning - Goal: Adequate for discharge 01/16/2024 1513 by Krissy Goel RN Outcome: Progressing as expected 01/16/2024823 by Krissy Goel RN Outcome: Progressing as expected 01/16/2024823 by Krissy Goel RN Outcome: Progressing as expected Goal: Mood stable 01/16/2024 151 by Krissy Goel RN Outcome: [...] Outcome: Progressing as expected Krissy Goel RN [facility] 2024-01-16 14:36:41 Images from the original note [...] is not having the minimums, call your application development consultant for evaluation of your situation and advice. [...] (45-60 ml) Month 1 Size of a jena (80-150 ml) Supplementation: Rarely is there a [...] life, after is going well. Then your application development consultant may recommend the use of a pacifier [...] signs, seek medical attention immediately Handouts given [place] Scouring Machine Tender Observation Reported Position right side Cradle; latched [...] formula;Offer both breasts prior to formula supplementation;Frequent kedh-rh-lkbq time with parents;Pump/hand express minimum 8 times in 24 hours including nights. Pump for 15-25 min. OTHER $ SERVICES Initial Mercedes LIANG, RN, IBCLC [facility] 2024-01-16 08:25:16 Problem: Falls, Risk of Goal: Absence of falls 01/16/2024823 by Krissy Goel, RN Outcome: Progressing as expected 01/16/2024823 by Krissy Goel, RN Outcome: Progressing as expected Problem: Discharge Planning - Goal: Adequate for discharge 01/16/2024823 by Krissy Goel RN Outcome: Progressing [...] Krissy Goel RN Outcome: Progressing as expected [facility] [employer] 2024-01-15 20:16:01 Problem: Intrapartum process (including labor [...] Absence of infection Outcome: Progressing as expected [facility] 2024-01-15 07:29:06 Problem: Intrapartum process (including labor [...] Outcome: Progressing as expected Rosy Peña RN [facility] 2024-01-15 06:11:14 Patient: Jenna Asher Procedure Summary Date: 01/15/24 Room / Location: [address] LABOR AND DELIVERY OR LOCATION Anesthesia [...] status: acceptable Hydration status: acceptable AN-ANESTHESIOLOGY ANESTHESIOLOGIST [facility] 2024-01-15 04:33:08 Delivery Date: 01/15/2024 Delivery Time: 3:48 AM DELIVERY BY SECTION Date of Service: : 01/15/2024 at 3:48 AM Admitted for: labor, previous CS x3, FHRA, Repeat Lower uterine transverse section with no extension, BL salpingectomy, Pfannenstiel, Closed with 0- vicryl, EBL 0 450 cc, No complications, Findings: PTLFC, Large uterine window extended through entire previous scar Delivery Summary Sex: female [place] Weight: 2390 g 1 Minute 5 Minute [...] by lateral traction from the surgeon's and imaging assistant's hand. Delivery A bladder flap was [...] aid of fundal pressure applied by the assistant athletic trainer surgeon . The body was delivered with [...] time of operative note entered. Please see [facility] for update. The placenta was not sent to pathology. [facility] 2024-01-15 03:08:27 Name/ MRN / Age / Gender: Jenna Asher, [id number] 33 year old female BMI: Estimated body [...] Faculty, Ob Procedure: SECTION (Abdomen) OR Location: [facility] LABOR AND DELIVERY OR LOCATION Anesthesia Preop Eval (physical exam) Anesthesia Preop: Ecui-kd-Duno and Chart Review NPO Status Verified Not NPO-urgent/emergent surgery Anesthesia History Anesthesia History Negative Previous Anesthetics/Airways Cardiovascular Pulmonary (+) Asthma Neuro/Musculoskeletal Comments: Blood alcohol content of 167. GI/Hepatic Comments: Active nausea and vomiting. 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 Hold on DOS. Phentermine: Alert [facility] anesthesiologist SGLT2 Inhibitors: "gliflozins" to be held [...] Sofia MD; Location: Labor and Delivery - [place] SECTION N/A 07/22/2020 Surgeon: Benja Newman MD; Location: Labor and Delivery - [place] OTHER 08/21/2020 hernia removal Anesthesia Physical Exam [...] induction Anesthesia plan discussed with: patient or personal service representative Post-Operative Analgesia: routine analgesia & antiemetics Recovery [...] surgery. Aminata Childs MD 01/15/2024 3:12 AM [facility] 2024-01-10 15:02:35 Called pt, left vm advising date of induction. Verbalized understanding. Christine Sky RN 01/10/24 3:02 PM T [facility] 2024-01-10 11:40:54 Jenna Asher is a 33 year old female calling to verify Induction date. Please contact patient at [phone] (home) Marlena Sweeney [facility] 2024-01-05 08:38:40 Noted. T [facility] 2024-01-05 08:20:20 Spoke with patient and talked to Shanique [facility] blas and she worked the case. Left message for patient to contact clinic. Jimmy Carr [facility] 2024-01-03 15:16:41 Jenna Asher is a 33 year old female calling requesting to talk with the front end manager she just got off phone with [phone] and they stated that they did not received paperwork for the work from on 12/28 and calling to verify the status of paperwork. Please contact patient at [phone] (home) Marlena Sweeney [facility] 2023-12-14 09:47:43 Pt called, reports lost mucous [...] understanding. Christine Sky RN 12/14/23 9:49 AM [facility] 2023-12-14 09:44:19 Jenna Asher is a 33 year old female Pt called to speak to nurse, states she lost her mucus plus this morning at 8am. Please advise T Hunter Carvalho [facility] 2023-12-13 16:48:52 Promethazine refill sent [facility] 2023-12-13 15:03:37 Informed patient refills for prenatals were available at pharmacy. Informed will route to provider for refills on promethazine. [facility] 2023-12-13 13:43:02 Pt requesting update on previous request for nausea medications. Also made request for her prenatals, has gotten no response. Please F/u Solomon Sky [facility] 2023-11-29 11:55:33 Pt given printed and verbal discharge instructions regarding acute cough, encouraged hydration, Prescriptions provided Pt verbalized understanding of instructions, pt awake alert oriented, resp reg unlabored, skin w/d, color appropriate for race, moves all ext well,pt encouraged to follow up with pcp and cheese processor. Advised to seek medical attention for new/prolonged/worsening of symptoms No adverse reaction to meds given in ER noted upon discharge Awake, alert oriented, resp reg unlabored, skin w/d, pt leaving amb with steady gait, in no apparent distress, Yaquelin Simon RN [facility] 2023-11-29 11:08:28 Nurse Report Report given to MAI Jamison. Chief complaint, assessment findings, and orders reviewed. Plan of care discussed with both nurses. Reena Willard RN Reena Willard RN [facility] 2023-11-29 10:18:22 Patient c/o cough, nausea, vomiting, and diarrhea. Symptoms started over the weekend. Ferny Carreon RN [facility] 2023-11-29 10:16:00 [facility] Emergency Department Note Patient Name: Jenna Asher Date of : 1990 33 year old female Treatment Room: [place] [address] Primary Care Physician: PATIENT DOES NOT HAVE A PCP Patient Escorted by: Self [9] Mode of Arrival: Personal means [1] EMS Treatment Prior to ED Arrival: RESUME WRITER treatment: None Travel and Exposure Screening: Symptoms [...] Sofia MD; Location: Labor and Delivery - [place] SECTION N/A 07/22/2020 Surgeon: Benja Newman MD; Location: Labor and Delivery - [place] OTHER 08/21/2020 hernia removal Review of Systems: [...] will follow-up with the results on the [employer] leann. She was given a list of [...] by: Chely Franklin DO 11/29/23 1154 T [facility] 2023-11-25 14:46:43 Notes adjusted for upcoming pnv. Evelyn Cummings [facility] 2023-11-24 20:29:00 Regardinyof 29weeks cough ----- Message from Nicole Av Sheldon sent at 11/24/2023 8:26 PM CDT ----- Jenna Asher is a 33 year old female Patient is having a lingering cough Yahaira Hale RN [facility] 2023-11-24 20:29:00 Triage Assessment Last Clinic Visit: [...] also present Protocols used: Cough - Acute Mnp-Mwcexxstxg-RRKLS- [facility] SAFE OVER THE COUNTER [...] Cough Drops- Mucinex Vitamin C Robitussin (Plain) [place] Benadryl Honey Zyrtec (No Zinc Lozenges) Claritin Nasal Saline Clary Gerry's Vapor Rub Constipation Increase fluids (water and juice) Milk of Magnesia Benefiber Metamucil Dulcolax FiberCon Docusol Fiber Choice Colace Citrucel Correctol Miralax Diarrhea Avoid milk or milk products. Don't eat 4-6 hours, then drink clear liquids. (broth, apple juice) B.R.A.T.T. Diet (Bananas, Rice, Applesauce, [place], Tea) Imodium Kaopectate Gas Avoid spicy or [...] Hot Tea (Honey) Tylenol Sore Throat Chloraseptic [place] Cepacol [place] Cough Drops Listed Abo [facility] 2023-11-23 18:11:55 Jenna Asher is a 33 year old female Patient is wanting to know if she can do her glucose and ultrasound this Tuesday please assist with appointments Nicole Sheldon [facility] 2023-10-12 14:08:41 Patient arrived ambulatory with family c/o of water breaking last night and now having contractions.. 24 weeks . . Valerie Membreno Gave report to Agata RN L&D Roslyn Aguilera RN [facility] 2023-08-12 16:12:21 Called patient, notified positive for BV. Educated patient on antibiotics, daily probiotics, and BV prevention measures. Pt verbalized understanding. CHRISTINE Sky RN 08/12/2023 4:12 PM [facility] 2023-08-12 16:06:50 Please notify the patient her labs are indicative of BV, meds have been sent to her pharmacy on file. Please have her complete the entire course as prescribed. RINA Gutierrez 08/12/2023 4:06 PM [facility] 2023-08-12 08:30:00 Images from the original note were not included. Venipuncture collection performed by clean technique on the right anticubitus. Total of 1 attempts were made. Slight pressure and a bandage/dressing were applied to the site(s). The patient experienced no complications. The following specimens were processed according to instructions and sent to [facility] laboratories per lab order on 08/12/23: LT BLUE SST 1 RED LAV PPT DK GREEN (LiHep) DK GREEN (SodH) RIVERA DK BLUE (K2) DK BLUE (S) ACD Blood Culture NIPT/NTD [facility] 2023-08-10 13:30:00 Addended by: OVIDIO NORMAN on: 08/10/2023 03:51 PM Modules accepted: Orders [facility] 2023-08-10 11:09:11 Pt called, reports vaginal bleeding x 1, reports spotting at this time. Denies cramping, fever, or soaking more than 1 pad an hour. Reports last intercourse 2+ weeks ago. Pt requesting evaluation, pt scheduled. Strict er warnings given. Verbalized understanding. Christine Sky RN 08/10/23 11:10 AM [facility] 2023-08-10 11:04:43 Copied from [facility] #[id number]. Topic: Clinical - Medical Advice >> Aug 10, 2023 11:03 AM Patient Winding Inspector And Tester wrote: [facility] 33y/f 15wks just had blood clot come out when using bathroom, pinkish bleeding [id number] Nina Angel [facility] 2023-07-06 10:50:58 Jenna Asher is a 33 year old female Pt is calling requesting orders for ultrasound. Man Jackson [facility] 2023-06-30 15:51:07 Noted. ITAL AIDES AND ASSISTANTS TEACHER [facility] 2023-06-30 15:38:16 Patient stating she got a call and was told she has [facility] Medicaid. Patient calling to see if she can get an order for ultrasound . Spoke with Shanique , patient does not have medicaid at this time. . Patient will wait a few days then call back to see if we can then verify coverage for order. ITAL AIDES AND ASSISTANTS TEACHER Bety Hatfield [facility] 2023-06-30 13:15:54 Copied from [facility] #[id number]. Topic: Appointment - Schedule Appointment >> Jun 30, 2023 1:13 PM Patient Winding Inspector And Tester wrote: Jenna Asher is a 33 year old female Pt is requesting call back to discuss scheduling ultrasound and states she has been approve for Ins Pt can be reached at [phone] Thank you ITAL AIDES AND ASSISTANTS TEACHER Basilio Mariee [facility] 2023-06-24 07:45:42 Patient informed of results and new orders, verbalized understanding. [facility] 2023-06-24 07:41:44 Please call patient and let her know she has GBS UTI and I erx ampicillin to the pharmacy. [facility] 2023-01-03 16:23:16 Formatting of this n ote might be different from the original. Called pt, no answer, left a message. Jina Neville 01/03/2023 4:23 PM Jina Neville [facility] 2022-12-22 12:48:58 Formatting of this n ote might be different from the original. Patient calling to schedule ER follow up appoint patient has Ovarian cyst-right ovary. Please call back Melissa Thibodeaux [facility] 2022-12-21 21:01:33 Formatting of this n ote [...] in no apparent distress. Venice Stovall RN [facility] 2022-12-21 18:27:35 Formatting of this n ote might be different from the original. Pt arrived via private car with c/o "a lump on my stomach" located to her RLQ. States that it appeared prior to her period. Alycia Amaro RN [facility] 2022-12-21 18:23:00 Formatting of this n ote is different from the original. [facility] Emergency Department Note Patient Name: Jenna Asher Date of : 1990 32 year old female Treatment Room: Room/bed info not found Primary Care Physician: Tanesha Franklin Patient Escorted by: Self [9] Mode of Arrival: Personal means [1] EMS Treatment Prior to ED Arrival: RESUME WRITER treatment: None Travel and Exposure Screening: Symptoms [...] today but had to leave to go seed cone picker her children and now returns. She does [...] Sofia MD; Location: Labor and Delivery - [place] SECTION N/A 07/22/2020 Surgeon: Benja Newman MD; Location: Labor and Delivery - [place] OTHER 08/21/2020 hernia removal Review of Systems: [...] 65.8 kg (145 lb) Actual or estimated 12/21/22 182 Estimated by patient/family report Height -- BP [...] today but had to leave to go seed cone picker her children. Vital signs are stable here [...] ovarian cyst. Will need to f/u with cigar maker. She remains stable here in the EC [...] Not Have A Relationship: PCP - General [address] [place] [id number] Electronically signed by: Chely Franklin DO 12/21/[id number] [facility] 2022-12-21 16:52:55 Formatting of this n ote [...] noted, GCS 15, A&Ox4. Ellie Crocker RN [facility] 2022-12-21 16:45:00 Formatting of this n ote might be different from the original. Pt requesting to leave to go seed cone picker her children from daycare. Notified pt that we would have to take her IV out and sign her out AMA. Educated on risks of leaving. Pt stated she was going to go seed cone picker her kids and then come back and sign in again. [facility] 2022-12-21 16:21:45 Formatting of this n ote might be different from the original. Pt arrived via private car with c/o pain to her right lower quad where there is a knot. States that the knot was there prior to her period. Alycia Amaro RN [facility]
--- NOTE | 2024-08-16 07:40 | EDPHYS ---
Physician Documentation [facility] Name: Jenna Asher Age: 34 yrs Sex: Female : 1990 Arrival Date: 08/16/2024 Time: 07:09 Bed 13 Private MD: JADE Physician Agapito Sheldon HPI: 08/16 07:32 This 34 yrs old Female presents to ER via Ambulatory with complaints of lata Abdominal Pain. 07:32 The patient presents with abdominal pain right lower quadrant. Onset: The lata symptoms/episode began/occurred 2 day(s) ago. The symptoms do not radiate. Associated signs and symptoms: none. Modifying factors: The symptoms are alleviated by nothing. The patient has not experienced similar symptoms in the past. 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 - Infectious Disease History:: Denies. - Social history:: Smoking status: Patient denies any tobacco usage or history of. ROS: 07:33 Constitutional: Negative for fever, chills, and weight loss, Eyes: Negative for injury, lata pain, redness, and discharge, ENT: Negative for injury, pain, and discharge, Neck: Negative for injury, pain, and swelling, Cardiovascular: Negative for chest pain, palpitations, and edema, Respiratory: Negative for shortness of breath, cough, wheezing, and pleuritic chest pain, Back: Negative for injury and pain, : Negative for injury, bleeding, discharge, and swelling, MS/Extremity: Negative for injury and deformity, Skin: Negative for injury, rash, and discoloration, Neuro: Negative for headache, weakness, numbness, tingling, and seizure, Psych: Negative for depression, anxiety, suicide ideation, homicidal ideation, and hallucinations, Allergy/Immunology: Negative for hives, rash, and allergies, Endocrine: Negative for neck swelling, polydipsia, polyuria, polyphagia, and marked weight changes, Hematologic/Lymphatic: Negative for swollen nodes, abnormal bleeding, and unusual bruising, 07:33 Abdomen/GI: Positive for abdominal pain, of the right lower quadrant, Exam: 07:34 Constitutional: This is a well developed, well nourished patient who is awake, alert, lata and in no acute distress. Head/Face: Normocephalic, atraumatic. Eyes: Pupils equal round and reactive to light, extra-ocular motions intact. Lids and lashes normal. Conjunctiva and sclera are non-icteric and not injected. Cornea within normal limits. Periorbital areas with no swelling, redness, or edema. ENT: Nares patent. No nasal discharge, no septal abnormalities noted. Tympanic membranes are normal and external auditory canals are clear. Oropharynx with no redness, swelling, or masses, exudates, or evidence of obstruction, uvula midline. Mucous membranes moist. Neck: Trachea midline, no thyromegaly or masses palpated, and no cervical lymphadenopathy. Supple, full range of motion without nuchal rigidity, or vertebral point tenderness. No Meningismus. Chest/axilla: Normal chest wall appearance and motion. Nontender with no deformity. No lesions are appreciated. Cardiovascular: Regular rate and rhythm with a normal S1 and S2. No gallops, murmurs, or rubs. Normal PMI, no JVD. No pulse deficits. Respiratory: Lungs have equal breath sounds bilaterally, clear to auscultation and percussion. No rales, rhonchi or wheezes noted. No increased work of breathing, no retractions or nasal flaring. Back: No spinal tenderness. No costovertebral tenderness. Full range of motion. Skin: Warm, dry with normal turgor. Normal color with no rashes, no lesions, and no evidence of cellulitis. MS/ Extremity: Pulses equal, no cyanosis. Neurovascular intact. Full, normal range of motion., bilateral aka Neuro: Awake and alert, GCS 15, oriented to person, place, time, and situation. Cranial nerves II-XII grossly intact. Motor strength 5/5 in all extremities. Sensory grossly intact. Cerebellar exam normal. Normal gait. Psych: Awake, alert, with orientation to person, place and time. Behavior, mood, and affect are within normal limits. 07:34 Abdomen/GI: Inspection: abdomen appears normal, Bowel sounds: normal, Palpation: mild abdominal tenderness, in the right lower quadrant, Liver: no appreciated palpable abnormalities, Hernia: not appreciated, Vital Signs: 07:29 BP 138 / 92; Pulse 56; Resp 15; Temp 97.9(O); Pulse Ox 98% on R/A; Weight 68.04 kg; ss Height 5 ft. 2 in. ; Pain 7/10; 12:29 BP 111 / 97; Pulse 63; Resp 16; Temp 98; Pulse Ox 96% ; Pain 5/10; ll1 07:29 Body Mass Index 27.44 (68.04 kg, 157.48 cm) ss 07:29 Pain Scale: Adult ss 12:29 Pain Scale: Adult ll1 MDM: 07:14 Medical Screening Exam initiated [facility] 07:34 Differential diagnosis: appendicitis, Cholelithiasis, non-specific abd pain. Data [facility] reviewed: vital signs, nurses notes, lab test result(s), radiologic studies, CT scan. Consideration of Admission/Observation Escalation of care including admission/observation considered. I considered the following discharge prescriptions or medication management in the emergency department Medications were administered in the Emergency Department. See MAR. Independent interpretation of the following test(s) in the Emergency Department CT Scan: My interpretation is CT ABD PELVIS. Test considered but Not performed: MRI: NOMRI. Historians other than the Patient: PT WELL INFORMED. Care significantly affected by the following chronic conditions: NONE. 08/16 07:15 Order name: CBC with Diff; Complete Time: 08:39 [facility] 08/16 07:15 Order name: CMP [facility] 08/16 07:15 Order name: Lipase lata 08/16 07:15 Order name: Test, Urine; Complete Time: 08:15 [facility] 08/16 07:15 Order name: Urinalysis w/ reflexes; Complete Time: 08:22 [facility] 08/16 10:29 Order name: Basic Metabolic Panel EDMS 08/16 10:29 Order name: Basic Metabolic Panel EDMS 08/16 10:29 Order name: Basic Metabolic Panel EDMS 08/16 10:29 Order name: Basic Metabolic Panel EDMS 08/16 10:29 Order name: CBC with Automated Diff EDMS 08/16 10:29 Order name: CBC with Automated Diff EDMS 08/16 10:29 Order name: CBC with Automated Diff EDMS 08/16 10:29 Order name: CBC with Automated Diff EDMS 08/16 10:29 Order name: Magnesium EDMS 08/16 10:29 Order name: Magnesium EDMS 08/16 10:29 Order name: Magnesium EDMS 08/16 10:29 Order name: Magnesium EDMS 08/16 10:29 Order name: Phosphorus EDMS 08/16 10:29 Order name: Phosphorus EDMS 08/16 10:29 Order name: Phosphorus EDMS 08/16 10:29 Order name: Phosphorus EDMS 08/16 10:29 Order name: CONS Physician Consult EDAK 08/16 07:15 Order name: IV Saline Lock; Complete Time: 07:43 lata 08/16 07:15 Order name: Labs collected and sent; Complete Time: 07:43 [facility] 08/16 07:31 Order name: NPO; Complete Time: 07:43 [facility] 08/16 08:10 Order name: Labs - recollect needed: RECOLLECT LAVENDER AND GREEN per Emani in the ss lab; Complete Time: 08:30 Administered Medications: 08:06 Drug: NS 0.9% IV 1000 ml IV at 1 bolus Per protocol; to be given as a bolus over 60 ll1 minutes Route: IV; Rate: 1 bolus; Site: left forearm; 12:30 Follow up: Response: No adverse reaction; IV Status: Completed infusion; IV Intake: ll1 1000ml 08:06 Drug: Piperacillin-Tazobactam IVPB 3.375 grams IVPB once over 60 mins; (mix in NS 100 ll1 mL) Route: IVPB; Infused Over: 60 mins; Site: left forearm; 12:30 Follow up: Response: No adverse reaction; IV Status: Completed infusion; IV Intake: ll1 100ml 08:06 Drug: Ondansetron IVP 4 mg IVP once; over 2 minutes Route: IVP; Site: left forearm; ll1 12:29 Follow up: Response: No adverse reaction; Nausea is decreased ll1 08:07 Drug: morphine IVP or IV 4 mg IVP once over 4 mins {Note: PAIN 9/10 RASS 0.} Route: ll1 IVP; Infused Over: 4 mins; Site: left forearm; 12:29 Follow up: Response: No adverse reaction; Pain is decreased; RASS: Alert and Calm (0) ll1 10:14 Drug: morphine IVP or IV 4 mg IVP once over 4 mins {Note: RASS 0, pain 6/10.} Route: ll1 IVP; Infused Over: 4 mins; Site: left forearm; 12:29 Follow up: Response: No adverse reaction; Pain is decreased; RASS: Alert and Calm (0) ll1 Disposition Summary: 08/16/24 07:39 Hospitalization Ordered Notes: Hospitalization Status: Observation lata Provider: Jovanni Macias cha Condition: Stable lata Problem: new lata Symptoms: are unchanged lata Bed/Room Type: Standard [facility] Location: [facility] ER HOLD(08/16/24 11:23) kb3 Room Assignment: ERHOLD-(08/16/24 11:23) kb3 Diagnosis - Abdominal pain, unspecified - EQUIVOCAL APPENDICITIS lata Forms: - Medication Reconciliation Form lata - SBAR form lata - Leadership Thank You Letter lata Signatures: Dispatcher [employer] EDAgapito Renteria MD MD cha Blanchard, Shelby, RN RN ss Dallas Daniel RN RN ll1 Saskia Baldwin RN RN kb3 Corrections: (The following items were deleted from the chart) 07:16 07:16 CBC+H.LAB.BRZ ordered. EDMS EDMS 07:16 07:16 COMPREHENSIVE METABOLIC PANEL+C.LAB.BRZ ordered. EDMS EDMS 07:16 07:16 LIPASE+C.LAB.BRZ ordered. EDMS EDMS 07:16 07:16 Test, Urine+UC.LAB.BRZ ordered. EDMS EDMS 07:16 07:16 Urinalysis+U.LAB.BRZ ordered. EDMS EDMS 11:23 07:39 Telemetry/MedSurg (observation) lata kb3 11:23 07:39 lata kb3
--- NOTE | 2024-08-16 07:40 | ER ---
Nurse's Notes [facility] Name: Jenna Asher Age: 34 yrs Sex: Female : 1990 Arrival Date: 08/16/2024 Time: 07:09 Bed 13 Private MD: Diagnosis: Abdominal pain, unspecified-EQUIVOCAL APPENDICITIS Presentation: 08/16 07:29 Chief complaint: Patient states: "They told me I had appendicitis yesterday, but I ss couldn't stay because I had to get my kids from school, so I'm back today." Pt reports she has been experiencing abd pain x 3 days. Coronavirus screen: Client denies travel out of the [place] in the last 14 days. Ebola Screen: Patient denies exposure to infectious person. Patient denies travel to an Ebola-affected area in the 21 days before illness onset. Initial Sepsis Screen: Does the patient meet any 2 criteria? No. Patient's initial sepsis screen is negative. Does the patient have a suspected source of infection? No. Patient's initial sepsis screen is negative. Risk Assessment: Do you want to hurt yourself or someone else? Patient reports no desire to harm self or others. Onset of symptoms was August 13, 2024. 07:29 Method Of Arrival: Ambulatory ss 07:29 Acuity: PORTER 3 Triage Assessment: 12:26 General: Appears in no apparent distress. Behavior is calm, cooperative, appropriate ll1 for age. Pain: Complains of pain in abdomen Pain currently is 5 out of 10 on a pain scale. Quality of pain is described as aching. GI: Reports lower abdominal pain. 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 - Infectious Disease History:: Denies. - Social history:: Smoking status: Patient denies any tobacco usage or history of. Screenin:26 [facility] ED Fall Risk Assessment (Adult) History of falling in the last 3 months, ll1 including since admission No falls in past 3 months (0 pts) Confusion or Disorientation No (0 pts) Intoxicated or Sedated No (0 pts) Impaired Gait No (0 pts) Mobility Assist Device Used No (0 pt) Altered Elimination No (0 pt) Score/Fall Risk Level 0 - 2 = Low Risk Maintained a safe environment, Hourly rounding (assess needs \\T\\ fall precautionary measures) done. Abuse screen: Denies threats or abuse. Nutritional screening: No deficits noted. Tuberculosis screening: No symptoms or risk factors identified. Assessment: 12:27 GI: Bowel sounds present X 4 quads. Abd is soft Abdomen is tender to palpation in right ll1 lower quadrant. Vital Signs: 07:29 BP 138 / 92; Pulse 56; Resp 15; Temp 97.9(O); Pulse Ox 98% on R/A; Weight 68.04 kg; ss Height 5 ft. 2 in. ; Pain 7/10; 12:29 BP 111 / 97; Pulse 63; Resp 16; Temp 98; Pulse Ox 96% ; Pain 5/10; ll1 07:29 Body Mass Index 27.44 (68.04 kg, 157.48 cm) ss 07:29 Pain Scale: Adult ss 12:29 Pain Scale: Adult ll1 ED Course: 07:11 Patient arrived in ED. im 07:14 Agapito Sheldon MD is Attending Physician. lata 07:31 Triage completed. ss 07:31 Arm band placed on right wrist. ss 07:31 Patient has correct armband on for positive identification. Provided Education on: ER ll1 procedures and process. 07:37 Jovanni Macias MD is Hospitalizing Provider. [facility] 07:51 Dallas Daniel RN is Primary Nurse. [facility] 07:51 Inserted saline lock: 22 gauge in left forearm, using aseptic technique. Flushed with ll1 10 mL NS. 08:01 Missed attempt(s): 20 gauge in right Bleeding controlled, band aid applied, catheter am7 tip intact. 12:27 No provider procedures requiring assistance completed. Patient admitted, IV remains in ll1 place. Administered Medications: 08:06 Drug: NS 0.9% IV 1000 ml IV at 1 bolus Per protocol; to be given as a bolus over 60 ll1 minutes Route: IV; Rate: 1 bolus; Site: left forearm; 12:30 Follow up: Response: No adverse reaction; IV Status: Completed infusion; IV Intake: ll1 1000ml 08:06 Drug: Piperacillin-Tazobactam IVPB 3.375 grams IVPB once over 60 mins; (mix in NS 100 ll1 mL) Route: IVPB; Infused Over: 60 mins; Site: left forearm; 12:30 Follow up: Response: No adverse reaction; IV Status: Completed infusion; IV Intake: ll1 100ml 08:06 Drug: Ondansetron IVP 4 mg IVP once; over 2 minutes Route: IVP; Site: left forearm; ll1 12:29 Follow up: Response: No adverse reaction; Nausea is decreased 1 08:07 Drug: morphine IVP or IV 4 mg IVP once over 4 mins {Note: PAIN 9/10 RASS 0.} Route: ll1 IVP; Infused Over: 4 mins; Site: left forearm; 12:29 Follow up: Response: No adverse reaction; Pain is decreased; RASS: Alert and Calm (0) [facility] 10:14 Drug: morphine IVP or IV 4 mg IVP once over 4 mins {Note: RASS 0, pain 6/10.} Route: ll1 IVP; Infused Over: 4 mins; Site: left forearm; 12:29 Follow up: Response: No adverse reaction; Pain is decreased; RASS: Alert and Calm (0) [facility] Medication: 12:29 VIS not applicable for this client. ll1 Intake: 12:30 IV: 100ml; Total: 100ml. ll1 12:30 IV: 1000ml; Total: 1100ml. 1 Outcome: 07:39 Decision to Hospitalize by Provider. lata 12:27 Admitted to OR accompanied by tech, via wheelchair, with chart, Report called to OR 1 tech, verbal BS report 12:27 Condition: stable 12:27 Instructed on the need for admit, 12:30 Patient left the ED. [facility] Signatures: Agapito Sheldon MD MD cha Blanchard, Shelby RN Dallas Echevarria RN RN [facility] Sue Kim Abigail am7
[2024-08-16] MEDS ORDERED: ONDANSETRON 4 MG/2 ML VIAL ONE ×2 (07:55→14:24)
[2024-08-16] MEDS ORDERED: NA CHLORIDE 0.9% 1,000 ML ONE (07:56)
[2024-08-16] MEDS ORDERED: PIPERACIL/TAZO 3.375 GM VIAL IV ONE (07:56)
[2024-08-16] MEDS ORDERED: MORPHINE 4 MG/ML SYR ONE ×2 (07:56→10:10)
[2024-08-16 08:13] LABS: Specific Gravity > 1.030 (1.005-1.030)
[2024-08-16 08:15] LABS: Urine Bacteria None Seen /HPF (<20); Urine Bilirubin 1+ (Negative); Urine Blood Trace (Negative); Urine Clarity Turbid (Clear); Urine Color Yellow (Yellow); Urine Culture Reflex Order NOT NEEDED; Urine Glucose TRACE (Negative); Urine Ketones 1+ (Negative); Urine Microscopic Reflex YN ORDER UMIC; Urine Mucus 4+ /HPF (None Seen); Urine Nitrite NEGATIVE (Negative); Urine Protein 2+ (Negative); Urine Urobilinogen 1+ (Normal); Urine WBC <5 /HPF (<5)
[2024-08-16 08:16] LABS: Specific Gravity > 1.030 (1.005-1.030)
[2024-08-16 08:34] LABS: Absolute Eosinophils 0.2 K/uL (0-0.5); Absolute Lymphocytes (CBC) 1.6 K/uL (0.7-4.9); Absolute Monocytes 0.4 K/uL (0.1-1.3); Absolute Neutrophil 1.3 K/uL (1.8-8.0); Basophils % 1.1 % (0-1.3); Eosinophils % 6.7 % (0-4.4); Hematocrit 34.7 % (36.0-45.0); Hemoglobin 11.6 g/dL (12.0-15.0); Lymphocytes % 44.2 % (15.3-44.8); MCH 28.5 pg (27.0-35.0); MCHC 33.4 g/dL (32.0-36.0); MCV 85.2 fL (80-100); MPV 7.6 fL (7.6-11.3); Monocytes % 11.3 % (3.3-12.3); Neutrophils % 36.7 % (41.7-73.7); Nucleated Red Blood Cells % 0.1 % (0-0); Platelets 177 thou/uL (152-406); RBC Red Blood Cell Count 4.07 M/uL (3.86-4.86); Red Cell Distribution Width 16.1 % (12.1-15.2)
[2024-08-16 08:53] LABS: Albumin 3.2 g/dL (3.4-5.0); Albumin/Globulin Ratio 0.8 (1.1-1.8); Anion Gap 8.2 mEq/L (5.0-15.0); Bilirubin Total 0.5 mg/dL (0.2-1.0); Potassium 3.2 mEq/L (3.5-5.1); Protein, Total 7.2 g/dL (6.4-8.2)
--- NOTE | 2024-08-16 10:02 | P.HP ---
Certification for Inpatient Patient admitted to: Observation With expected LOS: <2 Midnights Patient will require the following post-hospital care: None Practitioner: I am a practitioner with admitting privileges, knowledge of patient current condition, hospital course, and medical plan of care. Services: Services provided to patient in accordance with Admission requirements found in Title 42 Section 412.3 of the Code of Federal Regulations Patient History Date of Service: 08/16/24 Reason for admission: Acute appendicitis History of Present Illness: Jenna Asher is a 34 year old female with pmhx of asthma who presents to the ED with RLQ pain for three days that has been worsening with N/V/D and radiating to the LLQ. She presented to the ED yesterday 08/15 but could not stay d/t having her children at home. She presents today now that her responsibilities have been arranged. Laboratory evaluation significant for H&H , potassium 3.2, AST 59, ALT 86, lipase 92, UA negative for infectious process, negative. CT abdomen pelvis reports "No definite acute findings within the abdomen or pelvis. Prominent retroileal appendix with diameter of 9 mm but no appreciable periappendiceal inflammatory changes or appendicolith. This is equivocal for acute appendicitis. Correlate clinically." Transvaginal ultrasound reports "No acute abnormality identified. Bilateral ovarian blood flow." Jenna will be admitted to hospitalist service for further evaluation and treatment of equivocal versus acute appendicitis. Allergies azithromycin [From Zithromax] Allergy (Verified 08/20/20 14:59) Hives/Rash Home Medications: NK [No Home Meds] 08/16/24 - Past Medical/Surgical History -: asthma -: section -: Ligation of fallopian tubes -: umbilical hernia - Family History Family History: Reviewed- Non-Contributory - Social History Smoking Status: Former smoker Alcohol use: No CD- Drugs: No Review of Systems Other: Per HPI Physical Examination - Physical Exam General: Alert, In no apparent distress, Oriented x3 HEENT: Atraumatic, Normocephalic, PERRLA Neck: Supple, 2+ carotid pulse no bruit Respiratory: Clear to auscultation bilaterally, Normal air movement Cardiovascular: Normal pulses, Regular rate/rhythm, Normal S1 S2 Capillary refill: <2 Seconds Gastrointestinal: Soft and benign, Other (Palpable right inguinal hernia) Musculoskeletal: No clubbing Integumentary: No rashes Neurological: Normal speech, Normal tone - Studies Laboratory Data (last 24 hrs) 08/16/24 08/16/24 08:25 08:25 WBC 3.60 L Hgb 11.6 L Hct 34.7 L Plt Count 177 Sodium 136 Potassium 3.2 L BUN 8 Creatinine 0.83 Glucose 100 Total Bilirubin 0.5 AST 59 H ALT 86 H Alkaline Phosphatase 86 Lipase 92 H Assessment and Plan - Plan Assessment and plan Equivocal versus acute appendicitis Abdominal pain associated with nausea/vomiting/diarrhea History of umbilical hernia repaired with mesh - Consult , surgery today - Pain control - Continue IV Zosyn - Gentle IV fluids - NPO prior to surgery, CLD post op Hypokalemia secondary to nausea/vomiting/diarrhea - Replace as needed - Continue to monitor Transaminitis - Gentle IV fluid - monitor in AM labs DVT PPx SCDs Full code LOS 24-hour OBS Discharge Plan: Home Plan to discharge in: 24 Hours - Advance Directives Does patient have a Living Will: No Does patient have a Durable POA for Healthcare: No
[2024-08-16] MEDS ORDERED: ACETAMINOPHEN 325 MG TABLET PO PRN (10:23)
[2024-08-16 12:21] VITALS: BMI 27.3
[2024-08-16] MEDS: Ringers Lactate 1,000 ML IV ONE (12:35)
[2024-08-16] MEDS ORDERED: propofoL 200 MG/20 ML VIAL IV ONE (13:42)
[2024-08-16] MEDS ORDERED: LIDOCAINE 2% MPF 5 ML VIAL ONE (13:42)
[2024-08-16] MEDS ORDERED: FENTANYL CITR 100 MCG/2 ML ONE ×2 (13:42→14:34)
[2024-08-16] MEDS ORDERED: ROCURONIUM 50 MG/5 ML VIAL IV ONE (13:43)
[2024-08-16] MEDS ORDERED: MIDAZOLAM HCL 2 MG/2 ML INJ ONE (13:43)
[2024-08-16] MEDS ORDERED: EPHEDRINE SULF 50 MG/ML VIAL ONE (14:12)
[2024-08-16] MEDS: LIDOCAINE HCL/EPINEPHRINE 20 ML MDV ONE (14:23)
[2024-08-16] MEDS ORDERED: dexAMETHasone 4 MG/ML VIAL ONE (14:24)
[2024-08-16] MEDS ORDERED: KETOROLAC 30 MG/ML INJ ONE (14:24)
--- NOTE | 2024-08-16 14:56 | P.OP ---
Preoperative diagnosis: Appendicitis Postoperative diagnosis: Appendicitis Primary procedure: Laparoscopic Appendectomy Anesthesia: GETA + Local Estimated blood loss: <5cc Specimen: Appendix Findings: Dilated Appendix, adhesions of omentum to prior mesh Complications: None Transferred to: Recovery Room Condition: Good
[2024-08-16] MEDS ORDERED: GLYCOPYRROLATE 0.2 MG/ML SYR ONE (14:58)
[2024-08-16] MEDS: Ringers Lactate 500 ML IV ONE (15:25)
[2024-08-16 15:42] VITALS: O2SAT 93
[2024-08-16] MEDS: ONDANSETRON 4 MG/2 ML VIAL IV PRN (15:59)
[2024-08-16] MEDS: NA CHLORIDE 0.9% 1,000 ML IV SCH (15:59)
--- NOTE | 2024-08-16 16:14 | OP ---
Date of Procedure: 08/16/2024 Surgeon: Jose Raul Dawn MD, Preoperative Diagnosis: Acute appendicitis. Postoperative Diagnosis: Acute appendicitis. Procedure Performed: Laparoscopic appendectomy. Anesthesia: General endotracheal plus local with 1% lidocaine with epinephrine. Estimated Blood Loss: Less than 5 cc. Specimen: Appendix. Findings: 1. Dilated appendix. 2. Adhesions of omentum to prior mesh. 3. Right inguinal hernia. 4. Fatty steatosis of the liver. 5. Dense adhesions between the uterus and the anterior abdominal wall. 6. Multiple intraabdominal adhesions were noted. Complications: None. Disposition: The patient transferred to recovery room in good condition. Procedure In Detail: After informed consent was obtained, the patient was brought to the operating r oom, prepped and draped in the usual sterile fashion after adequate anesthesia was achieved. I anest hetized an area in the infraumbilical position down to subcutaneous tissues. A 5-mm 0-degree optical trocar was introduced into the abdomen without incident or complication. Insufflation was obtained to 15 mmHg, at this time. No injury to vital structures upon entry into the abdomen. Two additional trocars were placed, one in the right lower quadrant, one in the epigastric region. All of these we re similarly anesthetized, sharply incised. A 5 mm trocar was placed under direct vision without inc ident or complication. All trocars were then upsized to a 12 mm under direct visualization without i ncident or complication. At this point, I proceeded to position the patient with the head down right side up position. Ratcheted grasper was used to grasp the patient's appendix. Mesoappendiceal wind ow was created using a [place] retractor. Endo-DAVID 45 purple load fired across the base of the appe ndix. There was good approximation of tissues. I then used LigaSure to remove the mesoappendix down completely and the appendix was placed in EndoCatch bag and removed through the umbilical trocar sit e, sent off for pathologic examination. The abdomen was reinsufflated, at this point. The area was copiously irrigated, suctioned out completely dry. No hemostatic measures were required. The pelvis was irrigated as well, at this point, and suctioned out until completely dry. The findings includin g hernias and other findings as noted above were unchanged throughout the procedure. At this point, the abdomen was desufflated slightly and I closed the 12 mm trocar site using a [place] sutur e passer with an 0 Vicryl in an interrupted fashion with good approximation of tissues. The abdomen was desufflated under direct visualization without incident or complication. Remainder of trocars we re removed. All skin incisions were then copiously irrigated and closed with a 4-0 Monocryl in a run skip fashion. Dermabond was placed over top. The patient tolerated the procedure without incident o r complication, transferred to PACU in good condition. All counts were correct at the end of the rajinder e. TK/MODL Voice ID: [id number] Report ID: [id number]
[2024-08-16] MEDS: PIPER TAZO 3.375 GM in NA CHLORIDE 0.9% 100 ML IV SCH (16:31)
[2024-08-16] MEDS: HYDROCODONE/APAP 5/325 MG TAB PO PRN (17:33)
[2024-08-16] MEDS: POTASSIUM 25 MEQ EFFERV TAB PO ONE (17:33)
[2024-08-17 04:58] LABS: Absolute Lymphocytes (CBC) 1.1 K/uL (0.7-4.9); Absolute Monocytes 0.6 K/uL (0.1-1.3); Absolute Neutrophil 6.5 K/uL (1.8-8.0); Basophils % 0.3 % (0-1.3); Eosinophils % 0.4 % (0-4.4); Hematocrit 26.9 % (36.0-45.0); Lymphocytes % 13.2 % (15.3-44.8); MCH 29.1 pg (27.0-35.0); MCHC 33.5 g/dL (32.0-36.0); MCV 86.8 fL (80-100); Monocytes % 7.1 % (3.3-12.3); Platelets 141 thou/uL (152-406)
[2024-08-17 05:32] LABS: Anion Gap 6.4 mEq/L (5.0-15.0); Magnesium 1.7 mg/dL (1.6-2.4); Phosphorus 2.7 mg/dL (2.5-4.9); Potassium 4.4 mEq/L (3.5-5.1)
[2024-08-17] MEDS: MAGNESIUM SULFATE 1 gm IVPB 1 GM/100 ML BAG IV ONE (06:24)
--- NOTE | 2024-08-17 09:47 | P.DS ---
Admission Date: 08/16/24 Discharge Date: 08/17/24 Disposition: ROUTINE DISCHARGE Discharge Condition: GOOD Reason for Admission: Acute appendicitis Brief History of Present Illness: Diagnosis Acute appendicitis s/p laparoscopic appendectomy Abdominal pain associated with nausea/vomiting/diarrhea History of umbilical hernia repaired with mesh Hypokalemia secondary to nausea/vomiting/diarrhea Transaminitis HPI 08/16/24 Jenna Asher is a 34 year old female with pmhx of asthma who presents to the ED with RLQ pain for three days that has been worsening with N/V/D and radiating to the LLQ. She presented to the ED yesterday 08/15 but could not stay d/t having her children at home. She presents today now that her responsibilities have been arranged. Laboratory evaluation significant for H&H , potassium 3.2, AST 59, ALT 86, lipase 92, UA negative for infectious process, negative. CT abdomen pelvis reports "No definite acute findings within the abdomen or pelvis. Prominent retroileal appendix with diameter of 9 mm but no appreciable periappendiceal inflammatory changes or appendicolith. This is equivocal for acute appendicitis. Correlate clinically." Transvaginal ultrasound reports "No acute abnormality identified. Bilateral ovarian blood flow." Jenna will be admitted to hospitalist service for further evaluation and treatment of equivocal versus acute appendicitis. Hospital Course: Jenna was admitted and treated for acute appendicitis and hypokalemia. CT abdomen pelvis reports "No definite acute findings within the abdomen or pelvis. Prominent retroileal appendix with diameter of 9 mm but no appreciable periappendiceal inflammatory changes or appendicolith. This is equivocal for acute appendicitis." Dr. Dawn was consulted performing laparoscopically appendectomy same days as admission, 08/16/2024. She has tolerated procedure without complication, able to tolerate p.o. intake, nausea and vomiting resolved. She is able to ambulate independently in her room. On 08/17/2024, Jenna was seen on morning rounds hemodynamically stable, potassium was replaced and remained stable at 4.[address] Dawn has evaluated and cleared for discharge without antibiotics needed. On examination, abdominal pain is resolving with mild incisional pain present. Incision approximated with dressing clean dry and intact. Physical Exam General: Alert and Oriented x3, afebrile HEENT: Atraumatic, Normocephalic, PERRLA Neck: Supple, 2+ carotid pulse no bruit Respiratory: Clear BBS, Normal air movement, on room air Cardiovascular: NSR, normal S1 S2, no murmur noted Capillary refill: <2 Seconds Gastrointestinal: Soft on palpation, Other (Palpable right inguinal hernia) Musculoskeletal: No clubbing Integumentary: No rashes Neurological: Normal speech, Normal tone Vital Signs/Physical Exam: Temp Pulse Resp BP Pulse Ox 97.7 F 58 15 106/66 97 08/17/24 08:00 08/17/24 08:00 08/17/24 08:00 08/17/24 08:00 08/17/24 08:00 Laboratory Data at Discharge: WBC 8.30 thou/uL (4.3-10.9) 08/17/24 04:30 Hgb 9.0 g/dL (12.0-15.0) L D 08/17/24 04:30 Hct 26.9 % (36.0-45.0) L 08/17/24 04:30 Plt Count 141 thou/uL (152-406) L 08/17/24 04:30 Sodium 136 mEq/L (136-145) 08/17/24 04:30 Potassium 4.4 mEq/L (3.5-5.1) D 08/17/24 04:30 BUN 7 mg/dL (7-18) 08/17/24 04:30 Creatinine 0.68 mg/dL (0.55-1.02) 08/17/24 04:30 Glucose 112 mg/dL (74-106) H 08/17/24 04:30 Phosphorus 2.7 mg/dL (2.5-4.9) 08/17/24 04:30 Magnesium 1.7 mg/dL (1.6-2.4) 08/17/24 04:30 Total Bilirubin 0.5 mg/dL (0.2-1.0) 08/16/24 08:25 AST 59 U/L (15-37) H 08/16/24 08:25 ALT 86 U/L (13-56) H 08/16/24 08:25 Alkaline Phosphatase 86 U/L (45-117) 08/16/24 08:25 Lipase 92 U/L (13-75) H 08/16/24 08:25 Home Medications: Hydrocodone 5/APAP 325 [[place] 5/325*] 1 tab PO Q8H PRN #15 tab 08/17/24 New Medications: Hydrocodone 5/APAP 325 [[place] 5/325*] 1 tab PO Q8H PRN #15 tab PRN Reason: Pain Scale 5-7 (Moderate) Physician Discharge Instructions: 1. Please call and schedule a follow-up appointment with your PCP in 3-5 days - Please follow-up with your PCP for medication refills/adjustments 2. Please call and schedule a follow-up appointment with Dr. Dawn in one week 3. Continue soft diet, advance as tolerated to regular food when able 4. activity restrictions do not lift greater than 10 pounds 5. Return to the ED if symptoms worsen New medications [place] as needed Diet: Regular Activity: No lifting more than 10 lbs Followup: Jose Raul Dawn MD [ACTIVE - CAN ADMIT] - 1 Week OOT,MonikaOT [Primary Care Provider] - 1 Week
[2024-08-17 13:13] VITALS: BP 105/66; TEMP 98.3
== END 2024-08-17 14:35 | disposition home or self-care (01) ==
LOC: ER 07:09 → ERHOLD 10:41 → 2ND 13:08
PROVIDERS: ADMIT Hospitalist; ATTEND Hospitalist
PROC: 0DTJ4ZZ Resection of Appendix, Percutaneous Endoscopic Approach (ICD-10-PCS; principal; 2024-08-16 13:30)
DX: K35.80 Unspecified acute appendicitis (principal); J45.909 Unspecified asthma, uncomplicated; R11.2 Nausea with vomiting, unspecified; R10.31 Right lower quadrant pain; R10.32 Left lower quadrant pain; R19.7 Diarrhea, unspecified; E87.6 Hypokalemia; R74.01 Elevation of levels of liver transaminase levels; K76.0 Fatty (change of) liver, not elsewhere classified; K40.90 Unilateral inguinal hernia, without obstruction or gangrene, not specified as recurrent; K66.0 Peritoneal adhesions (postprocedural) (postinfection); Z88.1 Allergy status to other antibiotic agents
CPT/HCPCS: 96365; 85025 ×2; 81001; 80048; 36415; 83735; 81025; 84100; 88304; 83690; 80053; 94010; 96375; 99285; 96366; 44970; J3475; J2704; J1100; J2543 ×4; J2003; J2250; J3010 ×2; J2405 ×3; G0378 ×5; J7120; J7030 ×3